=== PATIENT | female | born 1940 | race Caucasian/White ===

== ENCOUNTER 2020-09-05 06:26 | Outpatient (REF) | payer MEDICARE, SELFPAY | END 2020-09-05 06:27 | disposition home or self-care (01) | LOC: HO.LAB 06:26 | PROVIDERS: Visit Provider Internal Medicine | DX: Z20.828 Contact with and (suspected) exposure to other viral communicable diseases (principal) | CPT/HCPCS: 87635 ==

== ENCOUNTER 2021-01-23 08:40 | Outpatient (REF) | payer MEDICARE, SELFPAY ==
--- NOTE | ~2021-01-23 | MM_ITS ---
EXAMINATION: MM SCREENING DIGITAL BREAST TOMOSYNTHESIS, BILATERAL CLINICAL INFORMATION: Screening. Asymptomatic. The lifetime risk of breast cancer based on the Tyrer-Cuzick Model is 2%. COMPARISON: Mammography: 08/15/2019, 07/25/2018, 07/19/2017 TECHNIQUE: Digital breast tomosynthesis is performed in both the craniocaudal and mediolateral oblique views along with computer-aided detection (CAD). Synthesized 2D images are generated from the tomosynthesis. Additional exaggerated right CC view is provided. FINDINGS: There are scattered areas of fibroglandular density (ACR BI-RADS breast composition Category b). Breast tissue composition borders on predominantly fatty. There are no significant masses, abnormal calcifications, or other abnormalities. Background stromal markings are stable. The axilla and skin contours are unremarkable. MM/MM tomosynthesis screening BI IMPRESSION: No mammographic evidence of malignancy. ASSESSMENT: BI-RADS 1: Negative RECOMMENDATION: Routine annual mammography screening. This patient's information was entered into a reminder system with a target due date for their next mammogram.
== END 2021-01-23 08:41 | disposition home or self-care (01) ==
LOC: HO.MAMMO 08:40
PROVIDERS: PCP Internal Medicine; Visit Provider Internal Medicine
DX: Z12.31 Encounter for screening mammogram for malignant neoplasm of breast (principal)
CPT/HCPCS: 77063; 77067

== ENCOUNTER 2021-07-25 07:54 | Outpatient (REF) | payer MEDICARE, SELFPAY ==
[2021-07-25 08:59] LABS: MANUAL DIFF FLAG NO
[2021-07-25 09:17] LABS: Basophils Absolute Auto 0.1 X10*3/uL (0.0-0.2); Basophils Percent Auto 1.1 % (0-2); Eosinophils Absolute Auto 0.3 X10*3/uL (0.0-0.4); Eosinophils Percent Auto 4.9 % (0-4); Hematocrit 41.6 % (37-47); Hemoglobin 14.3 g/dl (12.0-16.0); Imm Gran Abs Auto 0.03 X10*3/uL (0.00-0.03); Imm Gran Pct Auto 0.4 % (0.0-0.4); Lymphocytes Absolute Auto 1.6 X10*3/uL (1.2-4.9); Lymphocytes Percent Auto 22.2 % (20-40); Mean Corpuscular HGB Conc 34.4 g/dl (31.0-35.0); Mean Corpuscular Hemoglobin 30.5 pg (27.0-33.0); Mean Corpuscular Volume 88.7 fL (80-98); Mean Platelet Volume 8.9 fL (9.4-12.3); Monocytes Absolute Auto 0.6 X10*3/uL (0.1-1.2); Monocytes Percent Auto 8.9 % (2-11); Neutrophils Absolute Auto 4.4 X10*3/uL (2.0-8.3); Neutrophils Percent Auto 62.5 % (45-73); Platelet Count 298 X10*3/uL (160-400); Red Blood Count 4.69 X10*6/uL (4.20-5.50); Red Cell Distribution Width 12.8 % (11.0-16.0)
[2021-07-25 09:36] LABS: Alanine Aminotransferase 20 U/L (0-31); Albumin Level 4.2 g/dL (3.5-5.0); Alkaline Phosphatase 90 U/L (39-117); Anion Gap 12 (12-20); Aspartate Amino Transferase 19 U/L (5-31); Blood Urea Nitrogen 9 mg/dL (9-16); Calcium 9.4 mg/dL (8.4-10.2); Carbon Dioxide 27 mmol/L (22-29); Chloride 101 mmol/L (96-108); Cholesterol 201 mg/dL; Estimated Glomerular Filt Rate > 60; Glucose Random 92 mg/dL (60-115); HDL Cholesterol 47 mg/dL; LDL Cholesterol Calculated 113 mg/dl; Potassium 5.2 mmol/L (3.3-5.1); Sodium 135 mmol/L (135-145); Total Protein 7.2 g/dL (6.5-8.0); Triglycerides 208 mg/dL
[2021-07-25 10:02] LABS: Free T4 (Free Thyroxine) 0.95 ng/dL (0.71-1.85); Thyroid Stimulating Hormone 3.16 uIU/mL (0.32-4.0); Vitamin D 25-OH Total 41.9 ng/mL (>30)
[2021-07-27 08:23] LABS: Folate > 20.0 ng/mL (> or = 4.0); Vitamin B12 445 pg/mL (200-900)
== END 2021-07-25 07:55 | disposition home or self-care (01) ==
LOC: HO.LAB 07:54
PROVIDERS: PCP Internal Medicine; Visit Provider Internal Medicine
DX: E78.00 Pure hypercholesterolemia, unspecified (principal); I10 Essential (primary) hypertension
CPT/HCPCS: 36415; 80053; 80061; 82306; 82607; 82746; 84439; 84443; 85025

== ENCOUNTER 2021-09-02 08:17 | Outpatient (REF) | payer MEDICARE, SELFPAY ==
--- NOTE | ~2021-09-02 | MM_ITS ---
EXAMINATION: BONE DENSITOMETRY CLINICAL INDICATION: Age-related osteoporosis without current pathological fracture. COMPARISON: Previous BD dated 12/15/2017 and baseline BD dated 03/15/2008. TECHNIQUE: Using a [employer] DXA System (software version: 13.1) manufactured by [employer], dual-energy x-ray absorptiometry was performed of the lumbar spine and left hip. The images are of good technical quality. Summary results are attached. FINDINGS: AP SPINE L1-L4: Current: BMD 0.950 g/cm2, Z-score -0.2, T-score -1.9, osteopenia, 5.0% increase from previous, 10.5% increase from baseline (<5% change is not significant). Prior: BMD 0.905 g/cm2. Baseline: BMD 0.860 g/cm2. LEFT FEMUR, NECK: Current: BMD 0.819 g/cm2, Z-score 0.5, T-score -1.6, osteopenia. Prior: BMD 0.824 g/cm2. Baseline: BMD 0.862 g/cm2. LEFT FEMUR, TOTAL: Current: BMD 0.972 g/cm2, Z-score 1.7, T-score -0.3, normal, 1.0% decrease from previous, 3.2% decrease from baseline (<5% change is not significant). Prior: BMD 0.982 g/cm2. Baseline: BMD 1.004 g/cm2. IDENTIFIED RISK FACTORS: Osteoporosis, history of fracture (adult), menopause. HISTORY OF FRACTURE: Pelvis. MEDICATIONS: Calcium supplements or multivitamin, vitamin D. MM/XR DEXA axial skeleton IMPRESSION: 1. DIAGNOSIS: Osteopenia based on the lowest T-score value of -1.9 in the lumbar spine applying World Health Organization criteria. 2. 10-YEAR FRACTURE RISK PREDICTION, FRAX: Major osteoporotic fracture (clinical spine, forearm, hip or shoulder) 19.8%. Hip fracture 4.6%. 3. Treatment Recommendations: NOF guidelines recommend consideration for treatment in postmenopausal women and men age 50 and older presenting with the following: -A hip or vertebral (clinical or morphometric) fracture. -T-score less than or equal to -2.5 at the femoral neck or spine after appropriate evaluation to exclude secondary causes. -Low bone mass at the hip or spine and a 10-year fracture probability by FRAX of greater than or equal to 3% for hip fracture or greater than or equal to 20% for major osteoporotic fracture based on the [place] adapted WHO algorithm. 4. Other Recommendations: All treatment decisions require clinical judgment and consideration of individual patient factors, including patient preferences, comorbidities, previous drug use, risk factors not captured in the FRAX model (e.g. frailty, falls, vitamin D deficiency, increased bone turnover, interval significant decline in bone density) and possible under or overestimation of fracture risk by FRAX. Additional medical evaluation for secondary cause of low bone mineral density may be appropriate. FUTURE SCAN RECOMMENDATION: People with diagnosed cases of osteoporosis or at high risk for fracture should have regular bone mineral density tests. For patients eligible for Medicare, routine testing is allowed once every 2 years. The testing frequency can be increased to one year for patients who have rapidly progressing disease, those who are receiving or discontinuing medical therapy to restore bone mass, or have additional risk factors.
== END 2021-09-02 08:18 | disposition home or self-care (01) ==
LOC: HO.MAMMO 08:17
PROVIDERS: PCP Internal Medicine; Visit Provider Internal Medicine
DX: Z13.820 Encounter for screening for osteoporosis (principal); M81.0 Age-related osteoporosis without current pathological fracture; M85.80 Other specified disorders of bone density and structure, unspecified site; Z78.0 Asymptomatic menopausal state; Z87.81 Personal history of (healed) traumatic fracture; Z79.899 Other long term (current) drug therapy
CPT/HCPCS: 77080

== ENCOUNTER 2022-02-05 08:28 | Outpatient (REF) | payer MEDICARE, SELFPAY ==
--- NOTE | ~2022-02-05 | MM_ITS ---
EXAMINATION: MM SCREENING DIGITAL BREAST TOMOSYNTHESIS, BILATERAL CLINICAL INFORMATION: Screening. Asymptomatic. The lifetime risk of breast cancer based on the Tyrer-Cuzick Model is 1%. COMPARISON: Mammography: January 23, 2021 and studies dating back to June 10, 2014 TECHNIQUE: Digital breast tomosynthesis is performed in both the craniocaudal and mediolateral oblique views along with computer-aided detection (CAD). Synthesized 2D images are generated from the tomosynthesis. FINDINGS: There are scattered areas of fibroglandular density (ACR BI-RADS breast composition Category b). There are no significant masses, abnormal calcifications, or other abnormalities. MM/MM tomosynthesis screening BI IMPRESSION: There are no significant changes from prior study. ASSESSMENT: BI-RADS 1: Negative RECOMMENDATION: Routine annual mammography screening. This patient's information was entered into a reminder system with a target due date for their next mammogram.
== END 2022-02-05 08:29 | disposition home or self-care (01) ==
LOC: HO.MAMMO 08:28
PROVIDERS: Visit Provider Internal Medicine
DX: Z12.31 Encounter for screening mammogram for malignant neoplasm of breast (principal)
CPT/HCPCS: 77063; 77067

== ENCOUNTER 2022-06-03 11:42 | Outpatient (REF) | payer MEDICARE, SELFPAY ==
[2022-06-03 12:21] LABS: Hematocrit 39.8 % (37.0-47.0); Hemoglobin 13.8 g/dl (12.0-16.0); Mean Corpuscular HGB Conc 34.7 g/dl (31.0-35.0); Mean Corpuscular Hemoglobin 30.6 pg (27.0-33.0); Mean Corpuscular Volume 88.2 fL (80.0-98.0); Mean Platelet Volume 8.6 fL (9.4-12.3); Platelet Count 258 X10*3/uL (160-400); Red Blood Count 4.51 X10*6/uL (4.20-5.50); Red Cell Distribution Width 12.6 % (11.0-16.0); White Blood Count 7.7 X10*3/uL (4.8-10.8)
[2022-06-03 13:16] LABS: Alanine Aminotransferase 18 U/L (0-31); Albumin Level 4.2 g/dL (3.5-5.0); Alkaline Phosphatase 89 U/L (39-117); Anion Gap 11 (12-20); Aspartate Amino Transferase 20 U/L (5-31); Bilirubin Direct 0.3 mg/dL (0.0-0.5); Bilirubin Total 0.8 mg/dL (0.0-1.0); Blood Urea Nitrogen 14 mg/dL (9-16); Calcium 9.5 mg/dL (8.4-10.2); Carbon Dioxide 26 mmol/L (22-29); Chloride 100 mmol/L (96-108); Cholesterol 209 mg/dL; Estimated Glomerular Filt Rate > 60; Glucose Random 92 mg/dL (60-115); HDL Cholesterol 49 mg/dL; LDL Cholesterol Calculated 122 mg/dl; Potassium 4.9 mmol/L (3.3-5.1); Sodium 132 mmol/L (135-145); Triglycerides 193 mg/dL
[2022-06-03 13:35] LABS: Thyroid Stimulating Hormone 1.96 uIU/mL (0.32-4.0)
== END 2022-06-03 11:43 | disposition home or self-care (01) ==
LOC: HO.LAB 11:42
PROVIDERS: PCP Internal Medicine; Visit Provider Internal Medicine
DX: I10 Essential (primary) hypertension (principal); E78.00 Pure hypercholesterolemia, unspecified
CPT/HCPCS: 36415; 80048; 80061; 80076; 84443; 85027

== ENCOUNTER 2022-06-14 09:33 | Day surgery (SDC) | payer MEDICARE, SELFPAY ==
[2022-06-07 14:38] VITALS: BMI 27.5
--- NOTE | 2022-06-10 10:47 | MHC.SHP ---
Pre-Procedural Eval Section A Date of Service: 06/10/22 The patient is an INPATIENT: No Changes since office visit: No Cold of Flu in the past 2 weeks, No New Medical Problems, No Changes in Medication and No Patient answered all questions The History & Physical has been completed within 30 days and I have reviewed it.: Yes Section B Chief Complaint: Age-related nuclear cataract, left eye Allergies: Allergies Allergy/AdvReac Type Severity Reaction Status Date / Time Sulfa (Sulfonamide Allergy Intermediate RASH Verified 06/03/22 10:22 Antibiotics) [SULFA (SULFONAMIDE ANTIBIOTICS)] Plan Diagnosis/Plan: Unchanged I have reviewed the history and physical and performed a pertinent physical examination on my patient. No changes have occurred unless specified.
--- NOTE | 2022-06-11 09:52 | P.CONAN_ITS ---
Documented by User: Georgie Arora NP 06/11/22 09:53 HPI - Anesthesia Eval Consult details Narrative: 81yo F for Left Cataract Extraction IOL Insertion PCP cleared No prev cataract on record [facility] Active Problems Active Problems: All Active Problems (Updated 06/04/22 @ 13:41 by Osmani Pace MD) Osteopenia (Acute) Preoperative clearance (Acute) Bilateral cataracts (Acute) GERD (gastroesophageal reflux disease) (Acute) Hypertension (Acute) Hypercholesterolemia (Acute) Past Medical History Medical History Diverticulosis GERD (gastroesophageal reflux disease) Heart murmur Hypercholesterolemia Hypertension Retinal detachment Surgical History Surgical History H/O colonoscopy H/O eye surgery History of bilateral knee replacement History of dilatation and curettage History of surgery Hx of appendectomy Hx of cholecystectomy Social History Social History Housing: House Alcohol intake: current Alcohol intake frequency: a few times a week Alcohol type: wine Patient Tobacco Use Status: Never used Tobacco e-Cigarette/Vaping Use: Never Used Second Hand Smoke Exposure: No Use of substances other than those prescribed or required for medical reasons: No Advance Directives: No (unknown-VM message left) Advance Directives Information Provided: Yes (brochure mailed) Advance Directives on File: No service: No Current occupational status: retired Cognitive needs: No Hearing needs: No Vision needs: No Meds Allergies Allergy/AdvReac Type Severity Reaction Status Date / Time Sulfa (Sulfonamide Allergy Intermediate RASH Verified 06/03/22 10:22 Antibiotics) [SULFA (SULFONAMIDE ANTIBIOTICS)] Home Medications Medication Instructions Recorded Confirmed Last Taken Type calcium carbonate 600 mg-vitamin 1 cap PO DAILY 01/28/21 06/07/22 Unknown History D3 12.5 mcg (500 unit) capsule (Calcium 600 with Vitamin D3) htvgtpdnspiq-osdmhgjd-tzemijp-folic 1 tab PO DAILY 01/28/21 06/07/22 Unknown History acid 400 mcg-vit K1 20 mcg tablet (One-A-Day Women's 50 Plus) Exam Exam Date and Time: June 11, 2022 0952 Height,Weight and Vital Signs: Height 5 ft 3 in Weight 70.477 kg Assessment and Plan Assessment Anesthesia Assessment: Chart Reviewed Documented by User: Marily Massey MD 06/14/22 11:24 [facility] Active Problems Active Problems: All Active Problems (Updated 06/04/22 @ 13:41 by Osmani Pace MD) Osteopenia (Acute) Preoperative clearance (Acute) Bilateral cataracts (Acute) GERD (gastroesophageal reflux disease) (Acute) Hypertension (Acute) Hypercholesterolemia (Acute) Advanced age Past Medical History Medical History Diverticulosis GERD (gastroesophageal reflux disease) Heart murmur Hypercholesterolemia Hypertension Retinal detachment Family History Family history of problems with anesthesia: No Surgical History Surgical History H/O colonoscopy H/O eye surgery History of bilateral knee replacement History of dilatation and curettage History of surgery Hx of appendectomy Hx of cholecystectomy History of Problems with Anesthesia: No Social History Social History Housing: House Alcohol intake: current Alcohol intake frequency: a few times a week Alcohol type: wine Patient Tobacco Use Status: Never used Tobacco e-Cigarette/Vaping Use: Never Used Second Hand Smoke Exposure: No Use of substances other than those prescribed or required for medical reasons: No Advance Directives: No (unknown-VM message left) Advance Directives Information Provided: Yes (brochure mailed) Advance Directives on File: No service: No Current occupational status: retired Cognitive needs: No Hearing needs: No Vision needs: No Meds Allergies Allergy/AdvReac Type Severity Reaction Status Date / Time Sulfa (Sulfonamide Allergy Intermediate RASH Verified 06/03/22 10:22 Antibiotics) [SULFA (SULFONAMIDE ANTIBIOTICS)] Home Medications Medication Instructions Recorded Confirmed Last Taken Type calcium carbonate 600 mg-vitamin 1 cap PO DAILY 01/28/21 06/07/22 Unknown History D3 12.5 mcg (500 unit) capsule (Calcium 600 with Vitamin D3) vqollzchwsqa-ovndcglm-ryiajhk-folic 1 tab PO DAILY 01/28/21 06/07/22 Unknown History acid 400 mcg-vit K1 20 mcg tablet (One-A-Day Women's 50 Plus) Exam Height,Weight and Vital Signs: Height 5 ft 3 in Weight 70.477 kg Vital Signs Temp Pulse Resp BP Pulse Ox O2 Del Method 06/14/22 11:03 61 183/85 H 06/14/22 10:59 65 208/98 H 06/14/22 10:54 96.7 F L 68 16 200/98 H 96 Room Air Airway Mallampati Class: II TM Dist: >3cm Neck ROM: Full Loose/Missing/Broken Teeth: No (All teeth intact per patient) Heart: RRR + murmur Lungs: CTAB Assessment and Plan Assessment Anesthesia Assessment: Anesthesia Plan Discussed Final Anesthetic Review Family History of Problems with Anesthesia: No History of Problems with Anesthesia: No NPO: Yes ASA Class: III Final Preanesthetic Review: No Changes in Pt Med Stat, Meds/Allgs Chart Reviewed, Consent Obtained/Reviewed and Anes Risks/Benef Reviewed Patient Risk: Intermediate Procedure Risk: Low Assessment/Block/Sedation in SS: Assess/Block/Sedation-SS Anesthetic Plan Anesthetic Plan: MAC: Disposition: Standard PACU
[2022-06-14 10:54] VITALS: BP 200/98; PULSE 68; RESP 16; TEMP 35.9; O2SAT 96
[2022-06-14 10:59] VITALS: BP 208/98; PULSE 65
[2022-06-14 11:03] VITALS: BP 183/85; PULSE 61
[2022-06-14] MEDS: Tetracaine HCl/PF 0.5% Oph Sol 4 ML DROPS 1 DROP EYE-LEFT (11:04)
[2022-06-14] MEDS: Tropicamide 1 % Ophth Sol 3 ML BTL 1 DROP EYE-LEFT ×3 (11:05→11:16)
[2022-06-14] MEDS: Cyclopentolate 1 % Ophth Sol 2 ML DRPBTL 1 DROP EYE-LEFT ×3 (11:06→11:17)
[2022-06-14] MEDS: Lactated Ringers 500 ML 50 ML IV (11:10)
[2022-06-14] MEDS: Phenylephrine HCL 2.5% Oph SoL 2 ML BOTTLE 1 DROP EYE-LEFT ×3 (11:10→11:19)
--- NOTE | 2022-06-14 12:15 | HO.PNOPHT ---
Ophthalmology Procedure Procedure Date of Service: 06/14/22 Ophthalmology Viscoelastic: Healjose Duet Dual Pack Pro Ophthalmology Lenses: TECNIS [id number] (16.5) Procedure Notes: PREOPERATIVE DIAGNOSIS: Decreased visual acuity left eye secondary to cataract POSTOPERATIVE DIAGNOSIS: Same PROCEDURE: Left cataract extraction with intraocular lens insertion SURGEON: Kartik Amador M.D. ANESTHESIA: Topical/MAC ESTIMATED BLOOD LOSS: None COMPLICATIONS: None After obtaining informed consent, the patient was brought to the operation room suite and placed in the supine position. After adequate sedation per anesthesia, topical drops of Tetracaine were given to the left eye. The eye was then prepped and draped in the usual sterile fashion. The operating room microscope was then positioned over the operative eye and a lid speculum placed. A paracentesis was created. Viscoelastic was then instilled into the anterior chamber. A three plane incision was then created temporally, utilizing a 2.85 mm keratome. Capsulotomy forceps were then utilized to create a circular tear capsulotomy. Hydrodissection and hydrodelineation were carried out until adequate mobilization of the nucleus occurred. Phacoemulsification was then utilized to remove the dense central nucleus followed by removal of the cortical material utilizing the automated aspiration irrigation unit. Viscoat elastic was instilled into the posterior capsular bag followed by placement of a posterior chamber intraocular lens without difficulty. The residual Viscoat elastic was then removed utilizing the automated IA machine. The wound was check and found to be watertight. The patient tolerated the procedure well and the lid speculum was removed. Intracameral injection of Vigamox 0.1 mL followed by a subtenon injection of Kenalog-40 0.2 mL were administered. The patient will be seen in the a.m.
[2022-06-14 12:44] VITALS: BP 112/71; PULSE 64; RESP 16; TEMP 36.1; O2SAT 97
== END 2022-06-14 13:04 | disposition home or self-care (01) ==
PROVIDERS: PCP Internal Medicine; Visit Provider Ophthalmology
PROC: (CPT 66985; principal; 2022-06-14 12:10)
DX: H25.12 Age-related nuclear cataract, left eye (principal); H52.4 Presbyopia; H33.001 Unspecified retinal detachment with retinal break, right eye; I10 Essential (primary) hypertension; E78.00 Pure hypercholesterolemia, unspecified; M19.90 Unspecified osteoarthritis, unspecified site; Z79.899 Other long term (current) drug therapy; Z88.2 Allergy status to sulfonamides; Z96.653 Presence of artificial knee joint, bilateral
CPT/HCPCS: 66984; J2250; J3010; J3300; V2632

== ENCOUNTER 2022-06-21 09:46 | Day surgery (SDC) | payer MEDICARE, SELFPAY ==
[2022-06-07 14:41] VITALS: BMI 27.5
--- NOTE | 2022-06-17 09:56 | MHC.SHP ---
Pre-Procedural Eval Section A Date of Service: 06/17/22 The patient is an INPATIENT: No Changes since office visit: No Cold of Flu in the past 2 weeks, No New Medical Problems, No Changes in Medication and No Patient answered all questions The History & Physical has been completed within 30 days and I have reviewed it.: Yes Section B Chief Complaint: Age-related nuclear cataract, right eye Allergies: Allergies Allergy/AdvReac Type Severity Reaction Status Date / Time Sulfa (Sulfonamide Allergy Intermediate RASH Verified 06/03/22 10:22 Antibiotics) [SULFA (SULFONAMIDE ANTIBIOTICS)] Plan Diagnosis/Plan: Unchanged I have reviewed the history and physical and performed a pertinent physical examination on my patient. No changes have occurred unless specified.
--- NOTE | 2022-06-18 10:26 | HO.ANESPROP2 ---
Documented by User: Georgie Arora NP 06/18/22 10:26 HPI - Anesthesia Eval Consult details Narrative: 81yo F for Right Cataract Extraction IOL Insertion PCP cleared Left eye 06/14/22 with MAC: Fent 50, Midaz 1 PMFSH Active Problems Active Problems: All Active Problems (Updated 06/14/22 @ 10:45 by Demetra Willson RN) Osteopenia (Acute) Preoperative clearance (Acute) Bilateral cataracts (Acute) GERD (gastroesophageal reflux disease) (Acute) Hypertension (Acute) Hypercholesterolemia (Acute) Past Medical History Medical History Diverticulosis GERD (gastroesophageal reflux disease) Heart murmur Hypercholesterolemia Hypertension Retinal detachment Family History Family history of problems with anesthesia: No Surgical History Surgical History H/O colonoscopy H/O eye surgery History of bilateral knee replacement History of dilatation and curettage History of surgery Hx of appendectomy Hx of cholecystectomy History of Problems with Anesthesia: No Social History Social History Housing: House Alcohol intake: current Alcohol intake frequency: a few times a week Alcohol type: wine Patient Tobacco Use Status: Never used Tobacco e-Cigarette/Vaping Use: Never Used Second Hand Smoke Exposure: No Use of substances other than those prescribed or required for medical reasons: No Advance Directives: No (unknown-VM message left) Advance Directives Information Provided: Yes (brochure mailed) Advance Directives on File: No Nutrition Risks: Surgical patient >75years service: No Current occupational status: retired Cognitive needs: No Hearing needs: No Vision needs: No Meds Allergies Allergy/AdvReac Type Severity Reaction Status Date / Time Sulfa (Sulfonamide Allergy Intermediate RASH Verified 06/03/22 10:22 Antibiotics) [SULFA (SULFONAMIDE ANTIBIOTICS)] Home Medications Medication Instructions Recorded Confirmed Last Taken Type calcium carbonate 600 mg-vitamin 1 cap PO DAILY 01/28/21 06/07/22 Unknown History D3 12.5 mcg (500 unit) capsule (Calcium 600 with Vitamin D3) gtveywhekwzm-pojqtfdw-ksbzuft-folic 1 tab PO DAILY 01/28/21 06/07/22 Unknown History acid 400 mcg-vit K1 20 mcg tablet (One-A-Day Women's 50 Plus) Exam Exam Date and Time: June 18, 2022 1026 Height,Weight and Vital Signs: Height 5 ft 3 in Weight 70.477 kg Assessment and Plan Assessment Anesthesia Assessment: Chart Reviewed Final Anesthetic Review Family History of Problems with Anesthesia: No History of Problems with Anesthesia: No Documented by User: Marily Massey MD 06/21/22 12:18 [facility] Past Medical History Medical History Diverticulosis GERD (gastroesophageal reflux disease) Heart murmur Hypercholesterolemia Hypertension Retinal detachment Surgical History Surgical History H/O colonoscopy H/O eye surgery History of bilateral knee replacement History of dilatation and curettage History of surgery Hx of appendectomy Hx of cholecystectomy Social History Social History Housing: House Alcohol intake: current Alcohol intake frequency: a few times a week Alcohol type: wine Patient Tobacco Use Status: Never used Tobacco e-Cigarette/Vaping Use: Never Used Second Hand Smoke Exposure: No Use of substances other than those prescribed or required for medical reasons: No Advance Directives: No (unknown-VM message left) Advance Directives Information Provided: Yes (brochure mailed) Advance Directives on File: No Nutrition Risks: Surgical patient >75years service: No Current occupational status: retired Cognitive needs: No Hearing needs: No Vision needs: No Meds Allergies Allergy/AdvReac Type Severity Reaction Status Date / Time Sulfa (Sulfonamide Allergy Intermediate RASH Verified 06/03/22 10:22 Antibiotics) [SULFA (SULFONAMIDE ANTIBIOTICS)] Home Medications Medication Instructions Recorded Confirmed Last Taken Type calcium carbonate 600 mg-vitamin 1 cap PO DAILY 01/28/21 06/07/22 Unknown History D3 12.5 mcg (500 unit) capsule (Calcium 600 with Vitamin D3) tewsgyntihtb-zzsqkojy-swbowfo-folic 1 tab PO DAILY 01/28/21 06/07/22 Unknown History acid 400 mcg-vit K1 20 mcg tablet (One-A-Day Women's 50 Plus) Exam Height,Weight and Vital Signs: Height 5 ft 3 in Weight 70.477 kg Vital Signs Temp Pulse Resp BP Pulse Ox O2 Del Method 06/21/22 11:42 97.3 F 58 16 166/89 H 99 Room Air Airway Mallampati Class: II TM Dist: >3cm Neck ROM: Full Loose/Missing/Broken Teeth: No Heart: RRR+murmur Lungs: CTAB Assessment and Plan Assessment Anesthesia Assessment: Anesthesia Plan Discussed Final Anesthetic Review NPO: Yes ASA Class: III Final Preanesthetic Review: No Changes in Pt Med Stat, Meds/Allgs Chart Reviewed, Consent Obtained/Reviewed and Anes Risks/Benef Reviewed Patient Risk: Intermediate Procedure Risk: Low Assessment/Block/Sedation in SS: Assess/Block/Sedation-SS Anesthetic Plan Anesthetic Plan: MAC: Disposition: Standard PACU
[2022-06-21 11:42] VITALS: BP 166/89; PULSE 58; RESP 16; TEMP 36.3; O2SAT 99
[2022-06-21] MEDS: Cyclopentolate 1 % Ophth Sol 2 ML DRPBTL 1 DROP EYE-RIGHT ×3 (11:48→11:55)
[2022-06-21] MEDS: Tropicamide 1 % Ophth Sol 3 ML BTL 1 DROP EYE-RIGHT ×3 (11:49→11:56)
[2022-06-21] MEDS: Phenylephrine HCL 2.5% Oph SoL 2 ML BOTTLE 1 DROP EYE-RIGHT ×3 (11:51→11:58)
[2022-06-21] MEDS: Lactated Ringers 500 ML 50 ML IV (12:18)
--- NOTE | 2022-06-21 12:33 | HO.PNOPHT ---
Ophthalmology Procedure Procedure Date of Service: 06/21/22 Ophthalmology Viscoelastic: Neha Kaurt Dual Pack Pro Ophthalmology Lenses: TECSARITHA [id number] (16) Procedure Notes: PREOPERATIVE DIAGNOSIS: Decreased visual acuity right eye secondary to cataract POSTOPERATIVE DIAGNOSIS: Same PROCEDURE: Right cataract extraction with intraocular lens insertion SURGEON: Kartik Amador M.D. ANESTHESIA: Topical/MAC ESTIMATED BLOOD LOSS: None COMPLICATIONS: None After obtaining informed consent, the patient was brought to the operating room suite and placed in the supine position. After adequate sedation per anesthesia, topical drops of Tetracaine were given to the right eye. The eye was then prepped and draped in the usual sterile fashion. The operating room microscope was then positioned over the operative eye and a lid speculum placed. A paracentesis was created. Viscoelastic was then instilled into the anterior chamber. A three plane incision was then created temporally, utilizing a 2.85 mm keratome. Capsulotomy forceps were then utilized to create a circular tear capsulotomy. Hydrodissection and hydrodelineation were carried out until adequate mobilization of the nucleus occurred. Phacoemulsification was then utilized to remove the dense central nucleus followed by removal of the cortical material utilizing the automated aspiration irrigation unit. Viscoelastic was instilled into the posterior capsular bag followed by placement of a posterior chamber intraocular lens without difficulty. The residual Viscoelastic was then removed utilizing the automated IA machine. The wound was checked and found to be watertight. The patient tolerated the procedure well and the lid speculum was removed. Intracameral injection of Vigamox 0.1 mL followed by a subtenon injection of Kenalog-40 0.2 mL were administered. The patient will be seen in the a.m.
[2022-06-21 13:04] VITALS: BP 115/61; PULSE 64; RESP 16; TEMP 36.3; O2SAT 98
== END 2022-06-21 13:12 | disposition home or self-care (01) ==
PROVIDERS: PCP Internal Medicine; Visit Provider Ophthalmology
PROC: (CPT 66985; principal; 2022-06-21 12:40)
DX: H25.11 Age-related nuclear cataract, right eye (principal); H52.4 Presbyopia; H33.001 Unspecified retinal detachment with retinal break, right eye; H35.361 Drusen (degenerative) of macula, right eye; I10 Essential (primary) hypertension; E78.00 Pure hypercholesterolemia, unspecified; Z79.899 Other long term (current) drug therapy; Z88.2 Allergy status to sulfonamides; Z96.653 Presence of artificial knee joint, bilateral
CPT/HCPCS: 66984; J2250; J3010; J3300; V2632

== ENCOUNTER 2022-08-10 07:22 | Outpatient (REF) | payer MEDICARE, SELFPAY ==
[2022-08-10 07:38] LABS: MANUAL DIFF FLAG NO
[2022-08-10 08:03] LABS: Basophils Absolute Auto 0.1 X10*3/uL (0.0-0.2); Basophils Percent Auto 0.9 % (0-2); Eosinophils Absolute Auto 0.3 X10*3/uL (0.0-0.4); Hematocrit 40.3 % (37.0-47.0); Imm Gran Abs Auto 0.04 X10*3/uL (0.00-0.03); Imm Gran Pct Auto 0.5 % (0.0-0.4); Lymphocytes Absolute Auto 1.8 X10*3/uL (1.2-4.9); Lymphocytes Percent Auto 23.7 % (20-40); Mean Corpuscular HGB Conc 34.7 g/dl (31.0-35.0); Mean Corpuscular Hemoglobin 30.8 pg (27.0-33.0); Mean Corpuscular Volume 88.8 fL (80.0-98.0); Mean Platelet Volume 8.6 fL (9.4-12.3); Monocytes Absolute Auto 0.7 X10*3/uL (0.1-1.2); Monocytes Percent Auto 8.7 % (2-11); Neutrophils Absolute Auto 4.7 x10*3/uL (2.0-8.3); Neutrophils Percent Auto 62.2 % (45-73); Platelet Count 271 X10*3/uL (160-400); Red Blood Count 4.54 X10*6/uL (4.20-5.50); Red Cell Distribution Width 12.8 % (11.0-16.0); White Blood Count 7.6 X10*3/uL (4.8-10.8)
[2022-08-10 08:20] LABS: Alanine Aminotransferase 23 U/L (0-31); Albumin Level 4.2 g/dL (3.5-5.0); Alkaline Phosphatase 95 U/L (39-117); Anion Gap 14 (12-20); Aspartate Amino Transferase 21 U/L (5-31); Bilirubin Total 0.9 mg/dL (0.0-1.0); Blood Urea Nitrogen 12 mg/dL (9-16); Carbon Dioxide 27 mmol/L (22-29); Chloride 95 mmol/L (96-108); Cholesterol 211 mg/dL; Estimated Glomerular Filt Rate > 60; Glucose Random 99 mg/dL (60-115); HDL Cholesterol 54 mg/dL; LDL Cholesterol Calculated 130 mg/dl; Sodium 131 mmol/L (135-145); Triglycerides 135 mg/dL
[2022-08-10 08:41] LABS: Free T4 (Free Thyroxine) 0.98 ng/dL (0.71-1.85); Thyroid Stimulating Hormone 3.58 uIU/mL (0.32-4.0); Vitamin D 25-OH Total 43.2 ng/mL (>30)
[2022-08-10 09:44] LABS: Folate > 20.0 ng/mL (> or = 4.0); Vitamin B12 343 pg/mL (200-900)
== END 2022-08-10 07:23 | disposition home or self-care (01) ==
LOC: HO.LAB 07:22
PROVIDERS: PCP Internal Medicine; Visit Provider Internal Medicine
DX: E78.00 Pure hypercholesterolemia, unspecified (principal)
CPT/HCPCS: 36415; 80053; 80061; 82306; 82607; 82746; 84439; 84443; 85025

== ENCOUNTER 2023-03-14 08:31 | Outpatient (REF) | payer MEDICARE, SELFPAY ==
--- NOTE | ~2023-03-14 | MM_ITS ---
EXAMINATION: MM SCREENING DIGITAL BREAST TOMOSYNTHESIS, BILATERAL CLINICAL INFORMATION: Screening. Asymptomatic. COMPARISON: Prior mammography exams, most recent 02/05/2022. TECHNIQUE: Digital breast tomosynthesis is performed in both the craniocaudal and mediolateral oblique views along with computer-aided detection (CAD). Synthesized 2D images are generated from the tomosynthesis. Additional bilateral exaggerated CC views are provided. FINDINGS: There are scattered areas of fibroglandular density (ACR BI-RADS breast composition Category b). There is a small oval nodule around 5 mm mid 9:00 right breast, more conspicuous on current exam, possibly a cyst. Margins are incompletely visualized. Patient will be recalled for additional imaging. The remainder of the bilateral breasts show no significant changes from prior studies. No developing density or architectural abnormality or abnormal calcifications. The axilla and skin contours are unremarkable. MM/MM tomosynthesis screening BI IMPRESSION: Right: -Small oval nodule mid 9:00, more conspicuous on current exam, possibly a cyst. Left: -No mammographic evidence of malignancy. ASSESSMENT: BI-RADS 0: Incomplete - Need Additional Imaging Evaluation RECOMMENDATION: 1. Additional views right breast for margins (spot CC, spot ML). 2. Targeted ultrasound right breast. 3. Radiology department staff will contact the patient for additional imaging. This patient's information was entered into a reminder system with a target due date for their next mammogram.
== END 2023-03-14 08:32 | disposition home or self-care (01) ==
LOC: HO.MAMMO 08:31
PROVIDERS: PCP Internal Medicine; Visit Provider Internal Medicine
DX: Z12.31 Encounter for screening mammogram for malignant neoplasm of breast (principal)
CPT/HCPCS: 77063; 77067

== ENCOUNTER 2023-04-04 13:40 | Outpatient (REF) | payer MEDICARE, SELFPAY ==
--- NOTE | ~2023-04-04 | MM_ITS ---
EXAMINATION: MM DIAGNOSTIC DIGITAL BREAST TOMOSYNTHESIS, RIGHT US DIAGNOSTIC ULTRASOUND BREAST, RIGHT CLINICAL INFORMATION: Recall from screening for smooth oval nodular asymmetry mid 9:00 right breast, better appreciated on recent imaging, possibly a cyst. COMPARISON: Prior mammography exams, including most recent 03/14/2023. TECHNIQUE: Digital breast tomosynthesis is performed. 2D images are generated from the tomosynthesis. The following views are obtained: Spot CC, spot ML. Ultrasound right breast is performed using grayscale imaging and color Doppler without and with harmonics. FINDINGS: There are scattered areas of fibroglandular density (ACR BI-RADS breast composition Category b). The additional views show small smooth nodularity anterior 8:00 position similar to prior exam. No spiculation or associated calcification. Ultrasound demonstrates benign grouped microcysts 8:00 position 3 cm from nipple under 1 cm in overall size. There is increased through-transmission of sound. No solid mass or architectural abnormality. Results are discussed with the patient at time of visit. MM/MM tomosynthesis added views R IMPRESSION: -Benign smooth nodularity anterior to 8:00 similar to prior exam. -Benign-appearing grouped microcysts anterior 8:00 right breast. ASSESSMENT: BI-RADS 2: Benign RECOMMENDATION: Routine annual mammography screening. This patient's information was entered into a reminder system with a target due date for their next mammogram.
== END 2023-04-04 13:41 | disposition home or self-care (01) ==
LOC: HO.MAMMO 13:40
PROVIDERS: PCP Internal Medicine; Visit Provider Internal Medicine
DX: N63.15 Unspecified lump in the right breast, overlapping quadrants (principal)
CPT/HCPCS: 76642; 77061; 77065

== ENCOUNTER 2023-05-31 14:10 | Outpatient (REF) | payer MEDICARE, SELFPAY | END 2023-05-31 14:11 | disposition home or self-care (01) | LOC: HO.SH 14:10 | PROVIDERS: Visit Provider Internal Medicine | DX: Z01.118 Encounter for examination of ears and hearing with other abnormal findings (principal); H90.3 Sensorineural hearing loss, bilateral | CPT/HCPCS: 92557 ==

== ENCOUNTER 2023-07-05 13:17 | Outpatient (REF) | payer SELFPAY ==
--- NOTE | 2023-07-05 14:25 | MHC.AU.MED ---
Medical Clearance for Hearing Instrumentation Date: 07/05/23 Patient Name: Marily Llanos Date of : 1940 Primary Care Provider: Jessica Martinez MD We have seen your patient on 07/05/23 and have determined that they are a candidate for amplification (See accompanying report). Specifically, they would benefit from: Hearing aid use in both ears There is a statute that addresses Medical Evaluation Requirements prior to fitting a patient with a hearing aid. According to [place] statute 265 CMR:6.03(1), (a) General. Except as provided in 265 CMR 6.03(1)(b), a networks software consultant shall not sell a hearing aid unless the prospective user has presented to the networks software consultant a written statement signed by a licensed physician that states that the patient's hearing loss has been medically evaluated and the patient may be considered a candidate for a hearing aid. The medical evaluation must have taken place within the preceding six months. Please note: Due to the [place] Statute referenced above, we cannot accept a signature other than that of a licensed physician. ARBORIST REPRESENTATIVE and PA signatures cannot be accepted. I am in agreement with the above recommendation. There is no medical contraindication for hearing instrumentation. Physician Signature Date Physician Name (Printed)
--- NOTE | 2023-07-06 11:48 | MHC.AU.HA1 ---
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 She is noticing that she often asks for frequent repetition and has trouble hearing the television unless at an elevated volume level. Marily has an active lifestyle, often going to family gatherings, restaurants, etc. She is interested in a [id number]-ear hearing aid with rechargeability. Marily is not particularly interested in bluetooth capabilities but she has an iPhone for compatibility with Oticon hearing aids if she decides to try the bluetooth in the future. Hearing Aid Prescription: Based on the individual?s shared listening needs, communication environments, dexterity, desire for connectivity, and personal preferences, the following prescription for amplification has been made: Right ear: Make, Model, Color: Oticon Real 2 miniRITE-R Color: Chroma Beige Battery Size: Rechargeable Antique Refinisher/Slim Tube: 2/85 Type of Earmold/Dome/CShell/SlimTip: 6mm double white Left ear: Left ear prescription to be same as Right Hearing Aid above: Make, Model, Color: Oticon Real 2 miniRITE-R Color: Chroma Beige Battery Size: Rechargeable Antique Refinisher/Slim Tube: 2/85 Type of Earmold/Dome/CShell/SlimTip: 6mm double white Plan of Care: Patient wishes to purchase hearing aids as prescribed Action Taken/Action Needed: Medical Clearance to be requested from PCP/ENT. Hearing Instrument Fitting to be scheduled when materials arrive Primary Diagnosis: H90.3 Bilateral Sensorineural Hearing Loss Signature: Provider: Paco Tavera, [facility]
== END 2023-07-05 13:18 | disposition home or self-care (01) ==
LOC: HO.HAP 13:17
PROVIDERS: Visit Provider Internal Medicine
DX: Z46.1 Encounter for fitting and adjustment of hearing aid (principal); H90.3 Sensorineural hearing loss, bilateral
CPT/HCPCS: 92590

== ENCOUNTER 2023-08-16 07:23 | Outpatient (REF) | payer MEDICARE, SELFPAY ==
[2023-08-16 07:34] LABS: MANUAL DIFF FLAG NO
[2023-08-16 08:11] LABS: Basophils Absolute Auto 0.1 X10*3/uL (0.0-0.2); Basophils Percent Auto 1.2 % (0-2); Eosinophils Absolute Auto 0.3 X10*3/uL (0.0-0.4); Eosinophils Percent Auto 5.1 % (0-4); Hematocrit 41.2 % (37.0-47.0); Hemoglobin 13.9 g/dl (12.0-16.0); Imm Gran Abs Auto 0.03 X10*3/uL (0.00-0.03); Imm Gran Pct Auto 0.5 % (0.0-0.4); Lymphocytes Absolute Auto 1.7 X10*3/uL (1.2-4.9); Lymphocytes Percent Auto 25.1 % (20-40); Mean Corpuscular HGB Conc 33.7 g/dl (31.0-35.0); Mean Corpuscular Hemoglobin 30.4 pg (27.0-33.0); Mean Corpuscular Volume 90.2 fL (80.0-98.0); Monocytes Absolute Auto 0.6 X10*3/uL (0.1-1.2); Monocytes Percent Auto 9.2 % (2-11); Neutrophils Absolute Auto 3.9 x10*3/uL (2.0-8.3); Neutrophils Percent Auto 58.9 % (45-73); Platelet Count 288 X10*3/uL (160-400); Red Blood Count 4.57 X10*6/uL (4.20-5.50); Red Cell Distribution Width 12.8 % (11.0-16.0); White Blood Count 6.7 X10*3/uL (4.8-10.8)
[2023-08-16 08:29] LABS: Alanine Aminotransferase 18 U/L (0-31); Alkaline Phosphatase 87 U/L (39-117); Anion Gap 14 (12-20); Aspartate Amino Transferase 16 U/L (5-31); Bilirubin Total 0.6 mg/dL (0.0-1.0); Blood Urea Nitrogen 12 mg/dL (9-16); Calcium 9.3 mg/dL (8.4-10.2); Carbon Dioxide 24 mmol/L (22-29); Chloride 102 mmol/L (96-108); Cholesterol 196 mg/dL (<200); Estimated Glomerular Filt Rate > 60; Glucose Random 95 mg/dL (60-115); HDL Cholesterol 52 mg/dL (>40); LDL Cholesterol Calculated 114 mg/dL (<100); Potassium 4.4 mmol/L (3.3-5.1); Sodium 136 mmol/L (135-145); Triglycerides 150 mg/dL (<150)
[2023-08-16 08:45] LABS: Free T4 (Free Thyroxine) 0.91 ng/dL (0.71-1.85); Thyroid Stimulating Hormone 2.83 uIU/mL (0.32-4.0); Vitamin D 25-OH Total 45.7 ng/mL (>30)
[2023-08-16 09:00] LABS: Folate 14.8 ng/mL (> or = 4.0); Vitamin B12 592 pg/mL (200-900)
== END 2023-08-16 07:24 | disposition home or self-care (01) ==
LOC: HO.LAB 07:23
PROVIDERS: PCP Internal Medicine; Visit Provider Internal Medicine
DX: E78.00 Pure hypercholesterolemia, unspecified (principal); E55.9 Vitamin D deficiency, unspecified; M85.80 Other specified disorders of bone density and structure, unspecified site
CPT/HCPCS: 36415; 80053; 80061; 82306; 82607; 82746; 84439; 84443; 85025

== ENCOUNTER 2023-08-17 10:25 | Outpatient (AMB) | payer MEDICARE, SELFPAY ==
[2023-08-17 10:32] VITALS: BP 122/68; PULSE 70; O2SAT 98; BMI 27.3
--- NOTE | 2023-08-17 10:32 | A.OFFVIS_ITS ---
Intake Vital Signs 08/17/23 10:32 Height 5 ft 3 in Weight 154 lb BMI 27.3 BP 122/68 Blood Pressure Location Lt brachial Position Sitting Pulse 70 Pulse Source Pulse Oximeter Pulse Oximetry (%) 98 Oxygen Delivery Method Room Air Intake Visit Reasons: OLEKSANDR G0439 Accompanied by: Self / Same As Patient Allergies Sulfa (Sulfonamide Antibiotics) [SULFA (SULFONAMIDE ANTIBIOTICS)] Allergy (Intermediate, Verified 08/17/23 10:38) RASH Medication List - Last Reconciled 08/17/23 by Jessica Martinez MD atenolol 50 mg PO DAILY atorvastatin 10 mg PO DAILY calcium carbonate-vitamin D3 600 mg-12.5 mcg (500 unit) (Calcium 600 with V itamin D3) 1 cap PO DAILY mv,Ca,min-folic acid-vit K1 400-20 mcg (One-A-Day Women's 50 Plus) 1 tab PO DAILY HPI SWV G0439 HPI Details 83-year-old overweight female with hyper cholesterolemia hypertension GERD osteopenia coming in for annual well visit. Patient was last seen in January 2023. Patient's mammogram is up-to-date bone density was last done in August 2021 showing osteopenia. [facility] Medical History Heart murmur Retinal detachment GERD (gastroesophageal reflux disease) Hypertension Diverticulosis Hypercholesterolemia Surgical History H/O colonoscopy History of surgery H/O eye surgery History of dilatation and curettage Hx of appendectomy Hx of cholecystectomy History of bilateral knee replacement Social History (Updated 08/17/23 @ 11:20 by Jessica Martinez MD) Housing: House Alcohol intake: current Alcohol intake frequency: a few times a week Alcohol type: wine Patient Tobacco Use Status: Never used Tobacco e-Cigarette/Vaping Use: Never Used Second Hand Smoke Exposure: No service: No Current occupational status: retired Cognitive needs: No Hearing needs: No Vision needs: No Questionnaire PHQ-9 Over the last 2 weeks, how often have you been bothered by any of the following problems? 1. Little interest or pleasure in doing things: not at all 2. Feeling down, depressed, or hopeless: not at all 3. Trouble falling or staying asleep, or sleeping too much: not at all 4. Feeling tired or having little energy: not at all 5. Poor appetite or overeating: not at all 6. Feeling bad about yourself - or that you are a failure or have let yourself or your family down: not at all 7. Trouble concentrating on things, such as reading the newspaper or watching television: not at all 8. Moving or speaking so slowly that other people could have noticed. Or the opposite - being so fidgety or restless that you have been moving around a lot more than usual: not at all 9. Thoughts that you would be better off or of hurting yourself in some way: not at all Total score: 0 Depression Screening Interpretation: Negative Source: Developed by Drs. Marques Lenz, Stephanie Lynch, Horace Elliott and colleagues, with an educational kiley from [employer]. Review of Systems Const Denies poor appetite and Denies weakness Eyes Denies no additional complaints ENT Reports Normal hearing present, Denies dizziness, Denies nasal congestion, Denies tinnitus and Denies sore throat Card Denies chest pain, Denies syncope, Denies rapid heart rate and Denies dyspnea Resp Denies cough and Denies dyspnea GI Denies change in stool character, Reports constipation, Denies diarrhea, Denies nausea and Denies vomiting Denies urinary frequency, Denies difficulty voiding and Denies dysuria Neuro Reports Normal hearing present, Denies confusion, Denies dizziness, Denies syncope and Denies weakness Psych Denies confusion Physical Exam Vital Signs: Last Vital Signs Pulse 70 08/17/23 10:32 BP 122/68 08/17/23 10:32 Pulse Ox 98 08/17/23 10:32 Oxygen Delivery Method Room Air 08/17/23 10:32 BMI result Body Mass Index 27.3 Const General: alert and awake; No confusion Orientation/consciousness: No confusion HEENT Head: Yes normocephalic Ears: external ears normal and TM's normal bilaterally Face and sinus: Yes normal facial exam Mouth: moist mucous membranes Throat: Yes tonsils normal Eyes Conjunctivae: conjunctivae normal Pupils: Equal, round and reactive pupils present and Pupil accommodation reflex normal Direct Ophthalmoscopy: normal light reflex Neck Neck: No lymphadenopathy Thyroid: Thyroid normal Chest Chest palpation & inspection: normal inspection of the chest Resp Effort & Inspection: normal respiratory effort and no audible wheezes Auscultation: clear to auscultation bilaterally, no crackles, no wheezes and lung sounds not diminished Cardio Rate: regular rate Rhythm: regular rhythm Peripheral pulses: radial pulses present and dorsalis pedis present GI Other: guaiac neg Palpation (GI): no masses Auscultation: normal bowel sounds and normoactive bowel sounds Skin General skin exam: no rashes or lesions noted Rashes: no rashes Neuro General: deep tendon reflexes 2+ bilaterally and No confusion Cranial nerves: Yes Equal, round and reactive pupils present, Yes Midline tongue present, Yes Normal hearing present and Yes Ability to bilaterally elevate s houlders present Cognition (Neuro): normal cognition Gait exam (Neuro): Normal gait present Motor exam (neuro): 5/5 motor strength present throughout Deep tendon reflexes (DTR's): Right brachioradialis reflex intensity grade: 2+, Left brachioradialis reflex intensity grade: 2+, Right patellar reflex intensity grade: 2+ and Left patellar reflex intensity grade: 2+ Extrem General: No edema Assessment & Plan Assessment & Plan (1) Medicare annual wellness visit, subsequent: Code(s): Z00.00 - Encounter for general adult medical examination without abnormal fin dings (2) Hypercholesterolemia: Code(s): E78.00 - Pure hypercholesterolemia, unspecified Plan: Avoid fried foods, chicken skin, eggs, butter margarine, pastries and meat. Be it pork or beef they have a lot of cholesterol LDL goal of less than 130 and triglyceride of less than 150. Patient is on atorvastatin blood work just done July 2023 (3) Hypertension: Code(s): I10 - Essential (primary) hypertension Plan: Continue with blood pressure medication. Decrease salt intake and exercise patient on atenolol continue with it. (4) GERD (gastroesophageal reflux disease): Code(s): K21.9 - Gastro-esophageal reflux disease without esophagitis Plan: Avoid the foods that causes that usually spicy foods, tomato products, juices, coffee, soda and foods that your sensitive to. After eating do not lie down, allow 3-4 hours before in lie down. And keep the head of bed above 30 degrees to avoid the acid from going up. (5) Osteopenia: Comment: August 2021 Code(s): M85.80 - Other specified disorders of bone density and structure, unspecified site Plan: Reminded about bone density Quality Reporting (2020) Depression/Bipolar (159/160/161/177) PHQ-9: Total score: 0 Coding Level of Care Code Medicare Subsequent (G0439) Diagnoses Medicare annual wellness visit, subsequent Z00.00 Hypercholesterolemia E78.00 Hypertension I10 GERD (gastroesophageal reflux disease) K21.9 Osteopenia M85.80
== END 2023-08-17 11:37 | disposition home or self-care (01) ==
PROVIDERS: Visit Provider Internal Medicine
DX: Z00.00 Encounter for general adult medical examination without abnormal findings (principal); E78.00 Pure hypercholesterolemia, unspecified; I10 Essential (primary) hypertension; K21.9 Gastro-esophageal reflux disease without esophagitis; M85.80 Other specified disorders of bone density and structure, unspecified site
CPT/HCPCS: G0439

== ENCOUNTER 2023-08-31 09:50 | Outpatient (REF) | payer SELFPAY ==
--- NOTE | 2023-08-31 15:35 | MHC.AU.HFA ---
Hearing Instrument Fitting- Adult- Binaural Date of Visit: 08/31/23 Clay Processing Labourer Used: Hearing Instruments Dispensed: Right Ear: Fuse Cutter: Model: Serial Number: Oticon Real 2 miniRITE-R Color: Chroma Beige SN [id number] Repair Warranty: 08/05/2026 Loss and Damage Warranty: 08/05/2026 Service Plan: 08/31/2026 Battery Size: Rechargeable Color: Can Filler: 285 Tubing: Type of Dome: Type of Mold: 6mm double white Type of Wax Guard: ProWax MiniFit Left Ear: Fuse Cutter: Model: Serial Number: Oticon Real 2 miniRITE-R Color: Chroma Beige SN [id number] Repair Warranty: 08/05/2026 Loss and Damage Warranty: 08/05/2026 Service Plan: 08/31/2026 Battery Size: Rechargeable Color: Can Filler: 285 Tubing: Type of Dome: Type of Mold: 6mm double white Type of Wax Guard: ProWax MiniFit Accessories/Assistive Technology: Summary of Fitting: Marily came in today, accompanied by her daughter, to be fit with her new Oticon Real 2 miniRITE-R hearing aids. The aids were fit to NAL-NL2 targets on the Aurical at soft/average/loud speech and MPO. Feedback wind project manager was run and sound/button indicators were reviewed. Adaptation level was set to 2 as Marily felt that the aids were loud but more comfortable at that level than 3. We discussed the goal of ultimately raising the aids to level 3 once she adapts to them. Charging/water resistance were reviewed and Marily practiced insertion and removal with the aids. After several rounds of practice she was fairly comfortable with this. We also discussed the importance of regular wear to get the most out of the hearing aids and some communication/environmental strategies in noisy situations even when wearing the aids. We will go over in-depth cleaning of the aids at her follow-up appointment in 2-3 weeks. Recommendations: Recommendations: A hearing instrument follow-up is recommended in 2-3 weeks. Recommendations (Other): Diagnosis Code(s): Primary Diagnosis: H90.3 Bilateral Sensorineural Hearing Loss Secondary Diagnosis: Services Performed: Hearing Aid Evaluation Type: Ear Impression (Quantity): Earmold (Quantity): Swim Mold (Quantity): Musician's Plug (Quantity): GEE Dispensing Fees: GEE Product Codes: BTE-Binaural- Level 3 Fitting Accessories: GEE Accessories (Quantity): Accessory Description: Hearing Aid Fitting Services: Number of Individual Battery Cells: Package of Wax Guards: GEE Purchased through [facility] or Outside Vendor: GEE Maintenance, Minor Repair (Quantity): Can Filler Replaced, Out of Warranty: Domes/Tubes: Out of Warranty Repair by Fuse Cutter: Extended Warranty (1 or 2 Instruments): Cerumen Removal: Loss and Damage Replacement Fee: GEE Non-Quantity Charges: Signature: Student/Clinical Fellow: Yes: Jada Anthony, HIS Nutrition Services Associate I have reviewed/agreed with student/fellow documentation: Provider: Paco Tavera, [facility]
--- NOTE | 2023-08-31 15:35 | MHC.AU.HFA ---
Hearing Instrument Fitting- Adult- Binaural Date of Visit: 08/31/23 Hearing Instruments Dispensed: Right Ear: Brick Maker: Oticon Model: Real 2 miniRITE-R Serial Number: [id number] Repair Warranty: 08/05/2026 Loss and Damage Warranty: 08/05/2026 Service Plan: 08/31/2026 Battery Size: Rechargeable Color: Chroma Beige Waistline Joiner: 2/85 Type of Dome: 6mm double white Type of Wax Guard: ProWax MiniFit Left Ear: Brick Maker: Oticon Model: Real 2 miniRITE-R Serial Number: [id number] Repair Warranty: 08/05/2026 Loss and Damage Warranty: 08/05/2026 Service Plan: 08/31/2026 Battery Size: Rechargeable Color: Chroma Beige Waistline Joiner: 285 Type of Dome: 6mm double white Type of Wax Guard: ProWax MiniFit Summary of Fitting: Marily came in today, accompanied by her daughter, to be fit with her new Oticon Real 2 miniRITE-R hearing aids. The aids were fit to NAL-NL2 targets on the Aurical at soft/average/loud speech and MPO. Feedback e business manager was run and sound/button indicators were reviewed. Adaptation level was set to 2 as Marily felt that the aids were loud but more comfortable at that level than 3. We discussed the goal of ultimately raising the aids to level 3 once she adapts to them. Charging/water resistance were reviewed and Marily practiced insertion and removal with the aids. After several rounds of practice she was fairly comfortable with this. We also discussed the importance of regular wear to get the most out of the hearing aids and some communication/environmental strategies in noisy situations even when wearing the aids. We will go over in-depth cleaning of the aids at her follow-up appointment in 2-3 weeks. Recommendations: Recommendations: A hearing instrument follow-up is recommended in 2-3 weeks. Recommendations (Other): Diagnosis Code(s): Primary Diagnosis: H90.3 Bilateral Sensorineural Hearing Loss Secondary Diagnosis: Services Performed: GEE Product Codes: BTE-Binaural- Level 3 Signature: Student/Clinical Fellow: Yes: Jada Anthony, HIS Manager Urgent Care I have reviewed/agreed with student/fellow documentation: Provider: Paco Tavera, [facility]
== END 2023-08-31 09:51 | disposition home or self-care (01) ==
LOC: HO.HAP 09:50
PROVIDERS: Visit Provider Internal Medicine
DX: Z46.1 Encounter for fitting and adjustment of hearing aid (principal); H90.3 Sensorineural hearing loss, bilateral
CPT/HCPCS: 92700; V5261; V5299

== ENCOUNTER 2023-09-27 12:57 | Outpatient (REF) | payer SELFPAY | END 2023-09-27 12:58 | disposition home or self-care (01) | LOC: HO.HAP 12:57 | PROVIDERS: Visit Provider Internal Medicine | DX: Z13.89 Encounter for screening for other disorder (principal) ==

== ENCOUNTER 2023-10-21 13:14 | Outpatient (REF) | payer SELFPAY | END 2023-10-21 13:15 | disposition home or self-care (01) | LOC: HO.HAP 13:14 | PROVIDERS: Visit Provider Internal Medicine | DX: Z13.89 Encounter for screening for other disorder (principal) ==

== ENCOUNTER 2023-12-31 12:52 | Emergency (ER) | payer MEDICARE, SELFPAY ==
--- NOTE | ~2023-12-31 | XR_ITS ---
EXAMINATION: XR KNEE, LEFT CLINICAL INFORMATION: Fall, history of replacement. Left anterior knee pain after fall COMPARISON: None available. TECHNIQUE: Four views of the left knee. FINDINGS: There is a total left knee arthroplasty with prosthetic components in satisfactory alignment. No visible fracture, dislocation or subluxation seen. No joint effusion. No prosthetic loosening cyst seen. XR/XR knee LT 4V IMPRESSION: Total left knee arthroplasty with prosthetic components in satisfactory alignment. No visible acute fracture or dislocation seen.
--- NOTE | ~2023-12-31 | CT_ITS ---
EXAMINATION: CT HEAD WITHOUT CONTRAST CT FACE WITHOUT CONTRAST CT AND CERVICAL SPINE WITHOUT CONTRAST CLINICAL INFORMATION: Fall. Head injury. Swollen left orbit. COMPARISON: No relevant prior imaging. TECHNIQUE: Obstetrical Anesthesiologist images were obtained. CT imaging of the head, face, and cervical spine was performed without contrast. Data was reformatted into multiplanar images at the acquisition workstation. This CT examination was performed using dose optimization techniques as appropriate, including one or more of the following: Automated exposure control, iterative reconstruction, and adjustment of technique factors (mA and/or kVp) according to patient size (this includes techniques or standardized protocols for targeted exams where dose is matched to indication/reason for exam). Fleischner Society criteria for the followup of incidental pulmonary nodules was implemented if appropriate. DLP: 1221 mGy-cm. FINDINGS: Head: There is no acute intracranial hemorrhage or abnormal extra-axial collection. No intracranial mass effect or midline shift. Lateral and third ventricles are normal. No hydrocephalus. Scattered nonspecific foci of hypoattenuation are visualized within the periventricular white matter. Kirby-white matter differentiation is otherwise preserved and there is no evidence of acute territorial infarct. The calvarium and skull base are intact. Mastoid air cells and middle ear cavities are well aerated. Face: Nasal bones, zygomatic arches, and pterygoid processes are intact. There is no acute mandibular fracture. There is degenerative arthrosis of the temporomandibular joints, greater on the left. Globes and extraocular muscles are symmetric. No abnormal retrobulbar inflammation or hematoma. Lamina papyracea and orbital floors are intact and there is no evidence of acute orbital blowout fracture. Orbital apices are unremarkable. There is mild mucosal thickening within the alveolar recesses of the maxillary sinuses. Otherwise no active paranasal sinus disease. All of the major paranasal sinus drainage pathways are patent. The nasal septum deviates to the right. Cervical spine: There is slight anterolisthesis of C4 on C5. Alignment is otherwise normal in the sagittal dimension. Vertebral body heights are preserved. No acute cervical spine fracture. No abnormal prevertebral soft tissue swelling. There is severe degenerative spondylosis at C5-C6. Severe degenerative arthrosis of the atlantodental joint is also noted. Canal patency is not well assessed on this examination due to inherent limitations of CT without intrathecal contrast. There is heavily calcified atheromatous plaque involving both carotid bifurcations. Soft tissues of the neck are otherwise unremarkable. Lung apices are clear. CT/CT cervical spine wo IV con IMPRESSION: Head: No acute intracranial hemorrhage. There are scattered chronic small vessel ischemic changes within the periventricular white matter. No evidence of acute territorial infarct. Face: No acute facial fracture. Cervical Spine: No acute fracture and no posttraumatic spinal subluxation. There is multilevel degenerative spondylosis of the cervical spine as described above. Canal patency is not well assessed on this examination due to inherent limitations of CT without intrathecal contrast.
[2023-12-31 12:55] VITALS: BP 203/96; PULSE 69; RESP 20; TEMP 36; O2SAT 98; BMI 27.3
--- NOTE | 2023-12-31 12:55 | ED.FALL ---
HPI - Fall General Chief Complaint: Fall Stated Complaint: Fall/head inj no thinners Time Seen by Provider: 12/31/23 13:34 Source: patient Mode of arrival: ambulatory Limitations: no limitations History of Present Illness HPI Narrative: Patient is an 83 year old assigned female at with a history of HTN presenting to the emergency department today with left sided facial pain after a fall. Patient states that yesterday, she tripped and fell in her cellar, hitting her face. Patient denies any loss of consciousness. Patient denies any anti-coagulation use. Patient denies any dizziness, lightheadedness, abdominal pain, nausea, vomiting, fever, chills, blurry vision, double vision, loss of vision, chest pain, difficulty breathing, shortness of breath, back pain, night sweats, pain with urination, increased urinary frequency, increased urinary urgency, blood in her urine or stool, syncope or a near syncopal episode, bowel incontinence, bladder incontinence, bowel retention, bladder retention, or any other complaints at this time. MD complaint: fall Onset (ago): day(s) (1) Fall from: standing Fall witnessed: no Place fall occurred: home Loss of consciousness: none Prolonged down time: no Symptoms prior to fall: none Context: tripped/slipped Location of injury: head and face Related Data Home Medications Medication Instructions Recorded Confirmed calcium carbonate 600 mg-vitamin 1 cap PO DAILY 01/28/21 08/17/23 D3 12.5 mcg (500 unit) capsule (Calcium 600 with Vitamin D3) ccvocbpzhahp-ghwvjftp-thlkzze-folic 1 tab PO DAILY 01/28/21 08/17/23 acid 400 mcg-vit K1 20 mcg tablet (One-A-Day Women's 50 Plus) Previous Rx's Medication Instructions Recorded atenolol 50 mg tablet 50 mg PO DAILY #90 tabs 01/21/23 atorvastatin 10 mg tablet 10 mg PO DAILY #90 tabs 01/21/23 Allergies Allergy/AdvReac Type Severity Reaction Status Date / Time Sulfa (Sulfonamide Allergy Intermediate RASH Verified 12/31/23 12:59 Antibiotics) [SULFA (SULFONAMIDE ANTIBIOTICS)] Review of Systems Constitutional: Constitutional: Reports no additional constitutional complaints, Denies chills, Denies fever(s), Reports headache(s) and Denies night sweats Eyes: Eyes: Reports no additional eye complaints, Denies blurry vision, Denies change in vision, Denies diplopia, Denies eye discharge, Denies loss of vision and Denies eye pain ENT: Denies dizziness and Reports headache(s) Comments: right sided facial pain Cardiovascular: Cardiovascular: Reports no additional cardiovascular complaints, Denies chest pain, Denies lightheadedness, Denies Loss of Consciousness and Denies dyspnea Respiratory: Respiratory: Reports no additional respiratory complaints and Denies dyspnea Gastrointestinal: Gastrointestinal: Reports no additional gastrointestinal complaints, Denies abdominal pain, Denies melena, Denies hematochezia, Denies change in bowel habits and Denies change in stool character Genitourinary: Genitourinary: Denies hematuria, Denies urinary frequency, Denies dysuria, Denies urinary incontinence, Denies urinary hesitancy and Denies urinary urgency Musculoskeletal: Musculoskeletal: Reports no additional musculoskeletal complaints, Denies numbness and Denies tingling Comments: left knee pain Neurologic: Denies dizziness, Reports headache(s), Denies loss of vision, Denies numbness and Denies tingling Psychiatric: Psychiatric: Reports no additional psychiatric complaints Endocrine: Endocrine: Reports no additional endocrine complaints Hematologic/Lymphatic: Hematologic/Lymphatic: Reports no additional hematologic/lymphatic complaints Allergic/Immunologic: Allergic/Immunologic: Reports no additional allergic/immunologic complaints [facility] Past Medical History Attestation statement: The following information was validated with the patient. Source: old records reviewed and nursing notes reviewed Medical History Heart murmur Retinal detachment GERD (gastroesophageal reflux disease) Hypertension Diverticulosis Hypercholesterolemia Surgical History H/O colonoscopy History of surgery H/O eye surgery History of dilatation and curettage Hx of appendectomy Hx of cholecystectomy History of bilateral knee replacement Social History Social History Housing: House Alcohol intake: current Alcohol intake frequency: a few times a week Alcohol type: wine Patient Tobacco Use Status: Never used Tobacco e-Cigarette/Vaping Use: Never Used Second Hand Smoke Exposure: No Advance Directives: No Advance Directives Information Provided: No service: No Current occupational status: retired Cognitive needs: No Hearing needs: No Vision needs: No Physical Exam Vital Signs: Vital Signs: Last Vital Signs Temp 96.8 F 12/31/23 12:55 Pulse 72 12/31/23 14:57 Resp 18 12/31/23 14:57 BP 172/78 H 12/31/23 14:57 Pulse Ox 98 12/31/23 12:55 O2 Del Method Room Air 12/31/23 12:55 BMI result Body Mass Index 27.3 Const: General: cooperative, no acute distress, alert and awake Nutritional Appearance: well nourished Orientation/consciousness: patient oriented x3 Limitations: no limitations HEENT: Ears: hearing grossly normal bilaterally and external ears normal General nose exam: no nasal discharge noted and no epistaxis Face and sinus: No abrasion and No laceration Mouth: Normal oral and palatal mucosa present, no drooling and no muffled voice Eyes: Other: minimal bruising present to the area surrounding the right eye Eyelids: Yes eyelids normal Conjunctivae: conjunctivae normal Pupils: Equal, round and reactive pupils present EOM: EOMs intact bilaterally Neck: Neck: Yes normal visual inspection, Yes full ROM and Yes no lymphadenopathy Chest: Chest palpation & inspection: normal inspection of the chest Resp: Effort & Inspection: normal respiratory effort and able to speak in complete sentences GI: Inspection: Yes normal to inspection Neuro: General: patient oriented x3 and moves all extremities Cranial nerves: Yes Equal, round and reactive pupils present Cognition (Neuro): normal cognition Motor exam (neuro): 5/5 motor strength present throughout Sensory Exam: Normal double simultaneous stimulation for sensation Coordination: [id number] test normal Extrem: General: Yes normal to inspection, Yes full ROM and Yes capillary refill normal Psych: Appearance: grossly normal Mental Status: mental status grossly normal Affect: normal affect Attitude: cooperative Thought process: Normal thought process present Thought content: Normal thought content present Insight: Good insight present (Psych) Course Course Course Narrative: Patient is an 83-year-old female who presents emergency department for evaluation after mechanical fall yesterday. She reports that she was attempting to kick a cardboard box out of the way when she lost her balance and subsequently fell to the ground landing on her left side with head strike. Denies any loss of consciousness. She has ecchymosis and swelling to the left orbit and cheek, which is painful. No anticoagulants. Also reporting left knee pain with history of replacement. Medical Decision Making Medical Decision Making MDM Narrative: Patient is an 83 year old assigned female at with a history of HTN presenting to the emergency department today with right face pain, a headache, and left knee pain. Patient's physical exam was as noted in the physical exam portion of this note. Patient's left knee x-ray showed no acute process. Patient's head and c-spine CTs showed no acute process. I explained my physical exam findings as well as all test results to the patient. I answered all questions asked by the patient. I stressed the importance of the patient taking her medication as prescribed. I stressed the importance of the patient following up with her primary care provider. I stressed the importance of the patient returning to the emergency department immediately if her symptoms were to worsen or if she were to develop any dizziness, shortness of breath, difficulty breathing, chest pain, blurry vision, loss of vision, nausea, vomiting, abdominal pain, fever, chills, back pain, or any other complaints. Patient verbalized agreement and understanding with this treatment plan and discharge. Differential Diagnosis Differential Diagnoses: The differential diagnosis associated with the presentation includes Fall Facial fracture Head injury Headache Skull fracture Admission/Observation Consideration of admission/observation: Escalation of care including admission/observation considered Patient would have been admitted to the hospital had her work up had any findings where hospital admission was appropriate and her clinical presentation warranted hospital admission. Independent Interpretation I performed an independent interpretation of an: Plain X-Ray and CT Scan Interpretation: My interpretation is in agreement with the radiologist's impression of these imaging studies. EXAMINATION: CT HEAD WITHOUT CONTRAST CT FACE WITHOUT CONTRAST CT AND CERVICAL SPINE WITHOUT CONTRAST CLINICAL INFORMATION: Fall. Head injury. Swollen left orbit. COMPARISON: No relevant prior imaging. TECHNIQUE: Senior Windows Systems Administrator images were obtained. CT imaging of the head, face, and cervical spine was performed without contrast. Data was reformatted into multiplanar images at the acquisition workstation. This CT examination was performed using dose optimization techniques as appropriate, including one or more of the following: Automated exposure control, iterative reconstruction, and adjustment of technique factors (mA and/or kVp) according to patient size (this includes techniques or standardized protocols for targeted exams where dose is matched to indication/reason for exam). Fleischner Society criteria for the followup of incidental pulmonary nodules was implemented if appropriate. DLP: 1221 mGy-cm. FINDINGS: Head: There is no acute intracranial hemorrhage or abnormal extra-axial collection. No intracranial mass effect or midline shift. Lateral and third ventricles are normal. No hydrocephalus. Scattered nonspecific foci of hypoattenuation are visualized within the periventricular white matter. Kirby-white matter differentiation is otherwise preserved and there is no evidence of acute territorial infarct. The calvarium and skull base are intact. Mastoid air cells and middle ear cavities are well aerated. Face: Nasal bones, zygomatic arches, and pterygoid processes are intact. There is no acute mandibular fracture. There is degenerative arthrosis of the temporomandibular joints, greater on the left. Globes and extraocular muscles are symmetric. No abnormal retrobulbar inflammation or hematoma. Lamina papyracea and orbital floors are intact and there is no evidence of acute orbital blowout fracture. Orbital apices are unremarkable. There is mild mucosal thickening within the alveolar recesses of the maxillary sinuses. Otherwise no active paranasal sinus disease. All of the major paranasal sinus drainage pathways are patent. The nasal septum deviates to the right. Cervical spine: There is slight anterolisthesis of C4 on C5. Alignment is otherwise normal in the sagittal dimension. Vertebral body heights are preserved. No acute cervical spine fracture. No abnormal prevertebral soft tissue swelling. There is severe degenerative spondylosis at C5-C6. Severe degenerative arthrosis of the atlantodental joint is also noted. Canal patency is not well assessed on this examination due to inherent limitations of CT without intrathecal contrast. There is heavily calcified atheromatous plaque involving both carotid bifurcations. Soft tissues of the neck are otherwise unremarkable. Lung apices are clear. CT/CT head/brain wo IV con IMPRESSION: Head: No acute intracranial hemorrhage. There are scattered chronic small vessel ischemic changes within the periventricular white matter. No evidence of acute territorial infarct. Face: No acute facial fracture. Cervical Spine: No acute fracture and no posttraumatic spinal subluxation. There is multilevel degenerative spondylosis of the cervical spine as described above. Canal patency is not well assessed on this examination due to inherent limitations of CT without intrathecal contrast. Dictated By: Marques Ramsay MD Signed By: Electronically signed by Marques Ramsay MD 12/31/23 1423 EXAMINATION: XR KNEE, LEFT CLINICAL INFORMATION: Fall, history of replacement. Left anterior knee pain after fall COMPARISON: None available. TECHNIQUE: Four views of the left knee. FINDINGS: There is a total left knee arthroplasty with prosthetic components in satisfactory alignment. No visible fracture, dislocation or subluxation seen. No joint effusion. No prosthetic loosening cyst seen. XR/XR knee LT 4V IMPRESSION: Total left knee arthroplasty with prosthetic components in satisfactory alignment. No visible acute fracture or dislocation seen. Dictated By: Fredis Martinez MD Signed By: Electronically signed by Fredis Martinez MD 12/31/23 1412 Radiology Impression Discussion of test interpretation with radiology: I have reviewed the radiologist's reading. Discharge Plan Discharge Clinical Impression: Fall Patient Disposition: Home, Self-Care Instructions: Fall Prevention for Older Adults (ED) Additional Instructions: Follow up with your primary care provider. Return to the emergency department immediately if your symptoms worsen or if you develop any dizziness, shortness of breath, difficulty breathing, chest pain, blurry vision, loss of vision, nausea, vomiting, abdominal pain, fever, chills, back pain, or any other complaints. Prescriptions: No Action atenolol 50 mg tablet 50 mg PO DAILY Qty: 90 3RF atorvastatin 10 mg tablet 10 mg PO DAILY Qty: 90 3RF calcium carbonate-vitamin D3 [Calcium 600 with Vitamin D3] 600 mg(1,500mg) -500 unit capsule 1 cap PO DAILY One-A-Day Women's 50 Plus 400-20 mcg tablet 1 tab PO DAILY Referrals: Po,Jessica Disla MD [Primary Care Provider] - Interventions: ED Discharge Assessment Last Done: 12/31/23 15:01 Discharge Date/Time: 12/31/23 15:02 Print Language: Sami
[2023-12-31 14:57] VITALS: BP 172/78; PULSE 72; RESP 18
== END 2023-12-31 15:02 | disposition home or self-care (01) ==
PROVIDERS: Emergency Provider Emergency Medicine; PCP Internal Medicine
DX: Z04.3 Encounter for examination and observation following other accident (principal); R51.9 Headache, unspecified; Z91.81 History of falling
CPT/HCPCS: 70450; 70486; 72125; 73564; 99282; 99284

== ENCOUNTER 2024-02-15 08:39 | Outpatient (AMB) | payer MEDICARE, SELFPAY ==
[2024-02-15 08:41] VITALS: BP 168/80; PULSE 79; O2SAT 97; BMI 27.5
--- NOTE | 2024-02-15 08:41 | A.OFFPC_ITS ---
Vital Signs 02/15/24 08:41 Height 5 ft 3 in Weight 155 lb 0.2 oz BMI 27.5 BP 168/80 H Blood Pressure Location Lt brachial Position Sitting Pulse 79 Pulse Source Pulse Oximeter Pulse Oximetry (%) 97 Oxygen Delivery Method Room Air Intake Visit Reasons: Hypertension Tetryl Nitrator Operator Required: No Allergies Sulfa (Sulfonamide Antibiotics) [SULFA (SULFONAMIDE ANTIBIOTICS)] Allergy (Intermediate, Verified 02/15/24 08:41) RASH Tobacco use date assessed: 02/15/24 Fall risk assessment: No Falls in past year Last assessed Fall Risk: 02/15/24 HPI Hypertension HPI Details 83-year-old overweight female with histo ry of hypertension hypercholesterolemia GERD and osteopenia last seen in July 2023. Patient is here for follow-up review of the notes in December 2023 patient was in the emergency room for fall complaining of left-sided facial pain patient tripped denies any loss of consciousness x-ray and CT scan were negative. discused about falls and has [facility] for [facility]. [facility] Medical History Heart murmur Retinal detachment GERD (gastroesophageal reflux disease) Hypertension Diverticulosis Hypercholesterolemia Surgical History H/O colonoscopy History of surgery H/O eye surgery History of dilatation and curettage Hx of appendectomy Hx of cholecystectomy History of bilateral knee replacement Social History Housing: House Alcohol intake: current Alcohol intake frequency: a few times a week Alcohol type: wine Patient Tobacco Use Status: Never used Tobacco e-Cigarette/Vaping Use: Never Used Second Hand Smoke Exposure: No service: No Current occupational status: retired Cognitive needs: No Hearing needs: No Vision needs: No Questionnaire Thrive Questionnaire Date Thrive assessed: 02/09/23 AUDIT C Alcohol Use Questionnaire (AUDIT-C) 1. How often do you have a drink containing alcohol?: 2-3 times a week 2. How many drinks containing alcohol do you have on a typical day when you are drinking?: 1 or 2 3. How often do you have six or more drinks on one occasion?: Never Total Score: 3 SHELBY-7 AMB Questionnaire SHELBY-7 Date SHELBY - 7 assessed: 02/09/23 Source: Developed by Drs. Marques Lenz, Stephanie Lynch, Horace Elliott and colleagues, with an educational kiley from [employer]. Physical exam (Primary Care) Vital Signs: Last Vital Signs Pulse 79 02/15/24 08:41 BP 168/80 H 02/15/24 08:41 Pulse Ox 97 02/15/24 08:41 Oxygen Delivery Method Room Air 02/15/24 08:41 BMI result Body Mass Index 27.5 Tobacco/Smoking Status: Tobacco use Status Tobacco use date assessed 02/15/24 02/15/24 08:44 Patient Tobacco Use Status Never used Tobacco 02/15/24 08:44 e-Cigarette/Vaping Use Never Used 02/15/24 08:44 Thrive Assessment: Date of Thrive Assessment Date Thrive assessed 02/09/23 02/15/24 08:44 Const General: alert; No acute distress Eyes Conjunctivae: conjunctivae normal Resp Auscultation: clear to auscultation bilaterally Cardio Rate: regular rate Rhythm: regular rhythm GI Inspection: Yes normal to inspection Extrem General: Yes normal to inspection and No edema Immunizations tetanus-diphtheria toxoids-Td 2 Lf unit-2 Lf unit/0.5 mL IM suspension Performing Provider: Jessica Martinez MD [facility] Administered by: TERRELL Fuchs on 02/15/24 09:17 Dose Route Admin Location Dispensed Lot Number Expiration Date NDC Customer Relations Coordinator 0.5 mL IM Left Deltoid 0.5 mL [id number] 12/31/24 [address]-4 [employer] VIS Given Date VIS Provided VIS Publication Date 02/15/24 Single Vaccine 21 Eligibility Eligibility Date Funding Source Not [facility] Eligible 02/15/24 State funds Assessment and Plan Assessment & Plan (1) Hypertension: Code(s): I10 - Essential (primary) hypertension Plan: Continue with blood pressure medication. Decrease salt intake and exercise patient takes atenolol 50 mg once a day. BP high here and advised to check the BP and record and bring in the office (2) Hypercholesterolemia: Code(s): E78.00 - Pure hypercholesterolemia, unspecified Plan: Avoid fried foods, chicken skin, eggs, butter margarine, pastries and meat. Be it pork or beef they have a lot of cholesterol LDL goal of less than 130 and triglyceride of less than 150. July 2023 last blood work patient is on atorvastatin 10 mg once a day (3) GERD (gastroesophageal reflux disease): Code(s): K21.9 - Gastro-esophageal reflux disease without esophagitis Plan: Avoid the foods that causes that usually spicy foods, tomato products, juices, coffee, soda and foods that your sensitive to. After eating do not lie down, allow 3-4 hours before in lie down. And keep the head of bed above 30 degrees to avoid the acid from going up. (4) Osteopenia: Comment: August 2021 Code(s): M85.80 - Other specified disorders of bone density and structure, unspecified site Plan: Patient is reminded about the bone density (5) Fall: Comment: December 2023 Code(s): W19.XXXA - Unspecified fall, initial encounter Plan: CT scan cervical spine CT and negative Orders: Orders Td State Immunization Today Z23 - Encounter for immunization Coding Level of Care Code Est Pt Level 4 (18812) Diagnoses Hypertension I10 Hypercholesterolemia E78.00 GERD (gastroesophageal reflux disease) K21.9 Osteopenia M85.80 Fall W19.XXXA
== END 2024-02-15 09:31 | disposition home or self-care (01) ==
PROVIDERS: PCP Internal Medicine; Visit Provider Internal Medicine
DX: I10 Essential (primary) hypertension (principal); E78.00 Pure hypercholesterolemia, unspecified; K21.9 Gastro-esophageal reflux disease without esophagitis; M85.80 Other specified disorders of bone density and structure, unspecified site; W19.XXXA Unspecified fall, initial encounter; Z23 Encounter for immunization
CPT/HCPCS: 90471; 90714; 99214

== ENCOUNTER 2024-02-21 12:57 | Outpatient (REF) | payer SELFPAY | END 2024-02-21 12:58 | disposition home or self-care (01) | LOC: HO.HAP 12:57 | PROVIDERS: PCP Internal Medicine; Visit Provider Internal Medicine | DX: Z46.1 Encounter for fitting and adjustment of hearing aid (principal); H90.3 Sensorineural hearing loss, bilateral | CPT/HCPCS: V5267 ==

== ENCOUNTER 2024-04-06 13:18 | Outpatient (REF) | payer MEDICARE, SELFPAY | END 2024-04-06 13:19 | disposition home or self-care (01) | LOC: HO.MAMMO 13:18 | PROVIDERS: PCP Internal Medicine; Visit Provider Internal Medicine | DX: Z12.31 Encounter for screening mammogram for malignant neoplasm of breast (principal) | CPT/HCPCS: 77063; 77067 ==

== ENCOUNTER → 2024-04-06 13:30 | Outpatient (BNV) | payer MEDICARE, SELFPAY | PROVIDERS: PCP Internal Medicine; Visit Provider Radiology Diagnostic Radiology | DX: Z12.31 Encounter for screening mammogram for malignant neoplasm of breast (principal) | CPT/HCPCS: 77063; 77067 ==

== ENCOUNTER 2024-05-15 11:39 | Outpatient (REF) | payer SELFPAY | END 2024-05-15 11:40 | disposition home or self-care (01) | LOC: HO.HAP 11:39 | PROVIDERS: Visit Provider Internal Medicine | DX: Z46.1 Encounter for fitting and adjustment of hearing aid (principal); H90.3 Sensorineural hearing loss, bilateral | CPT/HCPCS: V5267 ==

== ENCOUNTER 2024-06-06 09:55 | Outpatient (AMB) | payer MEDICARE, SELFPAY ==
[2024-06-06 10:03] VITALS: BP 138/80; PULSE 61; O2SAT 96; BMI 27.6
--- NOTE | 2024-06-06 10:03 | A.OFFPC_ITS ---
Vital Signs 06/06/24 10:03 06/06/24 10:19 Height 5 ft 3 in Weight 156 lb BMI 27.6 BP 138/80 134/70 Blood Pressure Location Lt brachial Lt brachial Position Sitting Pulse 61 Pulse Source Pulse Oximeter Pulse Oximetry (%) 96 Oxygen Delivery Method Room Air Intake Visit Reasons: Hypertension Allergies Sulfa (Sulfonamide Antibiotics) [SULFA (SULFONAMIDE ANTIBIOTICS)] Allergy (Intermediate, Verified 06/06/24 10:03) RASH Tobacco use date assessed: 02/15/24 Fall risk assessment: 1 Fall in past year Last assessed Fall Risk: 06/06/24 Dental Screening Dental Screen Date: 06/06/24 Did you have a dental visit in the last 12 months?: Yes Did you have a dental problem in the last 6 months where you did not have access to dental care?: No Was dental information given to patient?: Patient has dentist HPI Hypertension HPI Details 83-year-old overweight female with hyper tension hypercholesterolemia GERD osteopenia last seen in 02/08/2024. Patient is up-to-date with mammogram reminded about bone density.retired from Job, had a lot of stress. BP list noted to have come down 115-149 SBP but mostly good PFSH Medical History Heart murmur Retinal detachment GERD (gastroesophageal reflux disease) Hypertension Diverticulosis Hypercholesterolemia Surgical History H/O colonoscopy History of surgery H/O eye surgery History of dilatation and curettage Hx of appendectomy Hx of cholecystectomy History of bilateral knee replacement Social History Housing: House Alcohol intake: current Alcohol intake frequency: a few times a week Alcohol type: wine Patient Tobacco Use Status: Never used Tobacco Tobacco use type: Cigarette e-Cigarette/Vaping Use: Never Used Second Hand Smoke Exposure: No service: No Current occupational status: retired Cognitive needs: No Hearing needs: No Vision needs: Yes Questionnaire PHQ-9 Over the last 2 weeks, how often have you been bothered by any of the following problems? 1. Little interest or pleasure in doing things: not at all 2. Feeling down, depressed, or hopeless: not at all 3. Trouble falling or staying asleep, or sleeping too much: not at all 4. Feeling tired or having little energy: not at all 5. Poor appetite or overeating: not at all 6. Feeling bad about yourself - or that you are a failure or have let yourself or your family down: not at all 7. Trouble concentrating on things, such as reading the newspaper or watching television: not at all 8. Moving or speaking so slowly that other people could have noticed. Or the opposite - being so fidgety or restless that you have been moving around a lot more than usual: not at all 9. Thoughts that you would be better off or of hurting yourself in some way: not at all Total score: 0 Depression Screening Interpretation: Negative Depression Screening Done: Yes Source: Developed by Drs. Marques Lenz, Stephanie Lynch, Horace Elliott and colleagues, with an educational kiley from [employer]. Thrive Questionnaire Date Thrive assessed: 06/06/24 I am a: Patient What is your living situation today?: I have a steady place to live Within the past 12 months, did the food you bought not last and you didn't have the money to get more?: Never true Within the past 12 months, did you worry whether your food would run out before you got money to buy more?: Never true Do you have trouble paying for medicines?: No Do you have trouble getting transportation to medical appointments?: No Do you have trouble paying your heating and electricity bill?: No Do you have trouble taking care of your child, family member or friend?: No Do you have trouble with day-to-day activities such as bathing, preparing meals, shopping, managing finances, etc.?: No Are you currently unemployed and looking for a job?: No Are you interested in more education?: No Currently or been in a relationship where the following occur: No concerns reported THRIVE Score: 0 AUDIT C Alcohol Use Questionnaire (AUDIT-C) 1. How often do you have a drink containing alcohol?: 2-3 times a week 2. How many drinks containing alcohol do you have on a typical day when you are drinking?: 1 or 2 3. How often do you have six or more drinks on one occasion?: Never Total Score: 3 SHELBY-7 AMB Questionnaire SHELBY-7 Date SHELBY - 7 assessed: 06/06/24 Feeling nervous, anxious, or on edge: 1 = Several days Not being able to stop or control worryin = Not at all Worrying too much about different things: 0 = Not at all Trouble relaxin = Not at all Being so restless that it is hard to sit still: 0 = Not at all Becoming easily annoyed or irritable: 0 = Not at all Feeling afraid as if something awful might happen: 0 = Not at all Total SHELBY-7 score (0-4 normal; 5-9 mild; 10-14 moderate; 15-21 severe): 1 Source: Developed by Drs. Marques Lenz, Stephanie Lynch, Horace Elliott and colleagues, with an educational kiley from [employer]. Physical exam (Primary Care) Vital Signs: Oxygen Delivery Method Room Air 06/06/24 10:03 Tobacco/Smoking Status: Tobacco use Status Tobacco use date assessed 02/15/24 02/15/24 08:44 Patient Tobacco Use Status Never used Tobacco 02/15/24 08:44 e-Cigarette/Vaping Use Never Used 02/15/24 08:44 Depression Screening Interpretation: Negative Thrive Assessment: Date of Thrive Assessment Date Thrive assessed 02/09/23 02/15/24 08:44 Currently or been in a relationship where the following occur: No concerns reported Const General: alert; No acute distress Eyes Conjunctivae: conjunctivae normal Resp Auscultation: clear to auscultation bilaterally Cardio Rate: regular rate Rhythm: regular rhythm GI Inspection: Yes normal to inspection Extrem General: Yes normal to inspection and No edema Assessment and Plan Assessment & Plan (1) Hypertension: Code(s): I10 - Essential (primary) hypertension Plan: Continue with blood pressure medication. Decrease salt intake and exercise patient on atenolol 50 mg once a day has been advised to monitor blood pressure at home (2) Osteopenia: Comment: August 2021 Code(s): M85.80 - Other specified disorders of bone density and structure, unspecified site Plan: Patient is again reminded about bone density has had a mammogram in March but did not see the bone density (3) Hypercholesterolemia: Code(s): E78.00 - Pure hypercholesterolemia, unspecified Plan: Avoid fried foods, chicken skin, eggs, butter margarine, pastries and meat. Be it pork or beef they have a lot of cholesterol LDL goal of less than 130 and triglyceride of less than 150 on atorvastatin 10 mg once a day and last blood work was in 08/10/2023. Orders: Orders Comprehensive Met. Panel Today E78.00 - Pure hypercholesterolemia, unspecified Lipid Panel Today E78.00 - Pure hypercholesterolemia, unspecified Thyroid Stimulating Hormone Today E78.00 - Pure hypercholesterolemia, unspecified Vitamin D 25-OH Total Today E78.00 - Pure hypercholesterolemia, unspecified XR DEXA axial skeleton Today M81.0 - Age-related osteoporosis without current p athological fracture, M85.80 - Other specified disorders of bone density and structure, unspecified site Complete Blood Count Auto Diff Today E78.00 - Pure hypercholesterolemia, unspecified Free T4 (Free Thyroxine) Today E78.00 - Pure hypercholesterolemia, unspecified Vitamin B12 and Folate Today E78.00 - Pure hypercholesterolemia, unspecified Coding Level of Care Code Est Pt Level 4 (24435) Diagnoses Hypertension I10 Osteopenia M85.80 Hypercholesterolemia E78.00
[2024-06-06 10:19] VITALS: BP 134/70
== END 2024-06-06 10:33 | disposition home or self-care (01) ==
PROVIDERS: PCP Internal Medicine; Visit Provider Internal Medicine
DX: I10 Essential (primary) hypertension (principal); M85.80 Other specified disorders of bone density and structure, unspecified site; E78.00 Pure hypercholesterolemia, unspecified
CPT/HCPCS: 99214

== ENCOUNTER 2024-06-26 10:39 | Outpatient (REF) | payer SELFPAY | END 2024-06-26 10:40 | disposition home or self-care (01) | LOC: HO.HAP 10:39 | PROVIDERS: Visit Provider Internal Medicine | DX: Z46.1 Encounter for fitting and adjustment of hearing aid (principal) | CPT/HCPCS: V5267 ==

== ENCOUNTER 2024-07-25 08:03 | Outpatient (REF) | payer MEDICARE, SELFPAY ==
--- NOTE | ~2024-07-25 | MM_ITS ---
EXAMINATION: BONE DENSITOMETRY CLINICAL INDICATION: Age-related osteoporosis without current pathological fracture. COMPARISON: Previous BD dated 09/02/2021 and baseline BD dated 03/15/2008. TECHNIQUE: Using a Doppelganger DXA System (software version: 13.1) manufactured by [employer], dual-energy x-ray absorptiometry was performed of the lumbar spine and left hip. The images are of good technical quality. Summary results are attached. FINDINGS: LEFT FEMUR, NECK: Current: BMD 0.826 g/cm2, Z-score 0.7, T-score -1.5, osteopenia. Prior: BMD 0.819 g/cm2. Baseline: BMD 0.862 g/cm2. LEFT FEMUR, TOTAL: Current: BMD 0.951 g/cm2, Z-score 1.6, T-score -0.4, normal, 2.2% decrease from previous, 5.3% decrease from baseline (<5% change is not significant). Prior: BMD 0.972 g/cm2. Baseline: BMD 1.004 g/cm2. AP SPINE L1-L4: Current: BMD 0.959 g/cm2, Z-score -0.1, T-score -1.8, osteopenia, 0.9% increase from previous, 11.5% increase from baseline (<5% change is not significant). Prior: BMD 0.950 g/cm2. Baseline: BMD 0.860 g/cm2. IDENTIFIED RISK FACTORS: Menopause, osteoporosis, history of fracture (adult). HISTORY OF FRACTURE: Pelvis. MEDICATIONS: Calcium supplements or multivitamin, vitamin D. MM/XR DEXA axial skeleton IMPRESSION: 1. DIAGNOSIS: Osteopenia based on the lowest T-score value of -1.8 in the lumbar spine applying World Health Organization criteria. 2. 10-YEAR FRACTURE RISK PREDICTION, FRAX: Major osteoporotic fracture (clinical spine, forearm, hip or shoulder) 13.7%. Hip fracture 3.7%. 3. Treatment Recommendations: NOF guidelines recommend consideration for treatment in postmenopausal women and men age 50 and older presenting with the following: -A hip or vertebral (clinical or morphometric) fracture. -T-score less than or equal to -2.5 at the femoral neck or spine after appropriate evaluation to exclude secondary causes. -Low bone mass at the hip or spine and a 10-year fracture probability by FRAX of greater than or equal to 3% for hip fracture or greater than or equal to 20% for major osteoporotic fracture based on the [place] adapted WHO algorithm. 4. Other Recommendations: All treatment decisions require clinical judgment and consideration of individual patient factors, including patient preferences, comorbidities, previous drug use, risk factors not captured in the FRAX model (e.g. frailty, falls, vitamin D deficiency, increased bone turnover, interval significant decline in bone density) and possible under or overestimation of fracture risk by FRAX. Additional medical evaluation for secondary cause of low bone mineral density may be appropriate. FUTURE SCAN RECOMMENDATION: People with diagnosed cases of osteoporosis or at high risk for fracture should have regular bone mineral density tests. For patients eligible for Medicare, routine testing is allowed once every 2 years. The testing frequency can be increased to one year for patients who have rapidly progressing disease, those who are receiving or discontinuing medical therapy to restore bone mass, or have additional risk factors. Electronically signed by: Tyrone Al MD 08/01/2024 09:05 AM RUSTY HANNON
== END 2024-07-25 08:04 | disposition home or self-care (01) ==
LOC: HO.MAMMO 08:03
PROVIDERS: PCP Internal Medicine; Visit Provider Internal Medicine
DX: M81.0 Age-related osteoporosis without current pathological fracture (principal); M85.80 Other specified disorders of bone density and structure, unspecified site
CPT/HCPCS: 77080

== ENCOUNTER 2024-08-16 08:17 | Outpatient (REF) | payer MEDICARE, SELFPAY ==
[2024-08-16 08:31] LABS: MANUAL DIFF FLAG NO
[2024-08-16 08:42] LABS: Basophils Absolute Auto 0.1 X10*3/uL (0.0-0.2); Basophils Percent Auto 1.1 % (0-2); Eosinophils Absolute Auto 0.3 X10*3/uL (0.0-0.4); Eosinophils Percent Auto 4.1 % (0-4); Hematocrit 40.8 % (37.0-47.0); Hemoglobin 14.1 g/dl (12.0-16.0); Imm Gran Abs Auto 0.02 X10*3/uL (0.00-0.03); Imm Gran Pct Auto 0.3 % (0.0-0.4); Lymphocytes Absolute Auto 1.4 X10*3/uL (1.2-4.9); Lymphocytes Percent Auto 22.3 % (20-40); Mean Corpuscular HGB Conc 34.6 g/dl (31.0-35.0); Mean Corpuscular Hemoglobin 30.6 pg (27.0-33.0); Mean Corpuscular Volume 88.5 fL (80.0-98.0); Mean Platelet Volume 8.5 fL (9.4-12.3); Monocytes Absolute Auto 0.7 X10*3/uL (0.1-1.2); Monocytes Percent Auto 10.4 % (2-11); Neutrophils Absolute Auto 3.9 x10*3/uL (2.0-8.3); Neutrophils Percent Auto 61.8 % (45-73); Platelet Count 269 X10*3/uL (160-400); Red Blood Count 4.61 X10*6/uL (4.20-5.50); White Blood Count 6.4 X10*3/uL (4.8-10.8)
[2024-08-16 09:25] LABS: Alanine Aminotransferase 24 U/L (0-31); Alkaline Phosphatase 90 U/L (39-117); Anion Gap 10 (12-20); Aspartate Amino Transferase 21 U/L (5-31); Bilirubin Total 0.9 mg/dL (0.0-1.0); Blood Urea Nitrogen 13 mg/dL (9-16); Calcium 9.2 mg/dL (8.4-10.2); Carbon Dioxide 27 mmol/L (22-29); Chloride 103 mmol/L (96-108); Cholesterol 197 mg/dL (<200); Estimated Glomerular Filt Rate > 60; Glucose Random 92 mg/dL (60-115); HDL Cholesterol 51 mg/dL (>40); LDL Cholesterol Calculated 116 mg/dL (<100); Potassium 4.3 mmol/L (3.3-5.1); Sodium 136 mmol/L (135-145); Triglycerides 152 mg/dL (<150)
[2024-08-16 09:40] LABS: Free T4 (Free Thyroxine) 0.94 ng/dL (0.71-1.85); Thyroid Stimulating Hormone 2.74 uIU/mL (0.32-4.0); Vitamin D 25-OH Total 43.6 ng/mL (>30)
[2024-08-16 09:48] LABS: Folate 14.2 ng/mL (> or = 4.0); Vitamin B12 550 pg/mL (200-900)
== END 2024-08-16 08:18 | disposition home or self-care (01) ==
LOC: HO.LAB 08:17
PROVIDERS: PCP Internal Medicine; Visit Provider Internal Medicine
DX: E78.00 Pure hypercholesterolemia, unspecified (principal)
CPT/HCPCS: 36415; 80053; 80061; 82306; 82607; 82746; 84439; 84443; 85025

== ENCOUNTER 2024-08-20 10:07 | Outpatient (AMB) | payer MEDICARE, SELFPAY ==
[2024-08-20 10:08] VITALS: BP 136/70; PULSE 66; O2SAT 98; BMI 27.6
--- NOTE | 2024-08-20 10:08 | A.OFFVIS_ITS ---
Intake Vital Signs 08/20/24 10:08 Height 5 ft 3 in Weight 156 lb BMI 27.6 BP 136/70 Blood Pressure Location Lt brachial Position Sitting Pulse 66 Pulse Source Pulse Oximeter Pulse Oximetry (%) 98 Oxygen Delivery Method Room Air Intake Visit Reasons: [facility] G0439 Research Study Assistant Required: No Accompanied by: Self / Same As Patient Allergies Sulfa (Sulfonamide Antibiotics) [SULFA (SULFONAMIDE ANTIBIOTICS)] Allergy (Intermediate, Verified 08/20/24 10:09) RASH Medication List - Last Reconciled 08/20/24 by Jessica Martinez MD atenolol 50 mg PO DAILY atorvastatin 10 mg PO DAILY calcium carbonate-vitamin D3 600 mg-12.5 mcg (500 unit) (Calcium 600 with Vitamin D3) 1 cap PO DAILY mv,Ca,min-folic acid-vit K1 400-20 mcg (One-A-Day Women's 50 Plus) 1 tab PO DAILY HPI [facility] G0439 HPI Details 84-year-old overweight female with a his tory of hypertension hypercholesterolemia osteopenia coming in for an annual well visit. Patient's mammogram is up-to-date bone density is up-to-date. Ophthalmology [facility] [place] [facility] Mammogram July Bone density November 2017 osteopenia August 202107/2024 Colonoscopy March 2018 no more PFT normal November 2019 this month 1 day, got out of bed, drinks juice, became sweaty, -, did walk and was sweaty but was able to still continue on walking. This was 1 day only and has been continuing to be active with no problems. Deny any chest pains or heaviness. [facility] Medical History Heart murmur Retinal detachment GERD (gastroesophageal reflux disease) Hypertension Diverticulosis Hypercholesterolemia Surgical History H/O colonoscopy History of surgery H/O eye surgery History of dilatation and curettage Hx of appendectomy Hx of cholecystectomy History of bilateral knee replacement Social History (Updated 08/20/24 @ 10:25 by Jessica Martinez MD) Housing: House Alcohol intake: current Alcohol intake frequency: a few times a week Alcohol type: wine Comment: 3x a weeka glass Patient Tobacco Use Status: Never used Tobacco Tobacco use type: Cigarette e-Cigarette/Vaping Use: Never Used Second Hand Smoke Exposure: No service: No Current occupational status: retired Cognitive needs: No Hearing needs: No Vision needs: Yes Questionnaire Medicare Wellness Checkup What is your age?: 80 or older During the past 4 weeks, how much have you been bothered by emotional problems such as feeling anxious, depressed, irritable, sad or downhearted, and blue?: slightly During the past 4 weeks, has your physical & emotional health limited your social activities with family, friends, neighbors, or groups?: not at all During the past 4 weeks, how much bodily pain have you generally had?: no pain During the past 4 weeks, was someone available to help you if you needed & wanted help?: yes, quite a bit During the past 4 weeks, what was the hardest physical activity you could do for at least 2 minutes?: moderate Can you get to places out of walking distance without help? (For eg., can you travel alone on buses, taxis or drive your car?): Yes Can you go shopping for groceries or clothes without someone's help?: Yes Can you prepare your own meals?: Yes Can you do your housework without help?: Yes Because of any health problems, do you need the help of another person with your personal care needs such as eating, bathing, dressing or getting around the house?: No Can you handle your own money without help?: Yes During the past 4 weeks, how would you rate your health in general?: good During the past 4 weeks how have things been going for you?: good & bad parts about equal Are you having difficulties driving your car?: no Do you always fasten your seat belt when you are in a car?: yes, usually Have you fallen 2 or more times in the past year?: No Are you afraid of falling?: No Are you a smoker?: no During the past 4 weeks, how many drinks of wine, beer, or other alcoholic beverages did you have?: 2-5 drinks per week Do you exercise for about 20 minutes 3 or more times a week?: yes, most of the time Have you been given information to help with the following?: yes: Hazards in your house that might hurt you? and yes: Keeping track of your medications? How often do you have trouble taking medicines the way you have been told to take them?: I always take medicine as prescribed How confident are you that you can control & manage most of your health problems?: somewhat confident What is your race?: White PHQ-9 Over the last 2 weeks, how often have you been bothered by any of the following problems? 1. Little interest or pleasure in doing things: not at all 2. Feeling down, depressed, or hopeless: not at all 3. Trouble falling or staying asleep, or sleeping too much: not at all 4. Feeling tired or having little energy: not at all 5. Poor appetite or overeating: not at all 6. Feeling bad about yourself - or that you are a failure or have let yourself or your family down: not at all 7. Trouble concentrating on things, such as reading the newspaper or watching television: not at all 8. Moving or speaking so slowly that other people could have noticed. Or the opposite - being so fidgety or restless that you have been moving around a lot more than usual: not at all 9. Thoughts that you would be better off or of hurting yourself in some way: not at all Total score: 0 Depression Screening Interpretation: Negative Depression Screening Done: Yes Source: Developed by Drs. Marques Lenz, Stephanie Lynch, Horace Elliott and colleagues, with an educational kiley from [employer]. Review of Systems Const Denies poor appetite and Denies weakness Eyes Denies no additional complaints ENT Reports Normal hearing present, Denies dizziness, Denies nasal congestion, Denies tinnitus and Denies sore throat Card Denies chest pain, Denies syncope, Denies rapid heart rate and Denies dyspnea Resp Denies cough and Denies dyspnea GI Denies change in stool character, Reports constipation, Denies diarrhea, Denies nausea and Denies vomiting Denies urinary frequency, Denies difficulty voiding and Denies dysuria Neuro Reports Normal hearing present, Denies confusion, Denies dizziness, Denies syncope and Denies weakness Psych Denies confusion Physical Exam Vital Signs: Last Vital Signs Pulse 66 08/20/24 10:08 BP 136/70 08/20/24 10:08 Pulse Ox 98 08/20/24 10:08 Oxygen Delivery Method Room Air 08/20/24 10:08 BMI result Body Mass Index 27.6 Const General: No confusion Orientation/consciousness: No confusion HEENT Head: Yes normocephalic Ears: external ears normal and TM's normal bilaterally Face and sinus: Yes normal facial exam Mouth: moist mucous membranes Throat: Yes tonsils normal Eyes Conjunctivae: conjunctivae normal Pupils: Equal, round and reactive pupils present and Pupil accommodation reflex normal Direct Ophthalmoscopy: normal light reflex Neck Neck: No lymphadenopathy Thyroid: Thyroid normal Chest Chest palpation & inspection: normal inspection of the chest Resp Effort & Inspection: normal respiratory effort and no audible wheezes Auscultation: clear to auscultation bilaterally, no crackles, no wheezes and lung sounds not diminished Cardio Rate: regular rate Rhythm: regular rhythm Peripheral pulses: radial pulses present and dorsalis pedis present GI Other: Guaiac negative stools Palpation (GI): no masses Auscultation: normal bowel sounds and normoactive bowel sounds Rectal Exam - Female: deferred Skin General skin exam: no rashes or lesions noted Rashes: no rashes Neuro General: No confusion Cranial nerves: Yes Equal, round and reactive pupils present and Yes Normal hearing present Cognition (Neuro): normal cognition Gait exam (Neuro): Normal gait present Motor exam (neuro): 5/5 motor strength present throughout Deep tendon reflexes (DTR's): Right brachioradialis reflex intensity grade: 2+, Left brachioradialis reflex intensity grade: 2+, Right patellar reflex intensity grade: 2+ and Left patellar reflex intensity grade: 2+ Extrem General: No edema Assessment & Plan Assessment & Plan (1) Medicare annual wellness visit, subsequent: Code(s): Z00.00 - Encounter for general adult medical examination without abnormal findings Plan: Patient is advised to eat healthy, keep well hydrated, keep active and have adequate sleep. (2) Hypertension: Code(s): I10 - Essential (primary) hypertension Qualifiers: Hypertension type: primary hypertension Qualified Code(s): I10 - Essential (primary) hypertension Plan: Continue with blood pressure medication. Decrease salt intake and exercise on atenolol 50 mg once a day (3) Hypercholesterolemia: Code(s): E78.00 - Pure hypercholesterolemia, unspecified Plan: Avoid fried foods, chicken skin, eggs, butter margarine, pastries and meat. Be it pork or beef they have a lot of cholesterol LDL goal of less than 130 and triglyceride of less than 150. July 2024 last blood work and on atorvastatin 10 mg once a day (4) GERD (gastroesophageal reflux disease): Code(s): K21.9 - Gastro-esophageal reflux disease without esophagitis Qualifiers: Esophagitis presence: without esophagitis Qualified Code(s): K21.9 - Gastro-esophageal reflux disease without esophagitis Plan: Avoid the foods that causes that usually spicy foods, tomato products, juices, coffee, soda and foods that your sensitive to. After eating do not lie down, allow 3-4 hours before in lie down. And keep the head of bed above 30 degrees to avoid the acid from going up. (5) Osteopenia: Comment: August Code(s): M85.80 - Other specified disorders of bone density and structure, unspecified site Qualifiers: Osteopenia location: unspecified Qualified Code(s): M85.80 - Other specified disorders of bone density and structure, unspecified site Plan: Bone density stable (6) Diaphoresis: Code(s): R61 - Generalized hyperhidrosis Plan: Discussed with the patient that we will work this up Orders: Orders CA stress test Today R61 - Generalized hyperhidrosis XR chest 2V Today R61 - Generalized hyperhidrosis ECG 12 lead EKG Today R61 - Generalized hyperhidrosis Quality Reporting (2019) Depression/Bipolar (159/160/161/177) PHQ-9: Total score: 0 Coding Level of Care Code Medicare Subsequent (G0439) Diagnoses Medicare annual wellness visit, subsequent Z00.00 Primary hypertension I10 Hypertension type: primary hypertension Hypercholesterolemia E78.00 Gastroesophageal reflux disease without esophagitis K21.9 Esophagitis presence: without esophagitis Osteopenia, unspecified location M85.80 Osteopenia location: unspecified Diaphoresis R61
--- NOTE | 2024-08-20 10:08 | A.OFFPC_ITS ---
Intake Visit Reasons: [facility] G0439 Allergies Sulfa (Sulfonamide Antibiotics) [SULFA (SULFONAMIDE ANTIBIOTICS)] Allergy (Intermediate, Verified 06/06/24 10:03) RASH Tobacco use date assessed: 02/15/24 Dental Screening Dental Screen Date: 06/06/24 [facility] Medical History Heart murmur Retinal detachment GERD (gastroesophageal reflux disease) Hypertension Diverticulosis Hypercholesterolemia Surgical History H/O colonoscopy History of surgery H/O eye surgery History of dilatation and curettage Hx of appendectomy Hx of cholecystectomy History of bilateral knee replacement Social History Housing: House Alcohol intake: current Alcohol intake frequency: a few times a week Alcohol type: wine Patient Tobacco Use Status: Never used Tobacco Tobacco use type: Cigarette e-Cigarette/Vaping Use: Never Used Second Hand Smoke Exposure: No service: No Current occupational status: retired Cognitive needs: No Hearing needs: No Vision needs: Yes Questionnaire Thrive Questionnaire Date Thrive assessed: 06/06/24 Are you currently unemployed and looking for a job?: I choose not to answer this question SHELBY-7 AMB Questionnaire SHELBY-7 Date SHELBY - 7 assessed: 06/06/24 Source: Developed by Drs. Marques Lenz, Stephanie Lynch, Horace Elliott and colleagues, with an educational kiley from [employer]. Physical exam (Primary Care) Tobacco/Smoking Status: Tobacco use Status Tobacco use date assessed 02/15/24 06/06/24 10:07 Patient Tobacco Use Status Never used Tobacco 06/06/24 10:07 Tobacco use type Cigarette 06/06/24 10:07 e-Cigarette/Vaping Use Never Used 06/06/24 10:07 Thrive Assessment: Date of Thrive Assessment Date Thrive assessed 06/06/24 06/06/24 10:07 Coding
== END 2024-08-20 10:49 | disposition home or self-care (01) ==
PROVIDERS: PCP Internal Medicine; Visit Provider Internal Medicine
DX: Z00.00 Encounter for general adult medical examination without abnormal findings (principal); I10 Essential (primary) hypertension; E78.00 Pure hypercholesterolemia, unspecified; K21.9 Gastro-esophageal reflux disease without esophagitis; M85.80 Other specified disorders of bone density and structure, unspecified site; R61 Generalized hyperhidrosis

== ENCOUNTER → 2024-08-20 10:07 | Outpatient (BNVA) | payer MEDICARE, SELFPAY | PROVIDERS: PCP Internal Medicine; Visit Provider Internal Medicine ==

== ENCOUNTER 2024-08-22 11:22 | Outpatient (REF) | payer SELFPAY | END 2024-08-22 11:23 | disposition home or self-care (01) | LOC: HO.HAP 11:22 | PROVIDERS: Visit Provider Internal Medicine | DX: Z13.89 Encounter for screening for other disorder (principal) ==

== ENCOUNTER → 2024-08-27 10:18 | Outpatient (REF) | payer MEDICARE, SELFPAY ==
--- NOTE | ~2024-08-27 | XR_ITS ---
EXAMINATION: XR CHEST 2 VIEWS CLINICAL INFORMATION: Generalized hyperhidrosis R61. Patient states episode on jul 2 of excessive sweating and low blood pressure. COMPARISON: XR Chest 10/30/2019 TECHNIQUE: 2 views of the chest were obtained. FINDINGS: Heart is top normal in size. No acute vascular congestion. Chronic interstitial and fibrotic changes seen in the lung parenchyma. No focal infiltrates or pleural effusions. Chronic compression fracture of T6 vertebral body is stable XR/XR chest 2V IMPRESSION: Chronic interstitial and fibrotic changes. No acute process. Electronically signed by: Elier Mohan MD 11/05/2024 07:19 PM EST
--- NOTE | 2024-08-27 10:23 | ECG_ITS ---
Test Reason : hyperhydrosis Blood Pressure : / mmHG Vent. Rate : 062 BPM Atrial Rate : 062 BPM P-R Int : 274 ms QRS Dur : 094 ms QT Int : 438 ms P-R-T Axes : 052 019 099 degrees QTc Int : 444 ms Sinus rhythm with 1st degree A-V block Left ventricular hypertrophy with repolarization abnormality ( Sokolow-Eric ) Abnormal ECG When compared with ECG of 18-JUN-2015 15:25, T wave inversion now evident in Lateral leads Referred By: Jessica Martinez Electronically Signed By:JONATHAN BACON
== END ==
LOC: HO.CARD 10:18
PROVIDERS: PCP Internal Medicine; Visit Provider Internal Medicine
DX: R61 Generalized hyperhidrosis (principal)
CPT/HCPCS: 71046; 93005

== ENCOUNTER → 2024-09-10 10:17 | Outpatient (REF) | payer MEDICARE, SELFPAY ==
--- NOTE | 2024-09-10 10:20 | CA_ITS ---
Acquisition Time: 2024-09-10 10:42:35 Total Exercise Time: 00:01:23 Test Indications: HTN Medications: SEE H Protocol: ETELVINA Max HR: 097 BPM 71% of Pred: 136 BPM Max BP: 184/094 mmHG Max Work Load: 3.4 METS Exercise stress test with exercise 1 min 23 sec of Etelvina protocol, achieving 71% MPHR, with moderate shortness of breath, no chest discomfort, without arrythmia, with normotensive response to exercise, with nondiagnostic EKG for ischemia - submaximal test. Test reviewed with Dr Bhatt Message sent to Dr Martinez with recommendation for a pharmacological nuclear stess test if further evaluation for ischemia is needed. Referred By: Jessica Martinez Overread By: GERTRUDE ALICIA
== END ==
LOC: HO.CARD 10:17
PROVIDERS: PCP Internal Medicine; Visit Provider Internal Medicine
DX: R61 Generalized hyperhidrosis (principal)
CPT/HCPCS: 93017

== ENCOUNTER → 2024-09-10 10:20 | Outpatient (BNV) | payer MEDICARE, SELFPAY | PROVIDERS: PCP Internal Medicine; Visit Provider Nurse Practitioner Family | DX: I10 Essential (primary) hypertension (principal) | CPT/HCPCS: 93016; 93018 ==

== ENCOUNTER 2024-12-05 08:39 | Outpatient (AMB) | payer MEDICARE, SELFPAY ==
--- NOTE | 2024-12-05 08:47 | A.OFFPC_ITS ---
Vital Signs 12/05/24 08:49 Height 5 ft 3 in Weight 155 lb BMI 27.5 BP 144/68 H Blood Pressure Location Lt brachial Position Sitting Pulse 69 Pulse Source Pulse Oximeter Pulse Oximetry (%) 96 Oxygen Delivery Method Room Air Intake Visit Reasons: diaphoresis Allergies Sulfa (Sulfonamide Antibiotics) [SULFA (SULFONAMIDE ANTIBIOTICS)] Allergy (Intermediate, Verified 12/05/24 08:51) RASH Tobacco use date assessed: 12/05/24 Fall risk assessment: No Falls in past year Last assessed Fall Risk: 12/05/24 Dental Screening Dental Screen Date: 12/05/24 Did you have a dental visit in the last 12 months?: Yes Did you have a dental problem in the last 6 months where you did not have access to dental care?: No Was dental information given to patient?: Patient has dentist HPI diaphoresis HPI Details The patient is an 84-year-old female presenting with chronic conditions including hypertension and hypercholesterolemia. She reports a history of gastroesophageal reflux disease and is under medication management. The patient is currently taking atenolol 50 mg daily for hypertension and atorvastatin 10 mg daily for hypercholesterolemia. She indicated that she experienced stress and anxiety recently, which she attributes to her focus on family health issues, p otentially affecting her blood pressure. The patient discussed difficulties with a previous planned stress test due to being unable to complete it on a treadmill because of physical limitations and reported chest heaviness but no new pain episodes. She mentioned having been compliant with medication prior to documented discontinuation of routine blood pressure monitoring in August due to wearing long-sleeved clothing. Lifestyle practices include engagement with chair yoga and light weight exercises to maintain her health and mobility despite her age. [facility] Medical History Heart murmur Retinal detachment GERD (gastroesophageal reflux disease) Hypertension Diverticulosis Hypercholesterolemia Surgical History H/O colonoscopy History of surgery H/O eye surgery History of dilatation and curettage Hx of appendectomy Hx of cholecystectomy History of bilateral knee replacement Social History (Updated 08/20/24 @ 10:25 by Jessica Martinez MD) Housing: House Alcohol intake: current Alcohol intake frequency: a few times a week Alcohol type: wine Comment: 3x a weeka glass Patient Tobacco Use Status: Never used Tobacco Tobacco use type: Cigarette e-Cigarette/Vaping Use: Never Used Second Hand Smoke Exposure: No service: No Current occupational status: retired Cognitive needs: No Hearing needs: No Vision needs: Yes Questionnaire PHQ-9 Over the last 2 weeks, how often have you been bothered by any of the following problems? 1. Little interest or pleasure in doing things: not at all 2. Feeling down, depressed, or hopeless: not at all 3. Trouble falling or staying asleep, or sleeping too much: not at all 4. Feeling tired or having little energy: not at all 5. Poor appetite or overeating: not at all 6. Feeling bad about yourself - or that you are a failure or have let yourself or your family down: not at all 7. Trouble concentrating on things, such as reading the newspaper or watching television: not at all 8. Moving or speaking so slowly that other people could have noticed. Or the opposite - being so fidgety or restless that you have been moving around a lot more than usual: not at all 9. Thoughts that you would be better off or of hurting yourself in some way: not at all Total score: 0 Depression Screening Interpretation: Negative Depression Screening Done: Yes Source: Developed by Drs. Marques Lenz, Stephanie Lynch, Horace Elliott and colleagues, with an educational kiley from [employer]. Thrive Questionnaire Date Thrive assessed: 12/05/24 I am a: Patient What is your living situation today?: I have a steady place to live Within the past 12 months, did the food you bought not last and you didn't have the money to get more?: Never true Within the past 12 months, did you worry whether your food would run out before you got money to buy more?: Never true Do you have trouble paying for medicines?: No Do you have trouble getting transportation to medical appointments?: No Do you have trouble paying your heating and electricity bill?: No Do you have trouble taking care of your child, family member or friend?: No Do you have trouble with day-to-day activities such as bathing, preparing meals, shopping, managing finances, etc.?: No Are you currently unemployed and looking for a job?: No Are you interested in more education?: No Currently or been in a relationship where the following occur: No concerns reported THRIVE Score: 0 AUDIT C Alcohol Use Questionnaire (AUDIT-C) 1. How often do you have a drink containing alcohol?: 2-3 times a week 2. How many drinks containing alcohol do you have on a typical day when you are drinking?: 1 or 2 3. How often do you have six or more drinks on one occasion?: Never Total Score: 3 SHELBY-7 AMB Questionnaire SHELBY-7 Date SHELBY - 7 assessed: 12/05/24 Feeling nervous, anxious, or on edge: 1 = Several days Not being able to stop or control worryin = Not at all Worrying too much about different things: 0 = Not at all Trouble relaxin = Not at all Being so restless that it is hard to sit still: 0 = Not at all Becoming easily annoyed or irritable: 0 = Not at all Feeling afraid as if something awful might happen: 0 = Not at all Total SHELBY-7 score (0-4 normal; 5-9 mild; 10-14 moderate; 15-21 severe): 1 Source: Developed by Drs. Marques Lenz, Stephanie Lynch, Horace Elliott and colleagues, with an educational kiley from [employer]. SHELBY-7 Assessment Billing SHELBY-7 Assessment Tool: SHELBY-7 Assessment 21304 Physical exam (Primary Care) Vital Signs: Last Vital Signs Pulse 69 12/05/24 08:49 BP 144/68 H 12/05/24 08:49 Pulse Ox 96 12/05/24 08:49 Oxygen Delivery Method Room Air 12/05/24 08:49 BMI result Body Mass Index 27.5 Tobacco/Smoking Status: Tobacco use Status Tobacco use date assessed 12/05/24 12/05/24 09:00 Patient Tobacco Use Status Never used Tobacco 12/05/24 09:00 Tobacco use type Cigarette 12/05/24 09:00 e-Cigarette/Vaping Use Never Used 12/05/24 09:00 PHQ-9: PHQ-9 Score PHQ-9: Total score 0 12/05/24 09:20 Depression Screening Interpretation: Negative Thrive Assessment: Date of Thrive Assessment Date Thrive assessed 12/05/24 12/05/24 09:00 Currently or been in a relationship where the following occur: No concerns reported Const General: alert; No acute distress Eyes Conjunctivae: conjunctivae normal Resp Auscultation: clear to auscultation bilaterally Cardio Rate: regular rate Rhythm: regular rhythm GI Inspection: Yes normal to inspection Extrem General: Yes normal to inspection and No edema Coding Level of Care Code Est Pt Level 4 (87760) Complex EM visit Add On G2211 Diagnoses Chest pain R07.9 Gastroesophageal reflux disease without esophagitis K21.9 Esophagitis presence: without esophagitis Primary hypertension I10 Hypertension type: primary hypertension Hypercholesterolemia E78.00 Additional Codes SHELBY-7 Assessment Billing - SHELBY-7 Assessment Tool: SHELBY-7 Assessment 76145 ([id number]) Assessment & Plan Assessment & Plan (1) Chest pain: Code(s): R07.9 - Chest pain, unspecified Category: Medical Plan: awaiting nuclear stress to be done (2) GERD (gastroesophageal reflux disease): Code(s): K21.9 - Gastro-esophageal reflux disease without esophagitis Category: Medical Qualifiers: Esophagitis presence: without esophagitis Qualified Code(s): K21.9 - Gastro-esophageal reflux disease without esophagitis (3) Hypertension: Code(s): I10 - Essential (primary) hypertension Category: Medical Qualifiers: Hypertension type: primary hypertension Qualified Code(s): I10 - Essential (primary) hypertension Plan: advised to monitor the BP at home, in light of present problem will monitor (4) Hypercholesterolemia: Code(s): E78.00 - Pure hypercholesterolemia, unspecified Category: Medical Plan - Continue current medication regimen with atenolol for hypertension and atorvastatin for hypercholesterolemia. - Encourage the patient to resume regular blood pressure monitoring at home and report any significant changes. - Discuss the benefits of lifestyle adjustments, including continued engagement in chair yoga and light strength exercises, to support overall cardiovascular health. - Emphasize the importance of adhering to diet modifications to manage gastroesophageal reflux disease symptoms. - Provide information on the benefits of using the patient portal for accessing health records and communication. - Consider scheduling further evaluations as needed, including reevaluation for completed stress testing, pending symptom changes or exacerbations. - Reinforce the need for annual influenza vaccination and review the pneumococcal vaccination status for preventative health maintenance.
[2024-12-05 08:49] VITALS: BP 144/68; PULSE 69; O2SAT 96; BMI 27.5
== END 2024-12-05 09:33 | disposition home or self-care (01) ==
PROVIDERS: PCP Internal Medicine; Visit Provider Internal Medicine
DX: R07.9 Chest pain, unspecified (principal); K21.9 Gastro-esophageal reflux disease without esophagitis; I10 Essential (primary) hypertension; E78.00 Pure hypercholesterolemia, unspecified

== ENCOUNTER → 2024-12-05 08:39 | Outpatient (BNVA) | payer MEDICARE, SELFPAY | PROVIDERS: PCP Internal Medicine; Visit Provider Internal Medicine | DX: R07.9 Chest pain, unspecified (principal); K21.9 Gastro-esophageal reflux disease without esophagitis; I10 Essential (primary) hypertension; E78.00 Pure hypercholesterolemia, unspecified | CPT/HCPCS: 96127; 99212 ==

== ENCOUNTER 2025-02-21 08:24 | Outpatient (REF) | payer SELFPAY ==
--- OUTSIDE RECORDS SUMMARY | 2025-02-21 08:32 | XMS_ITS ---
Author Organization [facility] Address [address] [place] [address] Care Team Providers Care Home Inspector Name Role Phone Jessica Martinez Primary Care Provider Tiffanie Castro [phone] Encounters Encounter Location Date Provider Diagnosis [address] [address] 07/17/2024 Tiffanie Hicks Plan Of Treatment Next Appt Details Provider Name:Tiffanie alejandre, 03/26/2025 09:30:00 AM, [address] [place], [address], Progress Notes * HEIDISy BiOB:[birth year] (84 yo F)Acc No.[id number]:07/17/2024 Progress Note Patient:?ASAELKITASy Marily Provider:?Tiffanie Hicks DPM :1940???Age:84 Y???Sex:Female D ate:07/17/2024 Address:[address] [id number] Pcp:Jessica Martinez Subjective: * Chief Complaints: * ??? * Medical History:? Objective: * Vitals:? Assessment: Plan: * Treatment: * Images: * The named appointment provid er may or may not be the originator of this progress note, and it is not deemed complete until electronically signed by the appointment provider. Sign off status: Pending * Provider:?Tiffanie Hicks DPM Date:? Generated for Liban brock/Juanpablo/Faustoitting on:?02/21/2025 08:32 AM EDT
--- OUTSIDE RECORDS SUMMARY | 2025-02-21 08:32 | XMS_ITS | Patient Health Record ---
Author Organization [facility] [place] Address [address] [facility] [place] [address] Care Team Providers Care Therapeutic Recreation Assistant Name Role Phone Jessica Martinez Primary Care Provider Tiffanie Castro Unavailable [phone] Allergies Allergen (clinical drug ingredient) Drug/Non Drug Allergy documented on EMR Reaction Allergy Type Onset Date Status Substance with sulfonamide structure and antibacterial mechanism of action (substance) Sulfa Antibiotics Unknown Drug Allergy Active Reason For Referral No Information Medications Medication SIG (Take, Route, Frequency, Duration) Notes Start Date End Date Status Calcium + D Active Multivitamin Active Ciclopirox Olamine 0.77 % 1 application Externally Twice a day for 30 days Active Atenolol 50 MG 1 tablet Orally Once a day for 30 day(s) Active Atorvastatin Calcium 10 MG 1 tablet Oral ly Once a day for 30 day(s) Active Immunizations Vaccine Route Administration Date Status Comme nts COVID-19 Moderna Vaccine Unknown 02/07/2021 Administered Second Dose: 02/28/2021 Social History Tobacco Use: Social History Observation Description Date Details (start date - stop date) Never Smoker NA - NA Tobacco Use/Smoking Question Answer Notes Are you a: nonsmoker Additional Findings: Tobacco Non-User Current no n-smoker Alcohol Screen Question Answer Notes Did you have a drink contain ing alcohol in the past year? Yes How often did you have a dri nk containing alcohol in the past year? 2 to 3 times a week (3 points) How often did you have 6 or more drinks on one occasion in the past year? Weekly (3 points) Points 6 Interpretation Positive Tobacco use other than smoking: Question Answer Notes Are you an other tobacco user? No Problems Problem Type SNOMED Code ICD Code Onset Dates Problem Status W/U Status Risk Notes Problem 40233775 Plantar wart (B07.0) Active confirmed Problem 014666413199036 Osteoarthritis o f right ankle and foot (M19.071) Active confirmed Problem 14638702 Osteoarthritis o f left ankle and foot (M19.072) Active confirmed Vital Signs Heart Rate 63 /min 02/22/2024 Blood pressure diastolic 68 mm Hg 12/25/2024 Height 5 ft 3 in in 12/25/2024 Blood pressure systolic 130 mm Hg 12/25/2024 Weight 155 lbs 12/25/2024 BMI 27.45 kg/m2 12/25/2024 Encounters Encounter Location Date Provider Diagnosis [address] [address] 02/22/2024 Tiffanie Perica Tinea pedis of both feet B35.3 ; Plantar wart B07.0 ; Tinea unguium B35.1 ; Pain in right toe(s) M79.674 ; Pain in left toe(s) M79.675 and Left foot pain M79.[address] [address] 05/04/2024 Tiffanie Perica Tinea pedis of both feet B35.3 ; Plantar wart B07.0 ; Tinea unguium B35.1 ; Pain in right toe(s) M79.674 ; Pain in left toe(s) M79.675 and Left foot pain M79.[address] [address] 09/21/2024 Tiffanie Perica Tinea pedis of both feet B35.3 ; Plantar wart B07.0 ; Tinea unguium B35.1 ; Pain in right toe(s) M79.674 ; Pain in left toe(s) M79.675 and Left foot pain M79.[address] [address] 12/25/2024 Tiffanie Perica Tinea pedis of both feet B35.3 ; Plantar wart B07.0 ; Tinea unguium B35.1 ; Pain in right toe(s) M79.674 ; Pain in left toe(s) M79.675 and Left foot pain M79.672 [facility] [address] [address] 07/16/2024 Tiffanie Hicks Assessments Encounter Date Diagnosis (ICD Code) Assessment Notes Treatment Notes Treatment Clinical Notes Section Notes 02/22/2024 Tinea pedis of both feet (ICD-10 - B35.3) 05/04/2024 Tinea pedis of both feet (ICD-10 - B35.3) 09/21/2024 Tinea pedis of both feet (ICD-10 - B35.3) 12/25/2024 Plantar wart (ICD-10 - B07.0) 12/25/2024 Tinea pedis of both feet (ICD-10 - B35.3) 12/25/2024 Tinea unguium (ICD-10 - B35.1) 09/21/2024 Plantar wart (ICD-10 - B07.0) 05/04/2024 Plantar wart (ICD-10 - B07.0) 02/22/2024 Plantar wart (ICD-10 - B07.0) 02/22/2024 Tinea unguium (ICD-10 - B35.1) 05/04/2024 Tinea unguium (ICD-10 - B35.1) 09/21/2024 Tinea unguium (ICD-10 - B35.1) 12/25/2024 Pain in right toe(s) (ICD-10 - M79.674) 12/25/2024 Pain in left toe(s) (ICD-10 - M79.675) 05/04/2024 Pain in right toe(s) (ICD-10 - M79.674) 09/21/2024 Pain in right toe(s) (ICD-10 - M79.674) 02/22/2024 Pain in right toe(s) (ICD-10 - M79.674) 02/22/2024 Pain in left toe(s) (ICD-10 - M79.675) 09/21/2024 Pain in left toe(s) (ICD-10 - M79.675) 05/04/2024 Pain in left toe(s) (ICD-10 - M79.675) 12/25/2024 Left foot pain (ICD-10 - M79.672) 09/21/2024 Left foot pain (ICD-10 - M79.672) 05/04/2024 Left foot pain (ICD-10 - M79.672) 02/22/2024 Left foot pain (ICD-10 - M79.672) Plan Of Treatment Pending Test Test Name Order Date X ray : Foot, left 3V 09/29/2023 Next Appt Details Provider Name:Tiffanie alejandre, 03/26/2025 09:30:00 AM, [address] [facility], [place], [address], Insurance Providers Payer Name Payer Address Payer Phone Subscriber Number Group Number Insured Name Patient Relationship to Insured Coverage Start Date Coverage End Date Medicare National [employer] [address] [place] [address] [id number] Marily Llanos Self - patient is the insured [employer] [address] [place] [address] [id number] Marily Llanos Self - patient is the insured Medical (General) History Medical History History ICD Code Arthritis CAD (Cholesterol) Measles Mumps Chicken pox Gall bladder problems High blood pressure Osteoporosis Joint implants/screws Surgical History Surgery Date(Month/Year) gall bladder 1970 right knee replacement 12/2014 left knee replacement 02/2016 cataract surgery 2021 Hospitalization History Reason Date(Month/Year) [facility] [place]- Fall - cat scan and x-ray left knee 01/14
--- OUTSIDE RECORDS SUMMARY | 2025-02-21 08:32 | XMS_ITS ---
Author Organization [facility] Address [address] [facility] [place] [address] Care Team Providers Care Instrumental Musician Name Role Phone Jessica Martinez Primary Care Provider Tiffanie Castro Unavailable [phone] Allergies Allergen (clinical drug ingredient) Drug/Non Drug Allergy documented on EMR Reaction Allergy Type Onset Date Status Substance with sulfonamide structure and antibacterial mechanism of action (substance) Sulfa Antibiotics Unknown Drug Allergy Active REASON FOR VISIT Painful nail(s) aggrevated by shoes causing difficulty standing/walking, Skin Problem, Wart(s) Medications Medication SIG (Take, Route, Frequency, Duration) Notes Start Date End Date Status Ciclopirox Olamine 0.77 % 1 application Externally Twice a day for 30 days Active Atenolol 50 MG 1 tablet Orally Once a day for 30 day(s) Active Atorvastatin Calcium 10 MG 1 tablet Oral ly Once a day for 30 day(s) Active Calcium + D Active Multivitamin Active Social History Tobacco Use: Social History Observation [...] Are you an other tobacco user? No Vital Signs Height 5 ft 3 in in 09/21/2024 Weight 157 lbs 09/21/2024 BMI 27.81 kg/m2 09/21/2024 Encounters Encounter Location Date Provider Diagnosis [facility] [place] [address] [place] [address] 09/21/2024 Tiffanie Fabiola Tinea pedis of both feet B35.3 ; Plantar wart B07.0 ; Tinea unguium B35.1 ; Pain in right toe(s) M79.674 ; Pain in left toe(s) M79.675 and Left foot pain M79.672 Assessments Encounter Date Diagnosis (ICD Code) Assessment Notes Treatment Notes Treatment Clinical Notes Section Notes 09/21/2024 Tinea pedis of both feet (ICD-10 - B35.3) 09/21/2024 Plantar wart (ICD-10 - B07.0) 09/21/2024 Tinea unguium (ICD-10 - B35.1) 09/21/2024 Pain in right toe(s) (ICD-10 - M79.674) 09/21/2024 Pain in left toe(s) (ICD-10 - M79.675) 09/21/2024 Left foot pain (ICD-10 - M79.672) Plan Of Treatment Medication Medication Name Sig Start Date Stop Date Notes Ciclopirox Olamine 0.77 % 1 application Externally Twice a day for 30 days Next Appt Details Follow Up: 2 Months, Reason: Provider Name:Tiffanie alejandre, 03/26/2025 09:30:00 AM, [address] [place] [address], [address], Procedure Notes * Category Sub-Category Detail Notes Wart Treatment Procedure Verrucae were de brided to pin-point bleeding margins with sterile 15 surgical blade, silver nitrate chemocautery applied, recomm. immune-boosting meds such as zinc, recomm. follow up with topical chemosurgical agents, Pt defers any other forms of tx (75576) Debride Nail 6-10 Nail debridement Nail debridem ent performed extensively to reduce/remove overall nail length, girth, thickness, subungual debris, and necrotic tissue, by manual and electrical means through the use of a nail nipper and/or dremel, to more viable healthy nail plate or bed tissue 1-5. Silver nitrate used for any petechial bleeding as necessary. Patient chooses, no pharmaceutical tx (31898) Progress Notes * Bi STACKOB:[birth year] (84 yo F)Acc No.[id number]:09/21/2024 Progress Note Patient:?Marily Stack Provider:?Tiffanie Hicks DPM :1940???Age:84 Y???Sex:Female D ate:09/21/2024 Address:[address] [place], [place] [address] Pcp:Jessica Martinez Subjective: * Chief Complaints: * ???Painful nail(s) aggrevate d by shoes causing difficulty standing/walkingSkin ProblemWart(s) * HPI: ???Painful Nails:?Pt States Last PCP Visit:?Date:?08/10/2024 ???Skin problems:?Pt States PCP Visit: ?DATE?08/10/2024 ?Nature:?scaling , redness.?Location:?B/L .?Course:?improved.?Treatments:?Medication (Ciclopirox Olamine 0.77 Cream).? * ROS:?General/Constitutional:?Nausea?denies.?Vomiting?denies.?Hunger Thirst?denies.?Loss appetite?denies.?Chills?denies.?Fatigue?denies.?Fever?denies.?Night Sweats?denies.?Unexplained weight loss?denies.?Unexplained weight gain?denies.?HEENTM:?Dentures?denies.?Dizziness?denies.?Glasses/contacts?admits.?Retinopathy?de nies.?Blurred/double vision?denies.?TMJ?denies.?Discharge/drainage?denies.?Implants?denies.?Sore throat?denies.?Dental implants?denies.?Hard of hearing ?denies.?Difficulty chewing/swallowing/speaking?denies.?Nose bleeds?denies.?Sore mouth?denies.?Respiratory:?On Oxygen?denies.?Pneumonia/pleurisy?denies.?Bronchitis?denies.?Emphysema?denies.?C oughing?denies.?Cough blood?denies.?Shortness of breath?denies.?Wheezing?denies.?Cardiovascular:?Pacemaker?denies.?MVP?denies.?WPW?denies.?CHF?denies.?Heart attack?denies.?Septal defect?denies.?Rapid beat?denies.?Chest pain ?denies.?Atrial Fib.?denies.?Murmur/Palpitations?denies.?Gastrointestinal:?Hemorrhoids?denies.?Stomach/Abdominal pain?denies.?Dark blood stool?denies.?Irritable bowel ?denies.?Constipation?denies.?Diarrhea?denies.?Hematology:?Swelling?denies.?Clots?denies.?Varicose Veins?denies.?Bruising?denies.?Bleeding problem?denies.?Genitourinary:?Blood urine?denies.?Frequent/Painfu/urination/bladder control?denies.?Kidney stones?denies.?Infection (UTI)?denies.?Nephropathy?denies.?sex trans dis (STD)?denies.?Prostate?denies.?Musculoskeletal:?Hammertoes?denies.?Bunions?denies.?Back Pain?denies.?Muscle Cramps/ Resting?denies.?Muscle cramps / walking?denies.?Generalized aches and pains?admits.?Weakness?denies.?Integ.:?Resendiz?denies.?Scars?denies.?Corns/calluses?admits.?Ingrown nails?denies.?Painful nails?denies.?Open Sores?denies.?Rashes?denies.?Neurologic:?Difficulty sleeping?denies.?Brain disorder?denies.?Numbness?denies.?Balance trouble?denies.?Confusion?denies.?Fainting/blackouts?denies.?Tingling?denies.?Tr emors?denies.? * Medical History:? * Surgical History:?gall bladd er 1970right knee replacement 12/2014left knee replacement 02/2016cataract surgery 2021 * Hospitalization/Major Diagno stic Procedure:?[facility] [place]- Fall - cat scan and x-ray left knee 01/14 * Family History:?Mother: dece ased, diagnosed with Unspecified essential hypertension, Unspecified heart disease.?Father: , kidney/liver disease.? * Social History:?Tobacco Use:?Tobacco Use/Smoking?Are you a:?nonsmoker ?Additional Findings: Tobacco Non-User?Current non-smoker ?Tobacco use other than smoking?Are you an other tobacco user??No ???Drugs/Alcohol:?Drugs?Have you used drugs other than those for medical reasons in the past 12 months??No ?Alcohol Screen?Did you have a drink containing alcohol in the past year??Yes ?How often did you have a drink containing alcohol in the past year??2 to 3 times a week (3 points) ?How often did you have 6 or more drinks on one occasion in the past year??Weekly (3 points) ?Points?6 ?Interpretation?Positive ???Miscellaneous:?Caffeine: yes, frequency:, 1-2 cups per day. ?Children: yes, 4. ?Exercise: yes, walking, chair yoga. ?Marital status: . ?Occupation: Retired. * Medications:?TakingMultivita min Calcium + D Atorvastatin Calcium 10 MG Tablet 1 tablet Orally Once a dayAtenolol 50 MG Tablet 1 tablet Orally Once a dayCiclopirox Olamine 0.77 % Cream 1 application Externally Twice a dayMedication List reviewed and reconciled with the patientTaking Multivitamin Taking Calcium + D Taking Atorvastatin Calcium 10 MG Tablet 1 tablet Orally Once a dayTaking Atenolol 50 MG Tablet 1 tablet Orally Once a dayTaking Ciclopirox Olamine 0.77 % Cream 1 application Externally Twice a dayMedication List reviewed and reconciled with the patient * Allergies:?Sulfa Antibiotics yes[Allergies Verified] Objective: * Vitals:?Ht: 5 ft 3 in, Wt: 1 57, BMI: 27.81, Shoe size: 9-9.5, Wt-k.21 kg. * Examination: ???Nails: ?NAILS are:?Elongated, overgrown, dystrophic, lytic, greater than 3mm thick, discolored and friable with crumbly malodorous subungual debris, with pain on palpation , 1-5 B/L.?Dermatologic: ?SKIN FINDINGS:? Skin shows approximately _75__% LESS, sign(s) of, erythema, scaling, in a moccasin fashion, no fissure(s) present, B/L.?VERRUCA:?Reveals a Single , multi-loculated , mosaic-patterned, round, raised, flat-topped, petechial bleeding papule(s), with cauliflower appearance and interruption of skin lines, pain to lateral compression, and size estimated at 5 mm diameter , plantar Forefoot , LEFT.? Assessment: * Assessment: 1.?Tinea pedis of both feet - B35.3 (Primary), Acute problem, Uncomplicated (3),Rx drug management (4)?2.?Plantar wart - B07.0?3.?Tinea unguium - B35.1?4.?Pain in right toe(s) - M79.674?5.?Pain in left toe(s) - M79.675?6.?Left foot pain - M79.672? Plan: * Treatment: * Procedures:?Debride Nail 6-10:?Nail debridement?Nail debridement performed extensively to reduce/remove overall nail length, girth, thickness, subungual debris, and necrotic tissue, by manual and electrical means through the use of a nail nipper and/or dremel, to more viable healthy nail plate or bed tissue 1-5. Silver nitrate used for any petechial bleeding as necessary. Patient chooses, no pharmaceutical tx (72291).?Wart Treatment:?Procedure?Verrucae were debrided to pin-point bleeding margins with sterile 15 surgical blade, silver nitrate chemocautery applied, recomm. immune-boosting meds such as zinc, recomm. follow up with topical chemosurgical agents, Pt defers any other forms of tx (91966).? * Procedure Codes:?76725 DEBRI DE NAIL, 6 OR MORE, Modifiers: XS 73055 Wart Destruction, 1-14, Modifiers: XS * Preventive Medicine:? ??Counseling:?Discussion:?-13: Office or other outpatient visit for the evaluation and management of an established patient, which required a medically appropriate history and/or examination and LOW level of DECISION MAKING for: 1 STABLE ACUTE UNCOMPLICATED PROBLEM, 2 OR MORE MINOR PROBLEMS, OR 1 STABLE CHRONIC PROBLEM, THAT POSE(S) A LOW RISK FOR MORBIDITY/MORTALITY. The visit on the day of the encounter encompassed interpreting the data and educating the patient as to the nature of their condition, treatment options available according to their individual PMH, meds, allergies, and overall health/living conditions, as well as any potential risks or complications that may occur from a failure to adhere to, and participate in, the recommended course of therapy. The discussion included a complete verbal, and/or written explanation of the examination results, any x-rays taken, the proposed diagnosis, and outline of the treatment plan. A schedule for future care needs was also explained. The patient verbalized an understanding of the instructions at this time and agreed to be an active participant in their treatment. If the patient should think of any questions or concerns after the visit, I have encouraged the patient to call the office.?Tinea Pedis:?Given recent successful results to treatment, The patient is to cont the rx cream as directed.? * Follow Up:?2 Months * Images: * Sign off status: Completed true * Provider:?Tiffanie Hicks DPM Date:?11/2023 Generated for Liban brock/Juanpablo/Kishore on:?02/21/2025 08:31 AM EDT History and Physical Notes * HPI (History of Present Illness) Category Sub-Category Detail Notes Category Not es Painful Nails Pt States Last PCP Visit: Date:: 08/10/2024 Skin problems Nature: scaling , redness Location: B/L Course: improved Treatments: Medication (Ciclopir ox Olamine 0.77 Cream) Pt States PCP Visit: DATE: 08/10/2024 Examination Category Sub-Category Detail Notes Category Not es Dermatologic SKIN FINDINGS: Skin shows appro ximately _75__% LESS, sign(s) of, erythema, scaling, in a moccasin fashion, no fissure(s) present, B/L VERRUCA: Reveals a Single , m ulti-loculated , mosaic-patterned, round, raised, flat-topped, petechial bleeding papule(s), with cauliflower appearance and interruption of skin lines, pain to lateral compression, and size estimated at 5 mm diameter , plantar Forefoot , LEFT Nails NAILS are: Elongated, overg rown, dystrophic, lytic, greater than 3mm thick, discolored and friable with crumbly malodorous subungual debris, with pain on palpation , 1-5 B/L
--- OUTSIDE RECORDS SUMMARY | 2025-02-21 08:32 | XMS_ITS ---
Author Organization [facility] Address [address] [place] [address] Care Team Providers Care Die Maker Electronic Name Role Phone JuanKarladerek Primary Care Provider Tiffanie Castro Unavailable [phone] Allergies Allergen (clinical drug ingredient) Drug/Non Drug [...] Once a day for 30 day(s) Active Social History Tobacco Use: Social History Observation Description Date Details (start date - stop date) Never Smoker NA - NA Tobacco Use/Smoking Question Answer Notes Are you a: nonsmoker Additional Findings: Tobacco Non-User Current no n-smoker Tobacco use other than smoking: Question Answer Notes Are you an other tobacco user? No Vital Signs Height 5 ft 3 in in 12/25/2024 Weight 155 lbs 12/25/2024 BMI 27.45 kg/m2 12/25/2024 Blood pressure systolic 130 mm Hg 12/25/19 25 Blood pressure diastolic 68 mm Hg 025 Encounters Encounter Location Date Provider Diagnosis [facility] [address] [place] [address] 12/25/2024 Tiffanie Hicks Tinea pedis of both feet B35.3 ; Plantar wart B07.0 ; Tinea unguium B35.1 ; Pain in right toe(s) M79.674 ; Pain in left toe(s) M79.675 and Left foot pain M79.672 Assessments Encounter Date Diagnosis (ICD Code) Assessment Notes Treatment Notes Treatment Clinical Notes Section Notes 12/25/2024 Tinea pedis of both feet (ICD-10 - B35.3) 12/25/2024 Plantar wart (ICD-10 - B07.0) 12/25/2024 Tinea unguium (ICD-10 - B35.1) 12/25/2024 Pain in right toe(s) (ICD-10 - M79.674) 12/25/2024 Pain in left toe(s) (ICD-10 - M79.675) 12/25/2024 Left foot pain (ICD-10 - M79.672) Plan Of Treatment Next Appt Details Follow Up: 2 Months, Reason: Provider Name:Tiffanie alejandre, 03/26/2025 09:30:00 AM, [address] [place], [address], Procedure Notes * Category Sub-Category Detail Notes Wart Treatment Procedure Verrucae were de brided to pin-point bleeding margins with sterile 15 surgical blade, silver nitrate chemocautery applied, recomm. immune-boosting meds such as zinc, recomm. follow up with topical chemosurgical agents, Pt defers any other forms of tx (67970) Debride Nail 6-10 Nail debridement Due to the cl inical pathology outlined in the exam findings, performance of this nail treatment is medically necessary as its management by an unskilled/untrained nonprofessional would put this patients foot and overall health at risk. Therefore, debridement to affected nail(s), as described in exam (TA, T1, T2, T3, T4, T5, T6, T7, T8, T9, ), was performed exclusively by the physician of record to reduce/remove overall nail length, girth, thickness, subungual debris, and necrotic tissue, by manual and/or electrical means through the use of a nail nipper and/or dremel-type flute grinder, to a more viable healthy nail plate or bed tissue 6-10 nails in total. Silver nitrate was used for any petechial bleeding as necessary. Definitive antifungal treatment options, both pharmaceutical and surgical, have been reviewed and discussed with the patient. The patient solely prefers the use of intermittent/as needed professional debridement services for their nail condition and understands the need for additional periodic treatments to maintain effectiveness in symptomatic relief - 95570 Progress Notes * Bi STACKOB:[birth year]14 (84 yo F)Acc No.[id number]:12/25/2024 Progress Note Patient:?Marily STACK Provider:?Tiffanie Hicks DPM :1940???Age:84 Y???Sex:Female D ate:12/25/2024 Address:[address] [place] [address] [facility] Pcp:Jessica Martinez Subjective: * Chief Complaints: * ???Painful nail(s) aggrevate d by shoes causing difficulty standing/walkingSkin ProblemWart(s) * HPI: ???Painful Nails:?Pt States Last PCP Visit:?Date:?11/21/2024 ???Skin problems:?Pt States PCP Visit: ?DATE?11/21/2024 ?Nature:?scaling , redness.?Location:?B/L .?Course:?improved.?Treatments:?Medication (Ciclopirox Olamine 0.77 [...] 02/2016cataract surgery 2021 * Hospitalization/Major Diagno stic Procedure:?[facility] [place]- Fall - cat scan and x-ray left knee 01/14 * Family History:?Mother: dece ased, diagnosed with Unspecified essential hypertension, Unspecified heart disease.?Father: , kidney/liver disease.? * Social History:?Tobacco Use:?Tobacco Use/Smoking?Are you a:?nonsmoker ?Additional Findings: Tobacco Non-User?Current non-smoker ?Tobacco use other than smoking?Are you an other tobacco user??No ???Miscellaneous:?Caffeine: yes, frequency:, 1-2 cups per day. ?Children: yes, 4. ?Exercise: yes, walking, chair yoga. ?Marital status: . 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 * Medications:?TakingCiclopiro x Olamine 0.77 % Cream 1 application Externally Twice a day Multivitamin Calcium + D Atorvastatin Calcium 10 MG Tablet 1 tablet Orally Once a day Atenolol 50 MG Tablet 1 tablet Orally Once a day Medication List reviewed and reconciled with the patientTaking Ciclopirox Olamine 0.77 % Cream 1 application Externally Twice a day Taking Multivitamin Taking Calcium + D Taking Atorvastatin Calcium 10 MG Tablet 1 tablet Orally Once a day Taking Atenolol 50 MG Tablet 1 tablet Orally Once a day Medication List reviewed and reconciled with the patient * Allergies:?Sulfa Antibiotics yes[Allergies Verified] Objective: * Vitals:?Ht: 5 ft 3 in, Wt: 1 55, BMI: 27.45, Shoe size: 9-9.5, BP: 130/68 mm Hg, Wt-k.31 kg. * Examination: ???Nails: ?NAILS are:?Elongated, overgrown, dystrophic, lytic, greater than 3mm thick, discolored and friable with crumbly malodorous subungual debris, with pain on palpation , TA, T1, T2, T3, T4, T5, T6, T7, T8, T9.?Dermatologic: ?SKIN FINDINGS:? Skin shows approximately _75__% LESS, sign(s) of, erythema, scaling, in a moccasin fashion, no fissure(s) present, B/L.?VERRUCA:?Reveals a Single , multi-loculated , mosaic-patterned, round, raised, flat-topped, petechial bleeding papule(s), with cauliflower appearance and interruption of skin lines, pain to lateral compression, and size estimated at 5 mm diameter , plantar Forefoot , LEFT.?General Examination: ?GENERAL APPEARANCE:?Reveals a pleasant, alert, well nourished, well- developed, well hydrated individual, who demonstrates proper attention to hygiene/body habitus, and is in no acute distress, Pt serves as own historian for office visit today.?ORIENTED:?person, place, and time.?Vascular: ?DP PULSES (B):?3/4, B/L.?PT PULSES (B):?3/4, B/L.?CAPILLARY FILL TIME:?immediate, all digits, B/L.?TROPHIC CONDITION-TEXTURE/ELASTICITY/TURGOR/HAIR GROWTH (B):?normal, B/L.? Assessment: * Assessment: 1.?Plantar wart - B07.0???2. ?Tinea pedis of both feet - B35.3 (Primary)???3.?Tinea unguium - B35.1???4.?Pain in right toe(s) - M79.674???5.?Pain in left toe(s) - M79.675???6.?Left foot pain - M79.672??? Plan: * Treatment: * Procedures:?Debride Nail 6-10:?Nail debridement?Due to the clinical pathology outlined in the exam findings, performance of this nail treatment is medically necessary as its management by an unskilled/untrained nonprofessional would put this patients foot and overall health at risk. Therefore, debridement to affected nail(s), as described in exam (TA, T1, T2, T3, T4, T5, T6, T7, T8, T9, ), was performed exclusively by the physician of record to reduce/remove overall nail length, girth, thickness, subungual debris, and necrotic tissue, by manual and/or electrical means through the use of a nail nipper and/or dremel-type flute grinder, to a more viable healthy nail plate or bed tissue 6- 10 nails in total. Silver nitrate was used for any petechial bleeding as necessary. Definitive antifungal treatment options, both pharmaceutical and surgical, have been reviewed and discussed with the patient. The patient solely prefers the use of intermittent/as needed professional debridement services for their nail condition and understands the need for additional periodic treatments to maintain effectiveness in symptomatic relief - 75639.?Wart Treatment:?Procedure?Verrucae were debrided to pin-point bleeding margins with sterile 15 surgical blade, silver nitrate chemocautery applied, recomm. immune-boosting meds such as zinc, recomm. follow up with topical chemosurgical agents, Pt defers any other forms of tx (41640).? * Procedure Codes:?45364 DEBRI DE NAIL, 6 OR MORE, Modifiers: XS 09312 Wart Destruction, 1-14, Modifiers: XS * Preventive [...] status: Completed true * Provider:?Tiffanie Hicks DPM Date:?02/2025 Generated for Liban brock/Juanpablo/Kishore on:?02/21/2025 08:32 AM EDT History and Physical Notes * HPI (History of Present Illness) Category Sub-Category Detail Notes Category Not es Painful Nails Pt States Last PCP Visit: Date:: 11/21/2024 Skin problems Nature: scaling , redness Location: B/L Course: improved Treatments: Medication (Ciclopir ox Olamine 0.77 Cream) Pt States PCP Visit: DATE: 11/21/2024 Examination Category Sub-Category Detail Notes Category Not [...] mm diameter , plantar Forefoot , LEFT General Examination GENERAL APPEARANCE: Reveals a pleasant, alert, well nourished, well-developed, well hydrated individual, who demonstrates proper attention to hygiene/body habitus, and is in no acute distress, Pt serves as own historian for office visit today ORIENTED: person, place, and t priya Vascular DP PULSES (B): 3/4, B/L PT PULSES (B): 3/4, B/L CAPILLARY FILL TIME: immediate, all digi ts, B/L TROPHIC CONDITION-TEXTURE/EL ASTICITY/TURGOR/HAIR GROWTH (B): normal, B/L Nails NAILS are: Elongated, overg rown, dystrophic, lytic, greater than 3mm thick, discolored and friable with crumbly malodorous subungual debris, with pain on palpation , TA, T1, T2, T3, T4, T5, T6, T7, T8, T9
== END 2025-02-21 08:25 | disposition home or self-care (01) ==
LOC: HO.HAP 08:24
PROVIDERS: Visit Provider Internal Medicine
DX: Z13.89 Encounter for screening for other disorder (principal)

== ENCOUNTER 2025-03-08 09:38 | Outpatient (AMB) | payer MEDICARE, SELFPAY ==
[2025-03-08 09:40] VITALS: BP 140/80; PULSE 64; TEMP 36.1; O2SAT 95; BMI 26.7
--- NOTE | 2025-03-08 09:40 | A.OFFPC_ITS ---
Vital Signs 03/08/25 09:40 Height 5 ft 3 in Weight 150 lb 8 oz BMI 26.7 BP 140/80 H Blood Pressure Location Lt brachial Position Sitting Pulse 64 Pulse Source Pulse Oximeter Temp 96.9 F Temp Source Temporal Artery Scan Pulse Oximetry (%) 95 Oxygen Delivery Method Room Air Intake Visit Reasons: cholesterol Intake Note: Patient is here to follow up on Cholesterol. Medical Authorization Specialist Required: No Payroll And Benefits Specialist: Not Required per policy Accompanied by: Self / Same As Patient Allergies Sulfa (Sulfonamide Antibiotics) [SULFA (SULFONAMIDE ANTIBIOTICS)] Allergy (Intermediate, Verified 03/08/25 09:40) RASH Tobacco use date assessed: 03/08/25 Fall risk assessment: No Falls in past year Last assessed Fall Risk: 03/08/25 Dental Screening Dental Screen Date: 12/05/24 HPI cholesterol HPI Details nuclear stress test cancelled by the patient [facility] Medical History Heart murmur Retinal detachment GERD (gastroesophageal reflux disease) Hypertension Diverticulosis Hypercholesterolemia Surgical History H/O colonoscopy History of surgery H/O eye surgery History of dilatation and curettage Hx of appendectomy Hx of cholecystectomy History of bilateral knee replacement Social History Housing: House Alcohol intake: current Alcohol intake frequency: a few times a week Alcohol type: wine Comment: 3x a weeka glass Patient Tobacco Use Status: Never used Tobacco Tobacco use type: Cigarette e-Cigarette/Vaping Use: Never Used Second Hand Smoke Exposure: No service: No Current occupational status: retired Cognitive needs: No Hearing needs: No Vision needs: Yes Questionnaire Thrive Questionnaire Date Thrive assessed: 12/05/24 SHELBY-7 AMB Questionnaire SHELBY-7 Date SHELBY - 7 assessed: 12/05/24 Source: Developed by Drs. Marques Lenz, Stephanie Lynch, Horace Elliott and colleagues, with an educational kiley from [employer]. Physical exam (Primary Care) Vital Signs: Last Vital Signs Temp 96.9 F 03/08/25 09:40 Pulse 64 03/08/25 09:40 BP 140/80 H 03/08/25 09:40 Pulse Ox 95 03/08/25 09:40 Oxygen Delivery Method Room Air 03/08/25 09:40 BMI result Body Mass Index 26.7 Tobacco/Smoking Status: Tobacco use Status Tobacco use date assessed 03/08/25 03/08/25 09:45 Patient Tobacco Use Status Never used Tobacco 03/08/25 09:45 Tobacco use type Cigarette 03/08/25 09:45 e-Cigarette/Vaping Use Never Used 03/08/25 09:45 Thrive Assessment: Date of Thrive Assessment Date Thrive assessed 12/05/24 03/08/25 09:45 Const General: alert; No acute distress HENMT Other: impacted cerumen R ear Eyes Conjunctivae: conjunctivae normal Resp Auscultation: clear to auscultation bilaterally Cardio Rate: regular rate Rhythm: regular rhythm GI Inspection: Yes normal to inspection Extrem General: Yes normal to inspection and No edema Office Procedures Cerumen Removal From which ear canal was the cerumen removed: right Removal: irrigation, otoscope w/curette, cerumen loop/spoon and other Notes: patient tolerated procedure well, no complications and ear canal clear 13937-Pme Irrigation/Lavage Coding Level of Care Code Est Pt Level 4 (02077) Diagnoses Primary hypertension I10 Hypertension type: primary hypertension Hypercholesterolemia E78.00 Gastroesophageal reflux disease without esophagitis K21.9 Esophagitis presence: without esophagitis Chest pain R07.9 Impacted cerumen of right ear H61.21 Situational depression F43.21 Hearing difficulty of both ears H91.93 CPT Codes Office Procedure - CPT: 19274-Mmd Irrigation/Lavage ([id number]) Assessment & Plan Assessment & Plan (1) Hypertension: Code(s): I10 - Essential (primary) hypertension Category: Medical Qualifiers: Hypertension type: primary hypertension Qualified Code(s): I10 - Essential (primary) hypertension Plan: Continue with blood pressure medication. Decrease salt intake and exercise patient is on atenolol 50 mg once a day. advised to monitor the BP and record (2) Hypercholesterolemia: Code(s): E78.00 - Pure hypercholesterolemia, unspecified Category: Medical Plan: Avoid fried foods, chicken skin, eggs, butter margarine, pastries and meat. Be it pork or beef they have a lot of cholesterol LDL goal of less than 130 and triglyceride of less than 150 on atorvastatin 10 mg once a day July was last blood work (3) GERD (gastroesophageal reflux disease): Code(s): K21.9 - Gastro-esophageal reflux disease without esophagitis Category: Medical Qualifiers: Esophagitis presence: without esophagitis Qualified Code(s): K21.9 - Gastro-esophageal reflux disease without esophagitis Plan: Avoid the foods that causes that usually spicy foods, tomato products, juices, coffee, soda and foods that your sensitive to. After eating do not lie down, allow 3-4 hours before in lie down. And keep the head of bed above 30 degrees to avoid the acid from going up. (4) Chest pain: Code(s): R07.9 - Chest pain, unspecified Category: Medical Plan: Patient was supposed to have nuclear stress test but I do not see the results. (5) Impacted cerumen of right ear: Code(s): H61.21 - Impacted cerumen, right ear Category: Medical Plan: TM intact, irrigation done scoop used (6) Situational depression: Code(s): F43.21 - Adjustment disorder with depressed mood Category: Medical Plan: decline referral to [facility]. (7) Hearing difficulty of both ears: Code(s): H91.93 - Unspecified hearing loss, bilateral Category: Medical Plan History of Present Illness The patient is an 84-year-old female presenting with weight changes and management of pre-existing conditions including essential hypertension, hypercholesterolemia, and GERD. Recently, she has experienced a 5-pound weight reduction and last had her hypertension medication adjusted to Otello 50 mg daily. For hypercholesterolemia, she continues on atorvastatin 10 mg, targeting LDL levels under 130 mg/dL. The patient reports emotional difficulties following her son's from gallbladder cancer, which may influence her current health dynamics. An unresolved nuclear stress test from November was mentioned. She also described issues with impacted cerumen in the right ear impeding her auditory function. Health Maintenance - Last blood work conducted in July 2024 showed normal blood count, electrolytes, renal function, and blood sugar; LDL was at 116 mg/dL. - Mammogram scheduled for March 2024. - Bone density test scheduled for July 2024. - Screening for colon cancer no longer required. - Recommendation to monitor blood pressure weekly and document readings to assess stability across various settings. Social History - Recently bereaved of son who passed from gallbladder cancer. - Lives with another son who provides support; the patient remains socially engaged. - Exercises regularly with activities such as walking for managing stress and maintaining health. - Consumes a diet including healthy choices like avocado toast. - Remains active with mentally stimulating activities including reading and puzz les. Review of Systems - Cardiovascular: Reports past chest pains for which a stress test was requested. - Ears: Reports hearing impediments due to earwax blockage in the right ear. - Psychological: Reports significant emotional distress following her son's . - Others: Denies any other new symptoms or changes. Physical Exam - Ears- Impacted cerumen noted in right ear. Results - Labs: Last blood work in July 2024 indicated normal results except for LDL at 116 mg/dL. - Tests: Awaiting results of nuclear stress test requested in November. Plan In today's visit, I have reinforced the treatment regimen for the patient's essential hypertension with Otello 50 mg daily, ensuring her blood pressure remains well-controlled. Hypercholesterolemia management continues optimally with atorvastatin 10 mg daily, aiming for adequate LDL and triglyceride levels. I will evaluate blood pressure readings collected multiple times weekly to ensure stability and address any heightened readings. Cerumen obstruction was addressed to significantly improve her hearing capabilities. Given her acute bereavement, supportive measures include encouraging regular exercise and maintaining socio-emotional support. Importantly, I emphasized steady oversight over her cardiovascular and emotional health given recent stressors. Patient was informed and verbally consented to the use of an ambient scribe for clinic note documentation during this visit. Discussion Notes During this visit, we thoroughly discussed the continuation of current therapies for hypertension and hypercholesterolemia with Otello and atorvastatin, respectively. Benefits and possible effects of the medications were reviewed, and the patient voiced understanding and agreement with her current management. I expressed the importance of monitoring her blood pressure systematically. Our conversation included managing emotional health through increased social and physical activity, especially due to her bereavement. I addressed potential concerns related to her hypertension likely exacerbated by recent stress. She demonstrated awareness of health maintenance needs including upcoming mammogram and bone density screenings. Patient Instructions - Take atenolol 50 mg once a day. - Take atorvastatin 10 mg once a day. - Check blood pressure twice a week and write it down. - Stay active with regular walks to help manage stress and health. - Return for hearing issues if needed; keep ears cleared of excess wax. - Remember to attend scheduled mammograms and bone density tests. - Maintain a healthy diet and discuss any new symptoms on next visit. - Reach out if any urgent issues or changes arise in health. Orders: Orders Complete Blood Count Auto Diff 5 Months K21.9 - Gastro-esophageal reflux disease without esophagitis Comprehensive Met. Panel 5 Months K21.9 - Gastro-esophageal reflux disease without esophagitis Thyroid Stimulating Hormone 5 Months K21.9 - Gastro-esophageal reflux disease without esophagitis Free T4 (Free Thyroxine) 5 Months K21.9 - Gastro-esophageal reflux disease without esophagitis UA CC w/rflx Micro + Cult 5 Months K21.9 - Gastro-esophageal reflux disease without esophagitis, R30.0 - Dysuria Lipid Panel 5 Months E78.00 - Pure hypercholesterolemia, unspecified, K21.9 - Gastro-esophageal reflux disease without esophagitis Vitamin B12 and Folate 5 Months K21.9 - Gastro-esophageal reflux disease without esophagitis Vitamin D 25-OH Total 5 Months K21.9 - Gastro-esophageal reflux disease without esophagitis Referrals Speech and Hearing Referral H91.93 - Unspecified hearing loss, bilateral
--- OUTSIDE RECORDS SUMMARY | 2025-03-08 10:14 | XMS_ITS ---
Author [facility] Address [address] [facility] [place] [address] Care Team Providers Care Subcontract Administrator Name Role Phone Jessica Martinez Primary Care Provider Tiffanie Castro Unavailable [phone] Allergies Allergen (clinical drug ingredient) Drug/Non Drug [...] 09/21/2024 Encounters Encounter Location Date Provider Diagnosis [facility] [address] [place] [address] 09/21/2024 Tiffanie Fabiola Tinea pedis of both [...] Reason: Provider Name:Tiffanie alejandre, 03/26/2025 09:30:00 AM, [address] [place] [address], [id number], Procedure Notes * Category Sub-Category Detail Notes Wart Treatment Procedure Verrucae were de brided to pin-point bleeding margins with sterile 15 surgical blade, silver nitrate chemocautery applied, recomm. immune-boosting meds such as zinc, recomm. follow up with topical chemosurgical agents, Pt defers any other forms of tx (18835) Debride Nail 6-10 Nail debridement Nail debridem ent performed extensively to reduce/remove overall nail length, girth, thickness, subungual debris, and necrotic tissue, by manual and electrical means through the use of a nail nipper and/or dremel, to more viable healthy nail plate or bed tissue 1-5. Silver nitrate used for any petechial bleeding as necessary. Patient chooses, no pharmaceutical tx (98098) Progress Notes * Bi STACKOB:07/14 (84 yo F)Acc No.[id number]:09/21/2024 Progress Note Patient:?Marily Stack Provider:?Tiffanie Hicks DPM :1940???Age:84 Y???Sex:Female D ate:09/21/2024 Address:[address] [place], [place] [address] Pcp:Jessica Martinez Subjective: * Chief Complaints: * [...] 02/2016cataract surgery 2021 * Hospitalization/Major Diagno stic Procedure:?[facility] [place]- Fall - cat scan and x-ray left [...] as necessary. Patient chooses, no pharmaceutical tx (38424).?Wart Treatment:?Procedure?Verrucae were debrided to pin-point bleeding margins with sterile 15 surgical blade, silver nitrate chemocautery applied, recomm. immune-boosting meds such as zinc, recomm. follow up with topical chemosurgical agents, Pt defers any other forms of tx (38683).? * Procedure Codes:?98003 DEBRI DE NAIL, 6 OR MORE, Modifiers: XS 30651 Wart Destruction, 1-14, Modifiers: XS * Preventive [...] Hicks DPM Date:?11/2023 Generated for Liban brock/Juanpablo/Kishore on:?03/08/2025 10:14 AM EDT History and Physical Notes * [...]
--- OUTSIDE RECORDS SUMMARY | 2025-03-08 10:14 | XMS_ITS ---
Author Organization [facility] Address [address] [place] [address] Care Team Providers Care Yarn Spinner Name Role Phone Jessica Martinez Primary Care Provider Tiffanie Castro [phone] Encounters Encounter Location Date Provider Diagnosis [address] [address] 07/17/2024 Tiffanie Hicks Plan Of Treatment Next Appt Details Provider Name:Tiffanie alejandre, 03/26/2025 09:30:00 AM, [address] [place], [address], Progress Notes * SEDA BiOB:07/14 (84 yo F)Acc No.[id number]:07/17/2024 Progress Note Patient:?ASAELZARA Marily Provider:?Tiffanie Hicks DPM :1940???Age:84 Y???Sex:Female D ate:07/17/2024 Address:[address] [place] Pcp:Jessica Martinez Subjective: * Chief Complaints: * ??? * Medical History:? Objective: * Vitals:? Assessment: Plan: * Treatment: * Images: * The named appointment provid er may or may not be the originator of this progress note, and it is not deemed complete until electronically signed by the appointment provider. Sign off status: Pending * Provider:?Tiffanie Hicks DPM Date:? Generated for Liban brock/Juanpablo/Faustoitting on:?03/08/2025 10:14 AM EDT
--- OUTSIDE RECORDS SUMMARY | 2025-03-08 10:15 | XMS_ITS | Patient Health Record ---
Author Organization [facility] shahid MontesConstantin Address [address] [facility] [place] [address] Care Team Providers Care Head Of Conservation Name Role Phone Jessica Martinez Primary Care Provider Tiffanie Castro Unavailable [phone] Allergies Allergen (clinical drug ingredient) Drug/Non Drug [...] Problem Status W/U Status Risk Notes Problem 82696150 Plantar wart (B07.0) Active confirmed Problem 142493118251573 Osteoarthritis o f right ankle and foot (M19.071) Active confirmed Problem 90184600 Osteoarthritis o f left ankle and foot (M19.072) Active confirmed Vital Signs Blood pressure diastolic 68 mm Hg 12/25/2024 Height 5 ft 3 in in 12/25/2024 Blood pressure systolic 130 mm Hg 12/25/2024 Weight 155 lbs 12/25/2024 BMI 27.45 kg/m2 12/25/2024 Encounters Encounter Location Date Provider Diagnosis [address] [address] 05/04/2024 Tiffanie Perica Tinea pedis of both feet B35.3 ; Plantar wart B07.0 ; Tinea unguium B35.1 ; Pain in right toe(s) M79.674 ; Pain in left toe(s) M79.675 and Left foot pain M79.[address] [address] 09/21/2024 Tiffanie Perica Tinea pedis of both feet B35.3 ; Plantar wart B07.0 ; Tinea unguium B35.1 ; Pain in right toe(s) M79.674 ; Pain in left toe(s) M79.675 and Left foot pain M79.[address] [address] 12/25/2024 Tiffanie Perica Tinea pedis of both feet B35.3 ; Plantar wart B07.0 ; Tinea unguium B35.1 ; Pain in right toe(s) M79.674 ; Pain in left toe(s) M79.675 and Left foot pain M79.[address] [address] 07/16/2024 Tiffanie Perichill Assessments Encounter Date Diagnosis (ICD Code) Assessment Notes Treatment Notes Treatment Clinical Notes Section Notes 05/04/2024 Tinea pedis of both feet (ICD-10 - B35.3) 09/21/2024 Tinea pedis of both feet (ICD-10 - B35.3) 12/25/2024 Plantar wart (ICD-10 - B07.0) 12/25/2024 Tinea pedis of both feet (ICD-10 - B35.3) 12/25/2024 Tinea unguium (ICD-10 - B35.1) 09/21/2024 Plantar wart (ICD-10 - B07.0) 05/04/2024 Plantar wart (ICD-10 - B07.0) 05/04/2024 Tinea unguium (ICD-10 - B35.1) 09/21/2024 [...] 05/04/2024 Left foot pain (ICD-10 - M79.672) Plan Of Treatment Pending Test Test Name Order Date X ray : Foot, left 3V 09/29/2023 Next Appt Details Provider Name:Tiffanie alejandre, 03/26/2025 09:30:00 AM, [address] [facility], [place], [address], Insurance Providers Payer Name Payer Address Payer Phone Subscriber Number Group Number Insured Name Patient Relationship to Insured Coverage Start Date Coverage End Date Medicare National Govt Svcs Inc [address] [place] [address] [id number] BrockreemayumikoMarily egan Self - patient is the insured [facility] [address] [place] [address] [id number] Marily Llanos Self - patient is the insured Medical (General) History Medical History History ICD Code Arthritis CAD (Cholesterol) Measles Mumps Chicken pox Gall bladder problems High blood pressure Osteoporosis Joint implants/screws Surgical History Surgery Date(Month/Year) gall bladder 1970 right knee replacement 12/2014 left knee replacement 02/2016 cataract surgery 2021 Hospitalization History Reason Date(Month/Year) [facility] [place]- Fall - cat scan and x-ray left knee 01/14
--- OUTSIDE RECORDS SUMMARY | 2025-03-08 10:15 | XMS_ITS ---
Author Organization [facility] Address [address] [place] [address] Care Team Providers Care Supply Chain Tech Name Role Phone JuanKarladerek Primary Care Provider Tiffanie Castro Unavailable [phone] Allergies Allergen (clinical drug ingredient) Drug/Non Drug [...] an other tobacco user? No Vital Signs Blood pressure systolic 130 mm Hg 12/25/19 25 Blood pressure diastolic 68 mm Hg 025 Height 5 ft 3 in in 12/25/2024 Weight 155 lbs 12/25/2024 BMI 27.45 kg/m2 12/25/2024 Encounters Encounter Location Date Provider Diagnosis [facility] [address] [place] [address] 12/25/2024 Tiffanie Hicks Tinea pedis of both [...] Provider Name:Tiffanie alejandre, 03/26/2025 09:30:00 AM, [address] [place], [address], Procedure Notes * Category Sub-Category Detail Notes Wart Treatment Procedure Verrucae were de brided to pin-point bleeding margins with sterile 15 surgical blade, silver nitrate chemocautery applied, recomm. immune-boosting meds such as zinc, recomm. follow up with topical chemosurgical agents, Pt defers any other forms of tx (57884) Debride Nail 6-10 Nail debridement Due to [...] use of a nail nipper and/or dremel-type organ grinder, to a more viable healthy nail [...] to maintain effectiveness in symptomatic relief - 60180 Progress Notes * Bi STACKOB:07/14 (84 yo F)Acc No.[id number]:12/25/2024 Progress Note Patient:?Marily STACK Provider:?Tiffanie Hicks DPM :1940???Age:84 Y???Sex:Female D ate:12/25/2024 Address:[address] [place] [address] [facility] [place] Pcp:Jessica Martinez Subjective: * Chief Complaints: * [...] 02/2016cataract surgery 2021 * Hospitalization/Major Diagno stic Procedure[place] [place] cat scan and x-ray left [...] chair yoga. ?Marital status: . 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 * Medications:?TakingCiclopiro x Olamine 0.77 % Cream [...] use of a nail nipper and/or dremel-type organ grinder, to a more viable healthy nail [...] to maintain effectiveness in symptomatic relief - 30703.?Wart Treatment:?Procedure?Verrucae were debrided to pin-point bleeding margins with sterile 15 surgical blade, silver nitrate chemocautery applied, recomm. immune-boosting meds such as zinc, recomm. follow up with topical chemosurgical agents, Pt defers any other forms of tx (13296).? * Procedure Codes:?28623 DEBRI DE NAIL, 6 OR MORE, Modifiers: XS 23868 Wart Destruction, 1-14, Modifiers: XS * Preventive [...] Hicks DPM Date:?02/2025 Generated for Liban brock/Juanpablo/Kishore on:?03/08/2025 10:14 AM [...]
== END 2025-03-08 10:34 | disposition home or self-care (01) ==
LOC: HO.HMCH 09:39
PROVIDERS: PCP Internal Medicine; Visit Provider Internal Medicine
DX: I10 Essential (primary) hypertension (principal); E78.00 Pure hypercholesterolemia, unspecified; K21.9 Gastro-esophageal reflux disease without esophagitis; R07.9 Chest pain, unspecified; H61.21 Impacted cerumen, right ear; F43.21 Adjustment disorder with depressed mood; H91.93 Unspecified hearing loss, bilateral

== ENCOUNTER → 2025-03-08 09:38 | Outpatient (BNVA) | payer MEDICARE, SELFPAY | PROVIDERS: PCP Internal Medicine; Visit Provider Internal Medicine | DX: I10 Essential (primary) hypertension (principal); E78.00 Pure hypercholesterolemia, unspecified; K21.9 Gastro-esophageal reflux disease without esophagitis; R07.9 Chest pain, unspecified; H61.21 Impacted cerumen, right ear; F43.21 Adjustment disorder with depressed mood | CPT/HCPCS: 69210; 99212 ==

== ENCOUNTER 2025-03-28 15:15 | Outpatient (AMB) | payer MEDICARE, SELFPAY ==
--- NOTE | 2025-03-28 15:34 | MHC.PC.OV ---
Vital Signs 03/28/25 15:35 Height 5 ft 3 in Weight 151 lb 6 oz BMI 26.8 BP 136/70 Blood Pressure Location Lt brachial Position Sitting Pulse 100 Pulse Source Pulse Oximeter Temp 96.4 F L Temp Source Temporal Artery Scan Pulse Oximetry (%) 99 Oxygen Delivery Method Room Air Intake Visit Reasons: follow up Intake Note: Patient is here to follow up on GERD, HTN. Search Developer Required: No Aviation Support Equipment Repairer: Not Required per policy Accompanied by: Self / Same As Patient Allergies Sulfa (Sulfonamide Antibiotics) [SULFA (SULFONAMIDE ANTIBIOTICS)] Allergy (Intermediate, Verified 03/28/25 22:54) RASH Medication List - Last Reconciled 03/28/25 by Osmani Pace MD albuterol sulfate 90 mcg/actuation 2 inhalations inhalation Q6H PRN atenolol 50 mg PO DAILY atorvastatin 10 mg PO DAILY calcium carbonate-vitamin D3 600 mg-12.5 mcg (500 unit) (Calcium with Vit D3) 1 cap PO DAILY mv,Ca,min-folic acid-vit K1 400-20 mcg (One-A-Day Women's 50 Plus) 1 tab PO DAILY Tobacco use date assessed: 03/28/25 Fall risk assessment: No Falls in past year Last assessed Fall Risk: 03/28/25 Dental Screening Dental Screen Date: 12/05/24 [facility] Medical History Heart murmur Retinal detachment GERD (gastroesophageal reflux disease) Hypertension Diverticulosis Hypercholesterolemia Surgical History H/O colonoscopy History of surgery H/O eye surgery History of dilatation and curettage Hx of appendectomy Hx of cholecystectomy History of bilateral knee replacement Social History Housing: House Alcohol intake: current Alcohol intake frequency: a few times a week Alcohol type: wine Comment: 3x a weeka glass Patient Tobacco Use Status: Never used Tobacco Tobacco use type: Cigarette e-Cigarette/Vaping Use: Never Used Second Hand Smoke Exposure: No service: No Current occupational status: retired Cognitive needs: No Hearing needs: No Vision needs: Yes Questionnaire Thrive Questionnaire Date Thrive assessed: 12/05/24 SHELBY-7 AMB Questionnaire SHELBY-7 Date SHELBY - 7 assessed: 12/05/24 Source: Developed by Drs. Marques Lenz, Stephanie Lynch, Horace Elliott and colleagues, with an educational kiley from [employer]. Physical exam (Primary Care) Vital Signs: Last Vital Signs Temp 96.4 F L 03/28/25 15:35 Pulse 100 03/28/25 15:35 BP 136/70 03/28/25 15:35 Pulse Ox 99 03/28/25 15:35 Oxygen Delivery Method Room Air 03/28/25 15:35 BMI result Body Mass Index 26.8 Tobacco/Smoking Status: Tobacco use Status Tobacco use date assessed 03/28/25 03/28/25 15:40 Patient Tobacco Use Status Never used Tobacco 03/28/25 15:35 Tobacco use type Cigarette 03/28/25 15:35 e-Cigarette/Vaping Use Never Used 03/28/25 15:35 Thrive Assessment: Date of Thrive Assessment Date Thrive assessed 12/05/24 03/28/25 15:35 Coding Level of Care Code Est Pt Level 4 (88613) Complex EM visit Add On G2211 Diagnoses Cough R05.9 Assessment & Plan Assessment & Plan (1) Cough: Code(s): R05.9 - Cough, unspecified Plan: History of Present Illness The patient is an 84-year-old female presenting with a cough secondary to a recent COVID-19 infection. She reports that approximately three weeks ago, she began experiencing symptoms after visiting [facility]. Upon testing at home, she was confirmed to be COVID-19 positive, marking her first positive result despite previous negative tests during the height of the pandemic. Her symptoms started with a persistent cough that has resulted in soreness in her chest and back. The patient describes a concurrent runny nose and reduced energy levels, which she attributes to COVID-19 and allergic rhinitis. She has been taking bedq-kwf-jcnvyhf medications, including Tylenol, NyQuil, DayQuil, and Mucinex, to manage her symptoms. Although the cough continues, it is notably worse in the morning, and she reports good sleep quality overall, disturbed only once nightly. Social History - Family: The patient mentioned the recent loss of her son to gallbladder cancer, which has affected her overall health. - Travel: Recent trip to [facility] where COVID symptoms began. - Exposure: Reports COVID-19 spreading through the family during this time. Review of Systems - Respiratory: Reports persistent cough and runny nose. - General: Reports fatigue and decreased energy levels. - Allergy/Immunology: Reports known allergies. Physical Exam General: Cooperative and healthy appearing Nutritional Appearance: Well nourished Orientation/consciousness: Patient oriented x3 Limitations: No limitations Head: Normal to inspection General: Appearance normal, both eyes and all related structures Neck: Normal visual inspection Chest: Normal palpation of entire chest wall Respiratory: Coughing, chest and back soreness from coughing ormal respiratory effort Neurology: Patient oriented x3 Results - No diagnostic results were explicitly discussed during the conversation. Plan 1. Covid-19 - Manage symptoms with an inhaler and continue current OTC medications. - Obtain a chest X-ray to rule out pneumonia. 2. Cough Secondary To Covid-19 - Prescribe Mucinex and consider inhaler use if symptoms persist. 3. Allergic Rhinitis - Continue current allergy management as it indirectly affects cough and energy level concerns. Discussion Notes During the visit, we discussed the persistence of the cough as a post-COVID symptom, noting its typical duration of up to a month or more. I explained the rationale behind ordering a chest X-ray to ensure no underlying pneumonia is present. The decision to prescribe an inhaler was made to help alleviate the cough in combination with the current regimen of Mucinex. The patient inquired about the RSV vaccine, and I advised that it could be obtained from a pharmacy at this time. We also discussed the ongoing impact of the recent loss of her son on her overall well-being. I emphasized the importance of monitoring symptoms and returning for a follow-up as needed, as well as maintaining adherence to medication and lifestyle recommendations. Patient Instructions - Use the inhaler as prescribed to help control the cough. - Continue taking Mucinex as needed for cough management. - Complete the chest X-ray as ordered to rule out any additional complications. - Consider obtaining an RSV vaccine at your local pharmacy. - Maintain adequate rest and hydration to support recovery. - Monitor symptoms and return for a follow-up if the cough persists or worsens. Orders: Orders XR chest 2V Today R05.9 - Cough, unspecified Medications: New albuterol sulfate 90 mcg/actuation 2 inhalations inhalation Q6H PRN 1 ea 1RF shortness of breath or wheezing
[2025-03-28 15:35] VITALS: BP 136/70; PULSE 100; TEMP 35.8; O2SAT 99; BMI 26.8
--- OUTSIDE RECORDS SUMMARY | 2025-03-28 15:51 | XMS_ITS | Patient Health Record ---
Author Organization [facility] shahid MontesBeechmont Address [address] [facility] [place] [address] Care Team Providers Care Fire Sprinkler Service Technician Name Role Phone Jessica Martinez Primary Care Provider Tiffanie Castro Unavailable [phone] Allergies Allergen (clinical drug ingredient) Drug/Non Drug Allergy documented on EMR Reaction Allergy Type Onset Date Status Substance with sulfonamide structure and antibacterial mechanism of action (substance) Sulfa Antibiotics Unknown Drug Allergy Active Reason For Referral No Information Medications Medication SIG (Take, Route, Frequency, Duration) Notes Start Date End Date Status Calcium + D Active Atenolol 50 MG 1 tablet Orally Once a day for 30 day(s) Active Atorvastatin Calcium 10 MG 1 tablet Oral ly Once a day for 30 day(s) Active Multivitamin Active Ciclopirox Olamine 0.77 % 1 application Externally Twice a day for 30 days Active Immunizations Vaccine Route Administration Date Status [...] Problem Status W/U Status Risk Notes Problem 23851862 Plantar wart (B07.0) Active confirmed Problem 193849678949224 Osteoarthritis o f right ankle and foot (M19.071) Active confirmed Problem 05728799 Osteoarthritis o f left ankle and foot (M19.072) Active confirmed Vital Signs Blood pressure diastolic 68 mm Hg 03/26/2025 Height 5 ft 3 in in 03/26/2025 Blood pressure systolic 130 mm Hg 03/26/2025 Weight 148 lbs 03/26/2025 BMI 26.21 kg/m2 03/26/2025 Encounters Encounter Location Date Provider Diagnosis [address] [address] 05/04/2024 Tiffanie Perica Tinea pedis of both feet B35.3 ; Plantar wart B07.0 ; Tinea unguium B35.1 ; Pain in right toe(s) M79.674 ; Pain in left toe(s) M79.675 and Left foot pain M79.[address] [address] 09/21/2024 Tiffanie Perica Tinea pedis of both feet B35.3 ; Plantar wart B07.0 ; Tinea unguium B35.1 ; Pain in right toe(s) M79.674 ; Pain in left toe(s) M79.675 and Left foot pain M79.[address] [address] 12/25/2024 Tiffanie Perica Tinea pedis of both feet B35.3 ; Plantar wart B07.0 ; Tinea unguium B35.1 ; Pain in right toe(s) M79.674 ; Pain in left toe(s) M79.675 and Left foot pain M79.[address] [address] 03/26/2025 Tiffanie Perica Plantar wart B07.0 ; Tinea unguium B35.1 ; Pain in right toe(s) M79.674 ; Pain in left toe(s) M79.675 and Left foot pain M79.672 [facility] [address] [address] 07/16/2024 Tiffanie Hicks [facility] [address] [address] 03/26/2025 Tiffanie Hicks Assessments Encounter Date Diagnosis (ICD Code) Assessment Notes Treatment Notes Treatment Clinical Notes Section Notes 05/04/2024 Tinea pedis of both feet (ICD-10 - B35.3) 09/21/2024 Tinea pedis of both feet (ICD-10 - B35.3) 12/25/2024 Plantar wart (ICD-10 - B07.0) 12/25/2024 Tinea pedis of both feet (ICD-10 - B35.3) 03/26/2025 Plantar wart (ICD-10 - B07.0) 03/26/2025 Tinea unguium (ICD-10 - B35.1) 03/26/2025 Pain in right toe(s) (ICD-10 - M79.674) 12/25/2024 Tinea unguium (ICD-10 - B35.1) 09/21/2024 Plantar wart (ICD-10 - B07.0) 05/04/2024 Plantar wart (ICD-10 - B07.0) 05/04/2024 Tinea unguium (ICD-10 - B35.1) 09/21/2024 Tinea unguium (ICD-10 - B35.1) 12/25/2024 Pain in right toe(s) (ICD-10 - M79.674) 03/26/2025 Pain in left toe(s) (ICD-10 - M79.675) 03/26/2025 Left foot pain (ICD-10 - M79.672) 12/25/2024 Pain in left toe(s) (ICD-10 - [...] 09/29/2023 Next Appt Details Provider Name:Tiffanie alejandre, 07/02/2025 11:00:00 AM, [address] [place] [address], [address], Insurance Providers Payer Name Payer Address Payer Phone Subscriber Number Group Number Insured Name Patient Relationship to Insured Coverage Start Date Coverage End Date Medicare National Govt Svcs Inc [address] [facility] [place] [address] [id number] Marily Llanos Self - patient is the insured [employer] [address] [place] [address] [phone] [id number] Marily Llanos Self - patient is the insured Medical (General) History Medical History History ICD Code Arthritis CAD (Cholesterol) Measles Mumps Chicken pox Gall bladder problems High blood pressure Osteoporosis Joint implants/screws Surgical History Surgery Date(Month/Year) gall bladder 1970 right knee replacement 12/2014 left knee replacement 02/2016 cataract surgery 2021 Hospitalization History Reason Date(Month/Year) [facility] [place]- Fall - cat scan and x-ray left knee 01/14
--- OUTSIDE RECORDS SUMMARY | 2025-03-28 15:51 | XMS_ITS ---
Author Organization [facility] Address [address] [place] [address] Care Team Providers Care Stonehand Name Role Phone JuanKarladerek Primary Care Provider Tiffanie Castro Unavailable [phone] Allergies Allergen (clinical drug ingredient) Drug/Non Drug [...] 025 Encounters Encounter Location Date Provider Diagnosis [facility] [address] [place] [address] 12/25/2024 Tiffanie Hicks Tinea pedis of both [...] Up: 2 Months, Reason: Provider Name:Tiffanie alejandre, 07/02/2025 11:00:00 AM, [address] [place], [address], Procedure Notes * Category Sub-Category Detail Notes Wart Treatment Procedure Verrucae were de brided to pin-point bleeding margins with sterile 15 surgical blade, silver nitrate chemocautery applied, recomm. immune-boosting meds such as zinc, recomm. follow up with topical chemosurgical agents, Pt defers any other forms of tx (19789) Debride Nail 6-10 Nail debridement Due to [...] use of a nail nipper and/or dremel-type abrasive grinder, to a more viable healthy nail [...] to maintain effectiveness in symptomatic relief - 28743 Progress Notes * Bi STACKOB:07/14 (84 yo F)Acc No.[id number]:12/25/2024 Progress Note Patient:?Marily STACK Provider:?Tiffanie Hicks DPM :1940???Age:84 Y???Sex:Female D ate:12/25/2024 Address:[address] [place] [address] [facility] Pcp:Jessica Martinez Subjective: * Chief Complaints: * [...] 02/2016cataract surgery 2021 * Hospitalization/Major Diagno stic Procedure:?[facility] [place]- [place] - cat scan and x-ray left [...] chair yoga. ?Marital status: . 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 * Medications:?TakingCiclopiro x Olamine 0.77 % [...] use of a nail nipper and/or dremel-type abrasive grinder, to a more viable healthy nail [...] to maintain effectiveness in symptomatic relief - 61972.?Wart Treatment:?Procedure?Verrucae were debrided to pin-point bleeding margins with sterile 15 surgical blade, silver nitrate chemocautery applied, recomm. immune-boosting meds such as zinc, recomm. follow up with topical chemosurgical agents, Pt defers any other forms of tx (77608).? * Procedure Codes:?41133 DEBRI DE NAIL, 6 OR MORE, Modifiers: XS 65901 Wart Destruction, 1-14, Modifiers: XS * Preventive [...] Provider:?Tiffanie Hicks DPM Date:?02/2025 Generated for Liban brock/Juanpalbo/Kishore on:?03/28/2025 03:51 PM EDT History and Physical Notes * HPI [...]
--- OUTSIDE RECORDS SUMMARY | 2025-03-28 15:52 | XMS_ITS ---
Author Organization [facility] Address [address] [place] [address] Care Team Providers Care Finish Patcher Name Role Phone Jessica Martinez Primary Care Provider Tiffanie Castro [phone] REASON FOR VISIT Purchased Formula 7 Encounters Encounter Location Date Provider Diagnosis [facility] [address] [place] [address] 03/26/2025 Tiffanie Hicks Plan Of Treatment Next Appt Details Provider Name:Tiffanie alejandre, 07/02/2025 11:00:00 AM, [address] [place], [address], Progress Notes * Bi STACKOB:07/14 (84 yo F)Acc No.[id number]:03/26/2025 Patient:?Marily STACK :1940???Age:84 Y???Sex:Female Address:[address] [place], [address] * true * Date:? Generated for Printi vinod/Juanpablo/eTransmitting on:?03/28/2025 03:51 PM EDT
--- OUTSIDE RECORDS SUMMARY | 2025-03-28 15:52 | XMS_ITS ---
Author Organization [facility] Address [address] [place] [address] Care Team Providers Care Director Of Operations Support Name Role Phone JuanKarladerek Primary Care Provider Tiffanie Castro Unavailable [phone] Allergies Allergen (clinical drug ingredient) Drug/Non Drug Allergy documented on EMR Reaction Allergy Type Onset Date Status Substance with sulfonamide structure and antibacterial mechanism of action (substance) Sulfa Antibiotics Unknown Drug Allergy Active REASON FOR VISIT Painful nail(s) aggrevated by shoes causing difficulty standing/walking, Wart(s) Medications Medication SIG (Take, Route, Frequency, Duration) Notes Start Date End Date Status Calcium + D Active Atenolol 50 MG 1 tablet Orally Once a day for 30 day(s) Active Atorvastatin Calcium 10 MG 1 tablet Oral ly Once a day for 30 day(s) Active Multivitamin Active Ciclopirox Olamine 0.77 % 1 application Externally Twice a day for 30 days Active Social History Tobacco Use: Social History Observation Description Date Details (start date - stop date) Never Smoker NA - NA Tobacco Use/Smoking Question Answer Notes Are you a: nonsmoker Additional Findings: Tobacco Non-User Current no n-smoker Tobacco use other than smoking: Question Answer Notes Are you an other tobacco user? No Vital Signs Height 5 ft 3 in in 03/26/2025 Weight 148 lbs 03/26/2025 BMI 26.21 kg/m2 03/26/2025 Blood pressure systolic 130 mm Hg 03/26/20 25 Blood pressure diastolic 68 mm Hg 025 Encounters Encounter Location Date Provider Diagnosis [facility] [address] [place] [address] 03/26/2025 Tiffanie Hicks Plantar wart B07.0 ; Tinea unguium B35.1 ; Pain in right toe(s) M79.674 ; Pain in left toe(s) M79.675 and Left foot pain M79.672 Assessments Encounter Date Diagnosis (ICD Code) Assessment Notes Treatment Notes Treatment Clinical Notes Section Notes 03/26/2025 Plantar wart (ICD-10 - B07.0) 03/26/2025 Tinea unguium (ICD-10 - B35.1) 03/26/2025 Pain in right toe(s) (ICD-10 - M79.674) 03/26/2025 Pain in left toe(s) (ICD-10 - M79.675) 03/26/2025 Left foot pain (ICD-10 - M79.672) Plan Of Treatment Next Appt Details Follow Up: 2 Months, Reason: Provider Name:Tiffanie alejandre, 07/02/2025 11:00:00 AM, [address] [place] [address], [phone], Procedure Notes * Category Sub-Category Detail Notes Wart Treatment Procedure Verrucae were de brided to pin-point bleeding margins with sterile 15 surgical blade, silver nitrate chemocautery applied, recomm. immune-boosting meds such as zinc, recomm. follow up with topical chemosurgical agents, Pt defers any other forms of tx (94951) Debride Nail 6-10 Nail debridement Due to [...] use of a nail nipper and/or dremel-type grinder set up operator internal, to a more viable healthy nail plate [...] to maintain effectiveness in symptomatic relief - 29449 Progress Notes * Kenyatta STACKenceDOB:[birth year] (84 yo F)Acc No.[id number]:03/26/2025 Progress Note Patient:?Marily STACK Provider:?Tiffanie Hicks DPM :1940???Age:84 Y???Sex:Female D ate:03/26/2025 Address: [address] [place], [facility] Pcp:Jessica Martinez Subjective: * Chief Complaints: * ???Painful nail(s) aggrevate d by shoes causing difficulty standing/walkingWart(s) * HPI: ???Painful Nails:?Pt States Last PCP Visit:?Date:?02/19/2025 ???Skin problems:?Pt States PCP Visit: ?DATE?02/19/2025 * ROS:?General/Constitutional:?Nausea?denies.?Vomiting?denies.?Hunger Thirst?denies.?Loss appetite?denies.?Chills?denies.?Fatigue?denies.?Fever?denies.?Night Sweats?denies.?Unexplained weight loss?denies.?Unexplained [...] 02/2016cataract surgery 2021 * Hospitalization/Major Diagno stic Procedure:?[facility] [place]- Fall - cat scan and x-ray left [...] chair yoga. ?Marital status: . 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 * Medications:?TakingCiclopiro x Olamine 0.77 % Cream [...] Vitals:?Ht: 5 ft 3 in, Wt: 1 48, BMI: 26.21, Shoe size: 9-9.5, BP: 130/68 mm Hg, Wt-k.13 kg. * Examination: ???Nails: ?NAILS are:?Elongated, overgrown, dystrophic, lytic, greater than 3mm thick, discolored and friable with crumbly malodorous subungual debris, with pain on palpation , TA, T1, T2, T3, T4, T5, T6, T7, T8, T9.?Dermatologic: ?VERRUCA:?Reveals a Single , multi-loculated , mosaic-patterned, round, raised, flat-topped, petechial bleeding papule(s), with cauliflower appearance and interruption of skin lines, pain to lateral compression, and size estimated at 5 mm diameter , plantar Forefoot , LEFT.? Assessment: * Assessment: 1.?Plantar wart - B07.0???2. ?Tinea unguium - B35.1 (Primary)???3.?Pain in right toe(s) - M79.674???4.?Pain in left toe(s) - M79.675???5.?Left foot pain - M79.672??? Plan: * Treatment: [...] use of a nail nipper and/or dremel-type grinder set up operator internal, to a more viable healthy nail plate [...] to maintain effectiveness in symptomatic relief - 32083.?Wart Treatment:?Procedure?Verrucae were debrided to pin-point bleeding margins with sterile 15 surgical blade, silver nitrate chemocautery applied, recomm. immune-boosting meds such as zinc, recomm. follow up with topical chemosurgical agents, Pt defers any other forms of tx (32688).? * Procedure Codes:?99424 DEBRI DE NAIL, 6 OR MORE, Modifiers: XS 05096 Wart Destruction, 1-14, Modifiers: XS * Preventive Medicine:? ??Screening/Special Tests:?Fall Risk?Screening:?No falls in the past year ?FALLS: Screening for Future Fall Risk?Have you had two or more falls in the past year??No ?Have you had any falls with injury in the past year??No * Follow Up:?2 Months * Images: * Sign off status: Completed true * Provider:?Tiffanie Hicks, MIGUEL ANGEL Date:?04/2025 Generated for Liban brock/Juanpablo/Kishore on:?03/28/2025 03:51 PM EDT History and Physical Notes * HPI (History of Present Illness) Category Sub-Category Detail Notes Category Not es Painful Nails Pt States Last PCP Visit: Date:: 02/19/2025 Skin problems Pt States PCP Visit: DATE: 02/19/2025 Examination Category Sub-Category Detail Notes Category Not es Dermatologic VERRUCA: Reveals a Single , multi-loculated , mosaic-patterned, round, [...]
== END 2025-03-28 16:00 | disposition home or self-care (01) ==
LOC: HO.HMCH 15:18
PROVIDERS: PCP Internal Medicine; Visit Provider Internal Medicine
DX: R05.9 Cough, unspecified (principal)

== ENCOUNTER 2025-03-28 15:15 | Outpatient (REF) | payer MEDICARE, SELFPAY ==
--- NOTE | ~2025-03-28 | XR_ITS ---
EXAMINATION: XR CHEST CLINICAL INFORMATION: R05.9 - Cough, unspecified COMPARISON: None available. TECHNIQUE: 2 views of the chest were obtained. FINDINGS: No significant abnormality is noted involving the heart, lungs, mediastinum, bony thorax or soft tissues. XR/XR chest 2V IMPRESSION: Unremarkable chest examination. Electronically signed by: Fredis Martinez MD 03/29/2025 07:21 AM EDT RP
== END 2025-03-28 15:16 | disposition home or self-care (01) ==
LOC: HO.XRAY 15:15
PROVIDERS: PCP Internal Medicine; Visit Provider Internal Medicine
DX: R05.9 Cough, unspecified (principal); U09.9 Post COVID-19 condition, unspecified; J30.9 Allergic rhinitis, unspecified; I10 Essential (primary) hypertension; K21.9 Gastro-esophageal reflux disease without esophagitis; Z63.4 Disappearance and death of family member
CPT/HCPCS: 71046; 99212

== ENCOUNTER → 2025-03-28 16:18 | Outpatient (BNV) | payer MEDICARE, SELFPAY | PROVIDERS: PCP Internal Medicine; Visit Provider Radiology Diagnostic Radiology | DX: R05.9 Cough, unspecified (principal) | CPT/HCPCS: 71046 ==

== ENCOUNTER 2025-04-09 08:47 | Outpatient (REF) | payer MEDICARE, SELFPAY ==
--- OUTSIDE RECORDS SUMMARY | 2025-04-09 09:02 | XMS_ITS | Patient Health Record ---
Author Organization [facility] shahid MontesConstantin Address [address] [facility] [place] [address] Care Team Providers Care Experimental Rocket Sled Mechanic Name Role Phone Jessica Martinez Primary Care Provider Tiffanie Castro Unavailable [phone] Allergies Allergen (clinical drug ingredient) Drug/Non Drug [...] Problem Status W/U Status Risk Notes Problem 96435365 Plantar wart (B07.0) Active confirmed Problem 918078840457252 Osteoarthritis o f right ankle and foot (M19.071) Active confirmed Problem 29722074 Osteoarthritis o f left ankle and foot (M19.072) Active confirmed Vital Signs Blood pressure diastolic 68 mm Hg 03/26/2025 Height 5 ft 3 in in 03/26/2025 Blood pressure systolic 130 mm Hg 03/26/2025 Weight 148 lbs 03/26/2025 BMI 26.21 kg/m2 03/26/2025 Encounters Encounter Location Date Provider Diagnosis [address] [address] 05/04/2024 Tiffanie Perica Tinea pedis of both feet B35.3 ; Plantar wart B07.0 ; Tinea unguium B35.1 ; Pain in right toe(s) M79.674 ; Pain in left toe(s) M79.675 and Left foot pain M79.[address] [address] 09/21/2024 Tiffanie Perica Tinea pedis of both feet B35.3 ; Plantar wart B07.0 ; Tinea unguium B35.1 ; Pain in right toe(s) M79.674 ; Pain in left toe(s) M79.675 and Left foot pain M79.[address] [address] 12/25/2024 Tiffanie Perica Tinea pedis of both feet B35.3 ; Plantar wart B07.0 ; Tinea unguium B35.1 ; Pain in right toe(s) M79.674 ; Pain in left toe(s) M79.675 and Left foot pain M79.[address] [address] 03/26/2025 Tiffanie Perica Plantar wart B07.0 ; Tinea unguium B35.1 ; Pain in right toe(s) M79.674 ; Pain in left toe(s) M79.675 and Left foot pain M79.672 [facility] [address] [address] 07/16/2024 Tiffanie Hicks [facility] [address] [address] 03/26/2025 Tiffanie Hicks Assessments Encounter Date Diagnosis [...] Details Provider Name:Tiffanie alejandre, 07/02/2025 11:00:00 AM, [address] [place] [address], [phone], Insurance Providers Payer Name Payer Address Payer Phone Subscriber Number Group Number Insured Name Patient Relationship to Insured Coverage Start Date Coverage End Date Medicare National Govt Svcs Inc [address] [place] [address] [id number] Marily Llanos Self - patient is the insured [employer] Blue Shield [address] [place] [address] [id number] Marily Llanos Self - patient is the insured Medical (General) History Medical History History ICD Code Arthritis CAD (Cholesterol) Measles Mumps Chicken pox Gall bladder problems High blood pressure Osteoporosis Joint implants/screws Surgical History Surgery Date(Month/Year) gall bladder 1970 right knee replacement 12/2014 left knee replacement 02/2016 cataract surgery 2021 Hospitalization History Reason Date(Month/Year) [facility] [place]- Fall - cat scan and x-ray left knee 01/14
--- OUTSIDE RECORDS SUMMARY | 2025-04-09 09:02 | XMS_ITS ---
Author Organization [facility] Address [address] [place] [address] Care Team Providers Care Wood Coater Name Role Phone JuanAnithavladimir Primary Care Provider Tiffanie Castro Unavailable [phone] Allergies Allergen (clinical drug ingredient) Drug/Non Drug [...] Signs Blood pressure systolic 130 mm Hg 03/26/20 25 Blood pressure diastolic 68 mm Hg 025 Height 5 ft 3 in in 03/26/2025 Weight 148 lbs 03/26/2025 BMI 26.21 kg/m2 03/26/2025 Encounters Encounter Location Date Provider Diagnosis [facility] [address] [place] [address] 03/26/2025 Tiffanie Hicks Plantar wart B07.0 ; [...] Reason: Provider Name:Tiffanie alejandre, 07/02/2025 11:00:00 AM, [address] [place] [address], [phone], Procedure Notes * Category Sub-Category Detail Notes Wart Treatment Procedure Verrucae were de brided to pin-point bleeding margins with sterile 15 surgical blade, silver nitrate chemocautery applied, recomm. immune-boosting meds such as zinc, recomm. follow up with topical chemosurgical agents, Pt defers any other forms of tx (68527) Debride Nail 6-10 Nail debridement Due to [...] use of a nail nipper and/or dremel-type crystal grinder, to a more viable healthy nail [...] to maintain effectiveness in symptomatic relief - 21402 Progress Notes * Kenyatta STACKenceDOB:[birth year] (84 yo F)Acc No.[id number]:03/26/2025 Progress Note Patient:?Marily STACK Provider:?Tiffanie Hicks DPM :1940???Age:84 Y???Sex:Female D ate:03/26/2025 Address: [address] [place], [facility] Pcp:Jessica Martinez Subjective: * Chief Complaints: * [...] 02/2016cataract surgery 2021 * Hospitalization/Major Diagno stic Procedure:?[facility] [place]- Fall - cat scan and x-ray left [...] chair yoga. ?Marital status: . 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 * Medications:?TakingCiclopiro x Olamine 0.77 % [...] use of a nail nipper and/or dremel-type crystal grinder, to a more viable healthy nail [...] to maintain effectiveness in symptomatic relief - 01738.?Wart Treatment:?Procedure?Verrucae were debrided to pin-point bleeding margins with sterile 15 surgical blade, silver nitrate chemocautery applied, recomm. immune-boosting meds such as zinc, recomm. follow up with topical chemosurgical agents, Pt defers any other forms of tx (71656).? * Procedure Codes:?32767 DEBRI DE NAIL, 6 OR MORE, Modifiers: XS 70026 Wart Destruction, 1-14, Modifiers: XS * Preventive [...] Hicks, MIGUEL ANGEL Date:?04/2025 Generated for Liban brock/Juanpablo/eTday on:?04/09/2025 09:02 AM EDT History and Physical Notes * [...]
--- OUTSIDE RECORDS SUMMARY | 2025-04-09 09:02 | XMS_ITS ---
Author Organization [facility] Address [address] [place] [address] Care Team Providers Care Swimming Pool Maintenance Name Role Phone Jessica Martinez Primary Care Provider Tiffanie Castro [phone] REASON FOR VISIT Purchased Formula 7 Encounters Encounter Location Date Provider Diagnosis [address] [address] 03/26/2025 Tiffanie Hicks Plan Of Treatment Next Appt Details Provider Name:Tiffanie alejandre, 07/02/2025 11:00:00 AM, [address] [place], [address], Progress Notes * Bi STACKOB:[birth year] (84 yo F)Acc No.[id number]:03/26/2025 Patient:?Marily STACK :1940???Age:84 Y???Sex:Female Address:[address] [place], [address] * true * Date:? Generated for Printi vinod/Juanpablo/eTransmitting on:?04/09/2025 09:02 AM EDT
--- OUTSIDE RECORDS SUMMARY | 2025-04-09 09:02 | XMS_ITS ---
Author Organization [facility] Address [address] [place] [address] Care Team Providers Care Ventilating Engineer Name Role Phone JuanAnithavladimir Primary Care Provider Tiffanie Castro Unavailable [phone] Allergies Allergen (clinical drug ingredient) Drug/Non Drug [...] 12/25/2024 Encounters Encounter Location Date Provider Diagnosis [facility] [address] [place] [address] 12/25/2024 Tiffanie Hicks Tinea pedis of both [...] Provider Name:Tiffanie alejandre, 07/02/2025 11:00:00 AM, [address] [place], [address], Procedure Notes * Category Sub-Category Detail Notes Wart Treatment Procedure Verrucae were de brided to pin-point bleeding margins with sterile 15 surgical blade, silver nitrate chemocautery applied, recomm. immune-boosting meds such as zinc, recomm. follow up with topical chemosurgical agents, Pt defers any other forms of tx (75125) Debride Nail 6-10 Nail debridement Due to [...] use of a nail nipper and/or dremel-type external grinder tender, to a more viable healthy nail plate [...] to maintain effectiveness in symptomatic relief - 30106 Progress Notes * Bi STACKOB:[birth year] (84 yo F)Acc No.[id number]:12/25/2024 Progress Note Patient:?Marily STACK Provider:?Tiffanie Hicks DPM :1940???Age:84 Y???Sex:Female D ate:12/25/2024 Address:[address] [place] [address] [facility] [employer] [facility] Pcp:Jessica Martinez Subjective: * Chief Complaints: * [...] 02/2016cataract surgery 2021 * Hospitalization/Major Diagno stic Procedure:?[facility] [place] - cat scan and x-ray left [...] use of a nail nipper and/or dremel-type external grinder tender, to a more viable healthy nail plate [...] to maintain effectiveness in symptomatic relief - 42213.?Wart Treatment:?Procedure?Verrucae were debrided to pin-point bleeding margins with sterile 15 surgical blade, silver nitrate chemocautery applied, recomm. immune-boosting meds such as zinc, recomm. follow up with topical chemosurgical agents, Pt defers any other forms of tx (33129).? * Procedure Codes:?08574 DEBRI DE NAIL, 6 OR MORE, Modifiers: XS 95342 Wart Destruction, 1-14, Modifiers: XS * Preventive [...] Hicks DPM Date:?02/2025 Generated for Liban brock/Juanpablo/Kishore on:?04/09/2025 09:01 AM EDT History and Physical Notes * [...]
--- NOTE | 2025-04-09 10:50 | MHC.AU.HA3 ---
Hearing Instrument Follow-Up- Binaural Date of Visit: 04/09/25 Right Ear: Make, Model, Color, Serial Number: Oticon Real 2 miniRITE-R SN: [id number] Color: Chroma Beige Education Technician Repair Warranty: 08/05/2026 Education Technician Loss and Damage Warranty: 08/05/2026 [facility] Service Plan: 08/31/2026 Battery Size: Rechargeable Wire Spinner/Slim Tube: 2/85 Earmold/Dome/CShell/SlimTip:6mm double white dome (no retention tail) Type of Wax Guard: miniFit Dispensed By: [facility] Date of Fittin08/31/2023 Left Ear: Make, Model, Color, Serial Number: Oticon Real 2 miniRITE-R SN: [id number] Color: Chroma Beige Education Technician Repair Warranty: 08/05/2026 Education Technician Loss and Damage Warranty: 08/05/2026 [facility] Service Plan: 08/31/2026 Battery Size: Rechargeable Wire Spinner/Slim Tube: 2/85 Earmold/Dome/CShell/SlimTip: 6mm double white dome (no retention tail) Type of Wax Guard: miniFit Dispensed By: [facility] Date of Fittin08/31/2023 Follow-Up Summary: Updated hearing test (see audio). Accompanied by daughter, Iwona. Slight decrease noted 1-8 kHz. For past few months, Iwona and Marily noticed increasing communication difficulties, especially in more adverse listening environments. Upon arrival, right GEE not working - wax guard occluded. Knows how to change, just did not have time this morning. Cleaned both HAs. Replaced wax guards. Vacuumed microphones. Ran through dehumidifier. Listening check good. HAs previously underfit. Reprogrammed to updated audio, initial fit settings. Increased noise management settings. Significantly louder, per Marily, but willing to try to acclimate. However, own voice too loud. Decreased low frequencies slightly. Otherwise, encouraged acclimatization. Recommendations: Hearing instrument follow-up or maintenance as needed. Please contact our clinic with any questions or concerns. Patient will call if problems persist. Diagnosis Code(s): Primary Diagnosis: H90.3 Bilateral Sensorineural Hearing Loss Signature: Provider: Paco Tavera, [facility]
== END 2025-04-09 08:48 | disposition home or self-care (01) ==
LOC: HO.SH 08:47
PROVIDERS: Visit Provider Internal Medicine
DX: Z01.118 Encounter for examination of ears and hearing with other abnormal findings (principal); H90.3 Sensorineural hearing loss, bilateral
CPT/HCPCS: 92557

== ENCOUNTER 2025-05-03 08:04 | Outpatient (REF) | payer MEDICARE, SELFPAY ==
--- OUTSIDE RECORDS SUMMARY | 2025-05-03 08:07 | XMS_ITS | Patient Health Record ---
Author Organization [facility]id [facility] [place] Address [address] [facility] [place] [address] Care Team Providers Care State Attorney Name Role Phone Jessica Martinez Primary Care Provider Tiffanie Castro Unavailable [phone] Allergies Allergen (clinical drug ingredient) Drug/Non Drug [...] Problem Status W/U Status Risk Notes Problem 39863935 Plantar wart (B07.0) Active confirmed Problem 772138838012785 Osteoarthritis o f right ankle and foot (M19.071) Active confirmed Problem 97684292 Osteoarthritis o f left ankle and foot (M19.072) Active confirmed Vital Signs Blood pressure diastolic 68 mm Hg 03/26/2025 Height 5 ft 3 in in 03/26/2025 Blood pressure systolic 130 mm Hg 03/26/2025 Weight 148 lbs 03/26/2025 BMI 26.21 kg/m2 03/26/2025 Encounters Encounter Location Date Provider Diagnosis [address] [address] 05/04/2024 Tiffanie Perica Tinea pedis of both feet B35.3 ; Plantar wart B07.0 ; Tinea unguium B35.1 ; Pain in right toe(s) M79.674 ; Pain in left toe(s) M79.675 and Left foot pain M79.[address] [address] 09/21/2024 Tiffanie Perica Tinea pedis of both feet B35.3 ; Plantar wart B07.0 ; Tinea unguium B35.1 ; Pain in right toe(s) M79.674 ; Pain in left toe(s) M79.675 and Left foot pain M79.[address] [address] 12/25/2024 Tiffanie Perica Tinea pedis of both feet B35.3 ; Plantar wart B07.0 ; Tinea unguium B35.1 ; Pain in right toe(s) M79.674 ; Pain in left toe(s) M79.675 and Left foot pain M79.[address] [address] 03/26/2025 Tiffanei Perica Plantar wart B07.0 ; Tinea unguium B35.1 ; Pain in right toe(s) M79.674 ; Pain in left toe(s) M79.675 and Left foot pain M79.672 [facility] [address] [address] 07/16/2024 Tiffanie Hicks [facility] [address] [address] 03/26/2025 Tiffanie Hicks Assessments Encounter Date Diagnosis [...] 09/29/2023 Next Appt Details Provider Name:Tiffanie alejandre, 07/17/2025 11:00:00 AM, [address] [place] [address], [phone], Insurance Providers Payer Name Payer Address Payer Phone Subscriber Number Group Number Insured Name Patient Relationship to Insured Coverage Start Date Coverage End Date Medicare National Govt Svcs Inc [address] [facility] [place] [address] [id number] Marily Llanos Self - patient is the insured [employer] Blue Shield [address] [place] [address] [id number] Marily Llanos Self - patient is the insured Medical (General) History Medical History History ICD Code Arthritis CAD (Cholesterol) Measles Mumps Chicken pox Gall bladder problems High blood pressure Osteoporosis Joint implants/screws Surgical History Surgery Date(Month/Year) gall bladder 1970 right knee replacement 12/2014 left knee replacement 02/2016 cataract surgery 2021 Hospitalization History Reason Date(Month/Year) [facility] [place] - cat scan and x-ray left knee 01/14
== END 2025-05-03 08:05 | disposition home or self-care (01) ==
LOC: HO.MAMMO 08:04
PROVIDERS: PCP Internal Medicine; Visit Provider Internal Medicine
DX: Z12.31 Encounter for screening mammogram for malignant neoplasm of breast (principal)
CPT/HCPCS: 77063; 77067

== ENCOUNTER → 2025-05-03 08:15 | Outpatient (BNV) | payer MEDICARE, SELFPAY | PROVIDERS: PCP Internal Medicine; Visit Provider Internal Medicine | DX: Z12.31 Encounter for screening mammogram for malignant neoplasm of breast (principal) | CPT/HCPCS: 77063; 77067 ==

== ENCOUNTER 2025-05-07 14:44 | Outpatient (AMB) | payer MEDICARE, SELFPAY ==
--- NOTE | 2025-05-07 14:50 | MHC.PC.OV ---
Vital Signs 05/07/25 14:51 05/07/25 15:40 Height 5 ft 3 in Weight 151 lb 6 oz BMI 26.8 BP 126/66 Blood Pressure Location Lt brachial Position Sitting Pulse 110 H 98 Pulse Source Pulse Oximeter Auscultation Temp 96.4 F L Temp Source Temporal Artery Scan Pulse Oximetry (%) 95 Oxygen Delivery Method Room Air Intake Visit Reasons: migraines x 2 weeks Intake Note: Patient is here to follow up on Migraines. Food Porter Required: No Associate Software Development Engineer: Not Required per policy Accompanied by: Self / Same As Patient Allergies Sulfa (Sulfonamide Antibiotics) [SULFA (SULFONAMIDE ANTIBIOTICS)] Allergy (Intermediate, Verified 05/07/25 15:19) RASH Medication List - Last Reconciled 05/07/25 by Deann Centeno PA-C atenolol 50 mg PO DAILY atorvastatin 10 mg PO DAILY calcium carbonate-vitamin D3 600 mg-12.5 mcg (500 unit) (Calcium with Vit D3) 1 cap PO DAILY mv,Ca,min-folic acid-vit K1 400-20 mcg (One-A-Day Women's 50 Plus) 1 tab PO DAILY Tobacco use date assessed: 05/07/25 Fall risk assessment: No Falls in past year Last assessed Fall Risk: 05/07/25 Dental Screening Dental Screen Date: 12/05/24 HPI migraines x 2 weeks HPI Details 84-year-old female with past medical history of hypercholesterolemia, hypertension, GERD, osteopenia last seen by Dr. Pace 03/2025 coming in for acute problem. The patient has a history of migraines, which have recurred following the recent loss of her son. Migraines are associated with visual auras described as wavy lines and are triggered by stress and certain foods like chocolate and have increased in frequency since the patient's son was hospitalized and subsequently . The patient takes Tylenol at the onset of an aura, which helps alleviate the headache. The patient engages in yoga and chair exercises but has recently missed sessions due to her instructor's absence. The patient has had three migraines in the past few weeks. [facility] Medical History Heart murmur Retinal detachment GERD (gastroesophageal reflux disease) Hypertension Diverticulosis Hypercholesterolemia Surgical History H/O colonoscopy History of surgery H/O eye surgery History of dilatation and curettage Hx of appendectomy Hx of cholecystectomy History of bilateral knee replacement Social History Housing: House Alcohol intake: current Alcohol intake frequency: a few times a week Alcohol type: wine Comment: 3x a weeka glass Patient Tobacco Use Status: Never used Tobacco Tobacco use type: Cigarette e-Cigarette/Vaping Use: Never Used Second Hand Smoke Exposure: No service: No Current occupational status: retired Cognitive needs: No Hearing needs: No Vision needs: Yes Questionnaire Thrive Questionnaire Date Thrive assessed: 12/05/24 SHELBY-7 AMB Questionnaire SHELBY-7 Date SHELBY - 7 assessed: 12/05/24 Source: Developed by Drs. Marques Lenz, Stephanie Lynch, Horace Elliott and colleagues, with an educational kiley from [employer]. Review of Systems Const Denies body aches, Denies chills, Denies fever(s), Reports headache(s) and Denies poor appetite Eyes Reports no additional complaints ENT Denies dysphagia, Denies dizziness, Reports headache(s) and Denies odynophagia Card Denies chest pain, Denies syncope, Denies edema, Denies irregular heart rhythm, Denies lightheadedness and Denies dyspnea Resp Denies cough and Denies dyspnea GI Denies abdominal pain, Denies constipation, Denies dysphagia, Denies diarrhea, Denies nausea, Denies odynophagia and Denies vomiting Reports no additional complaints Musc Reports no additional complaints and Denies abnormal gait Skin/Breast Reports system reviewed and no additional complaints, except as documented Neuro Denies abnormal gait, Denies dizziness, Denies syncope and Reports headache(s) Psych Reports no additional complaints Physical exam (Primary Care) Vital Signs: Last Vital Signs Temp 96.4 F L 05/07/25 14:51 Pulse 98 05/07/25 15:40 BP 126/66 05/07/25 14:51 Pulse Ox 95 05/07/25 14:51 Oxygen Delivery Method Room Air 05/07/25 14:51 BMI result Body Mass Index 26.8 Tobacco/Smoking Status: Tobacco use Status Tobacco use date assessed 05/07/25 05/07/25 14:56 Patient Tobacco Use Status Never used Tobacco 05/07/25 14:56 Tobacco use type Cigarette 05/07/25 14:56 e-Cigarette/Vaping Use Never Used 05/07/25 14:56 Thrive Assessment: Date of Thrive Assessment Date Thrive assessed 12/05/24 05/07/25 14:56 Const General: cooperative, healthy appearing, comfortable and no acute distress Orientation/consciousness: patient oriented x3 HENMT Head: Yes normocephalic Ears: hearing grossly normal bilaterally General nose exam: Normal external nose present Eyes General: appearance normal, both eyes and all related structures Conjunctivae: conjunctivae normal Neck Neck: Yes full ROM and Yes no lymphadenopathy Resp Effort & Inspection: normal respiratory effort Auscultation: clear to auscultation bilaterally, no crackles, no rales, no rhonchi and no wheezes Cardio Rate: regular rate Rhythm: regular rhythm Skin General skin exam: no rashes or lesions noted Neuro General: patient oriented x3 Cranial nerves: Yes CN's II-XII intact bilaterally, Yes Facial sensation intact/muscles of mastication intact, Yes Bilaterally intact EOM present, Yes Nystagmus not present, Yes Normal facial strength present, Yes Midline tongue present, Yes Symmetric palate elevation present, Yes Ability to bilaterally rotate head present and Yes Ability to bilaterally elevate shoulders present Gait exam (Neuro): Normal gait present Motor exam (neuro): Pronator motor function not present Extrem General: Yes normal to inspection, Yes full ROM and No edema Psych Affect: normal affect Attitude: cooperative Insight: Good insight present (Psych) Judgement: Good judgement present (Psych) Coding Level of Care Code Est Pt Level 3 (58249) Diagnoses Grief reaction F43.20 Migraine G43.909 Assessment & Plan Assessment & Plan (1) Grief reaction: Code(s): F43.20 - Adjustment disorder, unspecified Category: Medical Plan: A referral to a therapist is suggested to help manage stress and grief following the recent loss of her son (2) Migraine: Code(s): G43.909 - Migraine, unspecified, not intractable, without status migrainosus Category: Medical Plan: The patient is advised to continue using Tylenol for migraine relief as it has been effective in alleviating symptoms. It is recommended to maintain a headache diary to identify potential triggers and patterns, including dietary intake, stress levels, and sleep patterns. Increasing water intake is emphasized to prevent dehydration, which may contribute to migraine episodes. The patient is encouraged to avoid known triggers such as caffeine and chocolate. Reviewed red flag symptoms and when to present for re-evaluation. Plan This note was constructed using voice recognition software. While every effort has been made to ensure accuracy and research management associate, still areas may have been included sometimes these areas may affect the content or meeting of the given symptoms. Total time spent caring for the patient today was 20 minutes. This includes time spent before the visit reviewing the chart, time spent during the visit, and time spent after the visit and documentation. Patient was informed and verbally consented to the use of an ambient scribe for clinic note documentation during this visit. Orders: Referrals Counseling Referral F43.20 - Adjustment disorder, unspecified
[2025-05-07 14:51] VITALS: BP 126/66; PULSE 110; TEMP 35.8; O2SAT 95; BMI 26.8
[2025-05-07 15:40] VITALS: PULSE 98
--- OUTSIDE RECORDS SUMMARY | 2025-05-07 17:03 | XMS_ITS | Patient Health Record ---
Author Organization [facility] shahid MontesSlater Address [address] [place] [address] Care Team Providers Care Railway Patrol Officer Name Role Phone Jessica Martinez Primary Care Provider Tiffanie Castro Unavailable [phone] Allergies Allergen (clinical drug ingredient) Drug/Non Drug [...] Problem Status W/U Status Risk Notes Problem 08162281 Plantar wart (B07.0) Active confirmed Problem 602478366543494 Osteoarthritis o f right ankle and foot (M19.071) Active confirmed Problem 83924840 Osteoarthritis o f left ankle and foot (M19.072) Active confirmed Vital Signs Blood pressure diastolic 68 mm Hg 03/26/2025 Height 5 ft 3 in in 03/26/2025 Blood pressure systolic 130 mm Hg 03/26/2025 Weight 148 lbs 03/26/2025 BMI 26.21 kg/m2 03/26/2025 Encounters Encounter Location Date Provider Diagnosis [address] [address] 09/21/2024 Tiffanie Perica Tinea pedis of both feet B35.3 ; Plantar wart B07.0 ; Tinea unguium B35.1 ; Pain in right toe(s) M79.674 ; Pain in left toe(s) M79.675 and Left foot pain M79.[address] [address] 12/25/2024 Tiffanie Perica Tinea pedis of both feet B35.3 ; Plantar wart B07.0 ; Tinea unguium B35.1 ; Pain in right toe(s) M79.674 ; Pain in left toe(s) M79.675 and Left foot pain M79.[address] [address] 03/26/2025 Tiffanie Perica Plantar wart B07.0 ; Tinea unguium B35.1 ; Pain in right toe(s) M79.674 ; Pain in left toe(s) M79.675 and Left foot pain M79.[address] [address] 07/16/2024 Tiffanie Perica [address] [address] 03/26/2025 Tiffanie Hicks Assessments Encounter Date Diagnosis [...] B35.1) 09/21/2024 Plantar wart (ICD-10 - B07.0) 09/21/2024 Tinea unguium (ICD-10 - B35.1) 12/25/2024 Pain in right toe(s) (ICD-10 - M79.674) 03/26/2025 Pain in left toe(s) (ICD-10 - M79.675) 03/26/2025 Left foot pain (ICD-10 - M79.672) 12/25/2024 Pain in left toe(s) (ICD-10 - M79.675) 09/21/2024 Pain in right toe(s) (ICD-10 - M79.674) 09/21/2024 Pain in left toe(s) (ICD-10 - M79.675) 12/25/2024 Left foot pain (ICD-10 - M79.672) 09/21/2024 Left foot pain (ICD-10 - M79.672) Plan Of Treatment Pending Test Test Name Order Date X ray : Foot, left 3V 09/29/2023 Next Appt Details Provider Name:Tiffanie alejandre, 07/17/2025 11:00:00 AM, [address] [facility] [facility], [place], [address], Insurance Providers Payer Name Payer Address Payer Phone Subscriber Number Group Number Insured Name Patient Relationship to Insured Coverage Start Date Coverage End Date Medicare National Govt Svcs Inc [address] [place] [address] [id number] [facility] Self - patient is the insured [employer] [facility] [address] [place] [address] [id number] Marily Llanos Self - patient is the insured Medical (General) History Medical History History ICD Code Arthritis CAD (Cholesterol) Measles Mumps Chicken pox Gall bladder problems High blood pressure Osteoporosis Joint implants/screws Surgical History Surgery Date(Month/Year) gall bladder 1970 right knee replacement 12/2014 left knee replacement 02/2016 cataract surgery 2021 Hospitalization History Reason Date(Month/Year) [facility] [place] Fall - cat scan and x-ray left knee 01/14
== END 2025-05-07 15:51 | disposition home or self-care (01) ==
LOC: HO.HMCH 14:44
PROVIDERS: PCP Internal Medicine
DX: F43.20 Adjustment disorder, unspecified (principal); G43.909 Migraine, unspecified, not intractable, without status migrainosus

== ENCOUNTER → 2025-05-07 14:44 | Outpatient (BNVA) | payer MEDICARE, SELFPAY | PROVIDERS: PCP Internal Medicine | DX: F43.20 Adjustment disorder, unspecified (principal); G43.909 Migraine, unspecified, not intractable, without status migrainosus | CPT/HCPCS: 99212 ==

== ENCOUNTER → 2025-05-22 07:42 | Outpatient (REF) | payer MEDICARE, SELFPAY ==
--- NOTE | ~2025-05-22 | NM_ITS ---
Lexiscan Myocardial perfusion study Indication: Chest pain to evaluate for myocardial ischemia Technique: The patient was brought in for a Lexiscan perfusion study on May 22, 2025 and was injected 0.4 mg of Lexiscan intravenously. Within a minute of this injection 25 mCi of sestamibi was given intravenously. Images were obtained using the SPECT gamma camera interlaced with the gating device. Images were obtained in supine position. Resting perfusion study was performed on May 23, 2025. Patient was administered 25 mCi of sestamibi intravenously at rest. Images were then obtained in supine position. Images obtained without without CT attenuation. Total DLP 123 mGy-cm. Images were processed with the software and compared side to side in short axis, horizontal long axis and vertical long axis views. Findings: The stress perfusion study showed nonattenuated images show mildly reduced uptake in the basal and mid lateral wall of the LV myocardium. Remainder of the LV myocardium is normally perfused. Attenuated corrected images show overall some thinning of the lateral wall otherwise normal uptake in all segments of the LV myocardium. The gated study shows normal LV systolic function with calculated LVEF of 57%. LV cavity is normal in size. The gated study shows normal systolic wall thickening and contraction of segments. Resting study shows no change in perfusion pattern compared to stress perfusion study. Gating at rest was not performed due to cardiac arrhythmia. The findings are consistent with normal myocardial perfusion. NM/NM cardiolite stress test Impression: 1. Myocardial perfusion imaging study shows normal myocardial perfusion 2. Gated LVEF is 57% 3. Transient ischemic dilatation not present Nondiagnostic changes on EKG. Electronically signed by: Nam Pennington MD 05/23/2025 04:53 PM EDT
--- OUTSIDE RECORDS SUMMARY | 2025-05-22 07:45 | XMS_ITS | Patient Health Record ---
Author Organization [facility] Address [address] [place] [address] Care Team Providers Care Salmon Gillnet Vessel Operator Name Role Phone Jessica Martinez MD Primary Care Provider Marques Marie Unavailable [phone] Allergies Allergen (clinical drug ingredient) Drug/Non Drug Allergy documented on EMR Reaction Allergy Type Onset Date Status Sulfa Unknown Drug Allergy Active Reason For Referral No Information Medications Medication SIG (Take, Route, Frequency, Duration) Notes Start Date End Date Status Womens One Daily - Orally A ctive Atorvastatin Calcium 10 MG 1 tablet Oral ly Once a day Active Atenolol 50 MG 1 tablet Orally Once a day Active Calcium 600 + D 600-200 MG-UNIT 1 tablet with a meal Orally Once a day Active Aspir-81 81 MG 1 tablet Orally Once a day Active Social History Tobacco Use: Social History Observation Description Date Details (start date - stop date) Never Smoker NA - NA Tobacco Use/Smoking Question Answer Notes Patient is a nonsmoker Alcohol Screen Question Answer Notes Did you have a drink contain ing alcohol in the past year? Yes How often did you have a dri nk containing alcohol in the past year? 2 to 3 times a week (3 points) How many drinks did you have on a typical day when you were drinking in the past year? 1 or 2 drinks (0 point) Points 3 Interpretation Positive Section Notes: Nonsmoker; 1 glass of wine o r mixed drink several tines a week Problems Problem Type SNOMED Code ICD Code Onset Dates Problem Status W/U Status Risk Notes Problem 812477925 Encounter for screening for malignant neoplasm of colon (Z12.11) Active confirmed Problem 932436417547254 Preprocedural examination (Z01.818) Active confirmed Problem 431760058 Aspirin long-ter m use (Z79.82) Active confirmed Plan Of Treatment Future Test Test Name Order Date COLONOSCOPY 03/30/2018 Insurance Providers Payer Name Payer Address Payer Phone Subscriber Number Group Number Insured Name Patient Relationship to Insured Coverage Start Date Coverage End Date MEDICARE OF [place] [address] [place] [address] [phone] [id number] INEZ STACK Self - patient is the insured [employer] CLAIMS [address] [place] [address] [id number] INEZ STACK Self - patient is the insured Medical (General) History Medical History History ICD Code Hypertension Hypercholesterolemia Osteoporosis Seasonal allergies Fracture pelvis 2014 Negative colonoscopy in 11/2004--divertic ulosis Denies [place],DM,CVA,Lung disease,renal dise ase Surgical History Surgery Date(Month/Year) Cholecystectomy Appendectomy Laser therapy for a detached retina in t he right eye D&C Right knee replacement 12/31/2014 Left knee replacement 02/2015
--- OUTSIDE RECORDS SUMMARY | 2025-05-22 07:45 | XMS_ITS | Patient Health Record ---
Author Organization [facility] [place] Address [address] [facility] [address] [place] [address] Care Team Providers Care Director Of Patient Care Name Role Phone Jessica Martinez Primary Care Provider Tiffanie Castro Unavailable [phone] Allergies Allergen (clinical drug ingredient) Drug/Non Drug Allergy documented on EMR Reaction Allergy Type Onset Date Status Substance with sulfonamide structure and antibacterial mechanism of action (substance) Sulfa Antibiotics Unknown Drug Allergy Active Reason For Referral No Information Medications Medication SIG (Take, Route, Frequency, Duration) Notes Start Date End Date Status Calcium + D Active Atenolol 50 MG 1 tablet Orally Once a day; Duration: 30 day(s) Active Atorvastatin Calcium 10 MG 1 tablet Oral ly Once a day; Duration: 30 day(s) Active Multivitamin Active Ciclopirox Olamine 0.77 % 1 application Externally Twice a day; Duration: 30 days Active Immunizations Vaccine Route Administration [...] Problem Status W/U Status Risk Notes Problem Plantar wart (85726154) Plantar wart (B07.0) Active confirmed Problem Localized, primary osteoarthritis of the ankle and/or foot (508058582) Osteoarthritis of right ankle and foot (M19.071) Active confirmed Problem Localized, primary osteoarthritis of the ankle and/or foot (946178574) Osteoarthritis of left ankle and foot (M19.072) Active confirmed Vital Signs Blood pressure diastolic 68 mm Hg 03/26/2025 Height 5 ft 3 in in 03/26/2025 Blood pressure systolic 130 mm Hg 03/26/2025 Weight 148 lbs 03/26/2025 BMI 26.21 kg/m2 03/26/2025 Encounters Encounter Location Date Provider Diagnosis [address] [address] 09/21/2024 Tiffanie Perica Tinea pedis of both feet B35.3 ; Plantar wart B07.0 ; Tinea unguium B35.1 ; Pain in right toe(s) M79.674 ; Pain in left toe(s) M79.675 and Left foot pain M79.[address] [address] 12/25/2024 Tiffanie Perica Tinea pedis of both feet B35.3 ; Plantar wart B07.0 ; Tinea unguium B35.1 ; Pain in right toe(s) M79.674 ; Pain in left toe(s) M79.675 and Left foot pain M79.[address] [address] 03/26/2025 Tiffanie Perica Plantar wart B07.0 ; Tinea unguium B35.1 ; Pain in right toe(s) M79.674 ; Pain in left toe(s) M79.675 and Left foot pain M79.[address] [address] 07/16/2024 Tiffanie Perica [address] [address] 03/26/2025 Tiffanie Hicks Assessments Encounter Date Diagnosis [...] Provider Name:Tiffanie alejandre, 07/17/2025 11:00:00 AM, [address] [facility], [place], [address], Insurance Providers Payer Name Payer Address Payer Phone Subscriber Number Group Number Insured Name Patient Relationship to Insured Coverage Start Date Coverage End Date Medicare National Govt Svcs Inc [address] [place] [address] [id number] ChrisyumikoMarily egan Self - patient is the insured [employer] [address] [place] [address] [id number] Marily Llanos Self - patient is the insured Medical (General) History Medical History History ICD Code Arthritis CAD (Cholesterol) Measles Mumps Chicken pox Gall bladder problems High blood pressure Osteoporosis Joint implants/screws Surgical History Surgery Date(Month/Year) gall bladder 1970 right knee replacement 12/2014 left knee replacement 02/2016 cataract surgery 2021 [place] Reason Date([place] [facility] [place] and x-ray left knee 01/14
--- NOTE | 2025-05-22 07:48 | CA_ITS ---
Acquisition Time: 2025-05-22 08:06:17 Total Exercise Time: 00:02:00 Test Indications: CP Medications: SEE H&P Protocol: LEXISCAN Max HR: 113 BPM 83% of Pred: 136 BPM Max BP: 148/82 mmHG Max Work Load: 1.0 METS Pharmacological stress test with Lexiscan while pt marches slow in her chair, with reports of SOB, no chest pain, without any arrythmias, with normotensive response to injection. Nondiagnostic EKG for ischemia. In recovery, pt treated with IVP Aminophylline 75 mg to reverse Lexiscan after which pt feeling back to baseline. Nuclear images pending. Test reviewed with Dr. Pennington. PS- pt in Afib (new onset). Will request PCP to start on Eliquis and increase Atenolol to BID. Recommend an echo. Referred By: Jessica Martinez Electronically Signed By: Asael Lozada
== END ==
LOC: HO.CARD 07:42
PROVIDERS: PCP Internal Medicine; Visit Provider Internal Medicine
DX: R07.9 Chest pain, unspecified (principal)
CPT/HCPCS: 78452; 93017; A9500; J0280; J2785

== ENCOUNTER → 2025-05-22 07:48 | Outpatient (BNV) | payer MEDICARE, SELFPAY | PROVIDERS: PCP Internal Medicine | DX: R07.9 Chest pain, unspecified (principal) | CPT/HCPCS: 78452; 93016; 93018 ==

== ENCOUNTER 2025-05-26 09:49 | Inpatient (IN) | payer MEDICARE, SELFPAY ==
[2025-05-26] VITALS (10 sets, daily range): BP systolic 131–169; BP diastolic 71–100; PULSE 69–100; RESP 15–23; TEMP 36.1–36.9; O2SAT 93–98; BMI 26.6; BMI 26.7
--- NOTE | ~2025-05-26 | CT_ITS ---
CLINICAL HISTORY: head strike, fall, pain CT head without contrast Comparison: CT/MS/SR - CT HEAD/BRAIN WO IV CON - 12/31/23 13:08 EST Findings: Motion artifact limits interpretation. There is nava-white differentiation loss involving the right MCA distribution. Possible hyperdense right M2. There is patchy low density in the periventricular and subcortical white matter. Diffuse volume loss is noted. No hydrocephalus. No hemorrhage, mass effect, mass lesion or midline shift. No abnormal extra-axial fluid. No calvarial fracture. Paranasal sinuses and mastoid air cells are clear. Impression: There is loss of nava-white differentiation involving the right MCA distribution and possible hyperdense right M2. Suspect acute right MCA distribution infarct. This document has been electronically signed by: José Miguel Roman MD on 05/26/2025 12:58:44
--- NOTE | ~2025-05-26 | XR_ITS ---
CLINICAL HISTORY: pain, injury 3 view, pelvis and left hip Comparison: None provided Findings: Osteopenia with no definite acute fracture. No dislocation. Old fracture deformities in the left pubic rami. Moderate narrowing of the bilateral acetabulofemoral joints. Prominent arterial calcifications. Urinary bladder contrast most likely from earlier CTA. IMPRESSION: 1. Osteopenia with no definite acute fracture. 2. No dislocation. This document has been electronically signed by: Hansa Katz DO on 05/26/2025 14:42:02
--- NOTE | ~2025-05-26 | CT_ITS ---
CLINICAL HISTORY: head strike, fall, pain CT cervical spine without contrast Comparison: None Findings: There is straightening of the normal cervical lordosis. No fracture or acute malalignment. Multilevel degenerative changes with disc space narrowing throughout the cervical spine. The facet joints are normally imbricated. No prevertebral soft tissue edema. Lung apicies demonstrate no acute process. Impression: Multilevel degenerative changes without evidence of acute fracture or acute malalignment. This document has been electronically signed by: José Miguel Roman MD on 05/26/2025 12:19:06
--- NOTE | ~2025-05-26 | XR_ITS ---
CLINICAL HISTORY: pain, injury 3 view left shoulder Comparison: None provided Findings: Bones intact. No dislocations. Moderate narrowing and degenerative spurring in the acromioclavicular joint. Mild narrowing and degenerative spurring in the glenohumeral joint. No erosions. No radiopaque foreign body. IMPRESSION: 1. No acute fracture or dislocation. 2. Osteopenia and degenerative changes. This document has been electronically signed by: Hansa Katz DO on 05/26/2025 14:40:51
--- NOTE | ~2025-05-26 | CT_ITS ---
CLINICAL HISTORY: left sided deficit, atrial fib not on anti-coags CTA HEAD WITH CONTRAST, 3D POSTPROCESSING CTA NECK WITH CONTRAST, WITH 3D POSTPROCESSING Comparison: CT/SR - CT HEAD/BRAIN WO IV CON - 05/26/25 10:39 EDT Findings: Aortic arch: Atherosclerotic changes in the three-vessel arch with patent branch origins. Vertebral arteries: Dominant left vertebral artery with no occlusion or dissection. Diffusely diminutive right vertebral artery with no occlusion. Extracranial carotid arteries: No occlusion, flow limiting stenosis, aneurysm or dissection. Dense calcific plaque in the right carotid bifurcation and proximal ICA with less than 50 percent stenosis per NASCET criteria. Extensive mixed soft and calcific plaque in the left carotid bifurcation and proximal ICA with less than 50 percent stenosis. Intracranial carotid arteries: Mild bilateral calcific plaque. No occlusion or flow limiting stenosis. Vertebrobasilar system: Patent. Cerebellar arteries: Patent. Posterior cerebral arteries: Patent. No occlusion or aneurysm. Persistent origins bilaterally, a normal variant. Anterior cerebral arteries: Patent. No occlusion or aneurysm. Middle cerebral arteries: There is abrupt cutoff in the M2 segment of the right MCA with immediate reconstitution via collaterals. Patent left MCA with no occlusion or aneurysm. No enhancing intracranial mass lesion. Dural venous sinuses are patent. No enhancing cervical mass or fluid collection. Thyroid gland appears unremarkable. There are bilateral pleural effusions. Advanced degenerative changes in the cervical spine. Impression: 1. Occlusion in the M2 segment of the right MCA. 2. Prominent arteriosclerosis in the bilateral carotid bifurcations and proximal ICAs with no flow-limiting stenosis. This document has been electronically signed by: Hansa Katz DO on 05/26/2025 14:32:12
--- NOTE | ~2025-05-26 | XR_ITS ---
CLINICAL HISTORY: fall, confusion --- 1 view chest x-ray Comparison: CR/SR - XR CHEST 2V - 03/28/25 16:40 EDT Findings: 2 films were obtained. No acute airspace opacity. No pleural effusion or pneumothorax. The cardiac silhouette is enlarged. There is vascular redistribution. No acute fracture. IMPRESSION: 1. Cardiomegaly with mild CHF. 2. No pneumothorax or visible rib fracture. This document has been electronically signed by: Hansa Katz DO on 05/26/2025 14:37:02
--- NOTE | 2025-05-26 09:58 | ED_ITS ---
HPI - General Adult General Chief complaint: Fall Stated complaint: MECHANICAL FALL Time Seen by Provider: 05/26/25 09:58 Source: patient, family (patient's daughter and son) and EMS Mode of arrival: EMS Limitations: no limitations History of Present Illness ED Provider: Laura Bernal PA-C HPI narrative: Patient is a 84 year old female with past medical history of osteopenia, HTN, HLD, hearing deficit, situational depression, and new diagnosis of atrial fibrillation not yet on anticoagulants presenting to ER on 05/26 with chief complaint of mechanical fall. Patient was getting out of bed to use the bathroom today and fell to the floor, her son Mando helped her to bathroom, upon getting up from toilet she felt off-balance and fell again. She states she hit the right side of her head during the fall in the bathroom. She cannot recall if she hit or injured any other part of her body. She denies loss of consciousness, dizziness, nausea, vomiting, confusion, pain, or palpitations since her falls this morning. She states she is not currently in any pain. She ambulates independently without assistive devices at baseline. Her daughter is here to help provide history, states patient was recently diagnosed with atrial fibrillation and is currently working with cardiology/PCP to evaluate whether she would benefit from anticoagulation therapy. Onset (ago): hour(s) Location: head Relieving factors: none Exacerbating factors: none Associated symptoms: denies other symptoms Related Data Home Medications ?Medication ?Instructions ?Recorded ?Confirmed calcium 600 mg (as 1 cap PO DAILY 01/28/2104/21 carbonate)-vitamin D3 12.5 mcg (500 unit) capsule (Calcium with Vit D3) lwlnlmsrpmio-eiosrlyd-dfxjhse-folic 1 tab PO DAILY 09/1005/07/25 acid 400 mcg-vit K1 20 mcg tablet (One-A-Day Women's 50 Plus) albuterol sulfate 90 mcg/actuation 2 puff inhalation Q 6H PRN wheezing 05/26/25 aerosol inhaler Previous Rx's ?Medication ?Instructions ?Recorded atenolol 50 mg tablet 50 mg PO DAILY #90 tabs 04/14 atorvastatin 10 mg tablet 10 mg PO DAILY #90 tabs 0 04/14 Allergies Allergy/AdvReac Type Severity Reaction Status Date / Time Sulfa (Sulfonamide Allergy Intermediate RASH Verified 05/26/25 10:03 Antibiotics) (SULFA (SULFONAMIDE ANTIBIOTICS)) Review of Systems 2 Constitutional: Constitutional: Reports no additional constitutional complaints, Denies chills, Denies fever(s) and Denies night sweats Eyes: Eyes: Reports no additional eye complaints, Denies blurry vision, Denies change in vision, Denies diplopia, Denies eye discharge, Denies loss of vision and Denies eye pain ENT: Denies dizziness Cardiovascular: Cardiovascular: Reports no additional cardiovascular complaints, Denies chest pain, Denies lightheadedness, Denies Loss of Consciousness and Denies dyspnea Respiratory: Respiratory: Reports no additional respiratory complaints and Denies dyspnea Gastrointestinal: Gastrointestinal: Reports no additional gastrointestinal complaints, Denies abdominal pain, Denies melena, Denies hematochezia, Denies change in bowel habits and Denies change in stool character Genitourinary: Genitourinary: Denies hematuria, Denies urinary frequency, Denies dysuria, Denies urinary incontinence, Denies urinary hesitancy and Denies urinary urgency Musculoskeletal: Musculoskeletal: Reports no additional musculoskeletal complaints, Denies numbness and Denies tingling Neurologic: Denies dizziness, Denies loss of vision, Denies numbness and Denies tingling Psychiatric: Psychiatric: Reports no additional psychiatric complaints Endocrine: Endocrine: Reports no additional endocrine complaints Hematologic/Lymphatic: Hematologic/Lymphatic: Reports no additional hematologic/lymphatic complaints Allergic/Immunologic: Allergic/Immunologic: Reports no additional allergic/immunologic complaints [facility] Past Medical History Attestation statement: The following information was validated with the patient. (all information validated with the patient's son and daughter) Source: old records reviewed, obtained from family (patient's son and daughter provided additional history and confirmed the history provided by the patient.) and nursing notes reviewed Medical History Heart murmur Retinal detachment GERD (gastroesophageal reflux disease) Hypertension Diverticulosis Hypercholesterolemia Surgical History H/O colonoscopy History of surgery H/O eye surgery History of dilatation and curettage Hx of appendectomy Hx of cholecystectomy History of bilateral knee replacement Social History Social History Housing: House Alcohol intake: current Alcohol intake frequency: a few times a week Alcohol type: wine Comment: 3x a weeka glass Patient Tobacco Use Status: Never used Tobacco Tobacco use type: Cigarette e-Cigarette/Vaping Use: Never Used Second Hand Smoke Exposure: No Advance Directives: Yes Advance Directives Information Provided: No Advance Directives on File: No service: No Current occupational status: retired Cognitive needs: No Hearing needs: No Vision needs: Yes Physical Exam ED Vital Signs: Vital Signs - 24 hr 05/26/25 09:58 05/26/25 11:52 05/26/25 12:11 Temperature 98.4 F 97.2 F 98.2 F Pulse Rate 69 100 79 Respiratory Rate 16 16 16 Blood Pressure 169/71 H 131/100 H 148/73 H Pulse Oximetry 97 93 96 Oxygen Delivery Method Room Air Room Air Room Air 05/26/25 13:46 Temperature Pulse Rate 81 Respiratory Rate 17 Blood Pressure 156/91 H Pulse Oximetry 97 Oxygen Delivery Method Room Air BMI result Body Mass Index 26.6 Const General: cooperative, no acute distress, alert and awake Nutritional Appearance: well nourished Orientation/consciousness: patient oriented x3 HENMT Head: Yes normal to inspection and Yes atraumatic Ears: hearing grossly normal bilaterally and external ears normal General nose exam: Normal external nose present, no nasal discharge noted and no epistaxis Face and sinus: Yes normal facial exam, No abrasion and No laceration Mouth: Normal oral and palatal mucosa present, no drooling and no muffled voice Eyes General: appearance normal, both eyes and all related structures Periorbital: periorbital findings normal Eyelids: Yes eyelids normal Conjunctivae: conjunctivae normal Pupils: Equal, round and reactive pupils present EOM: EOMs intact bilaterally Neck Neck: Yes normal visual inspection, Yes full ROM and Yes no lymphadenopathy Resp Effort & Inspection: normal respiratory effort and able to speak in complete sentences Cardio Rate: regular rate Rhythm: abnormal rhythm irregularly irregular Neuro Other: left sided motor deficit noted slight left sided facial droop General: patient oriented x3, moves all extremities and CN's II-XI intact bilaterally Cranial nerves: Yes Equal, round and reactive pupils present Cognition (Neuro): normal cognition Extrem General: Yes normal to inspection, Yes full ROM and Yes capillary refill normal Psych Appearance: grossly normal Mental Status: mental status grossly normal Affect: normal affect Attitude: cooperative Thought process: Normal thought process present Thought content: Normal thought content present Insight: Good insight present (Psych) NIH Stroke Scale Time: 12:34 Level of Consciousness: Alert Level of Consciousness Questions: Answers both questions correctly Level of Consciousness Commands: Performs both tasks correctly Best Gaze: Normal Visual: No visual loss Facial Palsy: Minor paralyis Motor Arm (Right): No drift Motor Arm (Left): Some effort against gravity Motor Leg (Right): No drift Motor Leg (Left): Some effort against gravity Limb Ataxia: Absent Sensory: Normal Best Language: Mild to moderate aphasia Dysarthia: Normal Extinction and Inattention: No abnormality Score: 6 Medications Administered Discontinued Medications Generic Name Dose Route Start Last Admin Trade Name Duyq PRN Reason Stop Dose Admin Aspirin 324 mg 05/26/25 14:16 05/26/25 14:51 Aspirin 81 Mg Tab.Chew PO 05/26/25 14:17 324 mg ONCE ONE Administration Ceftriaxone Sodium 1 gm 05/26/25 13:25 05/26/25 13:44 Ceftriaxone Sodium 1 Gm Vial IVPUSH 05/26/25 13:26 1 gm ONCE ONE Administration Iohexol 70 ml 05/26/25 13:14 05/26/25 13:14 Iohexol 350 Mg/Ml 100 Ml Infus..Btl IV 05/26/25 13:15 70 ml ONCE ONE Administration Medical Decision Making Medical Decision Making MDM Narrative: osteopenia, HTN, HLD, hearing deficit, situational depression, and new diagnosis of atrial fibrillation not yet on anticoagulants. Patient's physical exam was as noted in the physical exam portion of this note. Patient's blood work was largely unremarkable but did show a sodium of 133. Patient's urine showed a possible UTI. Patient's EKG showed atrial fibrillation. Patient's chest x-ray showed cardiomegaly with mild CHF (patient has no shortness of breath / dyspnea). Patient's head CT showed a loss of nava-white differentiation involving the right MCA distribution and possible hyperdense right M2 - suspect right MCA distribution infarct. I consulted with my attending physician, Dr. Garcia, who recommended obtaining a CTA of the head/neck and speaking with Dr. Orozco, the neurologist home restoration service supervisor. I spoke to Dr. Orozco who recommended PO ASA and blood pressure management stating she is not a TNK candidate and given how long ago the event was + CT findings, she is not a thrombectomy candidate. Patient's CTA of the head/neck confirmed an M2 occlusions. I spoke with the hospitalist team who agreed to admission. Patient was given IV Ceftriaxone and PO ASA. I explained my physical exam findings as well as all test results to the patient and the patient's children at the bedside. I answered all questions asked by the patient and the patient's children at the bedside. Patient and the patient's children verbalized agreement and understanding with this treatment plan and admission. Differential Diagnosis Differential Diagnoses: The differential diagnosis associated with the presentation includes Fall CVA Stroke UTI Admission/Observation Consideration of admission/observation: Escalation of care including admission/observation considered Patient admitted as noted in the MDM Rationale portion of this note. Consult Healthcare Provider Management of the patient was discussed with: Hospitalist (agreed to admission as noted in the MDM Rationale portion of this note. ) and Cte Teacher (spoke with the neurologist, Dr. Orozco, as noted in the MDM Rationale portion of this note. ) Lab Data [facility] Lab Attestation statement: I reviewed the patient's lab results. My interpretation of these results are in the MDM Rationale portion of this note. 05/26/25 10:35 05/26/25 10:35 Labs: Lab Results 05/26/25 05/26/25 05/26/25 Range/Units 10:35 12:45 12:57 WBC 8.7 (4.8-10.8) X10*3/uL RBC 4.44 (4.20-5.50) X10*6/uL Hgb 13.8 (12.0-16.0) g/dl Hct 38.1 (37.0-47.0) % MCV 85.8 (80.0-98.0) fL MCH 31.1 (27.0-33.0) pg MCHC 36.2 H (31.0-35.0) g/dl RDW 12.6 (11.0-16.0) % Plt Count 233 (160-400) X10*3/uL MPV 8.6 L (9.4-12.3) fL Immature Gran % (Auto) 0.3 (0.0-0.4) % Neut % (Auto) 78.5 H (45-73) % Lymph % (Auto) 11.5 L (20-40) % [place] % (Auto) 8.2 (2-11) % Eos % (Auto) 0.9 (0-4) % Baso % (Auto) 0.6 (0-2) % Lymph # (Auto) 1.0 L (1.2-4.9) X10*3/uL [place] # (Auto) 0.7 (0.1-1.2) X10*3/uL Eos # (Auto) 0.1 (0.0-0.4) X10*3/uL Baso # (Auto) 0.1 (0.0-0.2) X10*3/uL Abs Immat Gran (auto) 0.03 (0.00-0.03) X10*3/uL Absolute Neuts (auto) 6.8 (2.0-8.3) x10*3/uL Absolute Nucleated RBC 0.000 (0.0-0.012) X10*3/uL Nucleated RBC % (auto) 0.0 (0.0-0.2) /100WBC PT 12.0 (10.9-12.4) SEC INR 1.0 (0.9-1.1) Sodium 133 L (135-145) mmol/L Potassium 4.4 (3.3-5.1) mmol/L Chloride 102 (96-108) mmol/L Carbon Dioxide 25 (22-29) mmol/L Anion Gap 10 L (12-20) BUN 14 (9-16) mg/dL Creatinine 0.59 (0.5-1.4) mg/dL Estim Creat Clear Calc 65.8 Estimated GFR > 60 Random Glucose 124 H (60-115) mg/dL Calcium 8.7 (8.4-10.2) mg/dL Magnesium 2.0 (1.6-2.6) mg/dL Total Bilirubin 0.9 (0.0-1.0) mg/dL AST 20 (5-31) U/L ALT 28 (0-31) U/L Alkaline Phosphatase 88 (39-117) U/L Total Protein 6.6 (6.5-8.0) g/dL Albumin 4.0 (3.5-5.0) g/dL Triglycerides 88 (<150) mg/dL Cholesterol 167 (<200) mg/dL LDL Cholesterol, Calc 95 (<100) mg/dL HDL Cholesterol 55 (>40) mg/dL Urine Color Yellow Urine Appearance Clear Urine pH 6.5 (5.0-9.0) Ur Specific [place] 1.020 (1.005-1.025) Urine Protein 100 (2+) H (Neg-Trace) mg/dL Urine Glucose (UA) Negative (Negative) mg/dL Urine Ketones Negative (Negative) mg/dL Urine Blood Trace H (Negative) Urine Nitrite Positive H (Negative) Ur Leukocyte Esterase Small (1+) H (Negative) Urine RBC 3-5 H (0-2) /HPF Urine WBC 11-20 H (0-5) /HPF Ur Squamous Epith Cells 0-2 (0-2) /HPF Urine Bacteria 4+ (None Seen) Hyaline Casts 0-2 (0-2) /LPF Influenza Type A (PCR) NEGATIVE (Negative) Influenza Type B (PCR) NEGATIVE (Negative) RSV RNA Qual (PCR) NEGATIVE (Negative) SARS-CoV-2 RNA (RT-PCR) NEGATIVE (Negative) Independent Interpretation I performed an independent interpretation of an: EKG, Plain X-Ray and CT Scan Interpretation: My interpretation is in agreement with the radiologist's impression of these imaging studies. L Report Number: [id number]: Total DLP = 294.36 mGy-cm CLINICAL HISTORY: head strike, fall, pain CT cervical spine without contrast Comparison: None Findings: There is straightening of the normal cervical lordosis. No fracture or acute malalignment. Multilevel degenerative changes with disc space narrowing throughout the cervical spine. The facet joints are normally imbricated. No prevertebral soft tissue edema. Lung apicies demonstrate no acute process. Impression: Multilevel degenerative changes without evidence of acute fracture or acute malalignment. This document has been electronically signed by: José Miguel Roman MD on 05/26/2025 12:19:06 Dictated By: José Miguel Roman MD Signed By: Electronically signed by José Miguel Roman MD 05/26/25 1220 Report Number: [id number]: Total DLP = 1300.64 mGy-cm ADDENDUM This document has been electronically signed by: José Miguel Roman MD on 05/26/2025 12:58:44 ADDENDUM: This report was discussed with EZEKIEL Rodriguez on May 26, 2025 13:03:00 EDT. This document has been electronically signed by: Lidia Ayala on 05/26/2025 13:04:00 Addendum Dictated By: José Miguel Roman MD Addendum Signed By: Electronically signed by José Miguel Roman MD 05/26/251304 Addendum Cosigned By: DD/ /15/1258 TD/TT: 05/26/2505/15/1304 CLINICAL HISTORY: head strike, fall, pain CT head without contrast Comparison: CT/UT/SR - CT HEAD/BRAIN WO IV CON - 12/31/23 13:08 EST Findings: Motion artifact limits interpretation. There is nava-white differentiation loss involving the right MCA distribution. Possible hyperdense right M2. There is patchy low density in the periventricular and subcortical white matter. Diffuse volume loss is noted. No hydrocephalus. No hemorrhage, mass effect, mass lesion or midline shift. No abnormal extra-axial fluid. No calvarial fracture. Paranasal sinuses and mastoid air cells are clear. Impression: There is loss of nava-white differentiation involving the right MCA distribution and possible hyperdense right M2. Suspect acute right MCA distribution infarct. This document has been electronically signed by: José Miguel Roman MD on 05/26/2025 12:58:44 Dictated By: José Miguel Roman MD Signed By: Electronically signed by José Miguel Roman MD 05/26/25 1259 Report Number: [id number]: Total DLP = 688.00 mGy-cm ADDENDUM This document has been electronically signed by: Hansa Katz DO on 05/26/2025 14:32:12 ADDENDUM: This report was discussed with Lyubov Elias RN on May 26, 2025 14:38:00 EDT. This document has been electronically signed by: Janice Soni on 05/26/2025 14:38:48 Addendum Dictated By: Hansa Katz MD Addendum Signed By: Electronically signed by Hansa Katz MD 05/26/251438 Addendum Cosigned By: DD/ /15/1432 TD/TT: 05/26/2505/15/1438 CLINICAL HISTORY: left sided deficit, atrial fib not on anti-coags CTA HEAD WITH CONTRAST, 3D POSTPROCESSING CTA NECK WITH CONTRAST, WITH 3D POSTPROCESSING Comparison: CT/SR - CT HEAD/BRAIN WO IV CON - 05/26/25 10:39 EDT Findings: Aortic arch: Atherosclerotic changes in the three-vessel arch with patent branch origins. Vertebral arteries: Dominant left vertebral artery with no occlusion or dissection. Diffusely diminutive right vertebral artery with no occlusion. Extracranial carotid arteries: No occlusion, flow limiting stenosis, aneurysm or dissection. Dense calcific plaque in the right carotid bifurcation and proximal ICA with less than 50 percent stenosis per NASCET criteria. Extensive mixed soft and calcific plaque in the left carotid bifurcation and proximal ICA with less than 50 percent stenosis. Intracranial carotid arteries: Mild bilateral calcific plaque. No occlusion or flow limiting stenosis. Vertebrobasilar system: Patent. Cerebellar arteries: Patent. Posterior cerebral arteries: Patent. No occlusion or aneurysm. Persistent origins bilaterally, a normal variant. Anterior cerebral arteries: Patent. No occlusion or aneurysm. Middle cerebral arteries: There is abrupt cutoff in the M2 segment of the right MCA with immediate reconstitution via collaterals. Patent left MCA with no occlusion or aneurysm. No enhancing intracranial mass lesion. Dural venous sinuses are patent. No enhancing cervical mass or fluid collection. Thyroid gland appears unremarkable. There are bilateral pleural effusions. Advanced degenerative changes in the cervical spine. Impression: 1. Occlusion in the M2 segment of the right MCA. 2. Prominent arteriosclerosis in the bilateral carotid bifurcations and proximal ICAs with no flow-limiting stenosis. This document has been electronically signed by: Hansa Katz DO on 05/26/2025 14:32:12 Dictated By: Hansa Katz MD Signed By: Electronically signed by Hansa Katz MD 05/26/25 1433 CLINICAL HISTORY: pain, injury 3 view, pelvis and left hip Comparison: None provided Findings: Osteopenia with no definite acute fracture. No dislocation. Old fracture deformities in the left pubic rami. Moderate narrowing of the bilateral acetabulofemoral joints. Prominent arterial calcifications. Urinary bladder contrast most likely from earlier CTA. IMPRESSION: 1. Osteopenia with no definite acute fracture. 2. No dislocation. This document has been electronically signed by: Hansa Katz DO on 05/26/2025 14:42:02 Dictated By: Hansa Katz MD Signed By: Electronically signed by Hansa Katz MD 05/26/25 1440 CLINICAL HISTORY: pain, injury 3 view left shoulder Comparison: None provided Findings: Bones intact. No dislocations. Moderate narrowing and degenerative spurring in the acromioclavicular joint. Mild narrowing and degenerative spurring in the glenohumeral joint. No erosions. No radiopaque foreign body. IMPRESSION: 1. No acute fracture or dislocation. 2. Osteopenia and degenerative changes. This document has been electronically signed by: Hansa Katz DO on 05/26/2025 14:40:51 Dictated By: Hansa Katz MD Signed By: Electronically signed by Hansa Katz MD 05/26/25 1441 Radiology Impression Discussion of test interpretation with radiology: I have reviewed the radiologist's reading. Independent Historian Clinical information obtained from an independent historian. History obtained from or confirmed by: EMS (EMS provided additional history and confirmed the history provided by the patient. ) and Other (Patient's children provided additional history and confirmed the history provided by the patient.) Critical Care Time Critical Care Time Critical Care Time: Yes Total Critical Care Time: 48 Attestation: I spent 48 minutes of Critical Care Time with this patient. This does not include time spent on separately reported billable procedures. Discharge Plan Discharge Clinical Impression: Stroke, Acute UTI, Fall Patient Disposition: Admitted As Inpatient
--- NOTE | 2025-05-26 10:24 | ECG_ITS ---
Test Reason : FALL Blood Pressure : */* mmHG Vent. Rate : 70 BPM Atrial Rate : * BPM P-R Int : * ms QRS Dur : 94 ms QT Int : 424 ms P-R-T Axes : * 7 92 degrees QTcB Int : 457 ms Atrial fibrillation Minimal voltage criteria for LVH, may be normal variant ( Ronen product ) Anterior infarct , age undetermined Abnormal ECG When compared with ECG of 27-Aug-2024 10:27, Atrial fibrillation has replaced Sinus rhythm T wave inversion less evident in Lateral leads Referred By: Laura Bernal Electronically Signed By: Jacob Erwin
[2025-05-26 10:42] LABS: MANUAL DIFF FLAG NO
[2025-05-26 10:43] LABS: Hematocrit 38.1 % (37.0-47.0); Hemoglobin 13.8 g/dl (12.0-16.0); Imm Gran Abs Auto 0.03 X10*3/uL (0.00-0.03); Imm Gran Pct Auto 0.3 % (0.0-0.4); Lymphocytes Absolute Auto 1.0 X10*3/uL (1.2-4.9); Mean Corpuscular HGB Conc 36.2 g/dl (31.0-35.0); Mean Corpuscular Hemoglobin 31.1 pg (27.0-33.0); Mean Corpuscular Volume 85.8 fL (80.0-98.0); NRBC Abs Auto 0.000 X10*3/uL (0.0-0.012); NRBC Pct Auto 0.0 /100WBC (0.0-0.2); Platelet Count 233 X10*3/uL (160-400); Red Blood Count 4.44 X10*6/uL (4.20-5.50); White Blood Count 8.7 X10*3/uL (4.8-10.8)
[2025-05-26 10:49] LABS: INTERNATIONAL NORM RATIO 1.0 (0.9-1.1); Prothrombin Time 12.0 SEC (10.9-12.4)
--- OUTSIDE RECORDS SUMMARY | 2025-05-26 10:51 | XMS_ITS | Patient Health Record ---
Author Organization [facility] Address [address] [place] [address] Care Team Providers Care Preparation Room Worker Name Role Phone Jessica Martinez MD Primary Care Provider Marques Marie Unavailable [phone] Allergies Allergen (clinical drug ingredient) Drug/Non Drug [...] Problem Status W/U Status Risk Notes Problem [id number] Encounter for screening for malignant neoplasm of colon (Z12.11) Active confirmed Problem [id number] Preprocedural examination (Z01.818) Active confirmed Problem [id number] Aspirin long-ter m use (Z79.82) Active confirmed Plan Of Treatment Future Test Test Name Order Date COLONOSCOPY 03/30/2018 Insurance Providers Payer Name Payer Address Payer Phone Subscriber Number Group Number Insured Name Patient Relationship to Insured Coverage Start Date Coverage End Date MEDICARE OF [place] [address] [place] [id number] [phone] [id number] [id number] STACK Self - patient is the insured [employer] ATT[employer] CLAIMS [address] [place] [address] [id number] [id number] Self - patient is the insured Medical (General) History Medical History History ICD Code Hypertension Hypercholesterolemia Osteoporosis Seasonal allergies Fracture pelvis 2014 Negative colonoscopy in 11/2004--divertic ulosis Denies [place],DM,CVA,Lung disease,renal dise ase Surgical History Surgery Date(Month/Year) Cholecystectomy Appendectomy Laser therapy for a detached retina in t he right eye D&C Right knee replacement 12/31/2014 Left knee replacement 02/2015
--- OUTSIDE RECORDS SUMMARY | 2025-05-26 10:52 | XMS_ITS | Patient Health Record ---
[facility] Organization [facility] [place] Address [address] [facility] [place] [address] Care Team Providers Care Plant Wire Chief Name Role Phone Jessica Martinez Primary Care Provider Tiffanie Castro Unavailable [phone] Allergies Allergen (clinical drug ingredient) Drug/Non Drug [...] W/U Status Risk Notes Problem Plantar wart (53695141) Plantar wart (B07.0) Active confirmed Problem Localized, primary osteoarthritis of the ankle and/or foot (392669485) Osteoarthritis of right ankle and foot (M19.071) Active confirmed Problem Localized, primary osteoarthritis of the ankle and/or foot (142921070) Osteoarthritis of left ankle and foot (M19.072) Active confirmed Vital Signs Blood pressure diastolic 68 mm Hg 03/26/2025 Height 5 ft 3 in in 03/26/2025 Blood pressure systolic 130 mm Hg 03/26/2025 Weight 148 lbs 03/26/2025 BMI 26.21 kg/m2 03/26/2025 Encounters Encounter Location Date Provider Diagnosis [address] [address] 09/21/2024 Tiffanie Perica Tinea pedis of both feet B35.3 ; Plantar wart B07.0 ; Tinea unguium B35.1 ; Pain in right toe(s) M79.674 ; Pain in left toe(s) M79.675 and Left foot pain M79.[address] [address] 12/25/2024 Tiffanie Perica Tinea pedis of both feet B35.3 ; Plantar wart B07.0 ; Tinea unguium B35.1 ; Pain in right toe(s) M79.674 ; Pain in left toe(s) M79.675 and Left foot pain M79.[address] [address] 03/26/2025 Tiffanie Perica Plantar wart B07.0 ; Tinea unguium B35.1 ; Pain in right toe(s) M79.674 ; Pain in left toe(s) M79.675 and Left foot pain M79.[address] [address] 07/16/2024 Tiffanie Perica [address] [address] 03/26/2025 Tiffanie Hicks Assessments Encounter Date Diagnosis [...] Provider Name:Tiffanie alejandre, 07/17/2025 11:00:00 AM, [address] [facility], [place], [address], Insurance Providers Payer Name Payer Address Payer Phone Subscriber Number Group Number Insured Name Patient Relationship to Insured Coverage Start Date Coverage End Date Medicare National [employer]t [employer] [address] [place] [address] [id number] ChrisyumikoMarily egan Self - patient is the insured [employer] [address] [place] [address] [phone] [id number] Marily Llanos Self - patient is the insured Medical (General) History Medical History History ICD Code Arthritis CAD (Cholesterol) Measles Mumps Chicken pox Gall bladder problems High blood pressure Osteoporosis Joint implants/screws Surgical History Surgery Date(Month/Year) gall bladder 1970 right knee replacement 12/2014 left knee replacement 02/2016 cataract surgery 2021 Hospitalization History Reason Date(Month/Year) [facility] [place] - cat scan and x-ray left knee 01/14
[2025-05-26 10:56] LABS: Alanine Aminotransferase 28 U/L (0-31); Albumin Level 4.0 g/dL (3.5-5.0); Alkaline Phosphatase 88 U/L (39-117); Anion Gap 10 (12-20); Aspartate Amino Transferase 20 U/L (5-31); Blood Urea Nitrogen 14 mg/dL (9-16); Calcium 8.7 mg/dL (8.4-10.2); Carbon Dioxide 25 mmol/L (22-29); Chloride 102 mmol/L (96-108); Creatinine Clr Calc Pharmacy 65.8; Estimated Glomerular Filt Rate > 60; Magnesium 2.0 mg/dL (1.6-2.6); Potassium 4.4 mmol/L (3.3-5.1); Sodium 133 mmol/L (135-145); Total Protein 6.6 g/dL (6.5-8.0)
[2025-05-26 11:22] LABS: Resp Syncy Virus RNA Qual PCR NEGATIVE (Negative); SARS COV2 PCR INHOUSE NEGATIVE (Negative)
--- NOTE | 2025-05-26 13:01 | PC.NURSE ---
Pt family notified tech and nurse that pt had increased weakness to left side and pt has not seemed herself since fall. Provider made aware. Provider came to bedside to assess pt. Noted weakness to left side. Ordered CTA.
[2025-05-26 13:04] LABS: Appearance Urine Clear; Glucose Urine UA Negative (Negative); PH 6.5 (5.0-9.0); Specific Gravity - Urine 1.020 (1.005-1.025); UMIC TRIGGER UACC YES
[2025-05-26] MEDS: iohexoL 350 MG/ML 100 ML INFUS..BTL 70 ML IV (13:14)
[2025-05-26 13:16] LABS: Cholesterol 167 mg/dL (<200); HDL Cholesterol 55 mg/dL (>40); Triglycerides 88 mg/dL (<150)
[2025-05-26 13:21] LABS: UACC Culture Trigger YES
--- NOTE | 2025-05-26 14:28 | PM.IMHP ---
History of Present Illness Date of Service: 05/26/25 Chief Complaint: weakness 84 year old women presented to ED after a fall at home with weakness. Patient lives in a 2 family home with son living upstairs and she lives downstairs. She continues to drive and remains very independent. Her son recently in November and he has been living with her and that has caused her some increase in stress. According to the son that lives upstairs he went down stairs about 830 this morning to check on her as he thought she was sleeping late and found her on the floor, patient denied any loss of consciousness but she did report hitting her head. It is unknown how long she has been on the floor but according to her kids it could have been few hours as she usually gets up about 05:00. Apparently she had a pillows so she may have been trying to get up. He was able to get her up and bring her to the bathroom. While he was on the phone with 911 it seems like she attempted to get up and fell off the toilet in the bathroom again. Upon arrival she was found to have left-sided facial droop and left-sided upper and lower extremity weakness. Last known well time was was before 21:00. According to the patient she had been in her usual state of health and denied any recent illness, sick contacts, recent travel, fever, chills, nausea, vomiting, diarrhea, chest pain, shortness breath, dizziness. In the ED, head CT showed acute right, head and neck CTA showed occlusion in the M2 segment of the right MCA with no flow-limiting stenosis, chest x-ray showing cardiomegaly with mild congestive heart failure, shoulder and hip x-ray negative for any acute fracture dislocation. UA grossly positive, mildly decreased sodium. Patient received a dose of full-dose aspirin, Rocephin in the ER. Plan will be to admit patient for acute stroke. Review of Systems Review of Systems: Denies any recent fever chills or decrease in appetite respiratory denies any shortness of breath or cough cardiovascular denied chest pain gastrointestinal denies any dysphagia abdominal pain nausea vomiting or diarrhea genitourinary denies any dysuria frequency or hematuria musculoskeletal denies any joint pain or swelling neuropsych left-sided weakness all other systems reviewed are negative ON LICENSE OF [facility] Medical History Heart murmur Retinal detachment GERD (gastroesophageal reflux disease) Hypertension Diverticulosis Hypercholesterolemia Surgical History H/O colonoscopy History of surgery H/O eye surgery History of dilatation and curettage Hx of appendectomy Hx of cholecystectomy History of bilateral knee replacement Social History Housing: House Alcohol intake: current Alcohol intake frequency: a few times a week Alcohol type: wine Comment: 3x a weeka glass Patient Tobacco Use Status: Never used Tobacco Tobacco use type: Cigarette e-Cigarette/Vaping Use: Never Used Second Hand Smoke Exposure: No Advance Directives: Yes Advance Directives Information Provided: No Advance Directives on File: No service: No Current occupational status: retired Cognitive needs: No Hearing needs: No Vision needs: Yes Meds Allergies Allergy/AdvReac Type Severity Reaction Status Date / Time Sulfa (Sulfonamide Allergy Intermediate RASH Verified 05/26/25 10:03 Antibiotics) (SULFA (SULFONAMIDE ANTIBIOTICS)) Home Medications ?Medication ?Instructions ?Recorded ?Confirmed ?Last Taken ?Type calcium 600 mg (as 1 cap PO DAILY 01/28/21 05/07/25 Unknown History carbonate)-vitamin D3 12.5 mcg (500 unit) capsule (Calcium with Vit D3) wcrzrddhwagd-ympkshof-zjefwhq-folic 1 tab PO DAILY 01/28/21 05/07/25 Unknown History acid 400 mcg-vit K1 20 mcg tablet (One-A-Day Women's 50 Plus) albuterol sulfate 90 mcg/actuation 2 puff inhalation Q6H PRN wheezing 05/26/25 Unknown History aerosol inhaler Physical Exam Vital Signs and Narrative: Vital Signs: Last Vital Signs Temp 98.2 F 05/26/25 12:11 Pulse 81 05/26/25 13:46 Resp 17 05/26/25 13:46 BP 156/91 H 05/26/25 13:46 Pulse Ox 97 05/26/25 13:46 O2 Del Method Room Air 05/26/25 13:46 BMI result Body Mass Index 26.6 Appearing in no acute distress head is normocephalic atraumatic eyes pupils are PERRLA sclera is anicteric mouth throat mucous membranes are intact and moist neck is supple no lymphadenopathy, no JVD noted lung sounds are clear to auscultation heart regular rate rhythm, clear S1, S2 positive bowel sounds, abdomen is soft, nontender neuro patient is alert x3, strength 2/5 to left upper and left lower extremity, noted left-sided facial droop with symptoms improving Results Labs 05/26/25 10:35 05/26/25 10:35 Labs: Laboratory Results - last 24 hr 05/26/25 05/26/25 05/26/25 10:35 12:45 12:57 MCV 85.8 MCH 31.1 MCHC 36.2 H RDW 12.6 Plt Count 233 MPV 8.6 L Immature Gran % (Auto) 0.3 Neut % (Auto) 78.5 H Lymph % (Auto) 11.5 L Baker % (Auto) 8.2 Eos % (Auto) 0.9 Baso % (Auto) 0.6 Lymph # (Auto) 1.0 L Baker # (Auto) 0.7 Eos # (Auto) 0.1 Baso # (Auto) 0.1 Abs Immat Gran (auto) 0.03 Absolute Neuts (auto) 6.8 Absolute Nucleated RBC 0.000 Nucleated RBC % (auto) 0.0 PT 12.0 INR 1.0 Anion Gap 10 L Estim Creat Clear Calc 65.8 Estimated GFR > 60 Random Glucose 124 H Calcium 8.7 Magnesium 2.0 Total Bilirubin 0.9 AST 20 ALT 28 Alkaline Phosphatase 88 Total Protein 6.6 Albumin 4.0 Triglycerides 88 Cholesterol 167 LDL Cholesterol, Calc 95 HDL Cholesterol 55 Urine Color Yellow Urine Appearance Clear Urine pH 6.5 Ur Specific [place] 1.020 Urine Protein 100 (2+) H Urine Glucose (UA) Negative Urine Ketones Negative Urine Blood Trace H Urine Nitrite Positive H Ur Leukocyte Esterase Small (1+) H Urine RBC 3-5 H Urine WBC 11-20 H Ur Squamous Epith Cells 0-2 Urine Bacteria 4+ Hyaline Casts 0-2 Influenza Type A (PCR) NEGATIVE Influenza Type B (PCR) NEGATIVE RSV RNA Qual (PCR) NEGATIVE SARS-CoV-2 RNA (RT-PCR) NEGATIVE Assessment and Plan (1) Stroke: Status: Acute Plan 84-year-old woman admitted after fall and found to have an acute stroke Acute stroke 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 Left-sided facial droop and left upper and lower extremity weakness Limited telemetry Neurology consultation PT/OT Aspirin, statin and good blood pressure control UTI Start Rocephin Follow up final cultures New recent diagnosis of atrial fibrillation Started on atenolol Was supposed to start on blood thinner but patient had not picked it up yet Fall PT/OT Hypertension Patient will need better blood pressure control in light of acute stroke DVT prophylaxis with pneumatic compression boots Full code Quality Stroke Does the patient have a stroke diagnosis?: Yes Reason for No Anti-thrombotic by Day Two: N/A - Med Ordered VTE Prior VTE?: No VTE Risk Level:: Medical - moderate - high VTE Device Contraindication: N/A - Device Ordered VTE Drug Contraindication: Treatment Not Indicated
--- NOTE | 2025-05-26 15:54 | PHA.MEDREC ---
Pharmacy Consult ? Medication Reconciliation Pharmacy has completed the medication reconciliation, spoke to patient and daughter at bedside who confirmed all medications.
--- NOTE | 2025-05-26 18:16 | PC.NURSE ---
Repositioned pt and applied purewick
--- NOTE | 2025-05-26 19:23 | PC.NURSE ---
assumed care of pt. admitting provider states pt can eat and drink, pt given sandwich, apple juice and kourtney augustin. pt daughter at bedside.
[2025-05-27 03:03] VITALS: BP 153/65; PULSE 62; RESP 18; TEMP 36.2; O2SAT 92
[2025-05-27 06:32] LABS: MANUAL DIFF FLAG NO
[2025-05-27 06:55] LABS: Anion Gap 13 (12-20); Blood Urea Nitrogen 11 mg/dL (9-16); Calcium 8.5 mg/dL (8.4-10.2); Carbon Dioxide 21 mmol/L (22-29); Chloride 100 mmol/L (96-108); Creatinine Clr Calc Pharmacy 68.2; Estimated Glomerular Filt Rate > 60; Potassium 4.1 mmol/L (3.3-5.1); Sodium 130 mmol/L (135-145)
[2025-05-27 06:57] LABS: Hematocrit 38.2 % (37.0-47.0); Hemoglobin 13.7 g/dl (12.0-16.0); Imm Gran Abs Auto 0.04 X10*3/uL (0.00-0.03); Imm Gran Pct Auto 0.4 % (0.0-0.4); Lymphocytes Absolute Auto 1.6 X10*3/uL (1.2-4.9); Mean Corpuscular HGB Conc 35.9 g/dl (31.0-35.0); Mean Corpuscular Hemoglobin 30.7 pg (27.0-33.0); Mean Corpuscular Volume 85.7 fL (80.0-98.0); NRBC Abs Auto 0.000 X10*3/uL (0.0-0.012); NRBC Pct Auto 0.0 /100WBC (0.0-0.2); Platelet Count 245 X10*3/uL (160-400); Red Blood Count 4.46 X10*6/uL (4.20-5.50); White Blood Count 9.3 X10*3/uL (4.8-10.8)
[2025-05-27 07:06] VITALS: BP 136/78; PULSE 78; RESP 18; TEMP 36.9; O2SAT 95
[2025-05-27 07:09] LABS: Cholesterol 141 mg/dL (<200); HDL Cholesterol 43 mg/dL (>40); Triglycerides 120 mg/dL (<150)
--- NOTE | 2025-05-27 08:42 | PM.NEUROCN ---
History of Present Illness Data of Consult Service Date: 05/27/25 Primary Care Provider: Jessica Martinez MD [facility] Reason for consult: Stroke 84 years old woman who was brought to hospital with new finding of left-sided weakness suspected of stroke. She lived with the family and apparently last time she was found without that problem was the night before. In emergency room she was noted to have left hemiparesis and initial imaging revealed right middle cerebral artery area hypodensity. Because of the timing issue and this finding she was not considered a candidate for TNK. A CTA of brain and neck was performed that revealed right M2 disease, which also did not qualify her for any intervention. She was admitted in hospital. Apparently she was in atrial fibrillation and that was a new finding. There was no complaint of any headache nausea or vomiting or seizure-like activity. Review of Systems Review of Systems: She has been under stress apparently related to her family. [facility] Past Medical History Medical History Heart murmur Retinal detachment GERD (gastroesophageal reflux disease) Hypertension Diverticulosis Hypercholesterolemia Surgical History Surgical History H/O colonoscopy History of surgery H/O eye surgery History of dilatation and curettage Hx of appendectomy Hx of cholecystectomy History of bilateral knee replacement Social History Social History Household Members: Children Housing: Apartment Do you presently have visiting nurse or other home services: No Alcohol intake: current Alcohol intake frequency: a few times a week Alcohol type: wine Comment: 3x a weeka glass Patient Tobacco Use Status: Never used Tobacco Tobacco use type: Cigarette e-Cigarette/Vaping Use: Never Used Second Hand Smoke Exposure: No Advance Directives Date on File: 05/25/25 service: No Current occupational status: retired Cognitive needs: No Hearing needs: No Vision needs: Yes Meds Allergies Allergy/AdvReac Type Severity Reaction Status Date / Time Sulfa (Sulfonamide Allergy Intermediate RASH Verified 05/26/25 10:03 Antibiotics) (SULFA (SULFONAMIDE ANTIBIOTICS)) Active Medications: Current Medications Acetaminophen (Acetaminophen 325 Mg Tablet) 650 mg PO Q6H PRN PRN Reason: Pain, Mild 1-3,fever,headache Albuterol Sulfate (Albuterol Sulfate (0.083%) 2.5 Mg/3 Ml Vial.Neb) 2.5 mg INHALE Q4H PRN PRN Reason: wheezing Aspirin (Aspirin 81 Mg Tab.Chew) 81 mg PO DAILY ELISE Last Admin: 05/27/25 07:18 Dose: 81 mg Atenolol (Atenolol 50 Mg Tablet) 50 mg PO BID ELISE; Protocol Last Admin: 05/27/25 07:17 Dose: 50 mg Atorvastatin Calcium (Atorvastatin Calcium 40 Mg Tablet) 40 mg PO BEDTIME ELISE Last Admin: 05/26/25 21:44 Dose: 40 mg Calcium Carbonate (Calcium Carbonate 750 Mg Tab.Chew) 750 mg PO Q4H PRN PRN Reason: Heartburn Ceftriaxone Sodium (Ceftriaxone Sodium 1 Gm Vial) 1 gm IVPUSH Q24H ELISE Magnesium Hydroxide (Milk Of Magnesia 30 Ml Oral.Susp) 30 ml PO DAILY PRN PRN Reason: Constipation Melatonin (Melatonin 3 Mg Tablet) 6 mg PO BEDTIME PRN PRN Reason: Insomnia Last Admin: 05/26/25 21:44 Dose: 6 mg Ondansetron HCl (Ondansetron Hcl 4 Mg/2 Ml Vial) 4 mg IVPUSH Q8H PRN PRN Reason: Nausea and Vomiting Home Medications ?Medication ?Instructions ?Recorded ?Confirmed ?Last Taken ?Type calcium 600 mg (as 1 cap PO DAILY 01/28/21 05/26/25 05/25/25 History carbonate)-vitamin D3 12.5 mcg (500 unit) capsule (Calcium with Vit D3) xfsdumdqdulb-eckncwhh-fdotwat-folic 1 tab PO DAILY 01/28/21 05/26/25 05/25/25 History acid 400 mcg-vit K1 20 mcg tablet (One-A-Day Women's 50 Plus) albuterol sulfate 90 mcg/actuation 2 puff inhalation Q6H PRN wheezing 05/26/25 05/26/25 Unknown History aerosol inhaler atenolol 50 mg tablet 50 mg PO BID 05/26/25 05/26/25 05/25/25 History atorvastatin 10 mg tablet 10 mg PO BEDTIME 05/26/25 05/26/25 05/25/25 History Physical Exam Vital Signs: Vital Signs: Last Vital Signs Temp 98.4 F 05/27/25 07:06 Pulse 78 05/27/25 07:06 Resp 18 05/27/25 07:06 BP 136/78 05/27/25 07:06 Pulse Ox 95 05/27/25 07:06 O2 Del Method Room Air 05/27/25 07:06 BMI result Body Mass Index 26.7 Neuro: Other: She is alert and awake with normal spontaneity of speech fluency comprehension and affect. There is mild central type left facial weakness and left hemianopsia. There was mild left pronator levetiracetam. With double simultaneous touch, she did not perceive on the left side. With double simultaneous visual stimuli, she did not perceive that on the left side either. Plantars were flexor. She was able to move her arm and raise her left leg against gravity. Speech was normal. Results Labs 05/27/25 06:00 05/27/25 06:00 Labs: Short CBC 05/26/25 05/27/25 Range/Units 10:35 06:00 WBC 8.7 9.3 (4.8-10.8) X10*3/uL Hgb 13.8 13.7 (12.0-16.0) g/dl Hct 38.1 38.2 (37.0-47.0) % Plt Count 233 245 (160-400) X10*3/uL BMP 05/26/25 05/27/25 10:35 06:00 Sodium 133 L 130 L Potassium 4.4 4.1 Chloride 102 100 Carbon Dioxide 25 21 L BUN 14 11 Creatinine 0.59 0.57 Calcium 8.7 8.5 Liver Function 05/26/25 Range/Units 10:35 Total Bilirubin 0.9 (0.0-1.0) mg/dL AST 20 (5-31) U/L ALT 28 (0-31) U/L Alkaline Phosphatase 88 (39-117) U/L Albumin 4.0 (3.5-5.0) g/dL Urine 05/26/25 Range/Units 12:57 Urine Color Yellow Urine Appearance Clear Urine pH 6.5 (5.0-9.0) Ur Specific [place] 1.020 (1.005-1.025) Urine Protein 100 (2+) H (Neg-Trace) mg/dL Urine Glucose (UA) Negative (Negative) mg/dL Her head CT revealed a large area of right mostly lower division of middle cerebral artery ischemic infarct. CTA has revealed right M2 occlusion Assessment and Plan (1) Embolic cerebral infarction: Qualifiers: Precerebral and cerebral artery: middle cerebral artery Laterality of affected vessel: right Qualified Code(s): I63.411 - Cerebral infarction due to embolism of right middle cerebral artery Status: Acute 84 years old woman with atrial fibrillation related cardioembolic right middle cerebral artery, M2, ischemic infarction of brain resulting in mild left hemiparesis and hemianopsia. Unfortunately, because of timing issues, she could not be treated with TNK or intra-arterial maneuvers. At this time, treatment is conservative and supportive but I would continue anticoagulation for further stroke prevention. Maybe family should consider moving her to an assisted living facility as she would have difficulty with multiple activities of daily living. I would not recommend her for driving anymore. This would also likely change her personality somewhat but that might manifest after sometime. PT OT consultation is recommended. Procedures Date of Service Date of Service: 05/27/25
[2025-05-27 11:29] VITALS: BP 154/72; PULSE 66; RESP 18; TEMP 36.5; O2SAT 95
--- NOTE | 2025-05-27 11:37 | HO.PM.IMPN ---
Subjective Subjective Date of Service: 05/27/25 Review of Systems Follow up stroke Doing better but still with facial droop Physical Exam Vital Signs: Vital Signs: Last Vital Signs Temp 97.7 F 05/27/25 11:29 Pulse 66 05/27/25 11:29 Resp 18 05/27/25 11:29 BP 154/72 H 05/27/25 11:29 Pulse Ox 95 05/27/25 11:29 O2 Del Method Room Air 05/27/25 11:29 BMI result Body Mass Index 26.7 Appearing in no acute distress lung sounds are clear to auscultation heart regular rate rhythm, clear S1, S2 positive bowel sounds, abdomen is soft, nontender neuro patient is alert x3, left sided facial droop, left sided weakness improved Objective Data Active Medications Acetaminophen (Acetaminophen 325 Mg Tablet) 650 mg PO Q6H PRN PRN Reason: Pain, Mild 1-3,fever,headache Albuterol Sulfate (Albuterol Sulfate (0.083%) 2.5 Mg/3 Ml Vial.Neb) 2.5 mg INHALE Q4H PRN PRN Reason: wheezing Aspirin (Aspirin 81 Mg Tab.Chew) 81 mg PO DAILY [facility] Last Admin: 05/27/25 07:18 Dose: 81 mg Documented By: RACHAEL Atenolol (Atenolol 50 Mg Tablet) 50 mg PO BID [facility]; Protocol Last Admin: 05/27/25 07:17 Dose: 50 mg Documented By: RACHAEL Atorvastatin Calcium (Atorvastatin Calcium 40 Mg Tablet) 40 mg PO BEDTIME [facility] Last Admin: 05/26/25 21:44 Dose: 40 mg Documented By: ANGEL Calcium Carbonate (Calcium Carbonate 750 Mg Tab.Chew) 750 mg PO Q4H PRN PRN Reason: Heartburn Ceftriaxone Sodium (Ceftriaxone Sodium 1 Gm Vial) 1 gm IVPUSH Q24H [facility] Magnesium Hydroxide (Milk Of Magnesia 30 Ml Oral.Susp) 30 ml PO DAILY PRN PRN Reason: Constipation Melatonin (Melatonin 3 Mg Tablet) 6 mg PO BEDTIME PRN PRN Reason: Insomnia Last Admin: 05/26/25 21:44 Dose: 6 mg Documented By: ANGEL Ondansetron HCl (Ondansetron Hcl 4 Mg/2 Ml Vial) 4 mg IVPUSH Q8H PRN PRN Reason: Nausea and Vomiting Labs 05/27/25 06:00 05/27/25 06:00 Labs: Laboratory Results - last 24 hr 05/26/25 05/26/25 05/27/25 12:45 12:57 06:00 MCV 85.7 MCH 30.7 MCHC 35.9 H RDW 12.6 Plt Count 245 MPV 9.1 L Immature Gran % (Auto) 0.4 Neut % (Auto) 71.2 Lymph % (Auto) 16.8 L Millard % (Auto) 9.3 Eos % (Auto) 1.8 Baso % (Auto) 0.5 Lymph # (Auto) 1.6 Millard # (Auto) 0.9 Eos # (Auto) 0.2 Baso # (Auto) 0.1 Abs Immat Gran (auto) 0.04 H Absolute Neuts (auto) 6.6 Absolute Nucleated RBC 0.000 Nucleated RBC % (auto) 0.0 Anion Gap 13 Estim Creat Clear Calc 68.2 Estimated GFR > 60 Random Glucose 101 Calcium 8.5 Triglycerides 88 120 Cholesterol 167 141 LDL Cholesterol, Calc 95 74 HDL Cholesterol 55 43 Urine Color Yellow Urine Appearance Clear Urine pH 6.5 Ur Specific York 1.020 Urine Protein 100 (2+) H Urine Glucose (UA) Negative Urine Ketones Negative Urine Blood Trace H Urine Nitrite Positive H Ur Leukocyte Esterase Small (1+) H Urine RBC 3-5 H Urine WBC 11-20 H Ur Squamous Epith Cells 0-2 Urine Bacteria 4+ Hyaline Casts 0-2 Microbiology Microbiology Results: Microbiology 05/26/25 Unknown Urine Culture - Preliminary Urine clean catch - Clean Catch Midstream Gram negative luis armando Assessment and Plan (1) Stroke: Status: Acute Plan 84-year-old woman admitted after fall and found to have an acute stroke Acute stroke 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 Left-sided facial droop and left upper and lower extremity weakness Limited telemetry Neurology consultation> treat atrial fibrillation, conservative treatment, continue anticoagulation for further stroke prevention, patient should not drive any longer PT/OT>rec acute rehab Aspirin, statin and good blood pressure control GNR UTI continue Rocephin Follow up final cultures New recent diagnosis of atrial fibrillation Started on atenolol Was supposed to start on blood thinner but patient had not picked it up yet Fall PT/OT>rec acute rehab Hypertension Patient will need better blood pressure control in light of acute stroke on atenolol DVT prophylaxis with Eliquis Full code Quality Stroke Does the patient have a stroke diagnosis?: Yes Reason for No Anti-thrombotic by Day Two: N/A - Med Ordered VTE Prior VTE?: No VTE Risk Level:: Medical - moderate - high VTE Device Contraindication: N/A - Device Ordered VTE Drug Contraindication: Treatment Not Indicated
--- NOTE | 2025-05-27 13:24 | MHC.CM.PN ---
IMM 05/27/25, EMR REVIEWED, PT W/STROKE AND LEFT SIDED WEAKNESS OT/PT RECOMMENDING ACUTE REHAB, CM MET W/PT WHO REPORTS HER SON LIVES W/HER, IS INDEP AT BASELINE, DENIES USE OF DME/SERVICES, PT WAS ASSISTED W/CALLING HER DTR SANDOVAL , SANDOVAL REPORTS SHE WOULD LIKE PT TO GO TO [facility] SHE HAS BEEN THERE TWICE BEFORE AND DID VERY WELL. CM DISCUSSED W/HOSPITALIST WHO DOES NOT FEEL PT NEEDS TO REMAIN IN PT FOR 2 MORE NIGHT THEREFORE SHE WILL NOT HAVE A MEDICARE REQUIRED 3 MIDNIGHT STAY AND WOULD NEED ACUTE REHAB. PT HAD MENTIONED [facility] WHICH WILL LIKELY BE PREFERRED. ALL 3 AR'S OFFERING. DTR SANDOVAL WILL BRING IN COPY OF NEW HCP THAT WAS REDONE AT [facility] OFF[facility] RECENTLY. PT VERIFIES PCP IS DR. LAMBERT
[2025-05-27 15:56] VITALS: BP 131/82; PULSE 78; RESP 18; TEMP 36.2; O2SAT 96
[2025-05-27 20:00] VITALS: BP 145/8; PULSE 86; RESP 17; TEMP 36.4; O2SAT 96
[2025-05-28] VITALS: BP 143/81; PULSE 100; RESP 16; TEMP 36.4; O2SAT 95
[2025-05-28 03:45] VITALS: BP 118/79; PULSE 76; RESP 16; TEMP 36.3; O2SAT 94
[2025-05-28 07:13] VITALS: BP 129/73; PULSE 93; RESP 16; TEMP 36.3; O2SAT 94
--- NOTE | 2025-05-28 07:19 | P.DS_ITS ---
DS: Providers Provider Date of Service: 05/28/25 Date of admission: 05/26/25 14:26 Date of discharge: 05/28/25 Primary care physician: Jessica Martinez MD Consults: 05/26/25 14:26 Consult to Neurology Routine Consulting Provider: Joana Orozco Reason for consultation: stroke DS: Diagnosis Discharge Diagnosis (1) Stroke: Status: Acute DS: Summary Hospital Course Hospital Course: 84 year old women presented to ED after a fall at home with weakness. Patient lives in a 2 family home with son living upstairs and she lives downstairs. She continues to drive and remains very independent. Her son recently in November and he has been living with her and that has caused her some increase in stress. According to the son that lives upstairs he went down stairs about 830 this morning to check on her as he thought she was sleeping late and found her on the floor, patient denied any loss of consciousness but she did report hitting her head. It is unknown how long she has been on the floor but according to her kids it could have been few hours as she usually gets up about 05:00. Apparently she had a pillows so she may have been trying to get up. He was able to get her up and bring her to the bathroom. While he was on the phone with 911 it seems like she attempted to get up and fell off the toilet in the bathroom again. Upon arrival she was found to have left-sided facial droop and left-sided upper and lower extremity weakness. Last known well time was was before 21:00. According to the patient she had been in her usual state of health and denied any recent illness, sick contacts, recent travel, fever, chills, nausea, vomiting, diarrhea, chest pain, shortness breath, dizziness. In the ED, head CT showed acute right, head and neck CTA showed occlusion in the M2 segment of the right MCA with no flow-limiting stenosis, chest x-ray showing cardiomegaly with mild congestive heart failure, shoulder and hip x-ray negative for any acute fracture dislocation. UA grossly positive, mildly decreased sodium. Patient received a dose of full-dose aspirin, Rocephin in the ER. Plan will be to admit patient for acute stroke. 84-year-old woman treated for acute stroke. 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. Patient presented with left-sided facial droop and left upper and lower extremity weakness. She was seen and evaluated by Neurology who recommended treating atrial fibrillation for which she was started on Eliquis and she is currently on atenolol. The recommendation from Neurology was for patient to not drive and that she would likely need someone taking care of her for the foreseeable future. Plan will be to transfer to acute rehab for physical therapy. Patient has not done well and has improved significantly since admission. Patient was also noted to have urinary tract infection for which she was started on Rocephin. She will complete her antibiotic course with Ceftin. New recent diagnosis of atrial fibrillation. On atenolol and started on Eliquis. Fall. Seen evaluated by Physical therapy who recommended acute rehab Hypertension. So far good blood pressure control with atenolol. Time Attestation Discharge Coordination Time (in mins): 45 Quality: Safe Use of Opioids Does Pt have an Active Cancer Diagnosis on the Problem List?: No Quality: Stroke Does the patient have a stroke diagnosis?: Yes Reason for No Anti-thrombotic at DC: N/A - Med Ordered Reason for No Anticoagulant at DC: N/A - Med Ordered Reason Not Initiating IV-Tpa: Not indicated Reason for No Anti-thrombotic by Day Two: N/A - Med Ordered Reason for No Statin at DC: N/A - Med Ordered Physical Exam Vital Signs: Vital Signs: Last Vital Signs Temp 97.3 F 05/28/25 07:13 Pulse 93 05/28/25 07:13 Resp 16 05/28/25 07:13 BP 129/73 05/28/25 07:13 Pulse Ox 94 05/28/25 07:13 O2 Del Method Room Air 05/28/25 07:13 BMI result Body Mass Index 26.7 Appearing in no acute distress head is normocephalic atraumatic eyes pupils are PERRLA sclera is anicteric mouth throat mucous membranes are intact and moist neck is supple no lymphadenopathy, no JVD noted lung sounds are clear to auscultation heart regular rate rhythm, clear S1, S2 positive bowel sounds, abdomen is soft, nontender neuro patient is alert x3, no focal deficits DS: Data Data Completed and Pending Labs on day of discharge: Preliminary micro results at discharge 05/26/25 Unknown Urine Culture - Preliminary Urine clean catch - Clean Catch Midstream Gram negative luis armando Discharge Plan Discharge Anticipated Discharge Date/Time: 05/28/25 07:15 Patient Disposition: Xfer Inpatient Rehab Fac Discharge Diagnosis: Stroke Referrals: [facility] [Outside] - 1 Day Referral Note: ACUTE REHAB Po,Jessica Disla MD [Primary Care Provider, Internal Medicine] - 1 Week Discharge Medications: New atorvastatin 40 mg Tablet 40 mg PO BEDTIME Qty: 30 0RF aspirin 81 mg Tablet,Chewable 81 mg PO DAILY Qty: 30 0RF Eliquis 5 mg Tablet 5 mg PO BID Qty: 60 0RF cefuroxime axetil 250 mg tablet 250 mg PO BID Qty: 6 0RF Continued Eliquis 5 mg tablet 5 mg PO BID 90 Days Qty: 180 0RF albuterol sulfate 90 mcg/actuation HFA aerosol inhaler 2 puff INHALATION Q6H PRN (Reason: wheezing) atenolol 50 mg tablet 50 mg PO BID calcium carbonate-vitamin D3 [Calcium 600 with Vitamin D3] 600 mg(1,500mg) - 500 unit capsule 1 cap PO DAILY One-A-Day Women's 50 Plus 400-20 mcg tablet 1 tab PO DAILY Discontinued atorvastatin 10 mg tablet 10 mg PO BEDTIME Discharge Orders: Discharge Order (Routine); Ordered 05/28/25 Ordered By: Myriam Tolentino Diet: Advance to usual diet Activity on Discharge: As tolerated Stand Alone Forms: Patient Portal Discharge page Print Language: Tongan Care Plan Goals: Plan is to transfer to acute rehab for physical therapy You have been started on new medications: Eliquis 5 mg twice daily, aspirin 81 mg daily, atorvastatin 40 mg daily Health Concerns: Stroke Plan of Treatment: Follow-up with primary care provider as needed Take all medications as prescribed Assessment: See discharge summary
--- NOTE | 2025-05-28 08:22 | MHC.CM.PN ---
PT MEDICALLY CLEARED FOR DC TO ACUTE REHAB, HCP/DTR NELA WILSON FOR BLS TRANSPORT AT 10:30AM.
== END 2025-05-28 10:41 | DRG 65 ==
LOC: HO.ED 14:25 → HO.EDOVER 14:36 → HO.IMC 19:28
PROVIDERS: Physician Assistant Medical; Admitting Provider Nurse Practitioner Acute Care; Emergency Provider Emergency Medicine; PCP Internal Medicine; Visit Provider Nurse Practitioner Acute Care
DX: I63.411 Cerebral infarction due to embolism of right middle cerebral artery (principal); G81.94 Hemiplegia, unspecified affecting left nondominant side; N39.0 Urinary tract infection, site not specified; I48.91 Unspecified atrial fibrillation; Z63.4 Disappearance and death of family member; R29.810 Facial weakness; W19.XXXA Unspecified fall, initial encounter; I10 Essential (primary) hypertension; R29.706 NIHSS score 6; Z79.899 Other long term (current) drug therapy
CPT/HCPCS: 36415; 70450; 70496; 70498; 71045; 72125; 73030; 73502; 80048; 80053; 80061; 81001; 83735; 85025; 85610; 87086; 87088; 87186; 87637; 93005; 97162; 97167; 99285; J0696; Q9967

== ENCOUNTER → 2025-05-26 10:23 | Outpatient (BNV) | payer MEDICARE, SELFPAY | PROVIDERS: PCP Internal Medicine; Visit Provider Radiology Vascular & Interventional Radiology | DX: I66.01 Occlusion and stenosis of right middle cerebral artery (principal); I65.23 Occlusion and stenosis of bilateral carotid arteries; M50.30 Other cervical disc degeneration, unspecified cervical region; R90.82 White matter disease, unspecified; M85.852 Other specified disorders of bone density and structure, left thigh; M19.012 Primary osteoarthritis, left shoulder; M85.812 Other specified disorders of bone density and structure, left shoulder; I51.7 Cardiomegaly | CPT/HCPCS: 70450; 72125 ==

== ENCOUNTER → 2025-05-26 10:24 | Outpatient (BNV) | payer MEDICARE, SELFPAY | PROVIDERS: Admitting Provider Nurse Practitioner Acute Care; Emergency Provider Emergency Medicine; PCP Internal Medicine; Visit Provider Internal Medicine Cardiovascular Disease | DX: I48.91 Unspecified atrial fibrillation (principal) | CPT/HCPCS: 93010 ==

== ENCOUNTER → 2025-05-26 14:26 | Outpatient (BNV) | payer MEDICARE, SELFPAY | PROVIDERS: Admitting Provider Nurse Practitioner Acute Care; Emergency Provider Emergency Medicine; PCP Internal Medicine; Visit Provider Psychiatry & Neurology Neurology | DX: I63.411 Cerebral infarction due to embolism of right middle cerebral artery (principal) | CPT/HCPCS: 99222 ==

== ENCOUNTER → 2025-05-26 14:26 | Outpatient (BNV) | payer MEDICARE, SELFPAY | PROVIDERS: Admitting Provider Nurse Practitioner Acute Care; Emergency Provider Emergency Medicine; PCP Internal Medicine; Visit Provider Nurse Practitioner Acute Care | DX: I63.9 Cerebral infarction, unspecified (principal) | CPT/HCPCS: 99223; 99232 ==

== ENCOUNTER 2025-07-05 14:26 | Outpatient (AMB) | payer MEDICARE, SELFPAY ==
[2025-07-05 14:28] VITALS: BP 138/82; PULSE 103; O2SAT 97; BMI 25.8
--- NOTE | 2025-07-05 14:28 | A.OFFPC_ITS ---
Vital Signs 07/05/25 14:28 Height 5 ft 3 in Weight 145 lb 8.081 oz BMI 25.8 BP 138/82 Blood Pressure Location Lt brachial Position Sitting Pulse 103 H Pulse Source Pulse Oximeter Pulse Oximetry (%) 97 Oxygen Delivery Method Room Air Intake Visit Reasons: [facility] 06/12 Sustainability Coordinator Required: No Power Operator: Not Required per policy Accompanied by: Self / Same As Patient Allergies Sulfa (Sulfonamide Antibiotics) (SULFA (SULFONAMIDE ANTIBIOTICS)) Allergy (Intermediate, Verified 07/05/25 14:28) RASH Medication List - Last Reconciled 07/05/25 by Pretty Landers NP acetaminophen 1,000 mg (2 x 500 mg) PO Q6H PRN albuterol sulfate 90 mcg/actuation 2 puffs inhalation Q6H PRN apixaban (Eliquis) 5 mg PO BID atorvastatin 40 mg PO BEDTIME calcium carbonate-vitamin D3 600 mg-12.5 mcg (500 unit) (Calcium with Vit D3) 1 cap PO DAILY losartan 25 mg PO DAILY metoprolol tartrate (Lopressor) 25 mg PO BID pantoprazole (Protonix) 40 mg PO DAILY PRN Tobacco use date assessed: 07/05/25 Fall risk assessment: 1 Fall in past year Last assessed Fall Risk: 07/05/25 Dental Screening Dental Screen Date: 07/05/25 Did you have a dental visit in the last 12 months?: No Did you have a dental problem in the last 6 months where you did not have access to dental care?: No Was dental information given to patient?: Patient has dentist HPI HPI Comments History of Present Illness Details 84 y/o Female patient who presents to [facility] clinic today for HDF. She was admitted at [facility] on 05/26 - 05/28 for an evaluation after a Fall. Upon arrival to the ED she was found to have left sided Facial Droop and Left sided upper/lower extremity weakness. Head CT scan showed acute Right MCA Stroke. Chest Xray showed Cardiomegaly with mild CHF. She was recently Diagnosed with Afib prior to stroke and was started on Atenolol and Eliquis. Atenolol was discontinued in the Rehab and switched to Metoprolol 25 mg BID. She was transfered to [facility] for Acute Rehab and PT. Today Pt c/o Migraine Like Headaches associated with Aura. She has always had Migraine headaches, but milder. After the passing of her Son, headaches have been more fruquent associated with Aura. Reports taking Acetaminophen 325 and sleeps in the Dark room, which helps. Denies nausea or vomiting. 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 Stroke Heart murmur Retinal detachment GERD (gastroesophageal reflux disease) Hypertension Diverticulosis Hypercholesterolemia Surgical History H/O colonoscopy History of surgery H/O eye surgery History of dilatation and curettage Hx of appendectomy Hx of cholecystectomy History of bilateral knee replacement Social History Household Members: Children Housing: Apartment Do you presently have visiting nurse or other home services: No Alcohol intake: current Alcohol intake frequency: a few times a week Alcohol type: wine Comment: 3x a weeka glass Patient Tobacco Use Status: Never used Tobacco Tobacco use type: Cigarette e-Cigarette/Vaping Use: Never Used Second Hand Smoke Exposure: No Advance Directives Date on File: 05/25/25 service: No Current occupational status: retired Cognitive needs: No Hearing needs: No Vision needs: Yes Questionnaire PHQ-9 Over the last 2 weeks, how often have you been bothered by any of the following problems? 1. Little interest or pleasure in doing things: not at all 2. Feeling down, depressed, or hopeless: not at all 3. Trouble falling or staying asleep, or sleeping too much: not at all 4. Feeling tired or having little energy: not at all 5. Poor appetite or overeating: not at all 6. Feeling bad about yourself - or that you are a failure or have let yourself or your family down: not at all 7. Trouble concentrating on things, such as reading the newspaper or watching television: not at all 8. Moving or speaking so slowly that other people could have noticed. Or the opposite - being so fidgety or restless that you have been moving around a lot more than usual: not at all 9. Thoughts that you would be better off or of hurting yourself in some way: not at all Total score: 0 Source: Developed by Drs. Marques Lenz, Horace Harris and colleagues, with an educational kiley from [employer]. Thrive Questionnaire Date Thrive assessed: 07/05/25 I am a: Patient What is your living situation today?: I have a steady place to live Within the past 12 months, did the food you bought not last and you didn't have the money to get more?: Never true Within the past 12 months, did you worry whether your food would run out before you got money to buy more?: Never true Do you have trouble paying for medicines?: No Do you have trouble getting transportation to medical appointments?: No Do you have trouble paying your heating and electricity bill?: No Do you have trouble taking care of your child, family member or friend?: No Do you have trouble with day-to-day activities such as bathing, preparing meals, shopping, managing finances, etc.?: Yes Are you currently unemployed and looking for a job?: No Are you interested in more education?: No Please select the resources that you would like help with: None Currently or been in a relationship where the following occur: No concerns reported THRIVE Score: 0 AUDIT C Alcohol Use Questionnaire (AUDIT-C) 1. How often do you have a drink containing alcohol?: Monthly or less 2. How many drinks containing alcohol do you have on a typical day when you are drinking?: 1 or 2 3. How often do you have six or more drinks on one occasion?: Never Total Score: 1 SHELBY-7 AMB Questionnaire SHELBY-7 Date SHELBY - 7 assessed: 07/05/25 Feeling nervous, anxious, or on edge: 1 = Several days Not being able to stop or control worryin = Several days Worrying too much about different things: 1 = Several days Trouble relaxin = Several days Being so restless that it is hard to sit still: 1 = Several days Becoming easily annoyed or irritable: 1 = Several days Feeling afraid as if something awful might happen: 1 = Several days Total SHELBY-7 score (0-4 normal; 5-9 mild; 10-14 moderate; 15-21 severe): 7 Source: Developed by Stephanie Mejias Kurt Kroenke and colleagues, with an educational kiley from [employer]. Review of Systems Const All systems reviewed & are unremarkable except as noted in HPI and below Physical exam (Primary Care) Vital Signs: Last Vital Signs Pulse 103 H 07/05/25 14:28 BP 138/82 07/05/25 14:28 Pulse Ox 97 07/05/25 14:28 Oxygen Delivery Method Room Air 07/05/25 14:28 BMI result Body Mass Index 25.8 Tobacco/Smoking Status: Tobacco use Status Tobacco use date assessed 07/05/25 07/05/25 14:37 Patient Tobacco Use Status Never used Tobacco 07/05/25 14:37 Tobacco use type Cigarette 07/05/25 14:37 e-Cigarette/Vaping Use Never Used 07/05/25 14:37 PHQ-9: PHQ-9 Score PHQ-9: Total score 0 07/05/25 14:37 Thrive Assessment: Date of Thrive Assessment Date Thrive assessed 07/05/25 07/05/25 14:37 Currently or been in a relationship where the following occur: No concerns reported Const General: no acute distress Nutritional Appearance: well nourished Orientation/consciousness: patient oriented x3 HENMT Head: Yes normocephalic Ears: hearing grossly normal bilaterally General nose exam: Normal external nose present Face and sinus: Yes normal facial exam and Yes face symmetric Mouth: moist mucous membranes Throat: Yes uvula midline Resp Effort & Inspection: normal respiratory effort Auscultation: clear to auscultation bilaterally Cardio Heart sounds: S1 normal heart sound present and S2 normal heart sound present Neuro General: patient oriented x3 and moves all extremities Gait exam (Neuro): Assisted gait required Gait assisted method: walker Motor exam (neuro): Abnormal motor strength present left lower extremity , left upper extremity Psych Speech and movement: Normal speech and movement present Coding Level of Care Code Est Pt Level 4 (86740) Diagnoses Acute right MCA stroke I63.511 Atrial fibrillation, unspecified type I48.91 Atrial fibrillation type: unspecified Migraine G43.909 Grief reaction F43.20 Time Spent (min) 20 Assessment & Plan Assessment & Plan (1) Acute right MCA stroke: Code(s): I63.511 - Cerebral infarction due to unspecified occlusion or stenosis of right middle cerebral artery Category: Medical Plan: Placed referral to Neurology. Continue with Therapy as scheduled. (2) Atrial fibrillation: Comment: May 2025 Code(s): I48.91 - Unspecified atrial fibrillation Category: Medical Qualifiers: Atrial fibrillation type: unspecified Qualified Code(s): I48.91 - Unspecified atrial fibrillation Plan: Newly diagnosed. Placed reerral to Cardiology Continue on Eliquis (3) Migraine: Code(s): G43.909 - Migraine, unspecified, not intractable, without status migrainosus Category: Medical Plan: Acetaminophen for pain relief Placed referral to Neuro (4) Grief reaction: Code(s): F43.20 - Adjustment disorder, unspecified Category: Medical Plan: Therapy Orders: Referrals Neurology Referral G43.909 - Migraine, unspecified, not intractable, without status migrainosus, I63.511 - Cerebral infarction due to unspecified occlusion or stenosis of right middle cerebral artery Cardiology Referral I48.91 - Unspecified atrial fibrillation Medications: New acetaminophen 1,000 mg (2 x 500 mg) PO Q6H PRN 30 caps 0RF pain G43.909 - Migraine, unspecified, not intractable, without status migrainosus
--- OUTSIDE RECORDS SUMMARY | 2025-07-05 14:29 | XMS_ITS | Patient Health Record ---
Author Organization [facility] Address [address] [facility] [place] [address] Care Team Providers Care Aircraft Structure Mechanic Name Role Phone Jessica Martinez Primary Care Provider Tiffanie Castro Unavailable [phone] Allergies Allergen (clinical drug ingredient) Drug/Non Drug [...] W/U Status Risk Notes Problem Plantar wart (49275475) Plantar wart (B07.0) Active confirmed Problem Localized, primary osteoarthritis of the ankle and/or foot (256612817) Osteoarthritis of right ankle and foot (M19.071) Active confirmed Problem Localized, primary osteoarthritis of the ankle and/or foot (761088244) Osteoarthritis of left ankle and foot (M19.072) Active confirmed Vital Signs Blood pressure diastolic 68 mm Hg 03/26/2025 Height 5 ft 3 in in 03/26/2025 Blood pressure systolic 130 mm Hg 03/26/2025 Weight 148 lbs 03/26/2025 BMI 26.21 kg/m2 03/26/2025 Encounters Encounter Location Date Provider Diagnosis [address] [address] 09/21/2024 Tiffanie Perica Tinea pedis of both feet B35.3 ; Plantar wart B07.0 ; Tinea unguium B35.1 ; Pain in right toe(s) M79.674 ; Pain in left toe(s) M79.675 and Left foot pain M79.[address] [address] 12/25/2024 Tiffanie Perica Tinea pedis of both feet B35.3 ; Plantar wart B07.0 ; Tinea unguium B35.1 ; Pain in right toe(s) M79.674 ; Pain in left toe(s) M79.675 and Left foot pain M79.[address] [address] 03/26/2025 Tiffanie Perica Plantar wart B07.0 ; Tinea unguium B35.1 ; Pain in right toe(s) M79.674 ; Pain in left toe(s) M79.675 and Left foot pain M79.[address] [address] 07/16/2024 Tiffanie Perica [address] [address] 03/26/2025 Tiffanie Hicks Assessments Encounter Date Diagnosis [...] Provider Name:Tiffanie alejandre, 07/17/2025 11:00:00 AM, [address] [facility], [place], [address], Insurance Providers Payer Name Payer Address Payer Phone Subscriber Number Group Number Insured Name Patient Relationship to Insured Coverage Start Date Coverage End Date Medicare National Govt Svcs Inc [address] [place] [address] [id number] ChrisyumikoMarily egan Self - patient is the insured [employer] [address] [place] [address] [id number] Marily Llanos Self - patient is [...]
--- OUTSIDE RECORDS SUMMARY | 2025-07-05 14:29 | XMS_ITS | Patient Health Record ---
Author Organization [facility] Address [address] [place] [address] Care Team Providers Care Portable Sawyer Name Role Phone Jessica Mratinez MD Primary Care Provider Marques Marie Unavailable [phone] Allergies Allergen (clinical drug ingredient) Drug/Non Drug [...] Problem Status W/U Status Risk Notes Problem [id number] Encounter for screening for malignant neoplasm of colon (Z12.11) Active confirmed Problem [id number] Preprocedural examination (Z01.818) Active confirmed Problem 445480965 Aspirin long-ter m use (Z79.82) Active confirmed Plan Of Treatment Future Test Test Name Order Date COLONOSCOPY 03/30/2018 Insurance Providers Payer Name Payer Address Payer Phone Subscriber Number Group Number Insured Name Patient Relationship to Insured Coverage Start Date Coverage End Date MEDICARE OF [place] [address] [place] [address] [phone] [id number] INEZ STACK Self - patient is the insured MED[employer] ATT[employer] CLAIMS [address] [place] [address] [id number] INEZ STACK Self - patient is the insured Medical (General) History Medical History History ICD Code Hypertension Hypercholesterolemia Osteoporosis Seasonal allergies Fracture pelvis 2014 Negative colonoscopy in 11/2004--divertic ulosis Denies FL,DM,CVA,Lung disease,renal dise ase Surgical History Surgery Date(Month/Year) Cholecystectomy Appendectomy Laser therapy for a detached retina in t he right eye D&C Right knee replacement 12/31/2014 Left knee replacement 02/2015
--- OUTSIDE RECORDS SUMMARY | 2025-07-05 14:29 | XMS_ITS | Clinical Summary ---
Author Organization [facility] Address [address] [place] [address] Phone Care Team Providers Care Consultant Luxury And Auto. Vice President [employer] (Ex ) Name Role Phone Jessica Martinez MD Primary Care Provider [phone] Encounters Date Type Department Care Team Description 05/31/2025 Documentation Only [facility], [address] [place] [address] Ok Lang [place] from Last 3 Months Social History Tobacco Use Types Packs/Day Years Used Date Smoking Tobacco: Never Assessed Comments Unknown Sex and Gender Information Value Date Recorded Sex Assigned at Not on file Legal Sex Female 8:33 AM EDT Gender Identity Not on file Sexual Orientation Not on file Plan of Treatment Health Maintenance Due Date Last Done Comments Pneumococcal Vaccine: 50+ Ye ars (1 of 1 - PCV) 1990 Influenza Vaccine (#1) 2025 09/09/2022 Hepatitis B Vaccine Aged Out No longe r eligible based on patient's age to complete this topic Insurance [facility] Medicare Care Teams Consultant [employer]ury And [employer]. Vice President [employer] (Ex ) Relationship Specialty Start Date End Date Jessica Martinez MD [facility] [address] [place], [place] PCP - General Internal Medicine 05/31/25
== END 2025-07-05 15:54 | disposition home or self-care (01) ==
LOC: HO.HMCH 14:27
PROVIDERS: PCP Internal Medicine; Visit Provider Nurse Practitioner Family
DX: I63.511 Cerebral infarction due to unspecified occlusion or stenosis of right middle cerebral artery (principal); I48.91 Unspecified atrial fibrillation; G43.909 Migraine, unspecified, not intractable, without status migrainosus; F43.20 Adjustment disorder, unspecified

== ENCOUNTER → 2025-07-05 14:26 | Outpatient (BNVA) | payer MEDICARE, SELFPAY | PROVIDERS: PCP Internal Medicine; Visit Provider Nurse Practitioner Family | DX: I63.511 Cerebral infarction due to unspecified occlusion or stenosis of right middle cerebral artery (principal); I48.91 Unspecified atrial fibrillation; G43.909 Migraine, unspecified, not intractable, without status migrainosus; F43.20 Adjustment disorder, unspecified | CPT/HCPCS: 99212 ==

== ENCOUNTER → 2025-07-05 14:26 | Outpatient (BNV) | payer MEDICARE, SELFPAY | PROVIDERS: PCP Internal Medicine; Visit Provider Nurse Practitioner Family | DX: I69.354 Hemiplegia and hemiparesis following cerebral infarction affecting left non-dominant side (principal); M85.80 Other specified disorders of bone density and structure, unspecified site; I11.0 Hypertensive heart disease with heart failure; N39.0 Urinary tract infection, site not specified | CPT/HCPCS: 99214; G0180 ==

== ENCOUNTER 2025-07-11 13:53 | Outpatient (REF) | payer SELFPAY ==
--- OUTSIDE RECORDS SUMMARY | 2025-07-11 14:01 | XMS_ITS | Clinical Summary ---
Author Organization [facility] Address [address] [place] [address] Phone Care Team Providers Care Intellectual Property Paralegal Name Role Phone Jessica Martinez MD Primary Care Provider [phone] Encounters Date Type Department Care Team Description 05/31/2025 Documentation Only [facility] [place], [address] [place] [address] Ok Lang [place] from Last 3 [...] patient's age to complete this topic Insurance [facility] Medicare Care Teams Intellectual Property Paralegal Relationship Specialty Start Date End Date Jessica Martinez MD [facility] [address] [place], [place] PCP - General Internal Medicine 05/31/25
--- OUTSIDE RECORDS SUMMARY | 2025-07-11 14:01 | XMS_ITS | Patient Health Record ---
Author Organization [facility] Address [address] [facility] [place] [address] Care Team Providers Care Animal Husbandman Name Role Phone Jessica Martinez Primary Care Provider Tiffanie Castro Unavailable [phone] Allergies Allergen (clinical drug ingredient) Drug/Non Drug [...] W/U Status Risk Notes Problem Plantar wart (36341223) Plantar wart (B07.0) Active confirmed Problem Localized, primary osteoarthritis of the ankle and/or foot (207278091) Osteoarthritis of right ankle and foot (M19.071) Active confirmed Problem Localized, primary osteoarthritis of the ankle and/or foot (504271651) Osteoarthritis of left ankle and foot (M19.072) Active confirmed Vital Signs Blood pressure diastolic 68 mm Hg 03/26/2025 Height 5 ft 3 in in 03/26/2025 Blood pressure systolic 130 mm Hg 03/26/2025 Weight 148 lbs 03/26/2025 BMI 26.21 kg/m2 03/26/2025 Encounters Encounter Location Date Provider Diagnosis [address] [address] 09/21/2024 Tiffanie Perica Tinea pedis of both feet B35.3 ; Plantar wart B07.0 ; Tinea unguium B35.1 ; Pain in right toe(s) M79.674 ; Pain in left toe(s) M79.675 and Left foot pain M79.[address] [address] 12/25/2024 Tiffanie Perica Tinea pedis of both feet B35.3 ; Plantar wart B07.0 ; Tinea unguium B35.1 ; Pain in right toe(s) M79.674 ; Pain in left toe(s) M79.675 and Left foot pain M79.[address] [address] 03/26/2025 Tiffanie Perica Plantar wart B07.0 ; Tinea unguium B35.1 ; Pain in right toe(s) M79.674 ; Pain in left toe(s) M79.675 and Left foot pain M79.[address] [address] 07/16/2024 Tiffanie Perica [address] [address] 03/26/2025 Tiffanie Hicks Assessments Encounter Date Diagnosis [...] Provider Name:Tiffanie alejandre, 07/17/2025 11:00:00 AM, [address] [facility], [place], [address], Insurance Providers Payer Name Payer Address Payer Phone Subscriber Number Group Number Insured Name Patient Relationship to Insured Coverage Start Date Coverage End Date Medicare National Govt Svcs Inc [address] [place] [address] [id number] ChrisyumikoMarily egan Self - patient is the insured [employer] [facility] [address] [place] [address] [phone] [id number] Marily Llanos Self - patient is the insured Medical (General) History Medical History History ICD Code Arthritis CAD (Cholesterol) Measles Mumps Chicken pox Gall bladder problems High blood pressure Osteoporosis Joint implants/screws Surgical History Surgery Date(Month/Year) gall bladder 1970 right knee replacement 12/2014 left knee replacement 02/2016 cataract surgery 2021 Hospitalization History Reason Date(Month/Year) [facility] [place] - cat scan and x-ray left knee 01/14
--- OUTSIDE RECORDS SUMMARY | 2025-07-11 14:01 | XMS_ITS | Encounter Summary ---
Author Organization [facility] Address [address] [place] [address] Phone Care Team Providers Care Dealer Support Technician Name Role Phone Kemi Knott MD Primary Care Provider + Reason for Referral * Consultation (Elective) - Pending Review Specialty Diagnoses / Procedures Referred By Annetta t Referred To Contact Cardiology Diagnoses Atrial fibrillation, unspecified type Pretty Landers NP [address] [place] [address] Phone: tel: fax: [address] [address] Phone: tel: Referral ID Status Reason Start Date Expiration Date V isits Requested Visits Authorized [id number] Pending Review 07/09/2025 07/09/2026 1 1 Encounter Details Date Type Department Care Team (Latest Contact Info) Description 07/09/2025 Transcribe [facility] [address], [address] [place] [address] Manolo Jordan [address] [place] [address] Atrial fibrillation, unspecified type (Primary Dx) Social History Tobacco Use Types Packs/Day Years Used Date Smoking Tobacco: Never Assessed Education Answer Date Recorded Are you interested in more education? Not on greg e 07/09/2025 Are you concerned about learning? Not on file 07/09/2025 No 07/09/2025 No 07/09/2025 Digital Access Answer Date Recorded No 07/09/2025 No 07/09/2025 Reliable internet access at home? Not on file 07/09/2025 Device with a working camera? Not on file Comments Unknown Sex and Gender Information Value Date Recorded Sex Assigned at Not on file Legal Sex Female 10:38 PM EDT Gender Identity Not on file Sexual Orientation Not on file documented as of this encounter Plan of Treatment Upcoming Encounters Date Type Department Care Team (Late st Contact Info) Description 12/18/2025 1:40 PM EST Office Visit [facility] [address] [place] [address] [address], [address] [place] [address] Yemi Beckford MD [address] [facility], [address] [place] [address] [email or web address] Scheduled Referrals Name Type Priority Associated Diagnoses Orde r Schedule Ambulatory referral to [facility] Cardiology Outpatient Referral Routine Atrial fibrillation, unspecified type Ordered: 07/09/2025 documented as of this encounter Visit Diagnoses Diagnosis Atrial fibrillation, unspecified type- Primary documented in this encounter Care Teams Dealer Support Technician Relationship Specialty Start Date End Date Kemi Knott MD [address] [place] [address] [email or web address] PCP - General Family Medicine 07/09/25 documented as of this encounter Additional Source Comments The information contained in this document represents components of the legal health record. It is not the complete legal health record.[facility]
--- OUTSIDE RECORDS SUMMARY | 2025-07-11 14:01 | XMS_ITS | Patient Health Record ---
Author Organization [facility] Address [address] [place] [address] Care Team Providers Care Magento Web Developer Name Role Phone Jessica Martinez MD Primary Care Provider Marques Marie Unavailable [phone] Allergies Allergen (clinical drug ingredient) Drug/Non Drug [...] Problem Status W/U Status Risk Notes Problem 758709032 Encounter for screening for malignant neoplasm of colon (Z12.11) Active confirmed Problem 543675887644857 Preprocedural examination (Z01.818) Active confirmed Problem 325828693 Aspirin long-ter m use (Z79.82) Active confirmed Plan Of Treatment Future Test Test Name Order Date COLONOSCOPY 03/30/2018 Insurance Providers Payer Name Payer Address Payer Phone Subscriber Number Group Number Insured Name Patient Relationship to Insured Coverage Start Date Coverage End Date MEDICARE OF [place] [address] [place] [id number] [phone] [id number] INEZ STACK Self - patient is the insured MEDEX ATTN CLAIMS [address] [place] [address] [phone] [id number] INEZ STACK Self - patient is the insured Medical (General) History Medical History History ICD Code Hypertension Hypercholesterolemia Osteoporosis Seasonal allergies Fracture pelvis 2014 Negative colonoscopy in 11/2004--divertic ulosis Denies ME,DM,CVA,Lung disease,renal dise ase Surgical History Surgery Date(Month/Year) Cholecystectomy Appendectomy Laser therapy for a detached retina in t he right eye D&C Right knee replacement 12/31/2014 Left knee replacement 02/2015
== END 2025-07-11 13:54 | disposition home or self-care (01) ==
LOC: HO.HAP 13:53
PROVIDERS: Visit Provider Internal Medicine
DX: Z13.89 Encounter for screening for other disorder (principal)

== ENCOUNTER 2025-07-12 08:47 | Outpatient (REF) | payer SELFPAY ==
--- OUTSIDE RECORDS SUMMARY | 2025-07-12 09:01 | XMS_ITS | Encounter Summary ---
Author Organization [facility] Address [address] [place] [address] Phone Care Team Providers Care Survey Research Center Director Name Role Phone Kemi Knott MD Primary Care Provider + Reason for Referral * Consultation (Elective) - Pending Review Specialty Diagnoses / Procedures Referred By Annetta t Referred To Contact Cardiology Diagnoses Atrial fibrillation, unspecified type Pretty Landers NP [address] [place] [address] Phone: tel: fax: [address] [address] Phone: tel: Referral ID Status Reason Start Date Expiration Date V isits Requested Visits Authorized [id number] Pending Review 07/09/2025 07/09/2026 1 1 Encounter Details Date Type Department Care Team (Latest Contact Info) Description 07/09/2025 Transcribe [facility] [address] Floor, [address] [place] [address] Manolo Jordan [address] [place] [address] Atrial fibrillation, unspecified type (Primary Dx) Social [...] Description 12/18/2025 1:40 PM EST Office Visit [facility] [address] [place] [address] [address]rd Floor, [address] [place] [address] Yemi Beckford MD [address] [facility], [address] [place] [address] [email or web address] Scheduled Referrals Name Type Priority Associated Diagnoses Orde r Schedule Ambulatory referral to [facility] Cardiology Outpatient Referral Routine Atrial fibrillation, unspecified type Ordered: 07/09/2025 documented as of this encounter Visit Diagnoses Diagnosis Atrial fibrillation, unspecified type- Primary documented in this encounter Care Teams Survey Research Center Director Relationship Specialty Start Date End Date Kemi Knott MD [address] [place] [id number] [email or web address] PCP - General Family Medicine 07/09/25 documented as of this encounter Additional Source Comments The information contained in this document represents components of the legal health record. It is not the complete legal health record.[facility]
--- OUTSIDE RECORDS SUMMARY | 2025-07-12 09:01 | XMS_ITS | Clinical Summary ---
Author Organization [facility] Address [address] [place] [address] Phone Care Team Providers Care Guide Changer Name Role Phone Jessica Martinez MD Primary Care Provider [phone] Encounters Date Type Department Care Team Description 05/31/2025 Documentation Only [facility], [address] [place] [address] [place] Lang [place] from Last 3 [...] patient's age to complete this topic Insurance [facility] Medicare Care Teams Guide Changer Relationship Specialty Start Date End Date Jessica Martinez MD [facility] [address] [place], [place] PCP - General Internal Medicine 05/31/25
--- OUTSIDE RECORDS SUMMARY | 2025-07-12 09:01 | XMS_ITS | Patient Health Record ---
Author Organization [facility] Address [address] [facility] [place] [address] Care Team Providers Care Electrical Cad Designer Name Role Phone Jessica Martinez Primary Care Provider Tiffanie Castro Unavailable [phone] Allergies Allergen (clinical drug ingredient) Drug/Non Drug [...] W/U Status Risk Notes Problem Plantar wart (90035388) Plantar wart (B07.0) Active confirmed Problem Localized, primary osteoarthritis of the ankle and/or foot (523986405) Osteoarthritis of right ankle and foot (M19.071) Active confirmed Problem Localized, primary osteoarthritis of the ankle and/or foot (688039271) Osteoarthritis of left ankle and foot (M19.072) Active confirmed Vital Signs Blood pressure diastolic 68 mm Hg 03/26/2025 Height 5 ft 3 in in 03/26/2025 Blood pressure systolic 130 mm Hg 03/26/2025 Weight 148 lbs 03/26/2025 BMI 26.21 kg/m2 03/26/2025 Encounters Encounter Location Date Provider Diagnosis [address] [address] 09/21/2024 Tiffanie Perica Tinea pedis of both feet B35.3 ; Plantar wart B07.0 ; Tinea unguium B35.1 ; Pain in right toe(s) M79.674 ; Pain in left toe(s) M79.675 and Left foot pain M79.[address] [address] 12/25/2024 Tiffanie Perica Tinea pedis of both feet B35.3 ; Plantar wart B07.0 ; Tinea unguium B35.1 ; Pain in right toe(s) M79.674 ; Pain in left toe(s) M79.675 and Left foot pain M79.[address] [address] 03/26/2025 Tiffanie Perica Plantar wart B07.0 ; Tinea unguium B35.1 ; Pain in right toe(s) M79.674 ; Pain in left toe(s) M79.675 and Left foot pain M79.[address] [address] 07/16/2024 Tiffanie Perica [address] [address] 03/26/2025 Tiffanie Hicks Assessments Encounter Date Diagnosis [...] Provider Name:Tiffanie alejandre, 07/17/2025 11:00:00 AM, [address] [facility], [place], [address], Insurance Providers Payer Name Payer Address Payer Phone Subscriber Number Group Number Insured Name Patient Relationship to Insured Coverage Start Date Coverage End Date Medicare National Govt Svcs Inc [address] [place] [address] [id number] ChrisyumikoMarily egan Self - patient is the insured [employer] [address] [place] [address] [id number] Marily Llanos Self - patient is the insured Medical (General) History Medical History History ICD Code Arthritis CAD (Cholesterol) Measles Mumps Chicken pox Gall bladder problems High blood pressure Osteoporosis Joint implants/screws Surgical History Surgery Date(Month/Year) gall bladder 1970 right knee replacement 12/2014 left knee replacement 02/2016 cataract surgery 2021 Hospitalization History Reason Date(Month/Year) [facility] [place] - cat scan and x-ray left knee 01/14
--- OUTSIDE RECORDS SUMMARY | 2025-07-12 09:01 | XMS_ITS | Patient Health Record ---
Author Organization [facility] Address [address] [place] [address] Care Team Providers Care Dye House Helper Name Role Phone Jessica Martinez MD Primary Care Provider Marques Marie Unavailable [phone] Allergies Allergen (clinical drug ingredient) Drug/Non Drug [...] Problem Status W/U Status Risk Notes Problem 106692409 Encounter for screening for malignant neoplasm of colon (Z12.11) Active confirmed Problem [id number] Preprocedural examination (Z01.818) Active confirmed Problem 299398313 Aspirin long-ter m use (Z79.82) Active confirmed Plan Of Treatment Future Test Test Name Order Date COLONOSCOPY 03/30/2018 Insurance Providers Payer Name Payer Address Payer Phone Subscriber Number Group Number Insured Name Patient Relationship to Insured Coverage Start Date Coverage End Date MED[place]ARE OF [place] [address] [place] [id number] INEZ STACK Self - patient is the insured MEDEX ATTN CLAIMS [address] [place] [phone] [id number] INEZ STACK Self - patient is the insured Medical (General) History Medical History History ICD Code Hypertension Hypercholesterolemia Osteoporosis Seasonal allergies Fracture pelvis 2014 Negative colonoscopy in 11/2004--divertic ulosis Denies PA,DM,CVA,Lung disease,renal dise ase Surgical History Surgery Date(Month/Year) Cholecystectomy Appendectomy Laser therapy for a detached retina in t he right eye D&C Right knee replacement 12/31/2014 Left knee replacement 02/2015
== END 2025-07-12 08:48 | disposition home or self-care (01) ==
LOC: HO.HAP 08:47
PROVIDERS: Visit Provider Internal Medicine
DX: Z13.89 Encounter for screening for other disorder (principal)

== ENCOUNTER 2025-08-06 15:48 | Outpatient (REF) | payer SELFPAY ==
--- OUTSIDE RECORDS SUMMARY | 2025-07-02 07:00 | XMS_ITS ---
Author Organization [facility] Address [address] [place] [address] Care Team Providers Care Granite Cutter Name Role Phone Jessica Martinez Primary Care Provider Tiffanie Castro [phone] Menon Encounters Encounter Location Date Provider Diagnosis [address] [address] 07/02/2025 Tiffanie Hicks Plan Of Treatment Next Appt Details Provider Name:Tiffanie alejandre, 09/24/2025 03:45:00 PM, [address] [place], [address], Progress Notes * Bi STACKOB:07/14 (85 yo F)Acc No.[id number]:07/02/2025 Progress Note Patient: Marily PRINCE Provider: Gordo Hicks DPM :1940 A ge:84 Y S ex:Female Date:07/02/2025 Address:[address] [place] [address] [facility] Pcp:Jessica Martinez Subjective: * Chief Complaints: * [...] 07/02/2025 Generated for Liban brock/Juanpablo/Kishore on: 0 08/06/2025 06:56 PM EDT
--- OUTSIDE RECORDS SUMMARY | 2025-07-17 07:00 | XMS_ITS ---
Author Organization [facility] Address [address] [place] [address] Care Team Providers Care Television Journalist Name Role Phone Jessica Martinez Primary Care Provider Tiffanie Castro Unavailable [phone] Allergies Allergen (clinical drug ingredient) Drug/Non Drug [...] Active Encounters Encounter Location Date Provider Diagnosis [facility] [address] [place] [address] 07/17/2025 Tiffanie Hicks Plan Of Treatment Next Appt Details Provider Name:Tiffanie alejandre, 09/24/2025 03:45:00 PM, [address] [place], [address], Progress Notes * Bi STACKOB:[birth year] (85 yo F)Acc No.[id number]:07/17/2025 Progress Note Patient: Hilario KERNMarily ZUÑIGA Provider: Gordo Hicks DPM :1940 A ge:85 Y S ex:Female Date:07/17/2025 Address:[address], [facility] Pcp:Jessica Martinez Subjective: * Chief Complaints: * [...] 07/17/2025 Generated for Liban brock/Juanpablo/Kishore on: 0 08/06/2025 06:56 PM EDT
--- OUTSIDE RECORDS SUMMARY | 2025-08-06 18:56 | XMS_ITS | Clinical Summary ---
Author Organization [facility] Address [address] [place] [address] Phone Care Team Providers Care Order Entry Specialist Name Role Phone Kemi Knott MD Primary Care Provider + Encounters Date Type Department Care Team Description 07/09/2025 Transcribe [facility] [address] 3rd Floor, [address] [place] [address] Manolo Jordan Atrial fibrillation, unspecified type (Primary Dx) from Last 3 Months Social History Tobacco [...] on file Sexual Orientation Not on file Last Filed Vital Signs Vital Sign Reading Time Taken Comments Blood Pressure 166/77 08/02/2014 9:45 AM EDT Pulse 72 08/02/2014 9:45 AM EDT Temperature - - Respiratory Rate - - Oxygen Saturation - - Inhaled Oxygen Concentration - - Weight 66.7 kg (147 lb) 08/02/2014 9:45 AM EDT Height 157.5 cm (5' 2 ) 08/02/2014 9:45 AM EDT Body Mass Index 26.89 08/02/2014 9:45 AM EDT Plan of Treatment Upcoming Encounters Date Type Department Care Team (Late st Contact Info) Description 12/18/2025 1:40 PM EST Office Visit [facility] [address] [place] [address] 3rd Floor, [address] [place], [place] [id number] Yemi Beckford MD [address] [facility], [address] [place] [address] [email or web address] Health Maintenance Due Date Last Done Comments Adult Td,Tdap Booster 1940 DEPRESSION SCREENING 1952 OSTEOPOROSIS SCREENING INITIAL (ONE-TIME) 2005 ZOSTER VACCINES (2 of 3) 12/17/2014 10/22/2014 RSV VACCINE (1 - 1-dose 75+ series) 2015 INFLUENZA VACCINE (#1) 2025 0, 09/20/2018, 08/24/2017, Additional history exists COVID-19 VACCINE ( season) 2025 PNEUMOCOCCAL VACCINES (50+ years) Completed 07/19/2019, 12/08/2015 HEPATITIS A VACCINES Aged Out No long er eligible based on patient's age to complete this topic HIB VACCINES Aged Out No longer eligi ble based on patient's age to complete this topic MENINGOCOCCAL VACCINES (ACWY) Aged Out No longer eligible based on patient's age to complete this topic MENINGOCOCCAL VACCINES (B) Aged Out N o longer eligible based on patient's age to complete this topic Medical Devices Not on file Insurance MEDICARE PART A & B [employer] MEDEX SUPPLEMENT MEDICARE PART A & B [employer] MEDEX SUPPLEMENT MEDICARE PART A & B [employer] MEDEX SUPPLEMENT MEDICARE PART A & B [employer] MEDEX SUPPLEMENT MEDICARE PART A & B [employer] SUPPLEMENT MEDICARE PART A & B [id number] SUPPLEMENT Care Teams Order Entry Specialist Relationship Specialty Start Date End Date Kemi Knott MD [address] [place] [id number] [email or web address] PCP - General Family Medicine 07/09/25 Additional Source Comments The information contained in this document represents components of the legal health record. It is not the complete legal health record.[facility]
--- OUTSIDE RECORDS SUMMARY | 2025-08-06 18:56 | XMS_ITS | Patient Health Record ---
Author Organization [facility] Address [address] [place] [address] Care Team Providers Care Greens Tier Name Role Phone Jessica Maritnez MD Primary Care Provider Marques Marie Unavailable [phone] Allergies Allergen (clinical drug ingredient) Drug/Non Drug [...] Problem Status W/U Status Risk Notes Problem [id number] Encounter for screening for malignant neoplasm of colon (Z12.11) Active confirmed Problem [id number] Preprocedural examination (Z01.818) Active confirmed Problem 088272253 Aspirin long-ter m use (Z79.82) Active confirmed Plan Of Treatment Future Test Test Name Order Date COLONOSCOPY 03/30/2018 Insurance Providers Payer Name Payer Address Payer Phone Subscriber Number Group Number Insured Name Patient Relationship to Insured Coverage Start Date Coverage End Date MEDICARE OF [place] [address] [place] [address] [id number] INEZ STACK Self - patient is the insured MEDEX ATTN CLAIMS [address] [place] [address] [phone] [id number] INEZ STACK Self - patient is the insured Medical (General) History Medical History History ICD Code Hypertension Hypercholesterolemia Osteoporosis Seasonal allergies Fracture pelvis 2014 Negative colonoscopy in 11/2004--divertic ulosis Denies CA,DM,CVA,Lung disease,renal dise ase Surgical History Surgery Date(Month/Year) Cholecystectomy Appendectomy Laser therapy for a detached retina in t he right eye D&C Right knee replacement 12/31/2014 Left knee replacement 02/2015
--- OUTSIDE RECORDS SUMMARY | 2025-08-06 18:56 | XMS_ITS | Clinical Summary ---
Author Organization [facility] Address [address] [place] [address] Phone Care Team Providers Care Hide Inspector And Sorter Name Role Phone Jessica Martinez MD Primary Care Provider [phone] Encounters Date Type Department Care Team Description 05/31/2025 Documentation Only [facility] [place], [address] [place] [address] Ok Lang [place] from Last 3 [...] patient's age to complete this topic Insurance [facility] Medicare Care Teams Hide Inspector And Sorter Relationship Specialty Start Date End Date Jessica Martinez MD [facility] [address] [place], [place] PCP - General Internal Medicine 05/31/25
--- OUTSIDE RECORDS SUMMARY | 2025-08-06 18:56 | XMS_ITS | Encounter Summary ---
Author Organization [facility] [place], Address [address] [place] [address] Phone Care Team Providers Care Computer Systems Integrator Name Role Phone Jessica Martinez MD Primary Care Provider [phone] Encounter Details Date Type Department Care Team (Late st Contact Info) Description 05/31/2025 Documentation Only [facility] [place], [address] [place] [address] [place] [address] [place] [address] Social History Tobacco Use Types Packs/Day Years Used Date Smoking Tobacco: Never Assessed Comments Unknown Sex and Gender Information Value Date Recorded Sex Assigned at Not on file Legal Sex Female 8:33 AM EDT Gender Identity Not on file Sexual Orientation Not on file documented as of this encounter Plan of Treatment Not on file documented as of this encounter Visit Diagnoses Not on filedocumented in this encounter Care Teams Computer Systems Integrator Relationship Specialty Start Date End Date Jessica Martinez MD [facility] [address] [place], [place] PCP - General Internal Medicine 05/31/25 documented as of this encounter
--- OUTSIDE RECORDS SUMMARY | 2025-08-06 18:57 | XMS_ITS | Patient Health Record ---
Author Organization [facility] Address [address] [facility] [place] [address] Care Team Providers Care Environmental Health Technician Name Role Phone Jessica Martinez Primary Care Provider Tiffanie Castro Unavailable [phone] Allergies Allergen (clinical drug ingredient) Drug/Non Drug [...] day; Duration: 30 days Active Multivitamin Active Immunizations Vaccine Route Administration Date Status [...] W/U Status Risk Notes Problem Plantar wart (67705029) Plantar wart (B07.0) Active confirmed Problem Localized, primary osteoarthritis of the ankle and/or foot (510477735) Osteoarthritis of right ankle and foot (M19.071) Active confirmed Problem Localized, primary osteoarthritis of the ankle and/or foot (214062126) Osteoarthritis of left ankle and foot (M19.072) Active confirmed Vital Signs Blood pressure diastolic 68 mm Hg 03/26/2025 Height 5 ft 3 in in 03/26/2025 Blood pressure systolic 130 mm Hg 03/26/2025 Weight 148 lbs 03/26/2025 BMI 26.21 kg/m2 03/26/2025 Encounters Encounter Location Date Provider Diagnosis [address] [address] 09/21/2024 Tiffanie Perica Tinea pedis of both feet B35.3 ; Plantar wart B07.0 ; Tinea unguium B35.1 ; Pain in right toe(s) M79.674 ; Pain in left toe(s) M79.675 and Left foot pain M79.[address] [address] 12/25/2024 Tiffanie Perica Tinea pedis of both feet B35.3 ; Plantar wart B07.0 ; Tinea unguium B35.1 ; Pain in right toe(s) M79.674 ; Pain in left toe(s) M79.675 and Left foot pain M79.[address] [address] 03/26/2025 Tiffanie Perica Plantar wart B07.0 ; Tinea unguium B35.1 ; Pain in right toe(s) M79.674 ; Pain in left toe(s) M79.675 and Left foot pain M79.[address] [address] 03/26/2025 Tiffanie Perica [address] [address] 07/15/2025 Tiffanie Hicks Assessments Encounter Date Diagnosis (ICD [...] B07.0) 09/21/2024 Tinea unguium (ICD-10 - B35.1) 03/26/2025 Pain in left toe(s) (ICD-10 - M79.675) 12/25/2024 Pain in right toe(s) (ICD-10 - M79.674) 03/26/2025 Left foot pain (ICD-10 - M79.672) [...] 09/29/2023 Next Appt Details Provider Name:Tiffanie alejandre, 09/24/2025 03:45:00 PM, [address] [facility], [place], [address], Insurance Providers Payer Name Payer Address Payer Phone Subscriber Number Group Number Insured Name Patient Relationship to Insured Coverage Start Date Coverage End Date Medicare National Govt Svcs Inc [address] [place] [address] [id number] ChrisyumikoMarily egan Self - patient is the insured [employer] [address] [place] [address] [phone] [id number] Marily Llanos Self - patient is the insured Medical (General) History Medical History History ICD Code Arthritis CAD (Cholesterol) Measles Mumps Chicken pox Gall bladder problems High blood pressure Osteoporosis Joint implants/screws Surgical History Surgery Date(Month/Year) gall bladder 1970 right knee replacement 12/2014 left knee replacement 02/2016 cataract surgery 2021 Hospitalization History Reason Date(Month/Year) [facility]- Fall - cat scan and x-ray left knee 01/14
== END 2025-08-06 15:49 | disposition home or self-care (01) ==
LOC: HO.HAP 15:48
PROVIDERS: PCP Internal Medicine; Visit Provider Internal Medicine
DX: Z46.1 Encounter for fitting and adjustment of hearing aid (principal); H90.3 Sensorineural hearing loss, bilateral
CPT/HCPCS: V5267

== ENCOUNTER 2025-08-07 15:53 | Outpatient (REF) | payer SELFPAY ==
--- OUTSIDE RECORDS SUMMARY | 2025-07-02 07:00 | XMS_ITS ---
Author Organization [facility] Address [address] [place] [address] Care Team Providers Care Automatic Embroidery Machine Tender Name Role Phone Jessica Martinez Primary Care Provider Tiffanie Castro [phone] Menon Encounters Encounter Location Date Provider Diagnosis [address] [address] 07/02/2025 Tiffanie Hicks Plan Of Treatment Next Appt Details Provider Name:Tiffanie alejandre, 09/24/2025 03:45:00 PM, [address] [place], [address], Progress Notes * Bi STACKOB:07/14 (85 yo F)Acc No.[id number]:07/02/2025 Progress Note Patient: Marily PRINCE Provider: Gordo Hicks DPM :1940 A ge:84 Y S ex:Female Date:07/02/2025 Address:[address] [place] [address] [address] [facility] Pcp:Jessica Martinez Subjective: * Chief Complaints: * [...] 0 07/02/2025 Generated for Liban brock/Juanpablo/Kishore on: 0 08/07/2025 07:09 PM EDT
--- OUTSIDE RECORDS SUMMARY | 2025-07-17 07:00 | XMS_ITS ---
Author Organization [facility] Address [address] [place] [address] Care Team Providers Care Special Education Resource Teacher Name Role Phone Jessica Martinez Primary Care Provider Tiffanie Castro Unavailable [phone] Allergies Allergen (clinical drug ingredient) Drug/Non Drug [...] Active Encounters Encounter Location Date Provider Diagnosis [facility] [address] [place] [address] 07/17/2025 Tiffanie Hicks Plan Of Treatment Next Appt Details Provider Name:Tiffanie alejandre, 09/24/2025 03:45:00 PM, [address] [place], [address], Progress Notes * Bi STACKOB:[birth year] (85 yo F)Acc No.[id number]:07/17/2025 Progress Note Patient: Hilario KERNMarily ZUÑIGA Provider: Gordo Hicks DPM :1940 A ge:85 Y S ex:Female Date:07/17/2025 Address:[address], [facility] Pcp:Jessica Martinez Subjective: * Chief Complaints: * [...] 07/17/2025 Generated for Liban brock/Juanpablo/Kishore on: 0 08/07/2025 07:09 PM EDT
--- OUTSIDE RECORDS SUMMARY | 2025-08-07 19:09 | XMS_ITS | Clinical Summary ---
Author Organization [facility] Address [address] [place] [address] Phone Care Team Providers Care Manufacturing Plant Controller Name Role Phone Kemi Knott MD Primary Care Provider + Encounters Date Type Department Care Team Description 07/09/2025 Transcribe [facility] [address] [place] [address] 3rd Floor, [address] [place] [address] Manolo Jordan Atrial fibrillation, unspecified type (Primary [...] Description 12/18/2025 1:40 PM EST Office Visit [facility] [address] [place] [address] [address]rd Floor, [address] [place], [place] [address] Yemi Beckford MD [address] [facility] [place] [address] [email or web address] Health Maintenance Due Date Last Done [...] file Insurance MEDICARE PART A & B [employer] MEDEX SUPPLEMENT MEDICARE PART A & B [employer] MEDEX SUPPLEMENT MEDICARE PART A & B [employer] MEDEX SUPPLEMENT MEDICARE PART A & B [employer] MEDEX SUPPLEMENT MEDICARE PART A & B [employer] SUPPLEMENT MEDICARE PART A & B [employer] SUPPLEMENT Care Teams Manufacturing Plant Controller Relationship Specialty Start Date End Date Kemi Knott MD [address] [place] [address] [email or web address] PCP - General Family Medicine 07/09/25 Additional Source Comments The information contained in this document represents components of the legal health record. It is not the complete legal health record.[facility]
--- OUTSIDE RECORDS SUMMARY | 2025-08-07 19:09 | XMS_ITS | Encounter Summary ---
Author Organization [facility], Address [address] [place] [address] Phone Care Team Providers Care Grocery Buyer Name Role Phone Jessica Martinez MD Primary Care Provider Encounter Details Date Type Department Care Team (Late st Contact Info) Description 05/31/2025 Documentation Only [facility], [address] [place] [address] [place] [address] [place] [address] Social History Tobacco Use Types [...] on filedocumented in this encounter Care Teams Grocery Buyer Relationship Specialty Start Date End Date Jessica Martinez MD [facility] [address] [place], [place] PCP - General Internal Medicine 05/31/25 documented as of this encounter
--- OUTSIDE RECORDS SUMMARY | 2025-08-07 19:09 | XMS_ITS | Patient Health Record ---
Author Organization [facility] Address [address] [place] [address] Care Team Providers Care Bat Person Name Role Phone Jessica Martinez MD Primary Care Provider Marques Marie Unavailable [phone] Allergies Allergen (clinical drug ingredient) Drug/Non Drug [...] Problem Status W/U Status Risk Notes Problem [id number] Encounter for screening for malignant neoplasm of colon (Z12.11) Active confirmed Problem 110478786664207 Preprocedural examination (Z01.818) Active confirmed Problem 935218937 Aspirin long-ter m use (Z79.82) Active confirmed Plan Of Treatment Future Test Test Name Order Date COLONOSCOPY 03/30/2018 Insurance Providers Payer Name Payer Address Payer Phone Subscriber Number Group Number Insured Name Patient Relationship to Insured Coverage Start Date Coverage End Date MEDICARE OF [place] [address] [place] [address] [phone] [id number] INEZ STACK Self - patient is the insured MEDEX ATTN CLAIMS [address] [place] [address] [id number] INEZ STACK Self - patient is the insured Medical (General) History Medical History History ICD Code Hypertension Hypercholesterolemia Osteoporosis Seasonal allergies Fracture pelvis 2014 Negative colonoscopy in 11/2004--divertic ulosis Denies HI,DM,CVA,Lung disease,renal dise ase Surgical History Surgery Date(Month/Year) Cholecystectomy Appendectomy Laser therapy for a detached retina in t he right eye D&C Right knee replacement 12/31/2014 Left knee replacement 02/2015
--- OUTSIDE RECORDS SUMMARY | 2025-08-07 19:09 | XMS_ITS | Clinical Summary ---
Author Organization [facility] Address [address] [place] [address] Phone Care Team Providers Care Commercial Loan Specialist Name Role Phone Jessica Martinez MD Primary Care Provider [phone] Encounters Date Type Department Care Team Description 05/31/2025 Documentation Only [facility] [place], [address] [place] [address] [place] from Last 3 [...] patient's age to complete this topic Insurance [facility] Medicare Care Teams Commercial Loan Specialist Relationship Specialty Start Date End Date Jessica Martinez MD [facility] [address] [place], [place] PCP - General Internal Medicine 05/31/25
--- OUTSIDE RECORDS SUMMARY | 2025-08-07 19:10 | XMS_ITS | Patient Health Record ---
Author Organization [facility] Address [address] [facility] [place] [address] Care Team Providers Care Cnc Operator Programmer Name Role Phone Jessica Martinez Primary Care Provider Tiffanie Castro Unavailable [phone] Allergies Allergen (clinical drug ingredient) Drug/Non Drug [...] W/U Status Risk Notes Problem Plantar wart (61901539) Plantar wart (B07.0) Active confirmed Problem Localized, primary osteoarthritis of the ankle and/or foot (057386530) Osteoarthritis of right ankle and foot (M19.071) Active confirmed Problem Localized, primary osteoarthritis of the ankle and/or foot (946396126) Osteoarthritis of left ankle and foot (M19.072) Active confirmed Vital Signs Blood pressure diastolic 68 mm Hg 03/26/2025 Height 5 ft 3 in in 03/26/2025 Blood pressure systolic 130 mm Hg 03/26/2025 Weight 148 lbs 03/26/2025 BMI 26.21 kg/m2 03/26/2025 Encounters Encounter Location Date Provider Diagnosis [address] [address] 09/21/2024 Tiffanie Perica Tinea pedis of both feet B35.3 ; Plantar wart B07.0 ; Tinea unguium B35.1 ; Pain in right toe(s) M79.674 ; Pain in left toe(s) M79.675 and Left foot pain M79.[address] [address] 12/25/2024 Tiffanie Perica Tinea pedis of both feet B35.3 ; Plantar wart B07.0 ; Tinea unguium B35.1 ; Pain in right toe(s) M79.674 ; Pain in left toe(s) M79.675 and Left foot pain M79.[address] [address] 03/26/2025 Tiffanie Perica Plantar wart B07.0 ; Tinea unguium B35.1 ; Pain in right toe(s) M79.674 ; Pain in left toe(s) M79.675 and Left foot pain M79.[address] [address] 03/26/2025 Tiffanie Perica [address] [address] 07/15/2025 Tiffanie Hicks Assessments Encounter Date Diagnosis [...] Provider Name:Tiffanie alejandre, 09/24/2025 03:45:00 PM, [address] [facility], [place], [address], Insurance Providers Payer Name Payer Address Payer Phone Subscriber Number Group Number Insured Name Patient Relationship to Insured Coverage Start Date Coverage End Date Medicare National Govt Svcs Inc [address] [place] [address] [id number] ChrisyumikoMarily egan Self - patient is the insured [employer] [address] [place] [address] [id number] Marily Llanos Self - patient is the insured Medical (General) History Medical History History ICD Code Arthritis CAD (Cholesterol) Measles Mumps Chicken pox Gall bladder problems High blood pressure Osteoporosis Joint implants/screws Surgical History Surgery Date(Month/Year) gall bladder 1970 right knee replacement 12/2014 left knee replacement 02/2016 cataract surgery 2021 Hospitalization History Reason Date(Month/Year[place] [facility] [place] cat scan and x-ray left knee 01/14
== END 2025-08-07 15:54 | disposition home or self-care (01) ==
LOC: HO.HAP 15:53
PROVIDERS: Visit Provider Internal Medicine
DX: Z46.1 Encounter for fitting and adjustment of hearing aid (principal); H90.3 Sensorineural hearing loss, bilateral
CPT/HCPCS: V5267

== ENCOUNTER 2025-08-14 12:31 | Outpatient (REF) | payer SELFPAY ==
--- OUTSIDE RECORDS SUMMARY | 2025-07-02 07:00 | XMS_ITS ---
Author Organization [facility] Address [address] [place] [address] Care Team Providers Care Frontend Engineer Name Role Phone Jessica Martinez Primary Care Provider Tiffanie Castro [phone] Menon Encounters Encounter Location Date Provider Diagnosis [address] [address] 07/02/2025 Tiffanie Hicks Plan Of Treatment Next Appt Details Provider Name:Tiffanie alejandre, 09/24/2025 03:45:00 PM, [address] [place], [address], Progress Notes * Bi STACKOB:07/14 (85 yo F)Acc No.[id number]:07/02/2025 Progress Note Patient: Marily PRINCE Provider: Gordo Hicks DPM :1940 A ge:84 Y S ex:Female Date:07/02/2025 Address:[address] [place] [address] [facility] [facility] Pcp:Jessica Martinez Subjective: * Chief Complaints: * [...] 07/02/2025 Generated for Liban brock/Juanpablo/Kishore on: 0 08/14/2025 03:02 PM EDT
--- OUTSIDE RECORDS SUMMARY | 2025-07-17 07:00 | XMS_ITS ---
Author Organization [facility] Address [address] [place] [address] Care Team Providers Care Manager Of Pmo Name Role Phone Jessica Martinez Primary Care Provider Tiffanie Castro Unavailable [phone] Allergies Allergen (clinical drug ingredient) Drug/Non Drug [...] Active Encounters Encounter Location Date Provider Diagnosis [facility] [address] [place] [address] 07/17/2025 Tiffanie Hicks Plan Of Treatment Next Appt Details Provider Name:Tiffanie alejandre, 09/24/2025 03:45:00 PM, [address] [place], [address], Progress Notes * Bi STACKOB:[birth year] (85 yo F)Acc No.[id number]:07/17/2025 Progress Note Patient: Hilario KERNMarily ZUÑIGA Provider: Gordo Hicks DPM :1940 A ge:85 Y S ex:Female Date:07/17/2025 Address:[address], [facility] Pcp:Jessica Martinez Subjective: * Chief Complaints: * [...] 07/17/2025 Generated for Liban brock/Juanpablo/Kishore on: 0 08/14/2025 03:02 PM EDT
--- NOTE | 2025-08-14 14:17 | MHC.AU.HA3 ---
Hearing Instrument Follow-Up- Binaural Date of Visit: 08/14/25 Right Ear: Make, Model, Color, Serial Number: Oticon Real 2 miniRITE-R SN: [id number] Color: Chroma Beige Retail Sales Merchandiser Development Repair Warranty: 08/05/2026 Retail Sales Merchandiser Development Loss and Damage Warranty: 08/05/2026 [facility] Service Plan: 08/31/2026 Battery Size: Rechargeable Machine Set Up/Slim Tube: 2/85 Earmold/Dome/CShell/SlimTip:6mm double white dome with retention tail Type of Wax Guard: miniFit Dispensed By: [facility] Date of Fittin08/31/2023 Left Ear: Make, Model, Color, Serial Number: Oticon Real 2 miniRITE-R SN: [id number] Color: Chroma Beige Retail Sales Merchandiser Development Repair Warranty: 08/05/2026 Retail Sales Merchandiser Development Loss and Damage Warranty: USED [facility] Service Plan: 08/31/2026 Battery Size: Rechargeable Machine Set Up/Slim Tube: 2/85 Earmold/Dome/CShell/SlimTip: 6mm double white dome with retention tail Type of Wax Guard: miniFit Dispensed By: [facility] Date of Fittin08/31/2023 Follow-Up Summary: Accompanied by daughter, Iwona. Fit left L&D replacement GEE. Added retention tails to help with security of fit. Had stroke in May. Questions change in hearing since then, not hearing as well even with HAs. Marily will request order from PCP for updated test. Recommendations: Hearing instrument follow-up or maintenance as needed. Please contact our clinic with any questions or concerns. Diagnosis Code(s): Primary Diagnosis: H90.3 Bilateral Sensorineural Hearing Loss Signature: Provider: Paco Tavera, [facility]
--- OUTSIDE RECORDS SUMMARY | 2025-08-14 15:02 | XMS_ITS | Patient Health Record ---
Author Organization [facility] Address [address] [place] [address] Care Team Providers Care Resource Conservation Specialist Name Role Phone Jessica Martinez MD Primary Care Provider Marques Marie Unavailable [phone] Allergies Allergen (clinical drug ingredient) Drug/Non Drug [...] Problem Status W/U Status Risk Notes Problem 561733166 Encounter for screening for malignant neoplasm of colon (Z12.11) Active confirmed Problem 848677456784867 Preprocedural examination (Z01.818) Active confirmed Problem 512380179 Aspirin long-ter m use (Z79.82) Active confirmed Plan Of Treatment Future Test Test Name Order Date COLONOSCOPY 03/30/2018 Insurance Providers Payer Name Payer Address Payer Phone Subscriber Number Group Number Insured Name Patient Relationship to Insured Coverage Start Date Coverage End Date MED[place]ARE [place] [address] [place] [id number] INEZ STACK Self - patient is the insured MEDEX ATTN CLAIMS [address] [place] [address] [id number] INEZ STACK Self - patient is the insured Medical (General) History Medical History History ICD Code Hypertension Hypercholesterolemia Osteoporosis Seasonal allergies Fracture pelvis 2014 Negative colonoscopy in 11/2004--divertic ulosis Denies VA,DM,CVA,Lung disease,renal dise ase Surgical History Surgery Date(Month/Year) Cholecystectomy Appendectomy Laser therapy for a detached retina in t he right eye D&C Right knee replacement 12/31/2014 Left knee replacement 02/2015
--- OUTSIDE RECORDS SUMMARY | 2025-08-14 15:02 | XMS_ITS | Clinical Summary ---
Author Organization [facility] Address [address] [place] [address] Phone Care Team Providers Care Baker Biscuit Name Role Phone Jessica Martinez MD Primary Care Provider [phone] Encounters Date Type Department Care Team Description 05/31/2025 Documentation Only [facility] [place], [address] [place] [address] [place] from Last 3 [...] patient's age to complete this topic Insurance [facility] Medicare Care Teams Baker Biscuit Relationship Specialty Start Date End Date Jessica Martinez MD [facility] [address] [place], [place] PCP - General Internal Medicine 05/31/25
--- OUTSIDE RECORDS SUMMARY | 2025-08-14 15:03 | XMS_ITS | Patient Health Record ---
Author Organization [facility] Address [address] [facility] [place] [address] Care Team Providers Care Loss Prevention Supervisor Name Role Phone Jessica Martinez Primary Care Provider Tiffanie Castro Unavailable [phone] Allergies Allergen (clinical drug ingredient) Drug/Non Drug [...] W/U Status Risk Notes Problem Plantar wart (78157983) Plantar wart (B07.0) Active confirmed Problem Localized, primary osteoarthritis of the ankle and/or foot (791810418) Osteoarthritis of right ankle and foot (M19.071) Active confirmed Problem Localized, primary osteoarthritis of the ankle and/or foot (216654667) Osteoarthritis of left ankle and foot (M19.072) Active confirmed Vital Signs Blood pressure diastolic 68 mm Hg 03/26/2025 Height 5 ft 3 in in 03/26/2025 Blood pressure systolic 130 mm Hg 03/26/2025 Weight 148 lbs 03/26/2025 BMI 26.21 kg/m2 03/26/2025 Encounters Encounter Location Date Provider Diagnosis [address] [address] 09/21/2024 Tiffanie Perica Tinea pedis of both feet B35.3 ; Plantar wart B07.0 ; Tinea unguium B35.1 ; Pain in right toe(s) M79.674 ; Pain in left toe(s) M79.675 and Left foot pain M79.[address] [address] 12/25/2024 Tiffanie Perica Tinea pedis of both feet B35.3 ; Plantar wart B07.0 ; Tinea unguium B35.1 ; Pain in right toe(s) M79.674 ; Pain in left toe(s) M79.675 and Left foot pain M79.[address] [address] 03/26/2025 Tiffanie Perica Plantar wart B07.0 ; Tinea unguium B35.1 ; Pain in right toe(s) M79.674 ; Pain in left toe(s) M79.675 and Left foot pain M79.[address] [address] 03/26/2025 Tiffanie Perica [address] [address] 07/15/2025 Tiffanie Hicks Assessments Encounter Date Diagnosis [...] Provider Name:Tiffanie alejandre, 09/24/2025 03:45:00 PM, [address] [facility], [place], [address], Insurance Providers Payer Name Payer Address Payer Phone Subscriber Number Group Number Insured Name Patient Relationship to Insured Coverage Start Date Coverage End Date Medicare National Govt Svcs Inc [address] [place] [address] [id number] ChrisyumikoMarily egan Self - patient is the insured [employer] [address] [place] [address] [id number] Marily Llanos Self - patient is the insured Medical (General) History Medical History History ICD Code Arthritis CAD (Cholesterol) Measles Mumps Chicken pox Gall bladder problems High blood pressure Osteoporosis Joint implants/screws Surgical History Surgery Date(Month/Year) gall bladder 1970 right knee replacement 12/2014 left knee replacement 02/2016 cataract surgery 2021 Hospitalization History Reason Date(Month/Year) [facility] [place]- [place] - cat scan and x-ray left knee 01/14
--- OUTSIDE RECORDS SUMMARY | 2025-08-14 15:03 | XMS_ITS | Clinical Summary ---
Author Organization [facility] Address [address] [place] [address] Phone Care Team Providers Care Tool Grinding Machine Operator Name Role Phone Kemi Knott MD Primary Care Provider + Encounters Date Type Department Care Team Description 07/09/2025 Transcribe [facility] [address] [facility] 3rd Floor, [address] [place] [address] Manolo Jordan Atrial fibrillation, unspecified type (Primary [...] Upcoming Encounters Date Type Department Care Team (Latest Contact Info) Description 12/18/2025 1:40 PM EST Ancillary Procedure [facility] [address] [facility] 3rd Floor, [address] [place], [place] [id number] Yemi Beckford MD [address] [facility], [address] [place] [address] [email or web address] Health Maintenance Due Date Last Done Comments [...] file Insurance MEDICARE PART A & B [employer] MEDEX SUPPLEMENT MEDICARE PART A & B [employer] MEDEX SUPPLEMENT MEDICARE PART A & B [employer] MEDEX SUPPLEMENT MEDICARE PART A & B [employer] MEDEX SUPPLEMENT MEDICARE PART A & B [employer] SUPPLEMENT MEDICARE PART A & B [employer] SUPPLEMENT Care Teams Tool Grinding Machine Operator Relationship Specialty Start Date End Date Kemi Knott MD [address] [place] [address] [email or web address] PCP - General Family Medicine 07/09/25 Additional Source Comments The information contained in this document represents components of the legal health record. It is not the complete legal health record.[facility]
--- OUTSIDE RECORDS SUMMARY | 2025-08-14 15:03 | XMS_ITS | Encounter Summary ---
Author Organization [facility], Address [address] [place] [address] Phone Care Team Providers Care Front Desk Monitor Name Role Phone Jessica Martinez MD Primary Care Provider [phone] Encounter Details Date Type Department Care Team (Late st Contact Info) Description 05/31/2025 Documentation Only [facility], [address] [place] [address] [place], [place] [address] [place] [address] Social History Tobacco Use Types [...] on filedocumented in this encounter Care Teams Front Desk Monitor Relationship Specialty Start Date End Date Jessica Martinez MD [facility] [address] [place], [place] PCP - General Internal Medicine 05/31/25 documented as of this encounter
== END 2025-08-14 12:32 | disposition home or self-care (01) ==
LOC: HO.HAP 12:31
PROVIDERS: Visit Provider Internal Medicine
DX: Z46.1 Encounter for fitting and adjustment of hearing aid (principal); H90.3 Sensorineural hearing loss, bilateral
CPT/HCPCS: V5299

== ENCOUNTER 2025-08-15 15:37 | Outpatient (REF) | payer MEDICARE, SELFPAY ==
--- OUTSIDE RECORDS SUMMARY | 2025-07-02 07:00 | XMS_ITS ---
Author Organization [facility] Address [address] [place] [address] Care Team Providers Care Stage Hand Name Role Phone Jessica Martinez Primary Care Provider Tiffanie Castro [phone] Menon Encounters Encounter Location Date Provider Diagnosis [address] [address] 07/02/2025 Tiffanie Hicks Plan Of Treatment Next Appt Details Provider Name:Tiffanie alejandre, 09/24/2025 03:45:00 PM, [address] [place], [address], Progress Notes * Bi STACKOB:07/14 (85 yo F)Acc No.[id number]:07/02/2025 Progress Note Patient: Marily PRINCE Provider: Gordo Hicks DPM :1940 A ge:84 Y S ex:Female Date:07/02/2025 Address:[address] [place] [address] [facility] Pcp:Jessica Martinez Subjective: * Chief Complaints: * [...] 07/02/2025 Generated for Liban brock/Juanpablo/Kishore on: 0 08/15/2025 07:44 PM EDT
--- OUTSIDE RECORDS SUMMARY | 2025-07-17 07:00 | XMS_ITS ---
Author Organization [facility] Address [address] [place] [address] Care Team Providers Care Human Service Worker Name Role Phone Jessica Martinez Primary Care Provider Tiffanie Castro Unavailable [phone] Allergies Allergen (clinical drug ingredient) Drug/Non Drug [...] Active Encounters Encounter Location Date Provider Diagnosis [facility] [address] [place] [address] 07/17/2025 Tiffanie Hicks Plan Of Treatment Next Appt Details Provider Name:Tiffanie alejandre, 09/24/2025 03:45:00 PM, [address] [place], [address], Progress Notes * Bi STACKOB:[birth year] (85 yo F)Acc No.[id number]:07/17/2025 Progress Note Patient: Hilario KERNMarily ZUÑIGA Provider: Gordo Hicks DPM :1940 A ge:85 Y S ex:Female Date:07/17/2025 Address:[address], [facility] Pcp:Jessica Martinez Subjective: * Chief Complaints: * [...] 0 07/17/2025 Generated for Liban brock/Juanpablo/Kishore on: 0 08/15/2025 07:43 PM EDT
--- OUTSIDE RECORDS SUMMARY | 2025-08-15 19:42 | XMS_ITS | Encounter Summary ---
Author Organization [facility], Address [address] [place] [address] Phone Care Team Providers Care Anesthesiology Resident Name Role Phone Jessica Martinez MD Primary Care Provider Encounter Details Date Type Department Care Team (Late st Contact Info) Description 05/31/2025 Documentation Only [facility], [address] [place] [address] [place], [place] [address] [place] [address] Social History Tobacco Use Types [...] on filedocumented in this encounter Care Teams Anesthesiology Resident Relationship Specialty Start Date End Date Jessica Martinez MD [facility] [place] [address] [place], [place] PCP - General Internal Medicine 05/31/25 documented as of this encounter
--- OUTSIDE RECORDS SUMMARY | 2025-08-15 19:42 | XMS_ITS | Patient Health Record ---
Author Organization [facility] Address [address] [place] [address] Care Team Providers Care Laser Beam Machine Operator Name Role Phone Jessica Martinez MD Primary Care Provider Marques Marie Unavailable [phone] Allergies Allergen (clinical drug ingredient) Drug/Non Drug [...] Problem Status W/U Status Risk Notes Problem 233490412 Encounter for screening for malignant neoplasm of colon (Z12.11) Active confirmed Problem [id number] Preprocedural examination (Z01.818) Active confirmed Problem 232260143 Aspirin long-ter m use (Z79.82) Active confirmed Plan Of Treatment Future Test Test Name Order Date COLONOSCOPY 03/30/2018 Insurance Providers Payer Name Payer Address Payer Phone Subscriber Number Group Number Insured Name Patient Relationship to Insured Coverage Start Date Coverage End Date MEDICARE OF [place] [address] [place] [id number] IENZ STACK Self - patient is the insured MEDEX ATTN CLAIMS [address] [place] [address] [id number] INEZ STACK Self - patient is the insured Medical (General) History Medical History History ICD Code Hypertension Hypercholesterolemia Osteoporosis Seasonal allergies Fracture pelvis 2014 Negative colonoscopy in 11/2004--divertic ulosis Denies PR,DM,CVA,Lung disease,renal dise ase Surgical History Surgery Date(Month/Year) Cholecystectomy Appendectomy Laser therapy for a detached retina in t he right eye D&C Right knee replacement 12/31/2014 Left knee replacement 02/2015
--- OUTSIDE RECORDS SUMMARY | 2025-08-15 19:42 | XMS_ITS | Clinical Summary ---
Author Organization [facility] Address [address] [place] [address] Phone Care Team Providers Care Field Handyman Name Role Phone Jessica Martinez MD Primary Care Provider Encounters Date Type Department Care Team Description 05/31/2025 Documentation Only [facility], [address] [place] [address] [place] from Last 3 [...] patient's age to complete this topic Insurance [facility] Medicare Care Teams Field Handyman Relationship Specialty Start Date End Date Jessica Martinez MD [facility] INTERNAL [address] [place], [place] PCP - General Internal Medicine 05/31/25
--- OUTSIDE RECORDS SUMMARY | 2025-08-15 19:43 | XMS_ITS | Clinical Summary ---
Author Organization [facility] Address [address] [place] [address] Phone Care Team Providers Care Spin Tank Tender Name Role Phone Kemi Knott MD Primary Care Provider + Encounters Date Type Department Care Team Description 07/09/2025 Transcribe [facility] [address] [facility] 3rd Floor, [address] [place] [address] Manolo Jordan Atrial fibrillation, unspecified type (Primary [...] Description 12/18/2025 1:40 PM EST Office Visit [facility] [address] [place] [address] [address]rd Floor, [address] [place], [place] [phone] Yemi Beckford MD [address] [facility], [address] [place] [address] [email or web address] Health Maintenance Due Date Last Done Comments [...] file Insurance MEDICARE PART A & B [employer] MEDEX SUPPLEMENT MEDICARE PART A & B [employer] MEDEX SUPPLEMENT MEDICARE PART A & B [employer] MEDEX SUPPLEMENT MEDICARE PART A & B [employer] MEDEX SUPPLEMENT MEDICARE PART A & B [employer] SUPPLEMENT MEDICARE PART A & B [employer] SUPPLEMENT Care Teams Spin Tank Tender Relationship Specialty Start Date End Date Kemi Knott MD [address] [place] [phone] [email or web address] PCP - General Family Medicine 07/09/25 Additional Source Comments The information contained in this document represents components of the legal health record. It is not the complete legal health record.[facility]
--- OUTSIDE RECORDS SUMMARY | 2025-08-15 19:44 | XMS_ITS | Patient Health Record ---
Author Organization [facility] Address [address] [facility] [place] [address] Care Team Providers Care Esthetician And Manager Medical Spa Name Role Phone Jessica Martinez Primary Care Provider Tiffanie Castro Unavailable [phone] Allergies Allergen (clinical drug ingredient) Drug/Non Drug [...] W/U Status Risk Notes Problem Plantar wart (85478957) Plantar wart (B07.0) Active confirmed Problem Localized, primary osteoarthritis of the ankle and/or foot (993203736) Osteoarthritis of right ankle and foot (M19.071) Active confirmed Problem Localized, primary osteoarthritis of the ankle and/or foot (405324929) Osteoarthritis of left ankle and foot (M19.072) Active confirmed Vital Signs Blood pressure diastolic 68 mm Hg 03/26/2025 Height 5 ft 3 in in 03/26/2025 Blood pressure systolic 130 mm Hg 03/26/2025 Weight 148 lbs 03/26/2025 BMI 26.21 kg/m2 03/26/2025 Encounters Encounter Location Date Provider Diagnosis [address] [address] 09/21/2024 Tiffanie Perica Tinea pedis of both feet B35.3 ; Plantar wart B07.0 ; Tinea unguium B35.1 ; Pain in right toe(s) M79.674 ; Pain in left toe(s) M79.675 and Left foot pain M79.[address] [address] 12/25/2024 Tiffanie Perica Tinea pedis of both feet B35.3 ; Plantar wart B07.0 ; Tinea unguium B35.1 ; Pain in right toe(s) M79.674 ; Pain in left toe(s) M79.675 and Left foot pain M79.[address] [address] 03/26/2025 Tiffanie Perica Plantar wart B07.0 ; Tinea unguium B35.1 ; Pain in right toe(s) M79.674 ; Pain in left toe(s) M79.675 and Left foot pain M79.[address] [address] 03/26/2025 Tiffanie Perica [address] [address] 07/15/2025 Tiffanie Hicks Assessments Encounter Date Diagnosis [...] Provider Name:Tiffanie alejandre, 09/24/2025 03:45:00 PM, [address] [facility], [place], [address], Insurance Providers Payer Name Payer Address Payer Phone Subscriber Number Group Number Insured Name Patient Relationship to Insured Coverage Start Date Coverage End Date Medicare National Govt Svcs Inc [address] [place] [address] [id number] ChrisyumikoMarily egan Self - patient is the insured [employer] [address] [place] [address] [id number] Marily Llanos Self - patient is the insured Medical (General) History Medical History History ICD Code Arthritis CAD (Cholesterol) Measles Mumps Chicken pox Gall bladder problems High blood pressure Osteoporosis Joint implants/screws Surgical History Surgery Date(Month/Year) gall bladder 1970 right knee replacement 12/2014 left knee replacement 02/2016 cataract surgery 2021 Hospitalization History Reason Date(Month/Year) [facility] [place]- [place] - cat scan and x-ray left knee 01/14
[2025-08-16 08:01] LABS: Appearance Urine Clear; Glucose Urine UA Negative (Negative); PH 6.0 (5.0-9.0); Specific Gravity - Urine 1.015 (1.005-1.025); UMIC TRIGGER UACC YES
== END 2025-08-15 15:38 | disposition home or self-care (01) ==
LOC: HO.LAB 15:37
PROVIDERS: PCP Internal Medicine; Visit Provider Internal Medicine
DX: K21.9 Gastro-esophageal reflux disease without esophagitis (principal); R30.0 Dysuria
CPT/HCPCS: 81001; 81003

== ENCOUNTER 2025-08-17 07:53 | Outpatient (REF) | payer MEDICARE, SELFPAY ==
--- OUTSIDE RECORDS SUMMARY | 2025-07-02 07:00 | XMS_ITS ---
Author Organization [facility] Address [address] [place] [address] Care Team Providers Care Axle And Frame Mechanic Name Role Phone Jessica Martinez Primary Care Provider Tiffanie Castro [phone] Menon Encounters Encounter Location Date Provider Diagnosis [address] [address] 07/02/2025 Tiffanie Hicks Plan Of Treatment Next Appt Details Provider Name:Tiffanie alejandre, 09/24/2025 03:45:00 PM, [address] [place], [address], Progress Notes * Bi STACKOB:07/14 (85 yo F)Acc No.[id number]:07/02/2025 Progress Note Patient: Marily PRINCE Provider: Gordo Hicks DPM :1940 A ge:84 Y S ex:Female Date:07/02/2025 Address:[address] [place] [address] [address] [facility] Pcp:Jessica Martinez Subjective: * Chief Complaints: * [...] DPM Date: 0 07/02/2025 Generated for Liban brock/Juapnablo/Kishore on: 0 08/17/2025 07:56 AM EDT
--- OUTSIDE RECORDS SUMMARY | 2025-07-17 07:00 | XMS_ITS ---
Author Organization [facility] Address [address] [place] [address] Care Team Providers Care Tenter Name Role Phone Jessica Martinez Primary Care Provider Tiffanie Castro Unavailable [phone] Allergies Allergen (clinical drug ingredient) Drug/Non Drug [...] Active Encounters Encounter Location Date Provider Diagnosis [facility] [address] [place] [address] 07/17/2025 Tiffanie Hicks Plan Of Treatment Next Appt Details Provider Name:Tiffanie alejandre, 09/24/2025 03:45:00 PM, [address] [place], [address], Progress Notes * Bi STACKOB:[birth year] (85 yo F)Acc No.[id number]:07/17/2025 Progress Note Patient: Hilario KERNMarily ZUÑIGA Provider: Gordo Hicks DPM :1940 A ge:85 Y S ex:Female Date:07/17/2025 Address:[address], [facility] Pcp:Jessica Martinez Subjective: * Chief Complaints: * [...] 07/17/2025 Generated for Liban brock/Juanpablo/Kishore on: 0 08/17/2025 07:55 AM EDT
--- OUTSIDE RECORDS SUMMARY | 2025-08-17 07:55 | XMS_ITS | Clinical Summary ---
Author Organization [facility] Address [address] [place] [address] Phone Care Team Providers Care Fuel Cell Assembler Name Role Phone Jessica Martinez MD Primary Care Provider [phone] Encounters Date Type Department Care Team Description 05/31/2025 Documentation Only [facility] [place], [address] [place] [address] [place] from Last 3 [...] patient's age to complete this topic Insurance [facility] Medicare Care Teams Fuel Cell Assembler Relationship Specialty Start Date End Date Jessica Martinez MD [facility] INTER[facility] [address] [place], [place] PCP - General Internal Medicine 05/31/25
--- OUTSIDE RECORDS SUMMARY | 2025-08-17 07:55 | XMS_ITS | Patient Health Record ---
Author Organization [facility] Address [address] [place] [address] Care Team Providers Care Helpdesk Administrator Name Role Phone Jessica Martinez MD Primary Care Provider Marques Marie Unavailable [phone] Allergies Allergen (clinical drug ingredient) Drug/Non Drug [...] Problem Status W/U Status Risk Notes Problem 785849173 Encounter for screening for malignant neoplasm of colon (Z12.11) Active confirmed Problem 596826083477003 Preprocedural examination (Z01.818) Active confirmed Problem 354133325 Aspirin long-ter m use (Z79.82) Active confirmed Plan Of Treatment Future Test Test Name Order Date COLONOSCOPY 03/30/2018 Insurance Providers Payer Name Payer Address Payer Phone Subscriber Number Group Number Insured Name Patient Relationship to Insured Coverage Start Date Coverage End Date MEDICARE OF [place] [address] [place] [id number] INEZ STACK Self - patient is the insured MEDEX ATTN CLAIMS [address] [place] [address] [id number] INEZ STACK Self - patient is the insured Medical (General) History Medical History History ICD Code Hypertension Hypercholesterolemia Osteoporosis Seasonal allergies Fracture pelvis 2014 Negative colonoscopy in 11/2004--divertic ulosis Denies SC,DM,CVA,Lung disease,renal dise ase Surgical History Surgery Date(Month/Year) Cholecystectomy Appendectomy Laser therapy for a detached retina in t he right eye D&C Right knee replacement 12/31/2014 Left knee replacement 02/2015
--- OUTSIDE RECORDS SUMMARY | 2025-08-17 07:56 | XMS_ITS | Encounter Summary ---
Author Organization [facility], Address [address] [place] [address] Phone Care Team Providers Care Chimney Builder Name Role Phone Jessica Martinez MD Primary Care Provider [phone] Encounter Details Date Type Department Care Team (Late st Contact Info) Description 05/31/2025 Documentation Only [facility], [address] [place] [address] [place], [place] [address] [place] [address] Social History Tobacco Use Types [...] on filedocumented in this encounter Care Teams Chimney Builder Relationship Specialty Start Date End Date Jessica Martinez MD [facility] [address] [place], [place] PCP - General Internal Medicine 05/31/25 documented as of this encounter
--- OUTSIDE RECORDS SUMMARY | 2025-08-17 07:56 | XMS_ITS | Clinical Summary ---
Author Organization [facility] Address [address] [place] [address] Phone Care Team Providers Care Event Technician Name Role Phone Kemi Knott MD Primary Care Provider + Encounters Date Type Department Care Team Description 07/09/2025 Transcribe [facility] [address] [place] [address] 3rd Floor, [address] [place] [address] Manolo Jordan Atrial fibrillation, unspecified type (Primary [...] Description 12/18/2025 1:40 PM EST Office Visit [facility] [address] [place] [address] 3rd Floor, [address] [place], [place] [address] Yemi Beckford MD [address] [facility], [address] [place] [address] [email or web address] Health Maintenance Due Date Last Done Comments [...] file Insurance MEDICARE PART A & B [employer] MEDEX SUPPLEMENT MEDICARE PART A & B [employer] MEDEX SUPPLEMENT MEDICARE PART A & B [employer] MEDEX SUPPLEMENT MEDICARE PART A & B [employer] MEDEX SUPPLEMENT MEDICARE PART A & B [employer] SUPPLEMENT MEDICARE PART A & B [employer] SUPPLEMENT Care Teams Event Technician Relationship Specialty Start Date End Date Kemi Knott MD [address] [place] [address] [email or web address] PCP - General Family Medicine 07/09/25 Additional Source Comments The information contained in this document represents components of the legal health record. It is not the complete legal health record.[facility]
--- OUTSIDE RECORDS SUMMARY | 2025-08-17 07:56 | XMS_ITS | Patient Health Record ---
Author Organization [facility] Address [address] [facility] [place] [address] Care Team Providers Care Ehs Engineer Name Role Phone Jessica Martinez Primary Care Provider Tiffanie Castro Unavailable [phone] Allergies Allergen (clinical drug ingredient) Drug/Non Drug [...] W/U Status Risk Notes Problem Plantar wart (98770366) Plantar wart (B07.0) Active confirmed Problem Localized, primary osteoarthritis of the ankle and/or foot (518306153) Osteoarthritis of right ankle and foot (M19.071) Active confirmed Problem Localized, primary osteoarthritis of the ankle and/or foot (911836900) Osteoarthritis of left ankle and foot (M19.072) Active confirmed Vital Signs Blood pressure diastolic 68 mm Hg 03/26/2025 Height 5 ft 3 in in 03/26/2025 Blood pressure systolic 130 mm Hg 03/26/2025 Weight 148 lbs 03/26/2025 BMI 26.21 kg/m2 03/26/2025 Encounters Encounter Location Date Provider Diagnosis [address] [address] 09/21/2024 Tiffanie Perica Tinea pedis of both feet B35.3 ; Plantar wart B07.0 ; Tinea unguium B35.1 ; Pain in right toe(s) M79.674 ; Pain in left toe(s) M79.675 and Left foot pain M79.[address] [address] 12/25/2024 Tiffanie Perica Tinea pedis of both feet B35.3 ; Plantar wart B07.0 ; Tinea unguium B35.1 ; Pain in right toe(s) M79.674 ; Pain in left toe(s) M79.675 and Left foot pain M79.[address] [address] 03/26/2025 Tiffanie Perica Plantar wart B07.0 ; Tinea unguium B35.1 ; Pain in right toe(s) M79.674 ; Pain in left toe(s) M79.675 and Left foot pain M79.[address] [address] 03/26/2025 Tiffanie Perica [address] [address] 07/15/2025 Tiffanie Hicks Assessments Encounter Date Diagnosis [...] Provider Name:Tiffanie alejandre, 09/24/2025 03:45:00 PM, [address] [facility], [place], [address], Insurance Providers Payer Name Payer Address Payer Phone Subscriber Number Group Number Insured Name Patient Relationship to Insured Coverage Start Date Coverage End Date Medicare National Govt Svcs Inc [address] [place] [address] [id number] ChrisyumikoMarily egan Self - patient is the insured [email or web address] [address] [place] [address] [id number] Marily Llanos Self - patient is the insured Medical (General) History Medical History History ICD Code Arthritis CAD (Cholesterol) Measles Mumps Chicken pox Gall bladder problems High blood pressure Osteoporosis Joint implants/screws Surgical History Surgery Date(Month/Year) gall bladder 1970 right knee replacement 12/2014 left knee replacement 02/2016 cataract surgery 2021 Hospitalization History Reason Date(Month/Year) [facility] [place] - cat scan and x-ray left knee 01/14
[2025-08-17 08:28] LABS: MANUAL DIFF FLAG NO
[2025-08-17 08:56] LABS: Hematocrit 42.0 % (37.0-47.0); Hemoglobin 14.5 g/dl (12.0-16.0); Imm Gran Abs Auto 0.03 X10*3/uL (0.00-0.03); Imm Gran Pct Auto 0.5 % (0.0-0.4); Lymphocytes Absolute Auto 1.2 X10*3/uL (1.2-4.9); Mean Corpuscular HGB Conc 34.5 g/dl (31.0-35.0); Mean Corpuscular Hemoglobin 29.7 pg (27.0-33.0); Mean Corpuscular Volume 85.9 fL (80.0-98.0); NRBC Abs Auto 0.000 X10*3/uL (0.0-0.012); NRBC Pct Auto 0.0 /100WBC (0.0-0.2); Platelet Count 282 X10*3/uL (160-400); Red Blood Count 4.89 X10*6/uL (4.20-5.50); White Blood Count 6.7 X10*3/uL (4.8-10.8)
[2025-08-17 09:09] LABS: Appearance Urine Clear; Glucose Urine UA Negative (Negative); PH 7.0 (5.0-9.0); Specific Gravity - Urine 1.010 (1.005-1.025); UMIC TRIGGER UACC YES
[2025-08-17 09:37] LABS: Alanine Aminotransferase 33 U/L (0-31); Albumin Level 4.2 g/dL (3.5-5.0); Alkaline Phosphatase 93 U/L (39-117); Anion Gap 12 (12-20); Aspartate Amino Transferase 28 U/L (5-31); Blood Urea Nitrogen 8 mg/dL (9-16); Calcium 9.2 mg/dL (8.4-10.2); Carbon Dioxide 26 mmol/L (22-29); Chloride 98 mmol/L (96-108); Cholesterol 152 mg/dL (<200); Estimated Glomerular Filt Rate > 60; HDL Cholesterol 46 mg/dL (>40); Potassium 4.7 mmol/L (3.3-5.1); Sodium 131 mmol/L (135-145); Total Protein 6.9 g/dL (6.5-8.0); Triglycerides 119 mg/dL (<150)
[2025-08-17 10:02] LABS: Folate 11.1 ng/mL (> or = 4.0); Vitamin B12 434 pg/mL (200-900)
[2025-08-17 10:06] LABS: Free T4 (Free Thyroxine) 1.15 ng/dL (0.71-1.85); Thyroid Stimulating Hormone 1.73 uIU/mL (0.32-4.0)
== END 2025-08-17 07:54 | disposition home or self-care (01) ==
LOC: HO.LAB 07:53
PROVIDERS: PCP Internal Medicine; Visit Provider Internal Medicine
DX: Z13.21 Encounter for screening for nutritional disorder (principal); K21.9 Gastro-esophageal reflux disease without esophagitis; E78.00 Pure hypercholesterolemia, unspecified
CPT/HCPCS: 36415; 80053; 80061; 81001; 81003; 82306; 82607; 82746; 84439; 84443; 85025

== ENCOUNTER 2025-08-23 09:52 | Outpatient (REF) | payer SELFPAY ==
--- OUTSIDE RECORDS SUMMARY | 2025-07-02 07:00 | XMS_ITS ---
Author Organization [facility] Address [address] [place] [address] Care Team Providers Care Fiction And Nonfiction Prose Writer Name Role Phone Jessica Martinez Primary Care Provider Tiffanie Castro [phone] Menon Encounters Encounter Location Date Provider Diagnosis [address] [address] 07/02/2025 Tiffanie Hicks Plan Of Treatment Next Appt Details Provider Name:Tiffanie alejandre, 09/24/2025 03:45:00 PM, [address] [place], [address], Progress Notes * Bi STACKOB:07/14 (85 yo F)Acc No.[id number]:07/02/2025 Progress Note Patient: Marily PRINCE Provider: Gordo Hicks DPM :1940 A ge:84 Y S ex:Female Date:07/02/2025 Address:[address] [place] [address] Yose[address] [facility] Pcp:Jessica Martinez Subjective: * Chief Complaints: * [...] 07/02/2025 Generated for Liban brock/Juanpablo/Kishore on: 1 10:32 AM EDT
--- OUTSIDE RECORDS SUMMARY | 2025-07-17 07:00 | XMS_ITS ---
Author Organization [facility] Address [address] [place] [address] Care Team Providers Care Body Joiner Name Role Phone Jessica Martinez Primary Care Provider Tiffanie Castro Unavailable [phone] Allergies Allergen (clinical drug ingredient) Drug/Non Drug [...] Active Encounters Encounter Location Date Provider Diagnosis [facility] [address] [place] [address] 07/17/2025 Tiffanie Hicks Plan Of Treatment Next Appt Details Provider Name:Tiffanie alejandre, 09/24/2025 03:45:00 PM, [address] [place], [address], Progress Notes * Bi STACKOB:[birth year] (85 yo F)Acc No.[id number]:07/17/2025 Progress Note Patient: Hilario KERNMarily ZUÑIGA Provider: Gordo Hicks DPM :1940 A ge:85 Y S ex:Female Date:07/17/2025 Address:[address], [facility] Pcp:Jessica Martinez Subjective: * Chief Complaints: * [...] 07/17/2025 Generated for Liban brock/Juanpablo/Kishore on: 1 10:32 AM EDT
--- OUTSIDE RECORDS SUMMARY | 2025-08-23 10:32 | XMS_ITS | Clinical Summary ---
Author Organization [facility] Address [address] [place] [address] Phone Care Team Providers Care Garden Consultant Name Role Phone Kemi Knott MD Primary Care Provider + Encounters Date Type Department Care Team Description 07/09/2025 Transcribe [facility] [address] [facility] 3rd Floor, [address] [place] [address] Manolo Jordan Atrial fibrillation, unspecified type (Primary [...] Description 12/18/2025 1:40 PM EST Office Visit [facility] [address] [place] [address] 3rd Floor, [address] [place], [place] [phone] Yemi Beckford MD [address] [facility], [address] [place] [address] [email or web address] Health Maintenance Due Date Last [...] file Insurance MEDICARE PART A & B [email or web address] MEDEX SUPPLEMENT MEDICARE PART A & B [email or web address] MEDEX SUPPLEMENT MEDICARE PART A & B [email or web address] MEDEX SUPPLEMENT MEDICARE PART A & B [email or web address] MEDEX SUPPLEMENT MEDICARE PART A & B [employer] SUPPLEMENT MEDICARE PART A & B [email or web address] SUPPLEMENT Care Teams Garden Consultant Relationship Specialty Start Date End Date Kemi Knott MD [address] [place] [address] [email or web address] PCP - General Family Medicine 07/09/25 Additional Source Comments The information contained in this document represents components of the legal health record. It is not the complete legal health record.[facility]
--- OUTSIDE RECORDS SUMMARY | 2025-08-23 10:32 | XMS_ITS | Patient Health Record ---
Author Organization [facility] [place] Address [address] [facility] [place] [address] Care Team Providers Care Production Coordinator Name Role Phone Jessica Martinez Primary Care Provider Tiffanie Castro Unavailable [phone] Allergies Allergen (clinical drug ingredient) Drug/Non Drug [...] W/U Status Risk Notes Problem Plantar wart (90114637) Plantar wart (B07.0) Active confirmed Problem Localized, primary osteoarthritis of the ankle and/or foot (459170138) Osteoarthritis of right ankle and foot (M19.071) Active confirmed Problem Localized, primary osteoarthritis of the ankle and/or foot (457600380) Osteoarthritis of left ankle and foot (M19.072) Active confirmed Vital Signs Blood pressure diastolic 68 mm Hg 03/26/2025 Height 5 ft 3 in in 03/26/2025 Blood pressure systolic 130 mm Hg 03/26/2025 Weight 148 lbs 03/26/2025 BMI 26.21 kg/m2 03/26/2025 Encounters Encounter Location Date Provider Diagnosis [address] [address] 09/21/2024 Tiffanie Perica Tinea pedis of both feet B35.3 ; Plantar wart B07.0 ; Tinea unguium B35.1 ; Pain in right toe(s) M79.674 ; Pain in left toe(s) M79.675 and Left foot pain M79.[address] [address] 12/25/2024 Tiffanie Perica Tinea pedis of both feet B35.3 ; Plantar wart B07.0 ; Tinea unguium B35.1 ; Pain in right toe(s) M79.674 ; Pain in left toe(s) M79.675 and Left foot pain M79.[address] [address] 03/26/2025 Tiffanie Perica Plantar wart B07.0 ; Tinea unguium B35.1 ; Pain in right toe(s) M79.674 ; Pain in left toe(s) M79.675 and Left foot pain M79.[address] [address] 03/26/2025 Tiffanie Perica [address] [address] 07/15/2025 Tiffanie Hicks Assessments Encounter Date Diagnosis [...] Provider Name:Tiffanie alejandre, 09/24/2025 03:45:00 PM, [address] [facility], [place], [address], Insurance Providers Payer Name Payer Address Payer Phone Subscriber Number Group Number Insured Name Patient Relationship to Insured Coverage Start Date Coverage End Date Medicare National Govt Svcs Inc [address] [place] [address] [id number] ChrisyumikoMarily egan Self - patient is the insured [employer] [address] [place] [address] [phone] [id number] Marily Llanos Self - patient is the insured Medical (General) History Medical History History ICD Code Arthritis CAD (Cholesterol) Measles Mumps Chicken pox Gall bladder problems High blood pressure Osteoporosis Joint implants/screws Surgical History Surgery Date(Month/Year) gall bladder 1970 right knee replacement 12/2014 left knee replacement 02/2016 cataract surgery 2021 Hospitalization History Reason Date(Month/Year) [facility] [place]- Fall - cat scan and x-ray left knee 01/14
--- OUTSIDE RECORDS SUMMARY | 2025-08-23 10:32 | XMS_ITS | Patient Health Record ---
Author Organization [facility] Address [address] [place] [address] Care Team Providers Care Forder Operator Name Role Phone Jessica Martinez MD Primary Care Provider Marques Marie Unavailable [phone] Allergies Allergen (clinical drug ingredient) Drug/Non Drug [...] Problem Status W/U Status Risk Notes Problem [id number] Encounter for screening for malignant neoplasm of colon (Z12.11) Active confirmed Problem [id number] Preprocedural examination (Z01.818) Active confirmed Problem [id number] Aspirin long-ter m use (Z79.82) Active confirmed Plan Of Treatment Future Test Test Name Order Date COLONOSCOPY 03/30/2018 Insurance Providers Payer Name Payer Address Payer Phone Subscriber Number Group Number Insured Name Patient Relationship to Insured Coverage Start Date Coverage End Date MEDICARE OF [place] [address] [place] [id number] INEZ STACK Self - patient is the insured [employer] CLAIMS [address] [place] [address] [phone] [id number] INEZ STACK Self - patient is the insured Medical (General) History Medical History History ICD Code Hypertension Hypercholesterolemia Osteoporosis Seasonal allergies Fracture pelvis 2014 Negative colonoscopy in 11/2004--divertic ulosis Denies MN,DM,CVA,Lung disease,renal dise ase Surgical History Surgery Date(Month/Year) Cholecystectomy Appendectomy Laser therapy for a detached retina in t he right eye D&C Right knee replacement 12/31/2014 Left knee replacement 02/2015
== END 2025-08-23 09:53 | disposition home or self-care (01) ==
LOC: HO.HAP 09:52
PROVIDERS: PCP Internal Medicine; Visit Provider Internal Medicine
DX: Z46.1 Encounter for fitting and adjustment of hearing aid (principal); H90.3 Sensorineural hearing loss, bilateral
CPT/HCPCS: V5267

== ENCOUNTER 2025-08-28 15:09 | Outpatient (AMB) | payer MEDICARE, SELFPAY ==
[2025-08-28 15:18] VITALS: BP 146/86; PULSE 94; TEMP 36.1; O2SAT 99; BMI 24.5
--- NOTE | 2025-08-28 15:23 | AM.OFFVISMDC ---
Intake Vital Signs 08/28/25 15:18 08/28/25 15:28 Height 5 ft 3 in Weight 138 lb 2 oz BMI 24.5 24.5 BP 146/86 H Blood Pressure Location Lt brachial Position Sitting Pulse 94 Pulse Source Pulse Oximeter Temp 97.0 F Temp Source Temporal Artery Scan Pulse Oximetry (%) 99 Oxygen Delivery Method Room Air Intake Visit Reasons: Medicare Annual Wellness Accompanied by: Daughter Allergies Sulfa (Sulfonamide Antibiotics) (SULFA (SULFONAMIDE ANTIBIOTICS)) Allergy (Intermediate, Verified 08/28/25 15:24) RASH Medication List - Last Reconciled 08/28/25 by Jessica Martinez MD acetaminophen 1,000 mg (2 x 500 mg) PO Q6H PRN albuterol sulfate 90 mcg/actuation 2 puffs inhalation Q6H PRN alprazolam 0.25 mg PO DAILY apixaban (Eliquis) 5 mg PO BID atorvastatin 40 mg PO BEDTIME calcium carbonate-vitamin D3 600 mg-12.5 mcg (500 unit) (Calcium with Vit D3) 1 cap PO DAILY loratadine 10 mg PO DAILY losartan 25 mg PO DAILY melatonin 10 mg PO BEDTIME PRN metoprolol tartrate 25 mg PO BID pantoprazole (Protonix) 40 mg PO DAILY PRN HPI Medicare Annual Wellness HPI Details [facility] neurology, Dr. [facility]. fall when cva occured. 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 Stroke Heart murmur Retinal detachment GERD (gastroesophageal reflux disease) Hypertension Diverticulosis Hypercholesterolemia Surgical History H/O colonoscopy History of surgery H/O eye surgery History of dilatation and curettage Hx of appendectomy Hx of cholecystectomy History of bilateral knee replacement Social History Household Members: Children Housing: Apartment Do you presently have visiting nurse or other home services: No Alcohol intake: current Alcohol intake frequency: a few times a week Alcohol type: wine Comment: 3x a weeka glass Patient Tobacco Use Status: Never used Tobacco Tobacco use type: Cigarette e-Cigarette/Vaping Use: Never Used Second Hand Smoke Exposure: No Advance Directives Date on File: 05/25/25 service: No Current occupational status: retired Cognitive needs: No Hearing needs: No Vision needs: Yes Questionnaire Medicare Wellness Checkup What is your age?: 80 or older What gender do you identify with?: female During the past 4 weeks, how much have you been bothered by emotional problems such as feeling anxious, depressed, irritable, sad or downhearted, and blue?: slightly During the past 4 weeks, has your physical & emotional health limited your social activities with family, friends, neighbors, or groups?: slightly During the past 4 weeks, how much bodily pain have you generally had?: no pain During the past 4 weeks, was someone available to help you if you needed & wanted help?: yes, quite a bit During the past 4 weeks, what was the hardest physical activity you could do for at least 2 minutes?: light Can you get to places out of walking distance without help? (For eg., can you travel alone on buses, taxis or drive your car?): No Can you go shopping for groceries or clothes without someone's help?: No Can you prepare your own meals?: No Can you do your housework without help?: No Because of any health problems, do you need the help of another person with your personal care needs such as eating, bathing, dressing or getting around the house?: No Can you handle your own money without help?: Yes During the past 4 weeks, how would you rate your health in general?: good During the past 4 weeks how have things been going for you?: pretty well Are you having difficulties driving your car?: not applicable, I don't use a car Do you always fasten your seat belt when you are in a car?: yes, usually During past 4 weeks, have you been bothered by the following: never: Falling or dizzy when standing up, Sexual problems?, Trouble eating well? and Teeth or denture problems? and sometimes: Problems using the telephone? and Tiredness or fatigue? Have you fallen 2 or more times in the past year?: Yes Are you afraid of falling?: Yes Are you a smoker?: no During the past 4 weeks, how many drinks of wine, beer, or other alcoholic beverages did you have?: no alcohol at all Do you exercise for about 20 minutes 3 or more times a week?: yes, all the time Have you been given information to help with the following?: no: Hazards in your house that might hurt you? and no: Keeping track of your medications? How often do you have trouble taking medicines the way you have been told to take them?: I always take medicine as prescribed How confident are you that you can control & manage most of your health problems?: somewhat confident What is your race?: White PHQ-9 Over the last 2 weeks, how often have you been bothered by any of the following problems? 1. Little interest or pleasure in doing things: not at all 2. Feeling down, depressed, or hopeless: not at all 3. Trouble falling or staying asleep, or sleeping too much: not at all 4. Feeling tired or having little energy: not at all 5. Poor appetite or overeating: not at all 6. Feeling bad about yourself - or that you are a failure or have let yourself or your family down: not at all 7. Trouble concentrating on things, such as reading the newspaper or watching television: not at all 8. Moving or speaking so slowly that other people could have noticed. Or the opposite - being so fidgety or restless that you have been moving around a lot more than usual: not at all 9. Thoughts that you would be better off or of hurting yourself in some way: not at all Total score: 0 Depression Screening Interpretation: Negative Depression Screening Done: Yes 06267 - PHQ-9 Billing: Yes Source: Developed by Drs. Marques Lenz, Stephanie Lynch, Horace Elliott and colleagues, with an educational kiley from [employer]. Review of Systems Const Denies poor appetite and Denies weakness Eyes Denies no additional complaints ENT Reports Normal hearing present, Denies dizziness, Denies nasal congestion, Denies tinnitus and Denies sore throat Card Denies chest pain, Denies syncope, Denies rapid heart rate and Denies dyspnea Resp Denies cough and Denies dyspnea GI Denies change in stool character, Reports constipation, Denies diarrhea, Denies nausea and Denies vomiting Denies urinary frequency, Denies difficulty voiding and Denies dysuria Neuro Reports Normal hearing present, Denies confusion, Denies dizziness, Denies syncope and Denies weakness Psych Denies confusion Physical Exam Vital Signs: Last Vital Signs Temp 97.0 F 08/28/25 15:18 Pulse 94 08/28/25 15:18 BP 146/86 H 08/28/25 15:18 Pulse Ox 99 08/28/25 15:18 Oxygen Delivery Method Room Air 08/28/25 15:18 BMI result Body Mass Index 24.5 Const General: alert; No acute distress or confusion Orientation/consciousness: No confusion HEENT Head: Yes normocephalic Ears: external ears normal and TM's normal bilaterally Face and sinus: Yes normal facial exam Mouth: moist mucous membranes Throat: Yes tonsils normal Eyes Conjunctivae: conjunctivae normal Pupils: Equal, round and reactive pupils present and Pupil accommodation reflex normal Direct Ophthalmoscopy: normal light reflex Neck Neck: No lymphadenopathy Thyroid: Thyroid normal Chest Chest palpation & inspection: normal inspection of the chest Resp Effort & Inspection: normal respiratory effort and no audible wheezes Auscultation: clear to auscultation bilaterally Cardio Rate: regular rate Rhythm: regular rhythm Peripheral pulses: radial pulses present and dorsalis pedis present GI Inspection: Yes normal to inspection Palpation (GI): no masses Auscultation: normal bowel sounds and normoactive bowel sounds Rectal Exam - Female: deferred Skin General skin exam: no rashes or lesions noted Rashes: no rashes Neuro General: No confusion Cranial nerves: Yes Equal, round and reactive pupils present and Yes Normal hearing present Cognition (Neuro): normal cognition Gait exam (Neuro): Normal gait present Motor exam (neuro): 5/5 motor strength present throughout Deep tendon reflexes (DTR's): Right brachioradialis reflex intensity grade: 2+, Left brachioradialis reflex intensity grade: 2+, Right patellar reflex intensity grade: 2+ and Left patellar reflex intensity grade: 2+ Extrem General: Yes normal to inspection and No edema Office Procedures Flu Questionnaire Does the patient have a severe egg allergy?: No Does the patient have severe life threatening allergies?: No Does the patient have a fever or illness today?: No Has the patient ever had Guillain-Malone Syndrome?: No Has the patient ever had any past reaction to a flu shot?: No Immunizations Fluarix [id number] (PF) 45 mcg (15 mcg x 3)/0.5 mL IM syringe Performing Provider: Jessica Martinez MD Performing Location: [facility] Administered by: Charlotte Dolan CMA on 08/28/25 16:31 Dose Route Admin Location Dispensed Lot Number Expiration Date [facility] Gum Sprayer 0.5 mL IM Left Deltoid 0.5 mL [id number] 05/20/26 [id number] [email or web address] VIS Given Date VIS Provided VIS Publication Date 08/28/25 Single Vaccine 24 Eligibility Eligibility Date Funding Source Not [facility] Eligible 08/28/25 Private Assessment & Plan Assessment & Plan (1) Hypertension: Code(s): I10 - Essential (primary) hypertension Qualifiers: Hypertension type: primary hypertension Qualified Code(s): I10 - Essential (primary) hypertension Plan: Continue with blood pressure medication. Decrease salt intake and exercise presently on metoprolol 25 mg twice a day losartan 25 mg once a day (2) Atrial fibrillation: Comment: May 2025 Code(s): I48.91 - Unspecified atrial fibrillation Qualifiers: Atrial fibrillation type: unspecified Qualified Code(s): I48.91 - Unspecified atrial fibrillation Plan: Continue with anticoagulation with Eliquis 5 mg twice a day (3) Hypercholesterolemia: Code(s): E78.00 - Pure hypercholesterolemia, unspecified Plan: Avoid fried foods, chicken skin, eggs, butter margarine, pastries and meat. Be it pork or beef they have a lot of cholesterol LDL goal of less than 70 and triglyceride of less than 150. On atorvastatin 40 mg once a day (4) GERD (gastroesophageal reflux disease): Code(s): K21.9 - Gastro-esophageal reflux disease without esophagitis Qualifiers: Esophagitis presence: without esophagitis Qualified Code(s): K21.9 - Gastro-esophageal reflux disease without esophagitis Plan: Avoid the foods that causes that usually spicy foods, tomato products, juices, coffee, soda and foods that your sensitive to. After eating do not lie down, allow 3-4 hours before in lie down. And keep the head of bed above 30 degrees to avoid the acid from going up. (5) Acute right MCA stroke: Code(s): I63.511 - Cerebral infarction due to unspecified occlusion or stenosis of right middle cerebral artery Plan: Continue with anticoagulation. Control the cholesterol, weight, blood pressure, (6) Obstructive sleep apnea: Code(s): G47.33 - Obstructive sleep apnea (adult) (pediatric) Plan: Received sleep apnea study in home showing AHI of 38. Because of central sleep apnea patient was advised to get an in-lab sleep study. (7) SHELBY (generalized anxiety disorder): Code(s): F41.1 - Generalized anxiety disorder Plan History of Present Illness The patient is an 85-year-old female presenting with the management of multiple chronic conditions including hypertension, hypercholesterolemia, atrial fibrillation, and obstructive sleep apnea. Hypertension has been a long-standing condition managed with metoprolol and losartan. Blood pressure readings at home have been stable, although elevated readings were noted in the clinic setting. Hypercholesterolemia is being managed with atorvastatin, with a current LDL level of 83 mg/dL, slightly above the target of less than 70 mg/dL due to the history of stroke. The total cholesterol is 152 mg/dL, which is within the desired range. The patient has a history of atrial fibrillation, for which she is on anticoagulation therapy with Eliquis. An echocardiogram showed no wall motion abnormalities or valve lesions, and an ultrasound of the carotids showed no stenosis. The patient experienced a cerebrovascular accident with an acute right MCA stroke on May 26. She has left-sided weakness but has been undergoing physical therapy, which has shown improvement. Obstructive sleep apnea was confirmed with a sleep study showing an AHI of 38.3, and central sleep apnea with Haider-Moody respirations was noted. The patient was advised to undergo an attended titration study and to sleep in an anazapine position. The patient reports anxiety, which has been exacerbated by recent family stressors, including the loss of her son. She is considering medication for anxiety management, with a preference for as-needed use. Health Maintenance - Vaccination: Flu shot administered during the visit - Screening: Sleep study recommended for obstructive sleep apnea - Screening: Blood work and urine test scheduled for follow-up Social History - Family Status: Recent loss of son contributing to increased anxiety - Substance Use: Occasional alcohol consumption, advised to limit due to medication interactions Review of Systems - Cardiovascular: Denies chest pain, reports stable blood pressure at home - Respiratory: Denies dyspnea, cough, or wheezing - Neurological: Reports left-sided weakness, denies dizziness or falls - Gastrointestinal: Denies nausea, vomiting, or heartburn - Genitourinary: Reports occasional urinary incontinence, denies hematuria - Musculoskeletal: Denies joint pain or swelling - Psychological: Reports anxiety, exacerbated by recent family stressors Physical Exam - Cardiovascular: Regular rate and rhythm, no murmurs, gallops, or rubs noted - Respiratory: Clear to auscultation bilaterally, no wheezes or crackles - Neurological: Left-sided weakness noted, no acute distress - Musculoskeletal: Full range of motion in all extremities, no joint swelling or tenderness - Ears: Minimal ear wax, no pain on manipulation Results - Labs: Normal blood count, no anemia, sodium slightly low, blood sugar mildly elevated - Imaging: Echocardiogram showed no wall motion abnormality or valve lesions, ultrasound of carotids showed no stenosis - Sleep Study: AHI of 38.3, central sleep apnea with Haider-Moody respirations noted Plan Patient was informed and verbally consented to the use of an ambient scribe for clinic note documentation during this visit. 1. Hypertension The patient is currently on metoprolol 25 mg twice daily and losartan 25 mg once daily for hypertension management. Blood pressure readings at home have been stable, but elevated readings were noted in the clinic. The plan includes continued monitoring of blood pressure at home and ensuring adherence to current medication regimen. 2. Hypercholesterolemia The patient is on atorvastatin 40 mg daily with a goal LDL of less than 70 mg/dL due to her history of stroke. Current LDL is 83 mg/dL, and total cholesterol is 152 mg/dL. The plan is to continue current statin therapy and re-evaluate lipid levels in three months. 3. Atrial Fibrillation The patient is on anticoagulation therapy with Eliquis 5 mg twice daily to prevent thromboembolic events. An echocardiogram showed no structural heart issues, and carotid ultrasound showed no stenosis. The plan includes continued anticoagulation and monitoring for any symptoms of arrhythmia. 4. Obstructive Sleep Apnea The patient was diagnosed with obstructive sleep apnea with an AHI of 38.3 and central sleep apnea with Haider-Moody respirations. She was advised to undergo an attended titration study and to sleep in an anazapine position. The plan includes scheduling the in-lab sleep study and adjusting treatment based on the results. 5. Cerebrovascular Accident (Cva) The patient experienced an acute right MCA stroke on May 26, resulting in left-sided weakness. She has been undergoing physical therapy, which has shown improvement in mobility. The plan includes continued physical therapy and monitoring for any new neurological symptoms. 6. Anxiety The patient reports increased anxiety due to recent family stressors, including the loss of her son. She is considering medication for anxiety management, with a preference for as-needed use of alprazolam. The plan includes prescribing a small amount of alprazolam for as-needed use and monitoring her response. Discussion Notes During the visit, we discussed the management of the patient's chronic conditions, including hypertension, hypercholesterolemia, atrial fibrillation, and obstructive sleep apnea. We reviewed the importance of medication adherence and regular monitoring of blood pressure and lipid levels. The patient was advised to undergo an in-lab sleep study for her obstructive sleep apnea and to continue physical therapy for stroke rehabilitation. We also discussed the potential use of alprazolam for anxiety management, emphasizing its use on an as-needed basis. Patient Instructions - Continue taking all prescribed medications as directed. - Monitor blood pressure at home regularly and record the readings. - Schedule and attend the in-lab sleep study as recommended. - Continue with physical therapy exercises to improve mobility. - Use alprazolam for anxiety only as needed and report any concerns. - Follow up with scheduled blood work and urine tests. Orders: Orders Complete Blood Count Auto Diff 3 Months I10 - Essential (primary) hypertension Free T4 (Free Thyroxine) 3 Months I10 - Essential (primary) hypertension Hemoglobin A1c 3 Months I10 - Essential (primary) hypertension PT Evaluation and Treatment Today I63.511 - Cerebral infarction due to unspecified occlusion or stenosis of right middle cerebral artery Comprehensive Met. Panel 3 Months I10 - Essential (primary) hypertension Thyroid Stimulating Hormone 3 Months I10 - Essential (primary) hypertension Lipid Panel 3 Months E78.00 - Pure hypercholesterolemia, unspecified, I10 - Essential (primary) hypertension Vitamin B12 and Folate 3 Months I10 - Essential (primary) hypertension NT Pro B Type Natriuretic Pept 3 Months I10 - Essential (primary) hypertension Influenza 2115-0024 Immunization Today Z23 - Encounter for immunization Medications: New alprazolam 0.25 mg PO DAILY 10 tabs 0RF F41.1 - Generalized anxiety disorder Changed From pantoprazole (Protonix) 40 mg PO DAILY 90 days 90 tabs 0RF I63.511 - Cerebral infarction due to unspecified occlusion or stenosis of right middle cerebral artery To pantoprazole (Protonix) 40 mg PO DAILY PRN I63.511 - Cerebral infarction due to unspecified occlusion or stenosis of right middle cerebral artery Quality Reporting (2019) Depression/Bipolar (159/160/161/177) PHQ-9: Total score: 0 Coding Level of Care Code Medicare Subsequent (G0439) Diagnoses Primary hypertension I10 Hypertension type: primary hypertension Atrial fibrillation, unspecified type I48.91 Atrial fibrillation type: unspecified Hypercholesterolemia E78.00 Gastroesophageal reflux disease without esophagitis K21.9 Esophagitis presence: without esophagitis Acute right MCA stroke I63.511 Obstructive sleep apnea G47.33 SHELBY (generalized anxiety disorder) F41.1 Additional Codes PHQ-9 - 28679 - PHQ-9 Billing: Yes ([id number])
[2025-08-28 15:28] VITALS: BMI 24.5
== END 2025-08-28 16:37 | disposition home or self-care (01) ==
LOC: HO.HMCH 15:10
PROVIDERS: PCP Internal Medicine; Visit Provider Internal Medicine
DX: Z00.00 Encounter for general adult medical examination without abnormal findings (principal); I10 Essential (primary) hypertension; I48.91 Unspecified atrial fibrillation; I63.511 Cerebral infarction due to unspecified occlusion or stenosis of right middle cerebral artery; E78.00 Pure hypercholesterolemia, unspecified; K21.9 Gastro-esophageal reflux disease without esophagitis; G47.33 Obstructive sleep apnea (adult) (pediatric); F41.1 Generalized anxiety disorder; Z23 Encounter for immunization

== ENCOUNTER → 2025-08-28 15:09 | Outpatient (BNVA) | payer MEDICARE, SELFPAY | PROVIDERS: PCP Internal Medicine; Visit Provider Internal Medicine | DX: Z00.00 Encounter for general adult medical examination without abnormal findings (principal); I10 Essential (primary) hypertension; I48.91 Unspecified atrial fibrillation; E78.00 Pure hypercholesterolemia, unspecified; K21.9 Gastro-esophageal reflux disease without esophagitis; G47.33 Obstructive sleep apnea (adult) (pediatric); F41.1 Generalized anxiety disorder; Z23 Encounter for immunization; Z86.73 Personal history of transient ischemic attack (TIA), and cerebral infarction without residual deficits | CPT/HCPCS: 90471; 90656; 96127 ==

== ENCOUNTER 2025-09-11 14:00 | Outpatient (REF) | payer SELFPAY ==
--- OUTSIDE RECORDS SUMMARY | 2024-07-17 07:15 | XMS_ITS ---
Author Organization [facility] Address [address] [place] [address] Care Team Providers Care Picked Edge Sewing Machine Operator Name Role Phone Jessica Martinez Primary Care Provider Tiffanie Castro [phone] Encounters Encounter Location Date Provider Diagnosis [address] [address] 07/17/2024 Tiffanie Hicks Plan Of Treatment Next Appt Details Provider Name:Tiffanie alejandre, 09/24/2025 03:45:00 PM, [address] [place], [address], Progress Notes * Bi STACKOB:07/14 (85 yo F)Acc No.[id number]:07/17/2024 Progress Note Patient: Marily PRINCE Provider: Gordo Hicks DPM :1940 A ge:84 Y S ex:Female Date:07/17/2024 Address:[address] Pcp:Jessica Martinez Subjective: * Chief Complaints: * [...] 07/17/2024 Generated for Liban brock/Juanpablo/Kishore on: 1 08:05 PM EDT
--- OUTSIDE RECORDS SUMMARY | 2025-07-02 07:00 | XMS_ITS ---
Author Organization [facility] Address [address] [place] [address] Care Team Providers Care Golf Starter And Ranger Name Role Phone Jessica Martinez Primary Care Provider Tiffanie Castro [phone] Menon Encounters Encounter Location Date Provider Diagnosis [address] [address] 07/02/2025 Tiffanie Hicks Plan Of Treatment Next Appt Details Provider Name:Tiffanie alejandre, 09/24/2025 03:45:00 PM, [address] [place], [address], Progress Notes * Bi STACKOB:07/14 (85 yo F)Acc No.[id number]:07/02/2025 Progress Note Patient: Marily PRINCE Provider: Gordo Hicks DPM :1940 A ge:84 Y S ex:Female Date:07/02/2025 Address:[address] [place] [address] Yoseph Phillips [facility] Pcp:Jessica Martinez Subjective: * Chief Complaints: * [...] 07/02/2025 Generated for Liban brock/Juanpablo/Kishore on: 1 08:05 PM EDT
--- OUTSIDE RECORDS SUMMARY | 2025-07-17 07:00 | XMS_ITS ---
Author Organization [facility] Address [address] [place] [address] Care Team Providers Care Gathering Machine Setter Name Role Phone Jessica Martinez Primary Care Provider Tiffanie Castro Unavailable [phone] Allergies Allergen (clinical drug ingredient) Drug/Non Drug [...] Active Encounters Encounter Location Date Provider Diagnosis [facility] [address] [place] [address] 07/17/2025 Tiffanie Hicks Plan Of Treatment Next Appt Details Provider Name:Tiffanie alejandre, 09/24/2025 03:45:00 PM, [address] [place], [address], Progress Notes * Bi STACKOB:[birth year] (85 yo F)Acc No.[id number]:07/17/2025 Progress Note Patient: Hilario KERNMarily ZUÑIGA Provider: Gordo Hicks DPM :1940 A ge:85 Y S ex:Female Date:07/17/2025 Address:[address], [facility] Pcp:Jessica Martinez Subjective: * Chief Complaints: * [...] 0 07/17/2025 Generated for Liban brock/Juanpablo/Kishore on: 08:05 PM EDT
--- OUTSIDE RECORDS SUMMARY | 2025-09-11 20:05 | XMS_ITS | Patient Health Record ---
Author Organization [facility] Address [address] [place] [address] Care Team Providers Care Fire Extinguisher Repairer Name Role Phone Jessica Martinez MD Primary Care Provider Marques Marie Unavailable [phone] Allergies Allergen (clinical drug ingredient) Drug/Non Drug [...] Problem Status W/U Status Risk Notes Problem Screening for malignant neoplasm of colon (059272451) Encounter for screening for malignant neoplasm of colon (Z12.11) Active confirmed Problem Preprocedural examination (683911875739772) Preprocedural examination (Z01.818) Active confirmed Problem Long-term current use of aspirin (354826144592389) Aspirin long-term use (Z79.82) Active confirmed Plan Of Treatment Future Test Test Name Order Date COLONOSCOPY 03/30/2018 Insurance Providers Payer Name Payer Address Payer Phone Subscriber Number Group Number Insured Name Patient Relationship to Insured Coverage Start Date Coverage End Date MEDICARE OF [place] [address] [place] [address] [id number] INEZ STACK Self - patient is the insured MEDEX ATTN CLAIMS [address] [place] [address] [id number] INEZ STACK Self - patient is the insured Medical (General) History Medical History History ICD Code Hypertension Hypercholesterolemia Osteoporosis Seasonal allergies Fracture pelvis 2014 Negative colonoscopy in 11/2004--divertic ulosis Denies [place],DM,CVA,Lung disease,renal dise ase Surgical History Surgery Date(Month/Year) Cholecystectomy Appendectomy Laser therapy for a detached retina in t he right eye D&C Right knee replacement 12/31/2014 Left knee replacement 02/2015
--- OUTSIDE RECORDS SUMMARY | 2025-09-11 20:05 | XMS_ITS | Patient Health Record ---
Author Organization [facility] Address [address] [place] [address] Care Team Providers Care Manager Underwriting Name Role Phone Jessica Martinez Primary Care Provider Tiffanie Castro Unavailable [phone] Allergies Allergen (clinical drug ingredient) Drug/Non Drug [...] W/U Status Risk Notes Problem Plantar wart (31591822) Plantar wart (B07.0) Active confirmed Problem Localized, primary osteoarthritis of the ankle and/or foot (572275681) Osteoarthritis of right ankle and foot (M19.071) Active confirmed Problem Localized, primary osteoarthritis of the ankle and/or foot (438853762) Osteoarthritis of left ankle and foot (M19.072) Active confirmed Vital Signs Blood pressure diastolic 68 mm Hg 03/26/2025 Height 5 ft 3 in in 03/26/2025 Blood pressure systolic 130 mm Hg 03/26/2025 Weight 148 lbs 03/26/2025 BMI 26.21 kg/m2 03/26/2025 Encounters Encounter Location Date Provider Diagnosis [address] [address] 09/21/2024 Tiffanie Perica Tinea pedis of both feet B35.3 ; Plantar wart B07.0 ; Tinea unguium B35.1 ; Pain in right toe(s) M79.674 ; Pain in left toe(s) M79.675 and Left foot pain M79.[address] [address] 12/25/2024 Tiffanie Perica Tinea pedis of both feet B35.3 ; Plantar wart B07.0 ; Tinea unguium B35.1 ; Pain in right toe(s) M79.674 ; Pain in left toe(s) M79.675 and Left foot pain M79.[address] [address] 03/26/2025 Tiffanie Perica Plantar wart B07.0 ; Tinea unguium B35.1 ; Pain in right toe(s) M79.674 ; Pain in left toe(s) M79.675 and Left foot pain M79.[address] [address] 03/26/2025 Tiffanie Perica [address] [address] 07/15/2025 Tiffanie Hicks Assessments Encounter Date Diagnosis [...] Provider Name:Tiffanie alejandre, 09/24/2025 03:45:00 PM, [address] [facility], [place], [address], Insurance Providers Payer Name Payer Address Payer Phone Subscriber Number Group Number Insured Name Patient Relationship to Insured Coverage Start Date Coverage End Date Medicare National Govt Svcs Inc [address] [place] [address] [id number] ChrisyumikoMariyl egan Self - patient is the insured [email or web address] [address] [place] [address] [id number] Marily Llanos Self - patient is the insured Medical (General) History Medical History History ICD Code Arthritis CAD (Cholesterol) Measles Mumps Chicken pox Gall bladder problems High blood pressure Osteoporosis Joint implants/screws Surgical History Surgery Date(Month/Year) gall bladder 1970 right knee replacement 12/2014 left knee replacement 02/2016 cataract surgery 2021 Hospitalization History Reason Date(Month/Year) [facility] [place]- Fall - cat scan and x-ray left knee 01/14
--- OUTSIDE RECORDS SUMMARY | 2025-09-11 20:05 | XMS_ITS | Clinical Summary ---
Author Organization [facility] Address [address] [place] [address] Phone Care Team Providers Care Evaluation Engineer Name Role Phone Kemi Knott MD Primary Care Provider + Encounters Date Type Department Care Team Description 07/09/2025 Transcribe [facility] [address] [place] [address] [address]rd Floor, [address] [place] [address] Manolo Jordan Atrial fibrillation, unspecified type (Primary [...] Description 12/18/2025 1:40 PM EST Office Visit [facility] [address] [place] [address] [address]rd Floor, [address] [place], [place] [id number] Yemi Beckford MD [address] [facility], [address] [place] [address] [email or web address] Health Maintenance Due Date Last Done Comments [...] file Insurance MEDICARE PART A & B [employer] MEDEX SUPPLEMENT MEDICARE PART A & B [employer] MEDEX SUPPLEMENT MEDICARE PART A & B [employer] MEDEX SUPPLEMENT MEDICARE PART A & B [employer] MEDEX SUPPLEMENT MEDICARE PART A & B [employer] SUPPLEMENT MEDICARE PART A & B [employer] SUPPLEMENT Care Teams Evaluation Engineer Relationship Specialty Start Date End Date Kemi Knott MD [address] [place] [id number] [email or web address] PCP - General Family Medicine 07/09/25 Additional Source Comments The information contained in this document represents components of the legal health record. It is not the complete legal health record.[facility]
== END 2025-09-11 14:01 | disposition home or self-care (01) ==
LOC: HO.HAP 14:00
PROVIDERS: Visit Provider Internal Medicine
DX: Z46.1 Encounter for fitting and adjustment of hearing aid (principal); H90.3 Sensorineural hearing loss, bilateral
CPT/HCPCS: V5267

== ENCOUNTER 2025-09-12 08:46 | Outpatient (AMB) | payer MEDICARE, SELFPAY ==
--- OUTSIDE RECORDS SUMMARY | 2024-07-17 07:15 | XMS_ITS ---
Author Organization [facility] Address [address] [place] [address] Care Team Providers Care Vice President Of News Name Role Phone Jessica Martinez Primary Care Provider Tiffanie Castro [phone] Encounters Encounter Location Date Provider Diagnosis [address] [address] 07/17/2024 Tiffanie Hicks Plan Of Treatment Next Appt Details Provider Name:Tiffanie alejandre, 09/24/2025 03:45:00 PM, [address] [place], [address], Progress Notes * Bi STACKOB:07/14 (85 yo F)Acc No.[id number]:07/17/2024 Progress Note Patient: Marily PRINCE Provider: Gordo Hicks DPM :1940 A ge:84 Y S ex:Female Date:07/17/2024 Address:[address] Pcp:Jessica Martinez Subjective: * Chief Complaints: * [...] DPM Date: 0 07/17/2024 Generated for Liban brock/Juanpablo/Faustoitting on: 1 09:31 AM EDT
--- OUTSIDE RECORDS SUMMARY | 2025-07-02 07:00 | XMS_ITS ---
Author Organization [facility] Address [address] [place] [address] Care Team Providers Care Gold And Silver Assayer Name Role Phone Jessica Martinez Primary Care Provider Tiffanie Castro [phone] Menon Encounters Encounter Location Date Provider Diagnosis [address] [address] 07/02/2025 Tiffanie Hicks Plan Of Treatment Next Appt Details Provider Name:Tiffanie alejandre, 09/24/2025 03:45:00 PM, [address] [place], [address], Progress Notes * Bi STACKOB:07/14 (85 yo F)Acc No.[id number]:07/02/2025 Progress Note Patient: Marily PRINCE Provider: Gordo Hicks DPM :1940 A ge:84 Y S ex:Female Date:07/02/2025 Address:[address] [place] [address] Y[facility] Pcp:Jessica Martinez Subjective: * Chief Complaints: * [...] 07/02/2025 Generated for Liban brock/Juanpablo/Kishore on: 1 09:32 AM EDT
--- OUTSIDE RECORDS SUMMARY | 2025-07-17 07:00 | XMS_ITS ---
Author Organization [facility] Address [address] [place] [address] Care Team Providers Care Bid Clerk Name Role Phone Jessica Martinez Primary Care Provider Tiffanie Castro Unavailable [phone] Allergies Allergen (clinical drug ingredient) Drug/Non Drug [...] Active Encounters Encounter Location Date Provider Diagnosis [facility] [address] [place] [address] 07/17/2025 Tiffanie Hicks Plan Of Treatment Next Appt Details Provider Name:Tiffanie alejandre, 09/24/2025 03:45:00 PM, [address] [place], [address], Progress Notes * Bi STACKOB:[birth year] (85 yo F)Acc No.[id number]:07/17/2025 Progress Note Patient: Hilario KERNMarily ZUÑIGA Provider: Gordo Hicks DPM :1940 A ge:85 Y S ex:Female Date:07/17/2025 Address:[address], [facility] Pcp:Jessica Martinez Subjective: * Chief Complaints: * [...] 07/17/2025 Generated for Liban brock/Juanpablo/Kishore on: 1 09:31 AM EDT
[2025-09-12 09:01] VITALS: BP 124/86; PULSE 78; O2SAT 98; BMI 24.4
--- NOTE | 2025-09-12 09:01 | A.OFFVIS_ITS ---
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 Obstructive sleep apnea was confirmed with a sleep study showing an AHI of 38.3, and central sleep apnea with Haider-Moody respirations was noted in May(pos in sleep). The patient was advised to undergo an attended titration study and to sleep in an anazapine position. HST in chart. wakes up 2-3times a night. Melatonin does not help. Accompanied by: Daughter Allergies Sulfa (Sulfonamide Antibiotics) (SULFA (SULFONAMIDE ANTIBIOTICS)) Allergy (Intermediate, Verified 09/12/25 09:05) RASH HPI Comments Details: 85 year old female, with h/o CVA due to a fall is referred to us for an evaluation of sleep difficulties by her PCP. Agustina her daughter helps with history today. PMH May 26, 2025 she had a fall and head strike, was brought to [facility] by ambulance due l. sided facial droop, dysarthria, dysphasia, l. extremity weakness, hemiparesis, gait instability, during the nuclear test she had Afib and was started on aspirin and Eliquis, she was not a good candidate for thrombectomy or TNK due to time well known last, and PMH of CHF. CTscan, showed r. mca territory stroke. She was then sent to [facility] rehab for 14 days of PT/OT/REGISTERED NURSE CARDIOVASCULAR ICU services daily 3+ hours per day and started to improve though still has L. sided weakness and personality changes along with cognitive deficits. She was optimized and sent home as she gained ability to function independently with assistance and supervision of all activities. 07/2025 [facility] HST reviewed with pt she has severe joy obstructive, central and hypopneic events total AHI 38/hr with oxygen desaturation to <88% for 3.8min and CHF. Today she says she sleeps for a few hours and wakes up then takes melatonin and it helps her to fall asleep in about an hour then gets up to go to the bathroom. She has difficulty with falling asleep and staying asleep, she was prescribed anxiolytic though rarely uses it. She gets up 3x a night 1230am, 3:30am and 6:15am. She lives at home with younger son, the older son passed tragically in March 2024, due to cholangiocarcinoma during a surgical procedure of cholecystectomy and this trauma caused her health to decline. Her personality changed and she has been distressed since. She forgets many tasks, is unaware of her glasses slipping off her face, and needs help with all her ADLs. She is independent and able to complete all ADLs with close assistance, she can shower, dress, cook small meals in the microwave. Needs assistance with her medications and finances. She started wearing hearing aids. Fine motor skills are still ch allenging, her hand writing is not legible has difficulty with cutting up foods, she recently cut her finger while trying to open a can of chilli. She is exhausted throughout the day, and will nap for 20min after dinner at 6pm. She has PT coming in 2x a week, [facility] core evaluation -Rehab for stroke with clinical navigator and Inhabit services Jun and partial Aug. Her goal is to return to the [facility] in [place] 2x per week and start chair yoga as she is motivated and can ambulate with her walker. 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 Will monitor for PLMD and RLS as she has cramps though denies neuropathy. She is working with OT / and REGISTERED NURSE CARDIOVASCULAR ICU services, she denies dysphagia, drooling and is eating a normal diet with fruits/ vegetables soups and cereals now, though she has lost 20lbs since May 2025, from 150 to 134lbs now. She likes her sweets. Has normal bowel movements and drinks two cups of decaffeinated coffee daily, has milk, and does not drink enough water. Her motor memory is poor, has trouble with word recall gets confused, personality is off, and some days she is spot on. Although she is at 85% of her baseline, she is chronically fatigued due to lack of sleep. She wears a life alert bracelet and Agustina lives 5 min away from her. 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 Stroke Heart murmur Retinal detachment GERD (gastroesophageal reflux disease) Hypertension Diverticulosis Hypercholesterolemia Surgical History H/O colonoscopy History of surgery H/O eye surgery History of dilatation and curettage Hx of appendectomy Hx of cholecystectomy History of bilateral knee replacement Social History Household Members: Children Housing: Apartment Do you presently have visiting nurse or other home services: No Alcohol intake: current Alcohol intake frequency: a few times a week Alcohol type: wine Comment: 3x a weeka glass Patient Tobacco Use Status: Never used Tobacco Tobacco use type: Cigarette e-Cigarette/Vaping Use: Never Used Second Hand Smoke Exposure: No Advance Directives Date on File: 05/25/25 service: No Current occupational status: retired Cognitive needs: No Hearing needs: No Vision needs: Yes Physical Exam Vital Signs: Last Vital Signs Pulse 78 09/12/25 09:01 BP 124/86 09/12/25 09:01 Pulse Ox 98 09/12/25 09:01 Oxygen Delivery Method Room Air 09/12/25 09:01 BMI result Body Mass Index 24.4 Const General: cooperative, comfortable, no acute distress and tired appearing Nutritional Appearance: average body habitus Orientation/consciousness: oriented to person, oriented to place and oriented to time Limitations: ambulation with walker HEENT Teeth and gingiva: other (M[place]ampti score is 4) Eyes Pupils: Equal, round and reactive pupils present Neck Neck: Yes full ROM Resp Effort & Inspection: normal respiratory effort and able to speak in complete sentences Neuro Other: l. sided facial droop, asymmetric smile l. upper ext motor weakness, with mild tremor l lower ext motor weakness Gait instability ambulates with walker with stooped posture. small narrow steps, sways to the left l. arm does not swing upon ambulation without walker use and has instability. General: oriented to person, oriented to place, oriented to time and moves all extremities ( slow movements) Cranial nerves: Yes Equal, round and reactive pupils present, Yes Normal accommodation reflex present, Yes Normal facial strength present, Yes Midline tongue present, Yes Ability to bilaterally rotate head present and Yes Ability to bilaterally elevate shoulders present Gait exam (Neuro): Staggering gait present and Assisted gait required Motor exam (neuro): Abnormal motor strength present and Abnormal muscle tone present Results Reviewed Results Reviewed: 2024 [facility] Note 07/2025 [facility] Note 07/2025 [facility] HST reviewed with pt she has severe joy obstructive, central and hypopneic events total AHI 38/hr with oxygen desaturation to <88% for 3.8min and CHF. Assessment & Plan Assessment & Plan (1) Obstructive sleep apnea: Comment: PSG in lab titration pending per PCP- obstructive, central and hypopneic events due to CHF/ Afib Code(s): G47.33 - Obstructive sleep apnea (adult) (pediatric) Category: Medical (2) Insomnia: Code(s): G47.00 - Insomnia, unspecified Category: Medical Qualifiers: Insomnia type: due to medical condition Qualified Code(s): G47.01 - Insomnia due to medical condition (3) Central sleep apnea associated with atrial fibrillation: Code(s): I48.91 - Unspecified atrial fibrillation; G47.37 - Central sleep apnea in conditions classified elsewhere Category: Medical Plan JOY PSG with titration is pending to determine ideal pressures for her therapy, as she has severe JOY per HST at [facility] AHI is 38 and oxygen desaturation to <88% for 3.8min. Insomnia may continue 10mg po melatonin as needed. Central sleep apnea with afib, continue eliquis and metoprolol per pcp. Anxiety and depression may use anxiolytic Alprazolam as needed 0.25mg po prn stress Continue with [facility]/ [facility] services as needed per clinical navigator , to optimize best outcomes post cva injury, PT/ OT/ REGISTERED NURSE CARDIOVASCULAR ICU, continue to do puzzles and engage in community/ social activities as tolerable. Labs reviewed with pt. UTI and blood in urine will f/u with pcp. Patient Instructions: Sleep Hygiene provided: set a scheduled bedtime and wake time to help regulate the circadian rhythm and balance the release of pituitary hormones. Sleep in a dark room, temperatures below 68 degrees, and no devices n bed. Limit caffeinated products 6 hours prior to bed, and limit fluids 2-4 hours prior to bed. Gentle night yoga, diffusing essential oils, and playing soft music can be relaxing. I spent over an hour reviewing notes, labs, HST, VNA notes, Rehab facility notes and PCP notes. Optimization of services for best outcomes. Pt Education re: Central vs Obstructive sleep apnea and total hypopneic events. PST Titration study in lab vs HST to determine ideal pressures as pt has CHF with Afib. Safe anxiolytic and sedative use for pt with BEERS critieria in Geriatrics population. Coding Level of Care Code New Pt Level 4 (37155) Complex EM visit Add On G2211 Diagnoses Obstructive sleep apnea G47.33 Insomnia due to medical condition G47.01 Insomnia type: due to medical condition Central sleep apnea associated with atrial fibrillation I48.91; G47.37 Time Spent (min) 75
--- OUTSIDE RECORDS SUMMARY | 2025-09-12 09:31 | XMS_ITS | Patient Health Record ---
Author Organization [facility] Address [address] [place] [address] Care Team Providers Care Food Sampler Name Role Phone Jessica Martinez MD Primary Care Provider Marques Marie Unavailable [phone] Allergies Allergen (clinical drug ingredient) Drug/Non Drug [...] Problem Screening for malignant neoplasm of colon (737066426) Encounter for screening for malignant neoplasm of colon (Z12.11) Active confirmed Problem Preprocedural examination (848207899418653) Preprocedural examination (Z01.818) Active confirmed Problem Long-term current use of aspirin (829492244124589) Aspirin long-term use (Z79.82) Active confirmed Plan Of Treatment Future Test Test Name Order Date COLONOSCOPY 03/30/2018 Insurance Providers Payer Name Payer Address Payer Phone Subscriber Number Group Number Insured Name Patient Relationship to Insured Coverage Start Date Coverage End Date MEDICARE OF [place] [address] [place] [id number] INEZ STACK Self - patient is the insured MEDEX ATTN CLAIMS [address] [place] [address] [id number] INEZ STACK Self - patient is the [...]
--- OUTSIDE RECORDS SUMMARY | 2025-09-12 09:32 | XMS_ITS | Patient Health Record ---
Author Organization [facility] Address [address] [facility] [place] [address] Care Team Providers Care Electrical Systems Engineer Name Role Phone Jessica Martinez Primary Care Provider Tiffanie Castro Unavailable [phone] Allergies Allergen (clinical drug ingredient) Drug/Non Drug [...] W/U Status Risk Notes Problem Plantar wart (54331496) Plantar wart (B07.0) Active confirmed Problem Localized, primary osteoarthritis of the ankle and/or foot (330409222) Osteoarthritis of right ankle and foot (M19.071) Active confirmed Problem Localized, primary osteoarthritis of the ankle and/or foot (567465443) Osteoarthritis of left ankle and foot (M19.072) Active confirmed Vital Signs Blood pressure diastolic 68 mm Hg 03/26/2025 Height 5 ft 3 in in 03/26/2025 Blood pressure systolic 130 mm Hg 03/26/2025 Weight 148 lbs 03/26/2025 BMI 26.21 kg/m2 03/26/2025 Encounters Encounter Location Date Provider Diagnosis [address] [address] 09/21/2024 Tiffanie Perica Tinea pedis of both feet B35.3 ; Plantar wart B07.0 ; Tinea unguium B35.1 ; Pain in right toe(s) M79.674 ; Pain in left toe(s) M79.675 and Left foot pain M79.[address] [address] 12/25/2024 Tiffanie Perica Tinea pedis of both feet B35.3 ; Plantar wart B07.0 ; Tinea unguium B35.1 ; Pain in right toe(s) M79.674 ; Pain in left toe(s) M79.675 and Left foot pain M79.[address] [address] 03/26/2025 Tiffanie Perica Plantar wart B07.0 ; Tinea unguium B35.1 ; Pain in right toe(s) M79.674 ; Pain in left toe(s) M79.675 and Left foot pain M79.[address] [address] 03/26/2025 Tiffanie Perica [address] [address] 07/15/2025 Tiffanie Hicks Assessments Encounter Date Diagnosis [...] Provider Name:Tiffanie alejandre, 09/24/2025 03:45:00 PM, [address] [facility], [place], [address], Insurance Providers Payer Name Payer Address Payer Phone Subscriber Number Group Number Insured Name Patient Relationship to Insured Coverage Start Date Coverage End Date Medicare National Govt Svcs Inc [address] [place] [address] [id number] ChrisyumikoMarily egan Self - patient is the insured [employer] [address] [place] [address] [id number] Marily Llanos Self - patient is the insured Medical (General) History Medical History History ICD Code Arthritis CAD (Cholesterol) Measles Mumps Chicken pox Gall bladder problems High blood pressure Osteoporosis Joint implants/screws Surgical History Surgery Date(Month/Year) gall bladder 1970 right knee replacement 12/2014 left knee replacement 02/2016 cataract surgery 2021 Hospitalization History Reason Date(Month/Year) [facility] [place] - cat scan and x-ray left knee 01/14
== END 2025-09-12 10:10 | disposition home or self-care (01) ==
LOC: HO.HSMS 08:46
PROVIDERS: PCP Internal Medicine; Visit Provider Physician Assistant Medical
DX: G47.33 Obstructive sleep apnea (adult) (pediatric) (principal); G47.01 Insomnia due to medical condition; I48.91 Unspecified atrial fibrillation; G47.37 Central sleep apnea in conditions classified elsewhere
CPT/HCPCS: 99204; G2211

== ENCOUNTER → 2025-09-12 08:46 | Outpatient (BNVA) | payer MEDICARE, SELFPAY | PROVIDERS: PCP Internal Medicine; Visit Provider Physician Assistant Medical | DX: G47.33 Obstructive sleep apnea (adult) (pediatric) (principal); I48.91 Unspecified atrial fibrillation; G47.37 Central sleep apnea in conditions classified elsewhere; G47.01 Insomnia due to medical condition; R53.83 Other fatigue; Z79.01 Long term (current) use of anticoagulants | CPT/HCPCS: 99202 ==

== ENCOUNTER → 2025-10-01 20:30 | Outpatient (REF) | payer MEDICARE, SELFPAY ==
--- OUTSIDE RECORDS SUMMARY | 2024-07-17 06:15 | XMS_ITS ---
Author Organization [facility] Address [address] [place] [address] Care Team Providers Care Equipment Driver Name Role Phone Jessica Martinez Primary Care Provider Tiffanie Castro [phone] Encounters Encounter Location Date Provider Diagnosis [address] [address] 07/17/2024 Tiffanie Hicks Plan Of Treatment Next Appt Details Provider Name:Tiffanie alejandre, 12/24/2025 03:45:00 PM, [address] [place], [address], Progress Notes * Bi STACKOB:07/14 (85 yo F)Acc No.[id number]:07/17/2024 Progress Note Patient: Marily PRINCE Provider: Gordo Hicks DPM :1940 A ge:84 Y S ex:Female Date:07/17/2024 Address:[address] [id number] Pcp:Jessica Martinez Subjective: * Chief Complaints: * [...] 07/17/2024 Generated for Liban brock/Juanpablo/Kishore on: 1 12/01/2024 09:14 PM EST
--- OUTSIDE RECORDS SUMMARY | 2025-07-02 06:00 | XMS_ITS ---
Author Organization [facility] Address [address] [place] [address] Care Team Providers Care Television News Reporter Name Role Phone Jessica Martinez Primary Care Provider Tiffanie Castro [phone] Menon Encounters Encounter Location Date Provider Diagnosis [address] [address] 07/02/2025 Tiffanie Hicks Plan Of Treatment Next Appt Details Provider Name:Tiffanie alejandre, 12/24/2025 03:45:00 PM, [address] [place] [address], [phone], Progress Notes * Bi STACKOB:07/14 (85 yo F)Acc No.[id number]:07/02/2025 Progress Note Patient: Marily PRINCE Provider: Gordo Hicks DPM :1940 A ge:84 Y S ex:Female Date:07/02/2025 Address:[address] [place] [address] Yoseph Phillips [facility] Pcp:Jessica Martinez Subjective: * Chief Complaints: * [address] Menon. * Medical History: Objective: * Vitals: Assessment: Plan: * Treatment: * Images: * The named appointment provid er may or may not be the originator of this progress note, and it is not deemed complete until electronically signed by the appointment provider. Sign off status: Pending * Provider: Gordo Hciks DPM Date: 0 07/02/2025 Generated for Liban brock/Juanpablo/Kishore on: 1 12/01/2024 09:15 PM EST
--- OUTSIDE RECORDS SUMMARY | 2025-07-17 06:00 | XMS_ITS ---
Author Organization [facility] Address [address] [place] [address] Care Team Providers Care Outsole Cementer Name Role Phone Jessica Martinez Primary Care Provider Tiffanie Castro Unavailable [phone] Allergies Allergen (clinical drug ingredient) Drug/Non Drug [...] Active Encounters Encounter Location Date Provider Diagnosis [facility] [address] [place] [address] 07/17/2025 Tiffanie Hicks Plan Of Treatment Next Appt Details Provider Name:Tiffanie alejandre, 12/24/2025 03:45:00 PM, [address] [place], [address], Progress Notes * Kenyatta STACKenceDOB:[birth year] (85 yo F)Acc No.[id number]:07/17/2025 Progress Note Patient: Hilario KERNMarily ZUÑIGA Provider: Gordo Hicks DPM :1940 A ge:85 Y S ex:Female Date:07/17/2025 Address:[address], [facility] Pcp:Jessica Martinez Subjective: * Chief Complaints: * [...] 07/17/2025 Generated for Liban brock/Juanpablo/Kishore on: 1 12/01/2024 09:14 PM EST
--- OUTSIDE RECORDS SUMMARY | 2025-10-01 21:14 | XMS_ITS | Patient Health Record ---
Author Organization [facility] Address [address] [place] [address] Care Team Providers Care Blood Donor Recruiter Supervisor Name Role Phone Jessica Martinez MD Primary Care Provider Marques Marie Unavailable [phone] Allergies Allergen (clinical drug ingredient) Drug/Non Drug [...] Problem Screening for malignant neoplasm of colon (779171539) Encounter for screening for malignant neoplasm of colon (Z12.11) Active confirmed Problem Preprocedural examination (469126410018439) Preprocedural examination (Z01.818) Active confirmed Problem Long-term current use of aspirin (025459960231084) Aspirin long-term use (Z79.82) Active confirmed Plan Of Treatment Future Test Test Name Order Date COLONOSCOPY 03/30/2018 Insurance Providers Payer Name Payer Address Payer Phone Subscriber Number Group Number Insured Name Patient Relationship to Insured Coverage Start Date Coverage End Date MEDICARE OF [place] [address] [place] [id number] INEZ STACK Self - patient is the insured MEDEX ATTN CLAIMS [address] [place] [address] [id number] INEZ STACK Self - patient is the insured Medical (General) History Medical History History ICD Code Hypertension Hypercholesterolemia Osteoporosis Seasonal allergies Fracture pelvis 2014 Negative colonoscopy in 11/2004--divertic ulosis Denies [place],DM,CVA,Lung disease,renal dise ase Surgical History Surgery Date(Month/Year) Cholecystectomy Appendectomy Laser therapy for a detached retina in t he right eye D&C Right knee replacement 12/31/2014 Left knee replacement 02/2015
--- OUTSIDE RECORDS SUMMARY | 2025-10-01 21:15 | XMS_ITS | Clinical Summary ---
Author Organization [facility] Address [address] [place] [address] Phone Care Team Providers Care Forepart Reducer Name Role Phone Kemi Knott MD Primary Care Provider + Encounters Date Type Department Care Team Description 07/09/2025 Transcribe [facility] [address] [place] [address] [address]rd Floor, [address] [place] [address] Manolo Jordan Atrial fibrillation, unspecified type (Primary [...] Description 12/18/2025 1:40 PM EST Office Visit [facility] [address] [place] [address] [address]rd Floor, [address] [place], [place] [id number] Yemi Beckford MD [address] [facility], [address] [place] [address] [email or web address] Health Maintenance Due [...] file Insurance MEDICARE PART A & B [employer] MEDEX SUPPLEMENT MEDICARE PART A & B [employer] SUPPLEMENT MEDICARE PART A & B [employer] SUPPLEMENT MEDICARE PART A & B [employer]EX SUPPLEMENT MEDICARE PART A & B [employer] SUPPLEMENT MEDICARE PART A & B [employer] SUPPLEMENT Care Teams Forepart Reducer Relationship Specialty Start Date End Date Kemi Knott MD [address] [place] [id number] [email or web address] PCP - General Family Medicine 07/09/25 Additional Source Comments The information contained in this document represents components of the legal health record. It is not the complete legal health record.[facility]
--- OUTSIDE RECORDS SUMMARY | 2025-10-01 21:15 | XMS_ITS | Patient Health Record ---
Author Organization [facility] shahid [place] Address [address] [facility] [place] [address] Care Team Providers Care Buyer Agent Name Role Phone Jessica Martinez Primary Care Provider Tiffanie Castro Unavailable [phone] Allergies Allergen (clinical drug ingredient) Drug/Non Drug Allergy documented on EMR Reaction Allergy Type Onset Date Status Substance with sulfonamide structure and antibacterial mechanism of action (substance) Sulfa Antibiotics Unknown Drug Allergy Active Reason For Referral No Information Medications Medication SIG (Take, Route, Frequency, Duration) Notes Start Date End Date Status Losartan Potassium 25 MG 1 tablet Orally Once a day Active Lopressor 50 MG 1 tablet with food Orally Twice a day Active ALPRAZolam Active Melatonin Active Calcium + D Active Ciclopirox Olamine 0.77 % 1 application Externally Twice a day; Duration: 30 days Active Multivitamin Not-Himanshu ing Eliquis 5 MG as directed Orally Active Atenolol 50 MG 1 tablet Orally Once a day; Duration: 30 day(s) Not-Taking Atorvastatin Calcium 40 MG 1 tablet Orally Once a day; Duration: 30 days Active Immunizations Vaccine Route Administration Date Status Comme nts Influenza Unknown 08/21/2025 Administered COVID-19 Moderna Vaccine Unknown 02/07/2021 Administered Second Dose: 02/28/2021 Social History Tobacco Use: Social History Observation Description Date Details (start date - stop date) Never Smoker NA - NA Alcohol Screen Question Answer Notes Did you [...] Are you an other tobacco user? No Tobacco Control (Standard) Question Answer Notes Tobacco use: Nonsmoker AUDIT-C (Standard) Question Answer Notes Did you have a drink containing alcohol in the p ast year? No Points 0 Interpretation Negative Problems Problem Type SNOMED Code ICD Code Onset Dates Problem Status W/U Status Risk Notes Problem Localized, primary osteoarthritis of the ankle and/or foot (079014996) Osteoarthritis of right ankle and foot (M19.071) Active confirmed Problem Localized, primary osteoarthritis of the ankle and/or foot (088377872) Osteoarthritis of left ankle and foot (M19.072) Active confirmed Vital Signs Blood pressure diastolic 68 mm Hg 09/24/2025 Height 5 ft 3 in in 09/24/2025 Blood pressure systolic 129 mm Hg 09/24/2025 Weight 138 lbs 09/24/2025 BMI 24.44 kg/m2 09/24/2025 Encounters Encounter Location Date Provider Diagnosis [address] [address] 12/25/2024 Tiffanie Perica Tinea pedis of both feet B35.3 ; Plantar wart B07.0 ; Tinea unguium B35.1 ; Pain in right toe(s) M79.674 ; Pain in left toe(s) M79.675 and Left foot pain M79.[address] [address] 03/26/2025 Tiffanie Perica Plantar wart B07.0 ; Tinea unguium B35.1 ; Pain in right toe(s) M79.674 ; Pain in left toe(s) M79.675 and Left foot pain M79.[address] [address] 09/24/2025 Tiffanie Perica Tinea unguium B35.1 ; History of stroke Z86.73 ; Pain in right toe(s) M79.674 ; Pain in left toe(s) M79.675 ; Left-sided weakness R53.1 and Gait instability R26.[address] [address] 03/26/2025 Tiffanie Hicks [facility] [address] [place] [address] 07/15/2025 Tiffanie Hicks Assessments Encounter Date Diagnosis (ICD Code) Assessment Notes Treatment Notes Treatment Clinical Notes Section Notes 12/25/2024 Plantar wart (ICD-10 - B07.0) 12/25/2024 Tinea pedis of both feet (ICD-10 - B35.3) 03/26/2025 Plantar wart (ICD-10 - B07.0) 03/26/2025 Tinea unguium (ICD-10 - B35.1) 09/24/2025 Tinea unguium (ICD-10 - B35.1) 09/24/2025 History of stroke (ICD-10 - Z86.73) 09/24/2025 Pain in right toe(s) (ICD-10 - M79.674) 03/26/2025 Pain in right toe(s) (ICD-10 - M79.674) 12/25/2024 Tinea unguium (ICD-10 - B35.1) 12/25/2024 Pain in right toe(s) (ICD-10 - M79.674) 03/26/2025 Pain in left toe(s) (ICD-10 - M79.675) 09/24/2025 Pain in left toe(s) (ICD-10 - M79.675) 09/24/2025 Left-sided weakness (ICD-10 - R53.1) 03/26/2025 Left foot pain (ICD-10 - M79.672) 12/25/2024 Pain in left toe(s) (ICD-10 - M79.675) 12/25/2024 Left foot pain (ICD-10 - M79.672) 09/24/2025 Gait instability (ICD-10 - R26.81) Plan Of Treatment Pending Test Test Name Order Date X ray : Foot, left 3V 09/29/2023 Next Appt Details Provider Name:Tiffanie alejandre, 12/24/2025 03:45:00 PM, [address] [place], [address], Insurance Providers Payer Name Payer Address Payer Phone Subscriber Number Group Number Insured Name Patient Relationship to Insured Coverage Start Date Coverage End Date Medicare National Govt Svcs Inc [address] [place] [address] [id number] ChrisyumikoMarily egan Self - patient is the insured [employer] Blue Shield [address] [place] [address] [phone] [id number] Marily Llanos Self - patient is the insured Medical (General) History Medical History History ICD Code Arthritis CAD (Cholesterol) Measles Mumps Chicken pox Gall bladder problems High blood pressure Osteoporosis Joint implants/screws Surgical History Surgery Date(Month/Year) gall bladder 1970 right knee replacement 12/2014 left knee replacement 02/2016 cataract surgery 2021 Hospitalization History Reason Date(Month/Year) stroke 05/26/25 [facility] [place] - cat scan and x-ray left knee 01/14
== END ==
LOC: HO.SL 20:30
PROVIDERS: PCP Internal Medicine; Visit Provider Internal Medicine
DX: Z13.89 Encounter for screening for other disorder (principal)
CPT/HCPCS: 95810

== ENCOUNTER → 2025-10-01 21:09 | Outpatient (BNV) | payer MEDICARE, SELFPAY | PROVIDERS: PCP Internal Medicine; Visit Provider Internal Medicine | DX: G47.33 Obstructive sleep apnea (adult) (pediatric) (principal) | CPT/HCPCS: 95810 ==

== ENCOUNTER 2025-10-02 18:47 | Inpatient (IN) | payer MEDICARE, SELFPAY ==
--- OUTSIDE RECORDS SUMMARY | 2024-07-17 06:15 | XMS_ITS ---
Author Organization [facility] Address [address] [place] [address] Care Team Providers Care Still Cleaner Name Role Phone Jessica Martinez Primary Care Provider Tiffanie Castro [phone] Encounters Encounter Location Date Provider Diagnosis [address] [address] 07/17/2024 Tiffanie Hicks Plan Of Treatment Next Appt Details Provider Name:Tiffanie alejandre, 12/24/2025 03:45:00 PM, [address] [place], [address], Progress Notes * Bi STACKOB:07/14 (85 yo F)Acc No.[id number]:07/17/2024 Progress Note Patient: Marily PRINCE Provider: Gordo Hicks DPM :1940 A ge:84 Y S ex:Female Date:07/17/2024 Address[address] Pcp:Jessica Martinez Subjective: * Chief Complaints: * [...] 07/17/2024 Generated for Liban brock/Juanpablo/Kishore on: 1 12/02/2024 07:31 PM EST
--- OUTSIDE RECORDS SUMMARY | 2025-07-02 06:00 | XMS_ITS ---
Author Organization [facility] Address [address] [place] [address] Care Team Providers Care Juvenile Counselor Name Role Phone Jessica Martinez Primary Care Provider Tiffanie Castro [phone] Menon Encounters Encounter Location Date Provider Diagnosis [address] [address] 07/02/2025 Tiffanie Hicks Plan Of Treatment Next Appt Details Provider Name:Tiffanie alejandre, 12/24/2025 03:45:00 PM, [address] [place] [address], [phone], Progress Notes * Bi STACKOB:07/14 (85 yo F)Acc No.[id number]:07/02/2025 Progress Note Patient: Marily PRINCE Provider: Gordo Hicks DPM :1940 A ge:84 Y S ex:Female Date:07/02/2025 Address:[address] [place] [address] Yoseph Phillips [facility] Pcp:Jessica Martinez Subjective: * Chief Complaints: * [...] 07/02/2025 Generated for Liban brock/Juanpablo/Kishore on: 1 12/02/2024 07:32 PM EST
--- OUTSIDE RECORDS SUMMARY | 2025-07-17 06:00 | XMS_ITS ---
Author Organization [facility] Address [address] [place] [address] Care Team Providers Care Elastic Cutter Name Role Phone Jessica Martinez Primary Care Provider Tiffanie Castro Unavailable [phone] Allergies Allergen (clinical drug ingredient) Drug/Non Drug [...] Active Encounters Encounter Location Date Provider Diagnosis [facility] [address] [place] [address] 07/17/2025 Tiffanie Hicks Plan Of Treatment Next Appt Details Provider Name:Tiffanie alejandre, 12/24/2025 03:45:00 PM, [address] [place], [address], Progress Notes * Kenyatta STACKenceDOB:[birth year] (85 yo F)Acc No.[id number]:07/17/2025 Progress Note Patient: Hilario KERNMarily ZUÑIGA Provider: Gordo Hicks DPM :1940 A ge:85 Y S ex:Female Date:07/17/2025 Address:[address], [facility] Pcp:Jessica Martinez Subjective: * Chief Complaints: * [...] 07/17/2025 Generated for Liban brock/Juanpablo/Kishore on: 1 12/02/2024 07:32 PM EST
--- NOTE | 2025-10-02 | ECG_ITS ---
Test Reason : TACHYCARDIA Blood Pressure : */* mmHG Vent. Rate : 112 BPM Atrial Rate : * BPM P-R Int : * ms QRS Dur : 72 ms QT Int : 334 ms P-R-T Axes : * -4 94 degrees QTcB Int : 455 ms Atrial fibrillation with rapid ventricular response Anteroseptal infarct (cited on or before 26-May-2025) Abnormal ECG When compared with ECG of 26-May-2025 10:58, Vent. rate has increased by [address] no longer elevated in Anterior leads Referred By: Generic ED Physician Electronically Signed By: BRAXTON ORDAZ MD
--- NOTE | ~2025-10-02 | MR_ITS ---
EXAMINATION: MR BRAIN WITHOUT CONTRAST CLINICAL INFORMATION: Change in mental status. TIA versus stroke. COMPARISON: Correlated to CT dated October 02, 2025. TECHNIQUE: MRI of the brain was obtained using routine sequences without contrast. FINDINGS: No restricted diffusion. No acute intracranial hemorrhage, mass effect, midline shift, hydrocephalus or herniation. Macrocystic encephalomalacia, right frontal temporal parietal with slightly hyperintense T1 cerebral cortex with susceptibility signal secondary to old/prior right MCA territory infarct. There is wallerian degeneration into the right midbrain. Kirby-white matter differentiation is normal. Prominence of the extra-axial CSF spaces cerebral sulci and ventricles. Sellar/suprasellar region demonstrated no gross signal abnormality or masses. Craniocervical junction is intact with normal position of the cerebellar tonsils. MR/MR head/brain wo con IMPRESSION: No acute stroke/nonhemorrhagic ischemia. Prior vascular insult, right MCA territory with old microhemorrhages and likely cortical laminar necrosis. Global cerebral atrophy. Electronically signed by: Krunal Godinez MD 10/03/2025 01:29 PM EST
--- NOTE | ~2025-10-02 | US_ITS ---
CLINICAL HISTORY: ?TIA US Bilateral Carotid Duplex Comparison: CT/SR - CT ANGIO HEAD NECK STROKE - 05/26/25 12:59 EDT Findings: Mild plaque within the common carotid arteries. Moderate plaque within the carotid bulbs. Normal color doppler and waveforms morphology. Peak systolic velocities: Right CCA: 90.7 cm/s. Right ICA: 110 cm/s. ICA/CCA ratio: 0.6. Right ECA: Unremarkable. Right vertebral artery flow antegrade. Left CCA: 77.6 cm/s. Left ICA: 125 cm/s. ICA/CCA ratio: 1.6. Left ECA: Unremarkable. Left vertebral artery flow antegrade. IMPRESSION: Right internal carotid artery with 0-49% stenosis. Left internal carotid artery with 50-79% stenosis. Moderate atherosclerotic plaque at the bilateral carotid bulbs. This document has been electronically signed by: To Mata MD on 10/02/2025 23:48:31
--- NOTE | ~2025-10-02 | CT_ITS ---
CLINICAL HISTORY: nonfocal AMS confusion, resolved aphasiarecent CVA CT head without contrast Comparison: CT/SR - CT ANGIO HEAD NECK STROKE - 05/26/25 12:[address]/SR - CT HEAD/BRAIN WO IV CON - 05/26/25 10:39 EDT Findings: Evolution of prior right MCA territory infarct with developing encephalomalacia. No acute intracranial hemorrhage. No acute large territorial ischemia. Moderate chronic microvascular ischemic change and parenchymal atrophy. ICA calcifications. No mass effect, midline shift, or hydrocephalus. Paranasal sinuses are clear. Mastoid air cells are clear. The orbits are within normal limits. No skull fracture. Rightward nasal septal deviation. IMPRESSION: No acute intracranial abnormality. Expected evolution of prior right MCA territory infarct with encephalomalacia. This document has been electronically signed by: To Mata MD on 10/02/2025 21:22:40
[2025-10-02 18:52] VITALS: BP 123/71; BP 147/71; PULSE 109; PULSE 112; RESP 22; TEMP 36.8; O2SAT 96; BMI 25.3
[2025-10-02 19:15] LABS: MANUAL DIFF FLAG NO
[2025-10-02 19:19] LABS: Hematocrit 39.5 % (37.0-47.0); Hemoglobin 13.8 g/dl (12.0-16.0); Imm Gran Abs Auto 0.04 X10*3/uL (0.00-0.03); Imm Gran Pct Auto 0.6 % (0.0-0.4); Lymphocytes Absolute Auto 1.7 X10*3/uL (1.2-4.9); Mean Corpuscular HGB Conc 34.9 g/dl (31.0-35.0); Mean Corpuscular Hemoglobin 31.1 pg (27.0-33.0); Mean Corpuscular Volume 89.0 fL (80.0-98.0); NRBC Abs Auto 0.000 X10*3/uL (0.0-0.012); NRBC Pct Auto 0.0 /100WBC (0.0-0.2); Platelet Count 225 X10*3/uL (160-400); Red Blood Count 4.44 X10*6/uL (4.20-5.50); White Blood Count 6.9 X10*3/uL (4.8-10.8)
[2025-10-02 19:27] LABS: INTERNATIONAL NORM RATIO 1.2 (0.9-1.1); Prothrombin Time 14.4 SEC (11.2-13.5)
--- OUTSIDE RECORDS SUMMARY | 2025-10-02 19:32 | XMS_ITS | Clinical Summary ---
Author Organization [facility] Address [address] [place] [address] Phone Care Team Providers Care Paper Cone Grader Name Role Phone Kemi Knott MD Primary Care Provider + Encounters Date Type Department Care Team Description 07/09/2025 Transcribe [facility] [address] [place] [address] [address], [address] [place] [address] Manolo Jordan Atrial fibrillation, unspecified type (Primary Dx) from Last 3 Months Social History Tobacco Use Types Packs/Day Years Used Date Smoking Tobacco: Never Assessed Education Answer Date Recorded Are you interested in more education? Not on gerg e 07/09/2025 Are you concerned about learning? [...] Description 12/18/2025 1:40 PM EST Office Visit [facility] [address] [place] [address] [address], [address] [place] [address] Yemi Beckford MD [address] [facility] [address] [facility], [address] [place] [address] [email or web address] Health Maintenance Due Date Last Done Comments [...] on patient's age to complete this topic IPV VACCINES Aged Out No longer eligi ble based on patient's age to complete this topic MENINGOCOCCAL VACCINES (ACWY) Aged Out No longer eligible based on patient's age to complete this topic MENINGOCOCCAL VACCINES (B) Aged Out N o longer eligible based on patient's age to complete this topic Medical Devices Not on file Insurance MEDICARE PART A & B KTM Advance [employer] MEDEX SUPPLEMENT MEDICARE PART A & B [employer] MEDEX SUPPLEMENT MEDICARE PART A & B [employer] MEDEX SUPPLEMENT Member Subscriber Plan / Payer [facility] Name:Marily Llanos Cristal Relation to Subscriber:Self Name:Marily Llanos Payer ID:[id number] (NAIC) Type:Indemnity Address: [facility] [id number] [place] [id number] MEDICARE PART A & B Member Subscriber Plan / Payer ([facility]-) Name:Marily Llanos Cristal Member ID:[id number] Relation to Subscriber:Self Name:Marily Llanos Cristal Subscriber ID:[id number] Payer ID:[id number] Group ID:Not on file Type:Medicare Address: [employer] [address] [place] [address] [employer] MEDEX SUPPLEMENT Member Subscriber Plan / Payer ([facility] Name:BrockMarily arita Relation to Subscriber:Self Name:Brockjuan j Marily Bee Payer ID:[id number] (NAIC) Type:Indemnity Address: [address] [address] MEDICARE PART A & B [employer] SUPPLEMENT MEDICARE PART A & B [employer] MEDEX SUPPLEMENT Care Teams Paper Cone Grader Relationship Specialty Start Date End Date Kemi Knott MD [address] [place] [id number] [email or web address] PCP - General Family Medicine 07/09/25 Additional Source Comments The information contained in this document represents components of the legal health record. It is not the complete legal health record.[facility]
--- OUTSIDE RECORDS SUMMARY | 2025-10-02 19:32 | XMS_ITS | Patient Health Record ---
Author Organization [facility] Address [address] [place] [address] Care Team Providers Care Platform Inspector Name Role Phone Jessica Martinez MD Primary Care Provider Marques Marie Unavailable [phone] Allergies Allergen (clinical drug ingredient) Drug/Non Drug [...] Problem Screening for malignant neoplasm of colon (387888677) Encounter for screening for malignant neoplasm of colon (Z12.11) Active confirmed Problem Preprocedural examination (919397451561129) Preprocedural examination (Z01.818) Active confirmed Problem Long-term current use of aspirin (470157167246472) Aspirin long-term use (Z79.82) Active confirmed Plan Of Treatment Future Test Test Name Order Date COLONOSCOPY 03/30/2018 Insurance Providers Payer Name Payer Address Payer Phone Subscriber Number Group Number Insured Name Patient Relationship to Insured Coverage Start Date Coverage End Date MEDICARE OF [place] [address] [place] [id number] [phone] [id number] INEZ STAKC Self - patient is the insured MEDEX ATT[employer] CLAIMS [address] [place] [address] [id number] INEZ STACK Self - patient is the insured Medical (General) History Medical History History ICD Code Hypertension Hypercholesterolemia Osteoporosis Seasonal allergies Fracture pelvis 2014 Negative colonoscopy in 11/2004--divertic ulosis Denies AR,DM,CVA,Lung disease,renal dise ase Surgical History Surgery Date(Month/Year) Cholecystectomy Appendectomy Laser therapy for a detached retina in t he right eye D&C Right knee replacement 12/31/2014 Left knee replacement 02/2015
--- OUTSIDE RECORDS SUMMARY | 2025-10-02 19:32 | XMS_ITS | Patient Health Record ---
Author Organization [facility] [place] Address [address] [facility] [place] [address] Care Team Providers Care Truck Car And Bus Cleaner Name Role Phone Jessica Martinez Primary Care Provider Tiffanie Castro Unavailable [phone] Allergies Allergen (clinical drug ingredient) Drug/Non Drug [...] primary osteoarthritis of the ankle and/or foot (832975083) Osteoarthritis of right ankle and foot (M19.071) Active confirmed Problem Localized, primary osteoarthritis of the ankle and/or foot (231812878) Osteoarthritis of left ankle and foot (M19.072) Active confirmed Vital Signs Blood pressure diastolic 68 mm Hg 09/24/2025 Height 5 ft 3 in in 09/24/2025 Blood pressure systolic 129 mm Hg 09/24/2025 Weight 138 lbs 09/24/2025 BMI 24.44 kg/m2 09/24/2025 Encounters Encounter Location Date Provider Diagnosis [address] [address] 12/25/2024 Tiffanie Perica Tinea pedis of both feet B35.3 ; Plantar wart B07.0 ; Tinea unguium B35.1 ; Pain in right toe(s) M79.674 ; Pain in left toe(s) M79.675 and Left foot pain M79.[address] [address] 03/26/2025 Tiffanie Perica Plantar wart B07.0 ; Tinea unguium B35.1 ; Pain in right toe(s) M79.674 ; Pain in left toe(s) M79.675 and Left foot pain M79.[address] [address] 09/24/2025 Tiffanie Perica Tinea unguium B35.1 ; History of stroke Z86.73 ; Pain in right toe(s) M79.674 ; Pain in left toe(s) M79.675 ; Left-sided weakness R53.1 and Gait instability R26.[address] [address] 03/26/2025 Tiffanie Hicks [facility] [address] [place] [address] 07/15/2025 Tiffanie Hicks Assessments Encounter Date Diagnosis [...] Provider Name:Tiffanie alejandre, 12/24/2025 03:45:00 PM, [address] [place], [address], Insurance Providers Payer Name Payer Address Payer Phone Subscriber Number Group Number Insured Name Patient Relationship to Insured Coverage Start Date Coverage End Date Medicare National Govt Svcs Inc [address] [place] [address] [id number] ChrisyumikoMarily egan Self - patient is the insured [employer] Blue Shield [address] [place] [address] [id number] Marily Llanos Self - patient is the insured Medical (General) History Medical History History ICD Code Arthritis CAD (Cholesterol) Measles Mumps Chicken pox Gall bladder problems High blood pressure Osteoporosis Joint implants/screws Surgical History Surgery Date(Month/Year) gall bladder 1970 right knee replacement 12/2014 left knee replacement 02/2016 cataract surgery 2021 Hospitalization History Reason Date(Month/Year) stroke 05/26/25 [facility] [place] - cat scan and x-ray left knee 01/14
[2025-10-02 19:37] LABS: Albumin Level 4.0 g/dL (3.5-5.0); Alkaline Phosphatase 110 U/L (39-117); Anion Gap 13 (12-20); Aspartate Amino Transferase 23 U/L (5-31); Blood Urea Nitrogen 16 mg/dL (9-16); Calcium 9.1 mg/dL (8.4-10.2); Carbon Dioxide 23 mmol/L (22-29); Chloride 103 mmol/L (96-108); Creatinine Clr Calc Pharmacy 54.0; Estimated Glomerular Filt Rate > 60; Potassium 4.1 mmol/L (3.3-5.1); Sodium 135 mmol/L (135-145); Total Protein 6.6 g/dL (6.5-8.0)
[2025-10-02 19:39] LABS: Troponin-I High Sensitivity 3.8 ng/L (<3.5-17.0)
--- NOTE | 2025-10-02 19:40 | PC.NURSE ---
pt jose from home family reported increased confusion off baseline w/ LKW of 1700 today. PT is currently AOx3 and seems confused about why she is at the hospital. PMH of CVA 06/14. FASTED 0. VSS A-fib w/RVR on tele at baseline. 20g placed in R AC w/labs obtained.
--- NOTE | 2025-10-02 19:45 | ED_ITS ---
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 She had left-sided weakness at that time History of AFib, stroke, anxiety among other comorbid medical conditions currently on apixaban atorvastatin loratadine Xanax among other medications. Date & Time: 2025-10-02 23:15 Patient Name: Marily ISLAS: MRN: Author / Clinician: Sunny Nicolas MD ? Emergency Medicine Chief Complaint Acute confusion and abnormal speech (?word salad?). 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 - Baseline: Living at home with brother; daughter and son-in-law assist with caregiving. Ambulates independently in the house; continues home exercise program while awaiting outpatient PT evaluation on 10/07. - Events today: - 03:30-16:00 ? Walked neighborhood with daughter; missed her own driveway (atypical for her). - 17:30 ? Ate dinner without issue. Afterward went to bedroom and began pulling bed down instead of sitting in chair (unusual behavior). - ?18:15-18:30 ? Brother phoned daughter reporting patient ?not making sense,? repeating phrases, and speaking in ?word salad.? Speech described as nonslurred but nonsensical. EMS called and transported to ED. - Additional symptoms: Episodes of mild clumsiness earlier today (spilled coffee in car, possibly left-sided). Diarrhea for several days. No fever, no headache reported, no new focal weakness appreciated by family. - Sleep study completed last night at [facility]; patient reports good sleep, woke once to void (usually 2?3?/night). Did not take melatonin. - Medications today: Apixaban (usual), Tylenol, evening metoprolol 25 mg given in ED. - No aspirin or additional antiplatelet agents. Review of Systems Limited to systems discussed during encounter. - Constitutional: Denies fever or chills. - Neurologic: Positive for confusion, abnormal speech. Denies headache. No subjective new unilateral weakness per patient. - GI: Diarrhea for past few days. No nausea or vomiting reported. - : Up 1? to void during sleep study; baseline 2?3?/night. - Cardiovascular: Known AFib; heart rate noted to be ?a little fast.? Physical Examination Vital Signs: Measure Value Heart Rate 105?120 bpm, irregularly irregular Temp Afebrile Resp Rate / SpO? Physical Exam: - General: Alert, conversant, anxious appearing; intermittently tangential speech. - Neurologic: - Orientation: Knows location ([facility] [place] [facility]) and upcoming appointments; states date ? 10/02/25. - Cranial nerves: Slight facial droop noted; family reports droop is slightly increased compared to prior baseline, but not acutely worsened in the past 24 hours. Able to smile and close eyes tightly. - Motor: No pronator drift. Bilateral UE/LE strength 5/5; able to raise both legs straight up. - Speech: Fluent but occasionally nonsensical phrases; no dysarthria. - Cardiovascular: Irregularly irregular rhythm, tachycardic; no murmur noted. Emergency Department Course Discussed case with patient and family. Differential includes recurrent ischemic stroke/TIA, post-stroke seizure activity, infection, metabolic/electrolyte disturbance, or less likely UTI. Ordered non-contrast head CT and urine studies. Administered home metoprolol tartrate 25 mg PO for rate control of AFib. Head CT and labs pending at time of note. Assessment & Plan Diagnosis: Acute altered mental status and abnormal speech in patient with recent large vessel CVA; rule out recurrent stroke/TIA versus encephalopathy. Plan: - Non-contrast head CT tonight ? pending. - Laboratory evaluation: Urine studies. - Rate control: Gave evening metoprolol 25 mg PO. - Continue home apixaban. - If CT negative and labs unremarkable, consider admission/observation for MRI brain in AM to evaluate for new ischemic injury. - Disposition decision after imaging/lab results and shared decision making with patient/family. ED course: She will take her home metoprolol and other medications this evening. CT brain and low-dose IV metoprolol due to AFib with RVR in the rate 105 to 120s. Daughter attributes this to anxiety. UA shows mixed cellular components no nitrites. The patient does not have dysuria and is of sound mind to describe urologic symptoms doubt UTI culture sent. This is unlikely to explain the patients encephalopathic or neurologic symptoms Disposition Patient remains in ED pending head CT and laboratory results; admission vs. discharge to be determined based on findings and discussion with neurology and family. Medications (home & ED) - Apixaban ? continues. - Metoprolol tartrate 25 mg ? evening dose given in ED. - Melatonin (prn, not taken last night). - Acetaminophen (taken earlier today). Related Data Home Medications ?Medication ?Instructions ?Recorded ?Confirmed calcium 600 mg (as 1 cap PO DAILY 01/28/2109/21 carbonate)-vitamin D3 12.5 mcg (500 unit) capsule (Calcium with Vit D3) albuterol sulfate 90 mcg/actuation 2 puff inhalation Q 6H PRN wheezing 05/26/25 10/02/25 aerosol inhaler loratadine 10 mg tablet 10 mg PO DAILY 08/28/2509/21 melatonin 10 mg capsule 10 mg PO BEDTIME PRN Sleep 1 10/02/25 pantoprazole 40 mg tablet,delayed 40 mg PO DAILY@0630 PRN Acid Reflux 08/28/25 10/02/25 release (Protonix) alprazolam 0.25 mg tablet 0.25 mg PO DAILY PRN Anxiety 10/02/25 10/02/25 ciclopirox 0.77 % topical cream 1 appl topical BID PRN Rash 10/02/25 10/02/25 Previous Rx's ?Medication ?Instructions ?Recorded acetaminophen 500 mg capsule 1,000 mg (2 x 500 mg) PO Q6H PRN 07/08/25 pain #30 caps atorvastatin 40 mg tablet 40 mg PO BEDTIME #90 tabs losartan 25 mg tablet 25 mg PO DAILY #90 tabs 07/22 07/15 metoprolol tartrate 25 mg tablet 25 mg PO BID #180 tab s 08/08/25 apixaban 5 mg tablet (Eliquis) 5 mg PO BID #60 tabs Allergies Allergy/AdvReac Type Severity Reaction Status Date / Time Sulfa (Sulfonamide Allergy Intermediate RASH Verified 10/02/25 19:00 Antibiotics) (SULFA (SULFONAMIDE ANTIBIOTICS)) [facility] Past Medical History Medical History 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 Stroke Heart murmur Retinal detachment GERD (gastroesophageal reflux disease) Hypertension Diverticulosis Hypercholesterolemia Surgical History H/O colonoscopy History of surgery H/O eye surgery History of dilatation and curettage Hx of appendectomy Hx of cholecystectomy History of bilateral knee replacement Social History Social History Household Members: Children Housing: Apartment Do you presently have visiting nurse or other home services: No Alcohol intake: current Alcohol intake frequency: a few times a week Alcohol type: wine Comment: 3x a weeka glass Patient Tobacco Use Status: Never used Tobacco Tobacco use type: Cigarette e-Cigarette/Vaping Use: Never Used Second Hand Smoke Exposure: No Advance Directives Date on File: 05/25/25 service: No Current occupational status: retired Cognitive needs: No Hearing needs: No Vision needs: Yes Physical Exam ED Vital Signs: Vital Signs - 24 hr 10/02/25 18:52 10/02/25 20:04 10/02/25 21:00 Temperature 98.3 F 97.9 F Pulse Rate 112 H 111 H 122 H Respiratory Rate 22 H 22 H Blood Pressure 123/71 137/86 124/79 Pulse Oximetry 96 96 Oxygen Delivery Method Room Air Room Air BMI result Body Mass Index 25.3 Medications Administered Generic Name Dose Route Start Last Admin Trade Name Freq PRN Reason Stop Dose Admin Apixaban 5 mg 10/02/25 22:40 10/03/25 09:53 Apixaban 5 Mg Tablet PO 5 mg BID ELISE Administration Atorvastatin Calcium 40 mg 10/02/25 22:40 10/02/25 22:56 Atorvastatin Calcium 40 Mg Tablet PO Not Given BEDTIME ELISE Ceftriaxone Sodium 2 gm/ 50 mls @ 100 mls/hr 10/02/25 22:00 10/02/25 23:24 Sodium Chloride IV Infused Q24H ELISE Infusion Loratadine 10 mg 10/03/25 09:00 10/03/25 09:53 Loratadine 10 Mg Tablet PO Not Given DAILY [facility] Losartan Potassium 25 mg 10/03/25 09:00 10/03/25 09:51 Losartan Potassium 25 Mg Tablet PO 25 mg DAILY [facility] Administration Protocol Metoprolol Tartrate 25 mg 10/03/25 09:00 10/03/25 09:53 Metoprolol Tartrate 25 Mg Tablet PO 25 mg BID ELISE Administration Protocol Sodium Chloride 3 ml 10/03/25 00:00 10/03/25 09:53 0.9 % Sodium Chloride Flush 3 Ml Syringe IVFLUSH 3 ml QSHIFT [facility] Administration Discontinued Medications Generic Name Dose Route Start Last Admin Trade Name Freq PRN Reason Stop Dose Admin Aspirin 325 mg 10/02/25 22:36 10/02/25 22:55 Aspirin 325 Mg Tablet PO 10/02/25 22:37 325 mg ONCE ONE Administration Metoprolol Tartrate 2.5 mg 10/02/25 20:32 10/02/25 21:01 Metoprolol Tartrate 5 Mg/5 Ml Vial IVPUSH 10/02/25 20:33 2.5 mg ONCE ONE Administration Protocol Medical Decision Making Lab Data 10/03/25 04:18 10/03/25 04:18 Labs: Lab Results 10/02/25 10/02/25 Range/Units 19:12 20:13 WBC 6.9 (4.8-10.8) X10*3/uL RBC 4.44 (4.20-5.50) X10*6/uL Hgb 13.8 (12.0-16.0) g/dl Hct 39.5 (37.0-47.0) % MCV 89.0 (80.0-98.0) fL MCH 31.1 (27.0-33.0) pg MCHC 34.9 (31.0-35.0) g/dl RDW 13.7 (11.0-16.0) % Plt Count 225 (160-400) X10*3/uL MPV 8.3 L (9.4-12.3) fL Immature Gran % (Auto) 0.6 H (0.0-0.4) % Neut % (Auto) 60.8 (45-73) % Lymph % (Auto) 24.7 (20-40) % [place] % (Auto) 10.4 (2-11) % Eos % (Auto) 2.5 (0-4) % Baso % (Auto) 1.0 (0-2) % Lymph # (Auto) 1.7 (1.2-4.9) X10*3/uL [place] # (Auto) 0.7 (0.1-1.2) X10*3/uL Eos # (Auto) 0.2 (0.0-0.4) X10*3/uL Baso # (Auto) 0.1 (0.0-0.2) X10*3/uL Abs Immat Gran (auto) 0.04 H (0.00-0.03) X10*3/uL Absolute Neuts (auto) 4.2 (2.0-8.3) x10*3/uL Absolute Nucleated RBC 0.000 (0.0-0.012) X10*3/uL Nucleated RBC % (auto) 0.0 (0.0-0.2) /100WBC PT 14.4 H (11.2-13.5) SEC INR 1.2 H (0.9-1.1) Sodium 135 (135-145) mmol/L Potassium 4.1 (3.3-5.1) mmol/L Chloride 103 (96-108) mmol/L Carbon Dioxide 23 (22-29) mmol/L Anion Gap 13 (12-20) BUN 16 (9-16) mg/dL Creatinine 0.69 (0.5-1.4) mg/dL Estim Creat Clear Calc 54.0 Estimated GFR > 60 Random Glucose 95 (60-115) mg/dL Calcium 9.1 (8.4-10.2) mg/dL Total Bilirubin 0.7 (0.0-1.0) mg/dL AST 23 (5-31) U/L ALT 34 H (0-31) U/L Alkaline Phosphatase 110 (39-117) U/L Troponin I High Sens 3.8 (<3.5-17.0) ng/L Total Protein 6.6 (6.5-8.0) g/dL Albumin 4.0 (3.5-5.0) g/dL Triglycerides 164 H (<150) mg/dL Cholesterol 144 (<200) mg/dL LDL Cholesterol, Calc 68 (<100) mg/dL HDL Cholesterol 44 (>40) mg/dL Urine Color Yellow Urine Appearance Clear Urine pH 6.0 (5.0-9.0) Ur Specific [place] 1.020 (1.005-1.025) Urine Protein 30 (1+) H (Neg-Trace) mg/dL Urine Glucose (UA) Negative (Negative) mg/dL Urine Ketones Negative (Negative) mg/dL Urine Blood Small (1+) H (Negative) Urine Nitrite Negative (Negative) Ur Leukocyte Esterase Small (1+) H (Negative) Urine RBC 6-10 H (0-2) /HPF Urine WBC 21-50 H (0-5) /HPF Ur Squamous Epith Cells 0-2 (0-2) /HPF Urine Bacteria 4+ (None Seen) Hyaline Casts 0-2 (0-2) /LPF Discharge Plan Discharge Clinical Impression: Atrial fibrillation with RVR, Aphasia Patient Disposition: Admitted As Inpatient Interventions: Admission Worksheet (ED) Last Done: 10/03/25 07:53 Discharge Date/Time: 10/03/25 09:05
[2025-10-02 19:53] LABS: Alanine Aminotransferase 34 U/L (0-31)
[2025-10-02 20:04] VITALS: BP 137/86; PULSE 111; RESP 22; TEMP 36.6; O2SAT 96
--- NOTE | 2025-10-02 20:10 | MHC.EDTECH ---
pt ambulated to bathroom with a steady gait and use of walker. Urine sample collected and sent to lab.
[2025-10-02 20:21] LABS: Appearance Urine Clear; Glucose Urine UA Negative (Negative); PH 6.0 (5.0-9.0); Specific Gravity - Urine 1.020 (1.005-1.025); UMIC TRIGGER UACC YES
[2025-10-02 20:27] LABS: UACC Culture Trigger YES
[2025-10-02 21:00] VITALS: BP 124/79; PULSE 122
--- NOTE | 2025-10-02 22:17 | PHA.MEDREC ---
Addendum entered by Erick Honeycutt RPh 10/02/25 22:27: Med rec reviewed Original Note: Pharmacy Consult ? Medication Reconciliation Pharmacy has completed the medication reconciliation. Spoke with pt family at bedside and they confirmed pt medications. Pt takes Eliquis 5mg BID and took her morning dose of that today (10/02).
--- NOTE | 2025-10-02 22:40 | P.HPHOSP_ITS ---
History of Present Illness Date of Service: 10/02/25 Attending physician on admission: Sonia Madison Chief Complaint: AMS Pt is an 85 yo female with a pmhx significant for recent stroke in May with mild left-sided deficits (LUE and LLE weakness with L facial droop), AFib on Eliquis, anxiety, hypertension and GERD, who presented to the ED via EMS due to altered mental status increasing throughout the day. Last known well time unknown, possible confusion started around 15:30 with the patient missed her driveway during a walk around the neighborhood. Patient reports a migraine prior to dinner with ?wavy lines ?in her right eye. She reports that she took Tylenol earlier in the day for muscle aches therefore she did not feel it was appropriate to take it again so she hydrated in the headache went away. She has been having diarrhea recently but feels that this is related to her diet in his manageable. She denies any urinary symptoms including frequency, urgency or dysuria. She denies any chest pain, shortness of breath, nausea or vomiting. Per family's bedside and reports that she is about 90% back to her post-CVA baseline. Review of Systems 2 Constitutional: Constitutional: Denies body ache(s), Denies chills, Denies fatigue, Denies fever(s) and Reports headache(s) Eyes: Eyes: Reports change in vision ENT: Reports headache(s), Denies nasal discharge and Denies sore throat Cardiovascular: Cardiovascular: Denies chest pain, Denies rapid heart rate, Denies leg edema, Denies lightheadedness and Denies dyspnea Respiratory: Respiratory: Denies chest congestion, Denies cough, Denies dyspnea and Denies wheezing Gastrointestinal: Gastrointestinal: Denies abdominal pain, Reports diarrhea, Denies nausea and Denies vomiting Genitourinary: Genitourinary: Denies difficulty voiding, Denies dysuria and Denies urinary urgency Musculoskeletal: Musculoskeletal: Denies back pain Integumentary/Breasts: Skin/Breast: Denies rash Neurologic: Reports confusion and Reports headache(s) Psychiatric: Psychiatric: Reports confusion Endocrine: Endocrine: Denies fatigue Hematologic/Lymphatic: Hematologic/Lymphatic: Denies easy bleeding Allergic/Immunologic: Allergic/Immunologic: Denies wheezing [facility] Medical History 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 Stroke Heart murmur Retinal detachment GERD (gastroesophageal reflux disease) Hypertension Diverticulosis Hypercholesterolemia Functional capacity: uses cane/walker Surgical History H/O colonoscopy History of surgery H/O eye surgery History of dilatation and curettage Hx of appendectomy Hx of cholecystectomy History of bilateral knee replacement Social History Household Members: Children Housing: Apartment Do you presently have visiting nurse or other home services: No Alcohol intake: current Alcohol intake frequency: a few times a week Alcohol type: wine Comment: 3x a weeka glass Patient Tobacco Use Status: Never used Tobacco Tobacco use type: Cigarette Smoked in Last 30 Days: No e-Cigarette/Vaping Use: Never Used Second Hand Smoke Exposure: No Use of substances other than those prescribed or required for medical reasons: No Advance Directives: Yes Advance Directives on File: Yes Advance Directives Date on File: 05/25/25 service: No Current occupational status: retired Cognitive needs: No Hearing needs: No Vision needs: Yes Narrative: No smoking, alcohol or drug use Meds Allergies Allergy/AdvReac Type Severity Reaction Status Date / Time Sulfa (Sulfonamide Allergy Intermediate RASH Verified 10/02/25 19:00 Antibiotics) (SULFA (SULFONAMIDE ANTIBIOTICS)) Active Medications: Current Medications Acetaminophen (Acetaminophen 325 Mg Tablet) 975 mg PO Q6H PRN PRN Reason: Pain, Mild 1-3,fever,headache Calcium Carbonate (Calcium Carbonate 750 Mg Tab.Chew) 750 mg PO Q4H PRN PRN Reason: Heartburn Ceftriaxone Sodium 2 gm/ (Sodium Chloride) 50 mls @ 100 mls/hr IV Q24H ELISE Magnesium Hydroxide (Milk Of Magnesia 30 Ml Oral.Susp) 30 ml PO DAILY PRN PRN Reason: Constipation Melatonin (Melatonin 3 Mg Tablet) 6 mg PO BEDTIME PRN PRN Reason: Insomnia Ondansetron HCl (Ondansetron Hcl 4 Mg/2 Ml Vial) 4 mg IVPUSH Q8H PRN PRN Reason: Nausea and Vomiting Oxycodone HCl (Oxycodone Hcl Immed Release 5 Mg Tablet) 5 mg PO Q6H PRN PRN Reason: Pain, Severe (Pain Scale 7-10) Sodium Chloride (0.9 % Sodium Chloride Flush 3 Ml Syringe) 3 ml IVFLUSH QSHIFT ELISE Tramadol HCl (Tramadol Hcl 50 Mg Tablet) 50 mg PO Q6H PRN PRN Reason: Pain, Moderate(Pain Scale 4-6) Home Medications ?Medication ?Instructions ?Recorded ?Confirmed ?Last Taken ?Type calcium 600 mg (as 1 cap PO DAILY 01/28/2109/2110/02/25 History carbonate)-vitamin D3 12.5 mcg (500 unit) capsule (Calcium with Vit D3) albuterol sulfate 90 mcg/actuation 2 puff inhalation Q 6H PRN wheezing 05/26/25 10/02/25 Unknown History aerosol inhaler loratadine 10 mg tablet 10 mg PO DAILY 08/28/2509/2110/02/25 History melatonin 10 mg capsule 10 mg PO BEDTIME PRN Sleep 1 10/02/25 Unknown History pantoprazole 40 mg tablet,delayed 40 mg PO DAILY@0630 PRN Acid Reflux 08/28/25 10/02/25 Unknown History release (Protonix) alprazolam 0.25 mg tablet 0.25 mg PO DAILY PRN Anxiety 10/02/25 10/02/25 Unknown History ciclopirox 0.77 % topical cream 1 appl topical BID PRN Rash 10/02/25 10/02/25 Unknown History Physical Exam 2 Vital Signs and Narrative: Vital Signs: Last Vital Signs Temp 97.9 F 10/02/25 20:04 Pulse 122 H 10/02/25 21:00 Resp 22 H 10/02/25 20:04 BP 124/79 10/02/25 21:00 Pulse Ox 96 10/02/25 20:04 O2 Del Method Room Air 10/02/25 20:04 BMI result Body Mass Index 25.3 General: AOx3, no acute distress. seen with daughter and Son-in-law bedside Resp: CTA bilaterally CVS: S1, S2, RRR GI: +BS, NT, no distention Skin: Warm, dry Neuro: Cranial nerves II-XII grossly intact bilaterally. Motor grossly intact bilaterally. mild L facial droop, mild weakness in LUE and LLE compared to right. Extremities: No pitting edema Psych: Appropriate affect Const: General: confusion Orientation/consciousness: confusion Neuro: General: confusion Results Labs 10/02/25 19:12 10/02/25 19:12 Labs: Laboratory Results - last 24 hr 10/02/25 10/02/25 19:12 20:13 MCV 89.0 MCH 31.1 MCHC 34.9 RDW 13.7 Plt Count 225 MPV 8.3 L Immature Gran % (Auto) 0.6 H Neut % (Auto) 60.8 Lymph % (Auto) 24.7 [place] % (Auto) 10.4 Eos % (Auto) 2.5 Baso % (Auto) 1.0 Lymph # (Auto) 1.7 [place] # (Auto) 0.7 Eos # (Auto) 0.2 Baso # (Auto) 0.1 Abs Immat Gran (auto) 0.04 H Absolute Neuts (auto) 4.2 Absolute Nucleated RBC 0.000 Nucleated RBC % (auto) 0.0 PT 14.4 H INR 1.2 H Anion Gap 13 Estim Creat Clear Calc 54.0 Estimated GFR > 60 Random Glucose 95 Calcium 9.1 Total Bilirubin 0.7 AST 23 ALT 34 H Alkaline Phosphatase 110 Troponin I High Sens 3.8 Total Protein 6.6 Albumin 4.0 Urine Color Yellow Urine Appearance Clear Urine pH 6.0 Ur Specific [place] 1.020 Urine Protein 30 (1+) H Urine Glucose (UA) Negative Urine Ketones Negative Urine Blood Small (1+) H Urine Nitrite Negative Ur Leukocyte Esterase Small (1+) H Urine RBC 6-10 H Urine WBC 21-50 H Ur Squamous Epith Cells 0-2 Urine Bacteria 4+ Hyaline Casts 0-2 Assessment and Plan (1) AMS (altered mental status): Status: Acute (2) SIRS (systemic inflammatory response syndrome): Status: Acute (3) UTI (urinary tract infection): Status: Acute (4) Atrial fibrillation with RVR: Status: Acute Plan Pt is an 85 yo female with a pmhx significant for recent stroke in May with mild left-sided deficits (LUE and LLE weakness with L facial droop), AFib on Eliquis, anxiety, hypertension and GERD, who presented to the ED via EMS due to altered mental status increasing throughout the day. AMS vs acute metabolic encephalopathy, SIRS+, UTI, ?TIA - progressing back to baseline - ceftriaxone pending culture - lactic acid and blood cultures - MRI brain - echo - neuro consult - ASA and statin - neurochecks Q4H - NPO pending swallow eval - monitor CBC and BMP a fib with RVR, rate currently controlled - pt took home metoprolol 25mg PO in ED, given additional 2.5mg IV - monitor on tele - eliquis and metoprolol anxiety - alprazolam HTN - losartan GERD - PPI full code VTE prophy: eliquis Pt with AMS, SIRS+, UTI, concern for TIA vs CVA, requiring admission for at least 2 midnights stay for IV abx, monitoring and further evaluation. Quality Stroke Does the patient have a stroke diagnosis?: No VTE Prior VTE?: No VTE Risk Level:: Medical - moderate - high VTE Device Contraindication: Treatment Not Indicated VTE Drug Contraindication: N/A - Med Ordered
--- NOTE | 2025-10-02 22:58 | PC.NURSE ---
swallow eval completed at this time pt tolerated well with no difficulty, medicated per mar. stoke education given to pt and pt verbalizes understanding
[2025-10-02 23:28] VITALS: BP 172/104; PULSE 88; RESP 16; TEMP 36.8; O2SAT 96
[2025-10-02 23:45] LABS: Cholesterol 144 mg/dL (<200); HDL Cholesterol 44 mg/dL (>40); Triglycerides 164 mg/dL (<150)
[2025-10-03] VITALS (7 sets, daily range): BP systolic 113–160; BP diastolic 55–90; PULSE 58–107; RESP 16–18; TEMP 36.2–36.6; O2SAT 95–98; BMI 24.6
--- NOTE | 2025-10-03 | EEG_ITS ---
Reason for Exam: Confusion Roomed Performed:?[id number] History: last episode of confusion 10/03/25 with no falls or passing out or shaking. MCA stroke, embolic cerebral infarction, heart murmur, retinal detachment, GERD, hypertension, diverticulosis, hypercholesterolemia Medication:Acetaminophen, Albuterol Sulfate, Alprazolam, Apixaban, Atorvastatin Calcium,Calcium Carbonate Ceftriaxone Sodium, Loratadine, Losartan Potassium,Magnesium Hydroxide, Melatonin,Metoprolol Tartrate Omeprazole, Ondansetron HCl, Oxycodone HCl, Sodium Chloride, Tramadol HCl Technical description:? Photic stimulation: Yes Hyperventilation:?None Behavioral state: anxious State of Consciousness: awake Skull defect: None Sedation: None Handedness: Right Duration of study:? 27min ? ? 34sec Description: This is a 16 channel EEG with an EKG lead. Patient is reported awake during the tracing. Background EEG rhythm is somewhat asymmetrical with slower theta range rhythm noted in right hemispheric leads and somewhat faster lower amplitude in left hemispheric leads. Intermittently right parietal sharp and slow wave complexes were noted. Photic stimulation did not produce any significant driving. Hyperventilation was not performed. Cardiac lead did not reveal any significant abnormality. 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
[2025-10-03 04:22] LABS: MANUAL DIFF FLAG NO
[2025-10-03 04:23] LABS: Hematocrit 37.5 % (37.0-47.0); Hemoglobin 12.9 g/dl (12.0-16.0); Imm Gran Abs Auto 0.03 X10*3/uL (0.00-0.03); Imm Gran Pct Auto 0.5 % (0.0-0.4); Lymphocytes Absolute Auto 1.8 X10*3/uL (1.2-4.9); Mean Corpuscular HGB Conc 34.4 g/dl (31.0-35.0); Mean Corpuscular Hemoglobin 30.4 pg (27.0-33.0); Mean Corpuscular Volume 88.2 fL (80.0-98.0); NRBC Abs Auto 0.000 X10*3/uL (0.0-0.012); NRBC Pct Auto 0.0 /100WBC (0.0-0.2); Platelet Count 210 X10*3/uL (160-400); Red Blood Count 4.25 X10*6/uL (4.20-5.50); White Blood Count 6.6 X10*3/uL (4.8-10.8)
[2025-10-03 04:37] LABS: Anion Gap 12 (12-20); Blood Urea Nitrogen 12 mg/dL (9-16); Calcium 8.6 mg/dL (8.4-10.2); Carbon Dioxide 21 mmol/L (22-29); Chloride 105 mmol/L (96-108); Creatinine Clr Calc Pharmacy 63.1; Estimated Glomerular Filt Rate > 60; Potassium 4.2 mmol/L (3.3-5.1); Sodium 134 mmol/L (135-145)
--- NOTE | 2025-10-03 07:15 | P.PNIM_ITS ---
Subjective Subjective Date of Service: 10/03/25 Interval History: f/u on confusion, encephalopathy resolved Physical Exam 2 Vital Signs: Vital Signs: Last Vital Signs Temp 97.8 F 10/03/25 05:27 Pulse 97 10/03/25 05:27 Resp 18 10/03/25 05:27 BP 154/85 H 10/03/25 05:27 Pulse Ox 97 10/03/25 05:27 O2 Del Method Room Air 10/03/25 05:27 BMI result Body Mass Index 25.3 Const: Other: General: AO X 3, no acute distress Resp: CTA bilateral CVS: S1,S2,RRR GI: +BS, NT, no distention Skin: No rash Neuro: motor grossly intact Psych: appropriate affect Objective Data Active Medications Acetaminophen (Acetaminophen 325 Mg Tablet) 975 mg PO Q6H PRN PRN Reason: Pain, Mild 1-3,fever,headache Albuterol Sulfate (Albuterol Sulfate 90 Mcg 8 Gm Inhaler) 2 puff INHALE Q6H PRN PRN Reason: Wheezing Alprazolam (Alprazolam 0.25 Mg Tablet) 0.25 mg PO DAILY PRN PRN Reason: Anxiety Apixaban (Apixaban 5 Mg Tablet) 5 mg PO BID [facility] Last Admin: 10/02/25 22:56 Dose: Not Given Documented By: ANA Non-Admin Reason: taken by family Atorvastatin Calcium (Atorvastatin Calcium 40 Mg Tablet) 40 mg PO BEDTIME [facility] Last Admin: 10/02/25 22:56 Dose: Not Given Documented By: ANA Non-Admin Reason: given by family Calcium Carbonate (Calcium Carbonate 750 Mg Tab.Chew) 750 mg PO Q4H PRN PRN Reason: Heartburn Ceftriaxone Sodium 2 gm/ (Sodium Chloride) 50 mls @ 100 mls/hr IV Q24H [facility] Last Infusion: 10/02/25 23:24 Dose: Infused Documented By: ANA Loratadine (Loratadine 10 Mg Tablet) 10 mg PO DAILY [facility] Losartan Potassium (Losartan Potassium 25 Mg Tablet) 25 mg PO DAILY [facility]; Protocol Magnesium Hydroxide (Milk Of Magnesia 30 Ml Oral.Susp) 30 ml PO DAILY PRN PRN Reason: Constipation Melatonin (Melatonin 3 Mg Tablet) 6 mg PO BEDTIME PRN PRN Reason: Insomnia Metoprolol Tartrate (Metoprolol Tartrate 25 Mg Tablet) 25 mg PO BID [facility]; Protocol Omeprazole (Omeprazole 20 Mg Capsule.Dr) 20 mg PO DAILY@0630 PRN PRN Reason: Heartburn Ondansetron HCl (Ondansetron Hcl 4 Mg/2 Ml Vial) 4 mg IVPUSH Q8H PRN PRN Reason: Nausea and Vomiting Oxycodone HCl (Oxycodone Hcl Immed Release 5 Mg Tablet) 5 mg PO Q6H PRN PRN Reason: Pain, Severe (Pain Scale 7-10) Sodium Chloride (0.9 % Sodium Chloride Flush 3 Ml Syringe) 3 ml IVFLUSH QSHIFT [facility] Last Admin: 10/03/25 01:09 Dose: Not Given Documented By: ANA Non-Admin Reason: Patient Asleep Tramadol HCl (Tramadol Hcl 50 Mg Tablet) 50 mg PO Q6H PRN PRN Reason: Pain, Moderate(Pain Scale 4-6) Labs 10/04/25 06:39 10/04/25 06:39 Labs: Laboratory Results - last 24 hr 10/02/25 10/02/25 10/02/25 19:12 20:13 23:34 MCV 89.0 MCH 31.1 MCHC 34.9 RDW 13.7 Plt Count 225 MPV 8.3 L Immature Gran % (Auto) 0.6 H Neut % (Auto) 60.8 Lymph % (Auto) 24.7 [place] % (Auto) 10.4 Eos % (Auto) 2.5 Baso % (Auto) 1.0 Lymph # (Auto) 1.7 [place] # (Auto) 0.7 Eos # (Auto) 0.2 Baso # (Auto) 0.1 Abs Immat Gran (auto) 0.04 H Absolute Neuts (auto) 4.2 Absolute Nucleated RBC 0.000 Nucleated RBC % (auto) 0.0 PT 14.4 H INR 1.2 H Anion Gap 13 Estim Creat Clear Calc 54.0 Estimated GFR > 60 Random Glucose 95 Lactic Acid 1.3 Calcium 9.1 Total Bilirubin 0.7 AST 23 ALT 34 H Alkaline Phosphatase 110 Troponin I High Sens 3.8 Total Protein 6.6 Albumin 4.0 Triglycerides 164 H Cholesterol 144 LDL Cholesterol, Calc 68 HDL Cholesterol 44 Urine Color Yellow Urine Appearance Clear Urine pH 6.0 Ur Specific [place] 1.020 Urine Protein 30 (1+) H Urine Glucose (UA) Negative Urine Ketones Negative Urine Blood Small (1+) H Urine Nitrite Negative Ur Leukocyte Esterase Small (1+) H Urine RBC 6-10 H Urine WBC 21-50 H Ur Squamous Epith Cells 0-2 Urine Bacteria 4+ Hyaline Casts 0-2 10/03/25 04:18 MCV 88.2 MCH 30.4 MCHC 34.4 RDW 13.8 Plt Count 210 MPV 8.5 L Immature Gran % (Auto) 0.5 H Neut % (Auto) 57.1 Lymph % (Auto) 26.7 [place] % (Auto) 11.4 H Eos % (Auto) 3.4 Baso % (Auto) 0.9 Lymph # (Auto) 1.8 [place] # (Auto) 0.8 Eos # (Auto) 0.2 Baso # (Auto) 0.1 Abs Immat Gran (auto) 0.03 Absolute Neuts (auto) 3.8 Absolute Nucleated RBC 0.000 Nucleated RBC % (auto) 0.0 PT INR Anion Gap 12 Estim Creat Clear Calc 63.1 Estimated GFR > 60 Random Glucose 88 Lactic Acid Calcium 8.6 Total Bilirubin AST ALT Alkaline Phosphatase Troponin I High Sens Total Protein Albumin Triglycerides Cholesterol LDL Cholesterol, Calc HDL Cholesterol Urine Color Urine Appearance Urine pH Ur Specific [place] Urine Protein Urine Glucose (UA) Urine Ketones Urine Blood Urine Nitrite Ur Leukocyte Esterase Urine RBC Urine WBC Ur Squamous Epith Cells Urine Bacteria Hyaline Casts Assessment and Plan (1) Encephalopathy: Status: Acute Plan 85 yo female with a pmhx significant for recent stroke in May with mild left- sided deficits (LUE and LLE weakness with L facial droop), AFib on Eliquis, anxiety, hypertension and GERD, who presented to the ED via EMS due to altered mental status increasing throughout the day. Acute toxic encephalopathy, possibly d/t uti treat underlying uti further eval with mri, neuo eval Afib with RVR, rate controlled continue eliquis and metoprolo anxiety alprazolam HTN losartan GERD PPI full code VTE prophy: eliquis Quality Stroke Does the patient have a stroke diagnosis?: No VTE Prior VTE?: No VTE Risk Level:: Medical - moderate - high VTE Device Contraindication: Treatment Not Indicated VTE Drug Contraindication: N/A - Med Ordered
[2025-10-03] MEDS: 0.9 % Sodium Chloride Flush 3 ML SYRINGE IVFLUSH ×3 (09:53→19:45)
--- NOTE | 2025-10-03 10:24 | PM.NEUROCN ---
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 She came to hospital stating that she was getting confused. There was no documentation of falling down or passing out or shaking all over. She was unable to delineate her history further. She said that she recently had a stroke but could not tell me what symptoms she had of that stroke. She did not remember though symptoms and stated that she was probably out of it. Review of Systems Review of Systems: No recent cold or flu-like illness No recent head trauma or falling or convulsion No chest pain shortness of breath or palpitation No exposure to new medicine or alcohol PMFSH Past Medical History Medical History 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 Stroke Heart murmur Retinal detachment GERD (gastroesophageal reflux disease) Hypertension Diverticulosis Hypercholesterolemia Surgical History Surgical History H/O colonoscopy History of surgery H/O eye surgery History of dilatation and curettage Hx of appendectomy Hx of cholecystectomy History of bilateral knee replacement Social History Social History Household Members: Children Housing: Apartment Do you presently have visiting nurse or other home services: No Alcohol intake: current Alcohol intake frequency: a few times a week Alcohol type: wine Comment: 3x a weeka glass Patient Tobacco Use Status: Never used Tobacco Tobacco use type: Cigarette e-Cigarette/Vaping Use: Never Used Second Hand Smoke Exposure: No Advance Directives Date on File: 05/25/25 service: No Current occupational status: retired Cognitive needs: No Hearing needs: No Vision needs: Yes Meds Allergies Allergy/AdvReac Type Severity Reaction Status Date / Time Sulfa (Sulfonamide Allergy Intermediate RASH Verified 10/02/25 19:00 Antibiotics) (SULFA (SULFONAMIDE ANTIBIOTICS)) Active Medications: Current Medications Acetaminophen (Acetaminophen 325 Mg Tablet) 975 mg PO Q6H PRN PRN Reason: Pain, Mild 1-3,fever,headache Albuterol Sulfate (Albuterol Sulfate 90 Mcg 8 Gm Inhaler) 2 puff INHALE Q6H PRN PRN Reason: Wheezing Alprazolam (Alprazolam 0.25 Mg Tablet) 0.25 mg PO DAILY PRN PRN Reason: Anxiety Apixaban (Apixaban 5 Mg Tablet) 5 mg PO BID [facility] Last Admin: 10/03/25 09:53 Dose: 5 mg Atorvastatin Calcium (Atorvastatin Calcium 40 Mg Tablet) 40 mg PO BEDTIME [facility]CLUD[facility] Last Admin: 10/02/25 22:56 Dose: Not Given Calcium Carbonate (Calcium Carbonate 750 Mg Tab.Chew) 750 mg PO Q4H PRN PRN Reason: Heartburn Ceftriaxone Sodium 2 gm/ (Sodium Chloride) 50 mls @ 100 mls/hr IV Q24H [facility]CLUD[facility] Last Infusion: 10/02/25 23:24 Dose: Infused Loratadine (Loratadine 10 Mg Tablet) 10 mg PO DAILY [facility]CLUD[facility] Last Admin: 10/03/25 09:53 Dose: Not Given Losartan Potassium (Losartan Potassium 25 Mg Tablet) 25 mg PO DAILY [facility]CLUD[facility]; Protocol Last Admin: 10/03/25 09:51 Dose: 25 mg Magnesium Hydroxide (Milk Of Magnesia 30 Ml Oral.Susp) 30 ml PO DAILY PRN PRN Reason: Constipation Melatonin (Melatonin 3 Mg Tablet) 6 mg PO BEDTIME PRN PRN Reason: Insomnia Metoprolol Tartrate (Metoprolol Tartrate 25 Mg Tablet) 25 mg PO BID [facility]CLUD[facility]; Protocol Last Admin: 10/03/25 09:53 Dose: 25 mg Omeprazole (Omeprazole 20 Mg Capsule.Dr) 20 mg PO DAILY@0630 PRN PRN Reason: Heartburn Ondansetron HCl (Ondansetron Hcl 4 Mg/2 Ml Vial) 4 mg IVPUSH Q8H PRN PRN Reason: Nausea and Vomiting Oxycodone HCl (Oxycodone Hcl Immed Release 5 Mg Tablet) 5 mg PO Q6H PRN PRN Reason: Pain, Severe (Pain Scale 7-10) Sodium Chloride (0.9 % Sodium Chloride Flush 3 Ml Syringe) 3 ml IVFLUSH QSHIFT COUNT [facility]CLUDES [facility] Last Admin: 10/03/25 09:53 Dose: 3 ml Tramadol HCl (Tramadol Hcl 50 Mg Tablet) 50 mg PO Q6H PRN PRN Reason: Pain, Moderate(Pain Scale 4-6) Home Medications ?Medication ?Instructions ?Recorded ?Confirmed ?Last Taken ?Type calcium 600 mg (as 1 cap PO DAILY 01/28/21 10/02/25 10/02/25 History carbonate)-vitamin D3 12.5 mcg (500 unit) capsule (Calcium with Vit D3) albuterol sulfate 90 mcg/actuation 2 puff inhalation Q6H PRN wheezing 05/26/25 10/02/25 Unknown History aerosol inhaler loratadine 10 mg tablet 10 mg PO DAILY 08/28/25 10/02/25 10/02/25 History melatonin 10 mg capsule 10 mg PO BEDTIME PRN Sleep 08/28/25 10/02/25 Unknown History pantoprazole 40 mg tablet,delayed 40 mg PO DAILY@0630 PRN Acid Reflux 08/28/25 10/02/25 Unknown History release (Protonix) alprazolam 0.25 mg tablet 0.25 mg PO DAILY PRN Anxiety 10/02/25 10/02/25 Unknown History ciclopirox 0.77 % topical cream 1 appl topical BID PRN Rash 10/02/25 10/02/25 Unknown History Physical Exam Vital Signs: Vital Signs: Last Vital Signs Temp 97.8 F 10/03/25 05:27 Pulse 107 H 10/03/25 09:53 Resp 18 10/03/25 05:27 BP 141/88 H 10/03/25 09:53 Pulse Ox 97 10/03/25 05:27 O2 Del Method Room Air 10/03/25 05:27 BMI result Body Mass Index 24.6 Neuro: Other: Mental Status: she is alert and awake with normal spontaneity and fluency of speech. She is confused about overall situation but knew that she was in [facility]. Cranial Nerves: CN II: Visual jones full to confrontation, visual acuity intact. CN III, IV, : Pupils equal, round, reactive to light and accommodation. Extraocular movements are normal. CN V: Facial sensation is normal. CN VII: Facial movements symmetrical. CN VIII: Hearing intact to bedside conversation is normal. CN IX, X: Palate elevates symmetrically. CN XI: Shoulder shrug and head turn symmetrical. CN XII: Tongue midline without atrophy or fasciculations. She was able to move all 4 extremities and plantars were withdrawing. Extrapyramidal: Full facial expressions and blinking. No rigidity. Movements are appropriate with no tremor or abnormality. Speech: Normal; no dysarthria or tremor. Results Labs 10/03/25 04:18 10/03/25 04:18 Labs: Short CBC 10/02/25 10/03/25 Range/Units 19:12 04:18 WBC 6.9 6.6 (4.8-10.8) X10*3/uL Hgb 13.8 12.9 (12.0-16.0) g/dl Hct 39.5 37.5 (37.0-47.0) % Plt Count 225 210 (160-400) X10*3/uL BMP 10/02/25 10/03/25 19:12 04:18 Sodium 135 134 L Potassium 4.1 4.2 Chloride 103 105 Carbon Dioxide 23 21 L BUN 16 12 Creatinine 0.69 0.59 Calcium 9.1 8.6 Liver Function 10/02/25 Range/Units 19:12 Total Bilirubin 0.7 (0.0-1.0) mg/dL AST 23 (5-31) U/L ALT 34 H (0-31) U/L Alkaline Phosphatase 110 (39-117) U/L Albumin 4.0 (3.5-5.0) g/dL Urine 10/02/25 Range/Units 20:13 Urine Color Yellow Urine Appearance Clear Urine pH 6.0 (5.0-9.0) Ur Specific [place] 1.020 (1.005-1.025) Urine Protein 30 (1+) H (Neg-Trace) mg/dL Urine Glucose (UA) Negative (Negative) mg/dL CT head without contrast Comparison: CT/SR - CT ANGIO HEAD NECK STROKE - 05/26/25 12:[address]/SR - CT HEAD/BRAIN WO IV CON - 05/26/25 10:39 EDT Findings: Evolution of prior right MCA territory infarct with developing encephalomalacia. No acute intracranial hemorrhage. No acute large territorial ischemia. Moderate chronic microvascular ischemic change and parenchymal atrophy. ICA calcifications. No mass effect, midline shift, or hydrocephalus. Paranasal sinuses are clear. Mastoid air cells are clear. The orbits are within normal limits. No skull fracture. Rightward nasal septal deviation. IMPRESSION: No acute intracranial abnormality. Expected evolution of prior right MCA territory infarct with encephalomalacia. 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 Seizure disorder is more likely. I recommend an EEG. Procedures Date of Service Date of Service: 10/03/25
--- NOTE | 2025-10-03 10:44 | MHC.CM.PN ---
CM met with Patient, her Daughter/HCP/Agustina, and her Granddaughter at bedside and addressed IMM with her, providing Patient with the original and a copy has been placed on the chart. Patient lives in a house with her Son, used a walker [employer], and was recently dc'd from [facility]'s care. PT is recommending Acute Rehab and Patient's first choice is [facility]; CM has initiated and will follow for dc planning. PCP is Dr. Jessica Martinez and Patient will require BLS transport at dc.
[2025-10-04 03:17] VITALS: BP 132/71; PULSE 64; RESP 16; TEMP 36.6; O2SAT 97
--- NOTE | 2025-10-04 07:00 | CA_ITS ---
Transthoracic Echocardiogram Patient (Last, First, Middle): Marily Llanos, Gender: F Date of : 1940 Age: 85 Procedure Date: 10/04/2025 Procedure Type: Transthoracic Echocardiogram Location: [facility] [place] Height: 160.02 cm Weight: 64.41 kg BSA: 1.67 m2 Heart Rate: bpm BP: 154 / 85 mmHg Gullet Slitter: YUN Trevino MD: Ary Asif PA-C Product Safety Technician: Nam Pennington MD Symptoms: ?TIA vs CVA Study Quality: Fair ECG Rhythm: Atrial Fibrillation Conclusions: - 1. Hyperdynamic LV ejection fraction of greater than 70% with at least moderate concentric left ventricular hypertrophy with severe asymmetric basal septal hypertrophy 2. Severely dilated left atrium 3. Early mild aortic stenosis 4. Normal LV systolic pressure 5. No gross pericardial effusion Findings Left Ventricle Normal left ventricular cavity size. There is moderately increased left ventricular wall thickness. The left ventricular systolic function is hyperdynamic. The visually estimated ejection fraction is >70%. Diastolic function is indeterminate on the basis of available data. There is severe septal asymmetric hypertrophy. Right Ventricle Normal right ventricular cavity size and systolic function. Atria The left atrium is severely dilated. There is no evidence of interatrial shunt. The right atrium is mildly dilated. Aortic Valve There is mild calcification of the aortic valve. There is mild aortic valve stenosis. The mean gradient is 4 mmHg. The aortic valve area is 1.91 cm2. There is no aortic valve regurgitation. Mitral Valve There is moderate anterior and posterior mitral leaflet thickening. There is mild mitral annular calcification. There is trace mitral valve regurgitation. There is no mitral valve stenosis. Pulmonic Valve The pulmonic valve is likely normal. There is trace pulmonic valve regurgitation. Tricuspid Valve Normal tricuspid valve structure. There is mild tricuspid valve regurgitation. The right ventricular systolic pressure is normal. The right ventricular systolic pressure is 33 mmHg. Normal right atrial pressure. There is no evidence of pulmonary hypertension. Great Vessels All visible segments of the aorta are normal in size. The pulmonary artery was not well visualized. There is no dilatation of the ascending aorta measuring 2.80 cm. Venous The inferior vena cava is normal in size and collapses greater than 50% with inspiration. Pericardium/Pleural There is no evidence of pericardial effusion. Prior Study Comparison No prior study available for comparison. Measurements 2D Linear Measurements IVSd: 1.57 0.6-0.9/0.6-1.0 cm LVIDd: 2.31 3.9-5.3/4.2-5.9 cm LVIDd Index: 1.38 2.4-3.2/2.2-3.1 cm/m2 LVIDs: 1.16 2.0-3.6 cm LVPWd: 1.80 0.7-1.1 cm Ao Root: 2.80 2.1-3.5 cm LA Diam: 4.20 2.7-3.8/3.0-4.0 cm LAIDs Index: 2.51 1.5-2.3 cm/m2 LV Mass: 177.76 67-162/88-224 g LV Mass Index: 106.44 43-95/49-115 g/m2 LVOT Diam: 1.90 3.0+(-)1.3 cm 2D Systolic Function EF 4C: 71.80 >55% EF 2C: 85.30 >55% EF BiP: 80.80 >55% Mitral Valve MV Pk E: 1.32 MV Decel Time: 167.00 E'Lateral: 5.66 E'Medial: 5.00 E/E' Med: 26.40 E/E' Lat: 23.30 PHT: 49.00 MVA PHT: 4.49 Decel [place]: 7.90 Aortic Valve AoV Pk Luis Alberto: 1.28 AoV Mn Luis Alberto: 0.92 AoV VTI: 0.23 AoV Pk Grad: 7.00 Aov Mn Grad: 4.00 NIALL Cont.VTI: 1.91 LVOT LVOT Pk Luis Alberto: 1.00 LVOT Mn Luis Alberto: 0.64 LVOT VTI: 0.16 LVOT Pk Grad: 4.00 LVOT Mn Grad: 2.00 LVOT Diam: 1.90 LVOT Area: 2.84 Diastolic Function MV Pk E: 1.32 E'Medial: 5.00 E/E' Med: 26.40 E' Laterial: 5.66 E/E' Lat: 23.30 Right Ventricle TAPSE (mm): 16.00 Tricuspid Valve TR Pk Luis Alberto: 2.76 TR Pk Grad: 30.00 RA Press: 3.00 RVSP: 33.00 Great Vessels Aorta Ao Root-2D: 2.80 2.0-3.7 cm Ao Asc: 2.80 2.1-3.4 cm Ao Arch: 2.50 Pulmonary Valve PV Pk Luis Alberto: 0.82 Peak PV Grad: 3.00 Updated in Other Vendor System with Status of Final Nam Pennington MD electronically signed on 10/04/2025 3:57:56 PM with status of Final
[2025-10-04 07:12] VITALS: BP 149/78; PULSE 88; RESP 18; TEMP 36.5; O2SAT 94
[2025-10-04 07:16] LABS: MANUAL DIFF FLAG NO
[2025-10-04 07:31] LABS: Hematocrit 38.9 % (37.0-47.0); Hemoglobin 13.3 g/dl (12.0-16.0); Imm Gran Abs Auto 0.04 X10*3/uL (0.00-0.03); Imm Gran Pct Auto 0.6 % (0.0-0.4); Lymphocytes Absolute Auto 1.6 X10*3/uL (1.2-4.9); Mean Corpuscular HGB Conc 34.2 g/dl (31.0-35.0); Mean Corpuscular Hemoglobin 30.9 pg (27.0-33.0); Mean Corpuscular Volume 90.3 fL (80.0-98.0); NRBC Abs Auto 0.000 X10*3/uL (0.0-0.012); NRBC Pct Auto 0.0 /100WBC (0.0-0.2); Platelet Count 195 X10*3/uL (160-400); Red Blood Count 4.31 X10*6/uL (4.20-5.50); White Blood Count 6.6 X10*3/uL (4.8-10.8)
[2025-10-04 07:44] LABS: Anion Gap 11 (12-20); Blood Urea Nitrogen 9 mg/dL (9-16); Calcium 8.6 mg/dL (8.4-10.2); Carbon Dioxide 23 mmol/L (22-29); Chloride 105 mmol/L (96-108); Creatinine Clr Calc Pharmacy 61.2; Estimated Glomerular Filt Rate > 60; Potassium 4.2 mmol/L (3.3-5.1); Sodium 135 mmol/L (135-145)
[2025-10-04] MEDS: 0.9 % Sodium Chloride Flush 3 ML SYRINGE IVFLUSH (09:40)
--- NOTE | 2025-10-04 10:48 | PM.DS ---
DS: Providers Provider Date of Service: 10/04/25 Date of admission: 10/02/25 21:35 Date of discharge: 10/04/25 Primary care physician: Jessica Martinez MD Consults: 10/02/25 22:33 Consult to Neurology Routine Consulting Provider: [facility] Reason for consultation: AMS, hx CVA DS: Diagnosis Discharge Diagnosis (1) Encephalopathy: Status: Acute DS: Summary Hospital Course Hospital Course: Admission hpi Chief Complaint: AMS Pt is an 85 yo female with a pmhx significant for recent stroke in May with mild left-sided deficits (LUE and LLE weakness with L facial droop), AFib on Eliquis, anxiety, hypertension and GERD, who presented to the ED via EMS due to altered mental status increasing throughout the day. Last known well time unknown, possible confusion started around 15:30 with the patient missed her driveway during a walk around the neighborhood. Patient reports a migraine prior to dinner with ?wavy lines ?in her right eye. She reports that she took Tylenol earlier in the day for muscle aches therefore she did not feel it was appropriate to take it again so she hydrated in the headache went away. She has been having diarrhea recently but feels that this is related to her diet in his manageable. She denies any urinary symptoms including frequency, urgency or dysuria. She denies any chest pain, shortness of breath, nausea or vomiting. Per family's bedside and reports that she is about 90% back to her post-CVA baseline. Hospital course: Patient presented with transient confusion as above work was negative for stroke, including CT and MRI of brain. 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.-?Current guidelines recommend?medical management alone, as patient is assymptomatic Time Attestation Discharge Coordination Time (in mins): 45 Quality: Safe Use of Opioids Does Pt have an Active Cancer Diagnosis on the Problem List?: No Quality: Stroke Does the patient have a stroke diagnosis?: No Physical Exam Vital Signs: Vital Signs: Last Vital Signs Temp 97.7 F 10/04/25 07:12 Pulse 88 10/04/25 07:12 Resp 18 10/04/25 07:12 BP 149/78 H 10/04/25 07:12 Pulse Ox 94 10/04/25 07:12 O2 Del Method Room Air 10/04/25 07:12 BMI result Body Mass Index 24.6 DS: Data Data Completed and Pending Labs on day of discharge: Laboratory Results - last 24 hr 10/04/25 06:39 WBC 6.6 RBC 4.31 Hgb 13.3 Hct 38.9 MCV 90.3 MCH 30.9 MCHC 34.2 RDW 13.9 Plt Count 195 MPV 9.5 Immature Gran % (Auto) 0.6 H Neut % (Auto) 61.8 Lymph % (Auto) 23.6 [place] % (Auto) 9.8 Eos % (Auto) 3.0 Baso % (Auto) 1.2 Lymph # (Auto) 1.6 [place] # (Auto) 0.7 Eos # (Auto) 0.2 Baso # (Auto) 0.1 Abs Immat Gran (auto) 0.04 H Absolute Neuts (auto) 4.1 Absolute Nucleated RBC 0.000 Nucleated RBC % (auto) 0.0 Sodium 135 Potassium 4.2 Chloride 105 Carbon Dioxide 23 Anion Gap 11 L BUN 9 Creatinine 0.60 Estim Creat Clear Calc 61.2 Estimated GFR > 60 Random Glucose 83 Calcium 8.6 Preliminary micro results at discharge 10/02/25 22:24 Blood Culture - Preliminary Blood - Venous No growth after 24 hours. 10/02/25 22:24 Blood Culture - Preliminary Blood - Venous No growth after 24 hours. Discharge Plan Discharge Patient Disposition: Home, Self-Care Discharge Diagnosis: Seizure, UTI, AMS Referrals: Jessica Martinez MD [Primary Care Provider, Internal Medicine] - 1 Week Joana Orozco MD [Physician, Neurology] - 2 Weeks Referral Note: new seizure, started on Keppr Discharge Medications: New cefuroxime axetil 250 mg Tablet 250 mg PO Q12H Qty: 8 0RF Continued acetaminophen 500 mg capsule 1,000 mg PO Q6H PRN (Reason: pain) Qty: 30 0RF atorvastatin 40 mg tablet 40 mg PO BEDTIME Qty: 90 0RF losartan 25 mg tablet 25 mg PO DAILY Qty: 90 0RF metoprolol tartrate 25 mg tablet 25 mg PO BID Qty: 180 0RF Eliquis 5 mg tablet 5 mg PO BID Qty: 60 0RF albuterol sulfate 90 mcg/actuation HFA aerosol inhaler 2 puff INHALATION Q6H PRN (Reason: wheezing) ciclopirox 0.77 % cream 1 appl topical BID PRN (Reason: Rash) alprazolam 0.25 mg tablet 0.25 mg PO DAILY PRN (Reason: Anxiety) calcium carbonate-vitamin D3 [Calcium 600 with Vitamin D3] 600 mg(1,500mg) -500 unit capsule 1 cap PO DAILY loratadine 10 mg tablet 10 mg PO DAILY melatonin 10 mg capsule 10 mg PO BEDTIME PRN (Reason: Sleep) pantoprazole [Protonix] 40 mg tablet,delayed release (DR/EC) 40 mg PO DAILY@0630 PRN (Reason: Acid Reflux) Diet: Advance to usual diet Activity on Discharge: As tolerated Stand Alone Forms: Patient Portal Discharge page Print Language: German Care Plan Goals: recovert from transient confusion which returned case inspector to be seizure Health Concerns: seizure uit Plan of Treatment: take keppra for seizure and follow up with Dr. Orozco take cefuroxime for uti follow up with your primary care doctor within a week Assessment: see above Patient Instructions: A-fib (Atrial Fibrillation) (ED), Blood Thinners (ED)
--- NOTE | 2025-10-04 11:20 | P.CDIM_ITS ---
PROVIDER RESPONSE TEXT: To clarify, the appropriate diagnosis supported by the clinical indicators: Permanent atrial fibrillation QUERY TEXT: PHYSICIAN'S DOCUMENTATION REQUEST Date of Query: 10/04/2025 08:07 AM EST Patient Name: Marily Llanos Admit Date: 10/03/2025 Dear Zain Hackett MD, A review of the medical record indicates additional documentation may be needed. Please review below and update the documentation accordingly. Clinical Indicators: Progress note 10/03/25 - Afib with RVR, rate controlled, on Eliquis. Continue Eliquis and Metoprolol. If possible, please provide further specificity regarding atrial fibrillation, such as: Paroxysmal atrial fibrillation Persistent atrial fibrillation Long lasting persistent atrial fibrillation Permanent atrial fibrillation Other (explain) Clinically unable to determine (explain) Thank you, Elva Miramontes, CCS, CDIS Use of terms such as suspected, likely, concern for, or probable (associated with a specific diagnosis that is being evaluated, monitored, or treated as if it exists) are acceptable and can be coded in the inpatient setting, when documented at the time of discharge. Please use your independent medical judgment in providing your response. THIS QUERY IS PART OF THE PERMANENT MEDICAL RECORD
[2025-10-04 11:26] VITALS: BP 168/94; PULSE 100; RESP 18; TEMP 36.1; O2SAT 93
--- NOTE | 2025-10-04 13:24 | MHC.CM.PN ---
Patient has been medically cleared for dc to home today, self care (PT is now recommending Outpatient PT, which Patient had arranged for [facility]/starting on 10/07/2025 at [facility] [place].
== END 2025-10-04 15:32 | disposition home or self-care (01) | DRG 689 ==
LOC: HO.ED 19:45 → HO.EDOVER 21:40 → HO.IMC 10-03 07:35
PROVIDERS: Physician Assistant; Admitting Provider Internal Medicine; Emergency Provider Emergency Medicine; PCP Internal Medicine; Visit Provider Internal Medicine
DX: N39.0 Urinary tract infection, site not specified (principal); G92.8 Other toxic encephalopathy; I48.21 Permanent atrial fibrillation; F41.9 Anxiety disorder, unspecified; I10 Essential (primary) hypertension; K21.9 Gastro-esophageal reflux disease without esophagitis; I65.22 Occlusion and stenosis of left carotid artery; R56.9 Unspecified convulsions; Z79.01 Long term (current) use of anticoagulants; Z79.899 Other long term (current) drug therapy
CPT/HCPCS: 36415; 70450; 70551; 71045; 76775; 80048; 80053; 80061; 81001; 82533; 83605; 83735; 83930; 83935; 84295; 84300; 84443; 84484; 85025; 85027; 85610; 87040; 87086; 87633; 87637; 93005; 93306; 93880; 95810; 95816; 97110; 97116; 97161; 97162; 97165; 97530; 99285; J0456; J0616; J0696; J7120; Q9957

== ENCOUNTER → 2025-10-02 19:16 | Outpatient (BNV) | payer MEDICARE, SELFPAY | PROVIDERS: Admitting Provider Internal Medicine; Emergency Provider Emergency Medicine; PCP Internal Medicine; Visit Provider Internal Medicine Cardiovascular Disease | DX: I48.91 Unspecified atrial fibrillation (principal); I25.2 Old myocardial infarction | CPT/HCPCS: 93010 ==

== ENCOUNTER → 2025-10-02 20:32 | Outpatient (BNV) | payer MEDICARE, SELFPAY | PROVIDERS: Admitting Provider Internal Medicine; Emergency Provider Emergency Medicine; PCP Internal Medicine; Visit Provider Student in an Organized Health Care Education/Training Program | DX: R41.82 Altered mental status, unspecified (principal) | CPT/HCPCS: 70450; 93880 ==

== ENCOUNTER 2025-10-02 21:35 | Outpatient (BNV) | payer MEDICARE, SELFPAY | END 2025-10-04 07:00 | PROVIDERS: Admitting Provider Internal Medicine; Emergency Provider Emergency Medicine; PCP Internal Medicine; Visit Provider Internal Medicine Cardiovascular Disease | DX: I42.2 Other hypertrophic cardiomyopathy (principal); I35.0 Nonrheumatic aortic (valve) stenosis; I51.7 Cardiomegaly | CPT/HCPCS: 93306 ==

== ENCOUNTER 2025-10-02 21:35 | Outpatient (BNV) | payer MEDICARE, SELFPAY | END 2025-10-03 12:39 | PROVIDERS: Admitting Provider Internal Medicine; Emergency Provider Emergency Medicine; PCP Internal Medicine; Visit Provider Radiology Diagnostic Radiology | DX: R41.82 Altered mental status, unspecified (principal) | CPT/HCPCS: 70551 ==

== ENCOUNTER 2025-10-02 21:35 | Outpatient (BNV) | payer MEDICARE, SELFPAY | END 2025-10-03 14:00 | PROVIDERS: Admitting Provider Internal Medicine; Emergency Provider Emergency Medicine; PCP Internal Medicine; Visit Provider Psychiatry & Neurology Neurology | DX: R94.01 Abnormal electroencephalogram [EEG] (principal); R41.0 Disorientation, unspecified | CPT/HCPCS: 95816 ==

== ENCOUNTER → 2025-10-02 21:35 | Outpatient (BNV) | payer MEDICARE, SELFPAY | PROVIDERS: Admitting Provider Internal Medicine; Emergency Provider Emergency Medicine; PCP Internal Medicine; Visit Provider Physician Assistant | DX: R41.82 Altered mental status, unspecified (principal); R65.10 Systemic inflammatory response syndrome (SIRS) of non-infectious origin without acute organ dysfunction; N39.0 Urinary tract infection, site not specified; I48.91 Unspecified atrial fibrillation | CPT/HCPCS: 99223 ==

== ENCOUNTER → 2025-10-02 21:35 | Outpatient (BNV) | payer MEDICARE, SELFPAY | PROVIDERS: Admitting Provider Internal Medicine; Emergency Provider Emergency Medicine; PCP Internal Medicine; Visit Provider Psychiatry & Neurology Neurology | DX: G93.40 Encephalopathy, unspecified (principal) | CPT/HCPCS: 99222 ==

== ENCOUNTER 2025-10-06 22:56 | Inpatient (IN) | payer MEDICARE, SELFPAY ==
--- OUTSIDE RECORDS SUMMARY | 2024-07-17 06:15 | XMS_ITS ---
Author Organization [facility] Address [address] [place] [address] Care Team Providers Care Acidizer Water Well Name Role Phone Jessica Martinez Primary Care Provider Tiffanie Castro [phone] Encounters Encounter Location Date Provider Diagnosis [address] [address] 07/17/2024 Tiffanie Hicks Plan Of Treatment Next Appt Details Provider Name:Tiffanie alejandre, 12/24/2025 03:45:00 PM, [address] [place], [address], Progress Notes * Bi STACKOB:07/14 (85 yo F)Acc No.[id number]:07/17/2024 Progress Note Patient: Marily PRINCE Provider: Gordo Hicks DPM :1940 A ge:84 Y S ex:Female Date:07/17/2024 Address:[address] [place] Pcp:Jessica Martinez Subjective: * Chief Complaints: * [...] 07/17/2024 Generated for Liban brock/Juanpablo/Kishore on: 1 12/07/2024 12:37 AM EST
--- OUTSIDE RECORDS SUMMARY | 2025-07-02 06:00 | XMS_ITS ---
Author Organization [facility] Address [address] [place] [address] Care Team Providers Care Data Warehousing Manager Name Role Phone Jessica Martinez Primary Care Provider Tiffanie Castro [phone] Menon Encounters Encounter Location Date Provider Diagnosis [address] [address] 07/02/2025 Tiffanie Hicks Plan Of Treatment Next Appt Details Provider Name:Tiffanie alejandre, 12/24/2025 03:45:00 PM, [address] [place] [address], [phone], Progress Notes * Bi STACKOB:07/14 (85 yo F)Acc No.[id number]:07/02/2025 Progress Note Patient: Marily PRINCE Provider: Gordo Hicks DPM :1940 A ge:84 Y S ex:Female Date:07/02/2025 Address:[address] [place] [address] Yoseph Phillips [facility] Pcp:Jessica Martinez Subjective: * Chief Complaints: * [address] Menon. * Medical History: Objective: * Vitals: Assessment: Plan: * Treatment: * Images: * The named appointment provid er may or may not be the originator of this progress note, and it is not deemed complete until electronically signed by the appointment provider. Sign off status: Pending * Provider: Gordo Hicks DPM Date: 0 07/02/2025 Generated for Liban brock/Juanpablo/Kishore on: 1 12/07/2024 12:38 AM EST
--- OUTSIDE RECORDS SUMMARY | 2025-07-17 06:00 | XMS_ITS ---
Author Organization [facility] Address [address] [place] [address] Care Team Providers Care Field Supervisor Name Role Phone Jessica Martinez Primary Care Provider Tiffanie Castro Unavailable [phone] Allergies Allergen (clinical drug ingredient) Drug/Non Drug [...] Active Encounters Encounter Location Date Provider Diagnosis [facility] [address] [place] [address] 07/17/2025 Tiffanie Hicks Plan Of Treatment Next Appt Details Provider Name:Tiffanie alejandre, 12/24/2025 03:45:00 PM, [address] [place], [address], Progress Notes * Bi STACKOB:[birth year] (85 yo F)Acc No.[id number]:07/17/2025 Progress Note Patient: Hilario KERNMarily ZUÑIGA Provider: Gordo Hicks DPM :1940 A ge:85 Y S ex:Female Date:07/17/2025 Address:[address], [facility] Pcp:Jessica Martinez Subjective: * Chief Complaints: * [...] 07/17/2025 Generated for Liban brock/Juanpablo/Kishore on: 1 12/07/2024 12:38 AM EST
--- NOTE | ~2025-10-06 | US_ITS ---
EXAMINATION: US RETROPERITONEAL LIMITED (RENAL ONLY) CLINICAL INFORMATION: Macroscopic hematuria.. COMPARISON: None available. TECHNIQUE: Real-time ultrasound kidneys using grayscale technique. FINDINGS: RIGHT KIDNEY: 10 x 5 x 4 cm (SAG x AP x TRV). Volume: 105 cc. Normal echotexture. Renal cortical thickness is normal. No hydronephrosis. No solid or cystic lesion. LEFT KIDNEY: 10 x 6 x 5 cm (SAG x AP x TRV). Volume: 142 cc. Normal echotexture. Renal cortical thickness is normal. No hydronephrosis. No solid or cystic lesion. US/US renal BI IMPRESSION: No hydronephrosis or gross nephrolithiasis. Normal exam.. Electronically signed by: Krunal Godinez MD 10/07/2025 12:46 PM EST
--- NOTE | ~2025-10-06 | XR_ITS ---
CLINICAL HISTORY: fever, cough 1 view chest Comparison: CR - XR CHEST 1V - 05/26/25 13:43 EDT Findings: Cardiac and mediastinal contours are stable. Mild interstitial prominence with scattered peribronchial thickening. No focal consolidation. No effusion. No pneumothorax. No acute osseous finding. Impression: Mild interstitial prominence with scattered peribronchial thickening, increased from prior. No focal consolidation. This document has been electronically signed by: José Miguel Roman MD on 10/07/2025 04:53:51
[2025-10-06 23:01] VITALS: BP 116/50; PULSE 84; RESP 14; TEMP 36.8; O2SAT 97; BMI 25.4
--- NOTE | 2025-10-06 23:12 | ECG_ITS ---
Test Reason : WEAKNESS Blood Pressure : */* mmHG Vent. Rate : 76 BPM Atrial Rate : * BPM P-R Int : * ms QRS Dur : 82 ms QT Int : 380 ms P-R-T Axes : * -3 72 degrees QTcB Int : 427 ms Atrial fibrillation Cannot rule out Anterior infarct (cited on or before 26-May-2025) Abnormal ECG When compared with ECG of 02-Oct-2025 19:16, No significant change was found Referred By: Generic ED Physician Electronically Signed By: STACY PERSAUD
[2025-10-06 23:23] VITALS: PULSE 88
--- NOTE | 2025-10-06 23:33 | ED_ITS ---
HPI - Weakness General Chief complaint: Weakness Stated complaint: weakness UTI Time Seen by Provider: 10/06/25 23:00 Source: patient and EMS Mode of arrival: EMS Limitations: no limitations History of Present Illness ED Provider: Clarence FALCON HPI Narrative: The patient is an 85-year-old female with a history of atrial fibrillation, anxiety, migraines, depression, hypertension, hyperlipidemia, GERD, and a CVA with residual left-sided weakness which occurred in June of this year, patient has been undergoing extensive physical therapy with an approximately 90% return to baseline per chart review. The patient continues to have residual left-sided deficit. The patient was seen here on 10/02 for evaluation of word salad speech pattern, confusion, and abnormal behavior, patient was admitted after unremarkable CT. Patient's inpatient MRI showed no recurrent stroke, patient was placed on EEG which showed question of focal seizures, patient was started on Keppra. Additionally patient was started on cefuroxime for a suspected UTI. The patient was discharged Tuesday afternoon (10/04). Tonight the patient returns to the ED via ambulance after family noted patient was experiencing increasing weakness with impaired ambulation compared to most recent post CVA baseline. The patient in the ED states she has no acute somatic complaint, denies any headache, chest pain, shortness of breath, abdominal pain, urinary symptoms or other focal complaint. Related Data Home Medications ?Medication ?Instructions ?Recorded ?Confirmed calcium 600 mg (as 1 cap PO DAILY 01/28/2109/21 carbonate)-vitamin D3 12.5 mcg (500 unit) capsule (Calcium with Vit D3) loratadine 10 mg tablet 10 mg PO DAILY 08/28/2509/21 alprazolam 0.25 mg tablet 0.25 mg PO DAILY PRN Anxiety 10/02/25 10/07/25 ciclopirox 0.77 % topical cream 1 appl topical BID PRN Rash 10/02/25 10/07/25 Previous Rx's ?Medication ?Instructions ?Recorded acetaminophen 500 mg capsule 1,000 mg (2 x 500 mg) PO Q6H PRN 07/08/25 pain #30 caps atorvastatin 40 mg tablet 40 mg PO BEDTIME #90 tabs apixaban 5 mg tablet (Eliquis) 5 mg PO BID #60 tabs levetiracetam 500 mg tablet 500 mg PO BID #120 tabs losartan 25 mg tablet 25 mg PO DAILY #90 tabs 09/21 04/14 metoprolol tartrate 25 mg tablet 25 mg PO BID #180 tab s 10/05/25 pantoprazole 40 mg tablet,delayed 40 mg PO DAILY@0630 PRN Acid 10/05/25 release (Protonix) Reflux #90 tabs Auto PAP mode 6-20 cm water #1 ea 10/07/25 humidified air Allergies Allergy/AdvReac Type Severity Reaction Status Date / Time Sulfa (Sulfonamide Allergy Intermediate RASH Verified 10/06/25 23:04 Antibiotics) (SULFA (SULFONAMIDE ANTIBIOTICS)) Review of Systems 2 Review of Systems: Yes all other systems are reviewed and are negative [facility] Past Medical History Medical History 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 Stroke Heart murmur Retinal detachment GERD (gastroesophageal reflux disease) Hypertension Diverticulosis Hypercholesterolemia Surgical History H/O colonoscopy History of surgery H/O eye surgery History of dilatation and curettage Hx of appendectomy Hx of cholecystectomy History of bilateral knee replacement Social History Social History Household Members: Children Housing: Apartment Do you presently have visiting nurse or other home services: No Alcohol intake: current Alcohol intake frequency: a few times a week Alcohol type: wine Comment: 3x a weeka glass Patient Tobacco Use Status: Never used Tobacco Tobacco use type: Cigarette e-Cigarette/Vaping Use: Never Used Second Hand Smoke Exposure: No Advance Directives Date on File: 05/25/25 service: No Current occupational status: retired Cognitive needs: No Hearing needs: No Vision needs: Yes Physical Exam 2 Vital Signs: Vital Signs: Last Vital Signs Temp 97.2 F 10/08/25 03:04 Pulse 89 10/08/25 03:04 Resp 17 10/08/25 03:04 BP 103/63 10/08/25 03:04 Pulse Ox 93 10/08/25 03:04 O2 Del Method Room Air 10/08/25 03:04 BMI result Body Mass Index 25.4 CONSTITUTIONAL: The patient appears non-toxic, well nourished and in no acute distress. Vital signs as documented. HEAD: Atraumatic, normocephalic. EYES: EOMs grossly intact, pupils equal, conjunctiva clear, no exudate. ENT: Nares patent, no discharge. Airway patent, no audible stridor, visible mucosa is pink and moist without noted lesions. NECK: Trachea is midline, no obvious masses or gross abnormalities. CHEST: Symmetric movement, normal appearance. LUNGS: LS present and CTAB, no w/r/r. Non-labored work of breathing. CARDIAC: Regular Rhythm, S1/S2 appreciated, no murmurs, rubs or gallops. ABDOMEN: Abdomen soft and non-tender x4 quadrants, no palpable masses or organomegaly. : Deferred. EXTREMITIES: Normal tone, moves all extremities spontaneously without reported pain. There is a non engorged tick noted in the patient's left forearm, No other obvious acute injury or deformity noted. NEURO: Alert and oriented x3, CN II-XII appear grossly intact. Cerebellar Functioning grossly intact. 4/5 strength in the left upper and lower extremities, patient reports as baseline since CVA. No other obvious sensory or motor deficits. Speech clear and appropriate. PSYCH: normal affect, appropriate eye contact, fluid speech, with appropriate response to questioning. No reported suicidality or homicidality. SKIN: Warm, dry, color appropriate, normal turgor. No rashes noted. Medications Administered Generic Name Dose Route Start Last Admin Trade Name Freq PRN Reason Stop Dose Admin Acetaminophen 975 mg 10/07/25 09:00 10/07/25 21:39 Acetaminophen 325 Mg Tablet PO 975 mg Q6H PRN Administration Pain, Mild 1-3,fever,headache Apixaban 5 mg 10/07/25 10:45 10/07/25 21:39 Apixaban 5 Mg Tablet PO 5 mg BID ELISE Administration Atorvastatin Calcium 40 mg 10/07/25 21:00 10/07/25 21:39 Atorvastatin Calcium 40 Mg Tablet PO 40 mg BEDTIME ELISE Administration Ceftriaxone Sodium 1 gm/ 50 mls @ 100 mls/hr 10/07/25 03:00 10/08/25 03:38 Sodium Chloride IV Infused Q24H ELISE Infusion Azithromycin 500 mg/ Sodium 250 mls @ 125 mls/hr 10/07/25 03:00 10/08/25 05:12 Chloride IV Infused Q24H ELISE Infusion Levetiracetam 500 mg 10/07/25 10:45 10/07/25 21:39 Levetiracetam 500 Mg Tablet PO 500 mg BID ELISE Administration Loratadine 10 mg 10/07/25 10:45 10/07/25 11:15 Loratadine 10 Mg Tablet PO 10 mg DAILY ELISE Administration Losartan Potassium 25 mg 10/07/25 10:45 10/07/25 11:14 Losartan Potassium 25 Mg Tablet PO 25 mg DAILY ELISE Administration Protocol Metoprolol Tartrate 25 mg 10/07/25 10:45 10/07/25 21:39 Metoprolol Tartrate 25 Mg Tablet PO 25 mg BID ELISE Administration Protocol Oseltamivir Phosphate 30 mg 10/07/25 18:00 10/08/25 05:43 Oseltamivir Phosphate 30 Mg Capsule PO 10/11/25 18:01 30 mg Q12H ELISE Administration Sodium Chloride 3 ml 10/07/25 08:00 10/07/25 21:40 0.9 % Sodium Chloride Flush 3 Ml Syringe IVFLUSH 3 ml QSHIFT ELISE Administration Sodium Chloride 1 gm 10/07/25 15:00 10/07/25 21:39 Sodium Chloride Tab 1 Gm Tablet PO 10/09/25 09:01 1 gm TID ELISE Administration Discontinued Medications Generic Name Dose Route Start Last Admin Trade Name Freq PRN Reason Stop Dose Admin Acetaminophen 975 mg 10/07/25 03:00 10/07/25 03:11 Acetaminophen 325 Mg Tablet PO 10/07/25 03:01 975 mg ONCE STA Administration Sodium Chloride 1,000 mls @ 999 mls/hr 10/07/25 01:30 10/07/25 03:45 Ns IV 10/07/25 02:30 Infused .Q1H1M ELISE Infusion Lactated Ringer's 1,000 mls @ 75 mls/hr 10/07/25 03:15 10/07/25 18:08 Lr IVCONT 10/07/25 16:34 Infused .[id number] ELISE Infusion Oseltamivir Phosphate 75 mg 10/07/25 05:41 10/07/25 06:12 Oseltamivir Phosphate 75 Mg Capsule PO 10/07/25 05:42 75 mg ONCE STA Administration Medical Decision Making Medical Decision Making MDM Narrative: 11:37 PM 10/06/2025 (Fabian FALCON): The patient is an 85-year-old female with a history of atrial fibrillation, anxiety, migraines, depression, hypertension, hyperlipidemia, GERD, and a CVA with residual left-sided weakness which occurred in June of this year, patient has been undergoing extensive physical therapy with an approximately 90% return to baseline per chart review. The patient continues to have residual left-sided deficit. The patient was seen here on 10/02 for evaluation of word salad speech pattern, confusion, and abnormal behavior, patient was admitted after unremarkable CT. Patient's inpatient MRI showed no recurrent stroke, patient was placed on EEG which showed question of focal seizures, patient was started on Keppra. Additionally patient was started on cefuroxime for a suspected UTI. The patient was discharged Tuesday afternoon (10/04). Tonight the patient returns to the ED via ambulance after family noted patient was experiencing increasing weakness with impaired ambulation compared to most recent post CVA baseline. The patient in the ED states she has no acute somatic complaint, denies any headache, chest pain, shortness of breath, abdominal pain, urinary symptoms or other focal complaint. On exam patient has mild left-sided weakness, additionally there is a non engorged deer tick noted in the left forearm. Tick was removed with mouth parts intact during exam. Remainder of exam is benign, no other acute findings. The patient will be re- evaluated with laboratory workup, EKG, and urinalysis. Pending unremarkable repeat workup in the ED patient will likely require case management/PT consultation. 1:18 AM 10/07/2025 (Fabian FALCON): Patient's laboratory evaluation is beginning to return, the patient has no leukocytosis or anemia, however there was a significant neutrophilia. Additionally the patient's chemistry demonstrates new onset hyponatremia with sodium of 128. Patient's T bili is also mildly elevated at 1.2. Patient's urinalysis is pending. We will initiate IV fluid hydration, pending no other significant abnormalities patient will likely require admission for correction of hyponatremia with weakness and difficulty walking. 1:59 AM 10/07/2025 (Fabian FALCON): The patient's urinalysis appears improved compared to previous. At this time patient will be admitted for hyponatremia and weakness. 3:16 AM 10/07/2025 (Fabian FALCON): Of note, shortly after patient was admitted, the patient spiked a fever of 101.9, Dr. Li from the hospitalist service reported patient was coughing during her exam, Dr. Li added blood cultures, lactic acid, azithromycin, and chest x-ray. Admission/Observation Consideration of admission/observation: Escalation of care including admission/observation considered Lab Data MDM Lab Attestation statement: I reviewed the patient's lab results. 10/07/25 03:22 10/08/25 04:50 Labs: Lab Results 10/07/25 10/07/25 Range/Units 00:13 00:47 WBC 6.0 (4.8-10.8) X10*3/uL RBC 4.50 (4.20-5.50) X10*6/uL Hgb 13.7 (12.0-16.0) g/dl Hct 39.8 (37.0-47.0) % MCV 88.4 (80.0-98.0) fL MCH 30.4 (27.0-33.0) pg MCHC 34.4 (31.0-35.0) g/dl RDW 13.4 (11.0-16.0) % Plt Count 210 (160-400) X10*3/uL MPV 8.6 L (9.4-12.3) fL Immature Gran % (Auto) 0.5 H (0.0-0.4) % Neut % (Auto) 73.6 H (45-73) % Lymph % (Auto) 11.9 L (20-40) % [place] % (Auto) 12.2 H (2-11) % Eos % (Auto) 1.0 (0-4) % Baso % (Auto) 0.8 (0-2) % Lymph # (Auto) 0.7 L (1.2-4.9) X10*3/uL [place] # (Auto) 0.7 (0.1-1.2) X10*3/uL Eos # (Auto) 0.1 (0.0-0.4) X10*3/uL Baso # (Auto) 0.1 (0.0-0.2) X10*3/uL Abs Immat Gran (auto) 0.03 (0.00-0.03) X10*3/uL Absolute Neuts (auto) 4.4 (2.0-8.3) x10*3/uL Absolute Nucleated RBC 0.000 (0.0-0.012) X10*3/uL Nucleated RBC % (auto) 0.0 (0.0-0.2) /100WBC Sodium 128 L (135-145) mmol/L Potassium 4.1 (3.3-5.1) mmol/L Chloride 97 (96-108) mmol/L Carbon Dioxide 21 L (22-29) mmol/L Anion Gap 14 (12-20) BUN 10 (9-16) mg/dL Creatinine 0.67 (0.5-1.4) mg/dL Estim Creat Clear Calc 55.7 Estimated GFR > 60 Random Glucose 96 (60-115) mg/dL Calcium 9.0 (8.4-10.2) mg/dL Magnesium 1.7 (1.6-2.6) mg/dL Total Bilirubin 1.2 H (0.0-1.0) mg/dL AST 30 (5-31) U/L ALT 38 H (0-31) U/L Alkaline Phosphatase 95 (39-117) U/L Total Protein 6.9 (6.5-8.0) g/dL Albumin 4.0 (3.5-5.0) g/dL Urine Color Yellow Urine Appearance Clear Urine pH 6.0 (5.0-9.0) Ur Specific [place] 1.015 (1.005-1.025) Urine Protein Trace (Neg-Trace) mg/dL Urine Glucose (UA) Negative (Negative) mg/dL Urine Ketones Negative (Negative) mg/dL Urine Blood Moderate (2+) H (Negative) Urine Nitrite Negative (Negative) Ur Leukocyte Esterase Negative (Negative) Urine RBC 11-20 H (0-2) /HPF Urine WBC 0-5 (0-5) /HPF Ur Squamous Epith Cells 0-2 (0-2) /HPF Urine Bacteria None Seen (None Seen) Hyaline Casts 0-2 (0-2) /LPF Urine Osmolality 524 (373-1093) mosm/kg Ur Random Sodium 126.0 mmol/L Independent Interpretation I performed an independent interpretation of an: EKG (EKG shows rate controlled atrial flutter with rate of 76, no evidence of acute ischemia, no ST elevation, no ectopy. QTC 427. ) Discharge Plan Discharge Clinical Impression: Hyponatremia Patient Disposition: Admitted As Inpatient Interventions: Admission Worksheet (ED) Last Done: 10/07/25 16:37 Discharge Date/Time: 10/07/25 18:22
[2025-10-07] VITALS (12 sets, daily range): BP systolic 91–129; BP diastolic 46–83; PULSE 77–100; RESP 16–21; TEMP 36.7–39; O2SAT 92–98
[2025-10-07 00:18] LABS: MANUAL DIFF FLAG NO
[2025-10-07 00:19] LABS: Hematocrit 39.8 % (37.0-47.0); Hemoglobin 13.7 g/dl (12.0-16.0); Imm Gran Abs Auto 0.03 X10*3/uL (0.00-0.03); Imm Gran Pct Auto 0.5 % (0.0-0.4); Lymphocytes Absolute Auto 0.7 X10*3/uL (1.2-4.9); Mean Corpuscular HGB Conc 34.4 g/dl (31.0-35.0); Mean Corpuscular Hemoglobin 30.4 pg (27.0-33.0); Mean Corpuscular Volume 88.4 fL (80.0-98.0); NRBC Abs Auto 0.000 X10*3/uL (0.0-0.012); NRBC Pct Auto 0.0 /100WBC (0.0-0.2); Platelet Count 210 X10*3/uL (160-400); Red Blood Count 4.50 X10*6/uL (4.20-5.50); White Blood Count 6.0 X10*3/uL (4.8-10.8)
[2025-10-07 00:35] LABS: Alanine Aminotransferase 38 U/L (0-31); Albumin Level 4.0 g/dL (3.5-5.0); Alkaline Phosphatase 95 U/L (39-117); Anion Gap 14 (12-20); Aspartate Amino Transferase 30 U/L (5-31); Blood Urea Nitrogen 10 mg/dL (9-16); Calcium 9.0 mg/dL (8.4-10.2); Carbon Dioxide 21 mmol/L (22-29); Chloride 97 mmol/L (96-108); Creatinine Clr Calc Pharmacy 55.7; Estimated Glomerular Filt Rate > 60; Magnesium 1.7 mg/dL (1.6-2.6); Potassium 4.1 mmol/L (3.3-5.1); Sodium 128 mmol/L (135-145); Total Protein 6.9 g/dL (6.5-8.0)
--- OUTSIDE RECORDS SUMMARY | 2025-10-07 00:38 | XMS_ITS | Encounter Summary ---
Author Organization [facility], Address [address] [place] [address] Phone Care Team Providers Care Movie Shot Camera Operator Name Role Phone Jessica Martinez MD Primary Care Provider [phone] Encounter Details Date Type Department Care Team (Late st Contact Info) Description 05/31/2025 Documentation Only [facility], [address] [place] [address] [place] [address] [place] [address] Social History Tobacco Use Types [...] on filedocumented in this encounter Care Teams Movie Shot Camera Operator Relationship Specialty Start Date End Date Jessica Martinez MD [facility] [address] [place], [place] PCP - General Internal Medicine 05/31/25 documented as of this encounter
--- OUTSIDE RECORDS SUMMARY | 2025-10-07 00:38 | XMS_ITS | Clinical Summary ---
Author Organization [facility], Address [address] [place] [address] [place] [address] Phone Care Team Providers Care Warp Hauler Name Role Phone Jessica Martinez MD Primary Care Provider [phone] Social History Tobacco Use Types Packs/Day Years [...] patient's age to complete this topic Insurance [facility] Medicare Care Teams Warp Hauler Relationship Specialty Start Date End Date Jessica Martinez MD [facility] [address] [place] PCP - General Internal Medicine 05/31/25
--- OUTSIDE RECORDS SUMMARY | 2025-10-07 00:38 | XMS_ITS | Clinical Summary ---
Author Organization [facility] Address [address] [place] [address] Phone Care Team Providers Care Vinyl Dipper Name Role Phone Kemi Knott MD Primary Care Provider + Encounters Date Type Department Care Team Description 07/09/2025 Transcribe [facility] [address] [place] [address] [address]rd Floor, [address] [place] [address] Manolo Jordan Atrial fibrillation, unspecified type (Primary [...] Description 12/18/2025 1:40 PM EST Office Visit [facility] [address] [place] [address] [address] Floor, [address] [place] [address] Yemi Beckford MD [address], [address] [place] [address] [email or web address] Health Maintenance Due Date Last Done Comments [...] file Insurance MEDICARE PART A & B [employer] [facility] [employer] [employer] SUPPLEMENT MEDICARE PART A & B [employer] MED[employer] SUPPLEMENT MEDICARE PART A & B [employer] SUPPLEMENT MEDICARE PART A & B [employer] MED[employer] SUPPLEMENT MEDICARE PART A & B [employer] SUPPLEMENT MEDICARE PART A & B [employer] MEDEX SUPPLEMENT Care Teams Vinyl Dipper Relationship Specialty Start Date End Date Kemi Knott MD [address] [place] [id number] [email or web address] PCP - General Family Medicine 07/09/25 Additional Source Comments The information contained in this document represents components of the legal health record. It is not the complete legal health record.[facility]
--- OUTSIDE RECORDS SUMMARY | 2025-10-07 00:38 | XMS_ITS | Patient Health Record ---
Author Organization [facility] Address [address] [place] [address] Care Team Providers Care Frame Assembler Name Role Phone Jessica Martinez MD Primary Care Provider Marques Marie Unavailable [phone] Allergies Allergen (clinical drug ingredient) Drug/Non Drug Allergy documented on EMR Reaction Allergy Type Onset Date Status Sulfa Unknown Drug Allergy Active Reason For Referral No Information Medications Medication SIG (Take, Route, Frequency, Duration) Notes Start Date End Date Status Womens One Daily - Tablet Orally Active Atorvastatin Calcium 10 MG Tablet 1 tablet Orally Once a day Active Atenolol 50 MG Tablet 1 tablet Orally On ce a day Active Calcium 600 + D 600-200 MG-UNIT Tablet 1 tablet with a meal Orally Once a day Active Aspir-81 81 MG Tablet Delayed Release 1 tablet Orally Once a day Active Social History Tobacco Use: Social History Observation Description Date Details (start date - stop date) Never Smoker NA - NA Social History Drugs/Alcohol: Social Info Question Answer Notes Alcohol Screen Did you have a drink containing alcohol in the past year? Yes How often did you have a drink containing alcohol in the past year? 2 to 3 times a week (3 points) How many drinks did you have on a typical day when you were drinking in the past year? 1 or 2 drinks (0 point) Points 3 Interpretation Positive Tobacco Use: Social Info Question Answer Notes Tobacco Use/Smoking Patient is a nonsmoker Additional Details Category Social Info Options Details Miscellaneous: Marital status: Occupation: Retired Section Notes: Nonsmoker; 1 glass of wine o r mixed drink several tines a week Problems Problem Type SNOMED Code ICD Code Onset Dates Problem Status W/U Status Risk Notes Problem Screening for malignant neoplasm of colon (099881008) Encounter for screening for malignant neoplasm of colon (Z12.11) Active confirmed Problem Preprocedural examination (876300199828641) Preprocedural examination (Z01.818) Active confirmed Problem Long-term current use of aspirin (842338442944670) Aspirin long-term use (Z79.82) Active confirmed Plan Of Treatment Future Test Test Name Order Date COLONOSCOPY 03/30/2018 Insurance Providers Payer Name Payer Address Payer Phone Subscriber Number Group Number Insured Name Patient Relationship to Insured Coverage Start Date Coverage End Date MEDICARE OF [place] [address] [place] [address] [id number] INEZ STACK Self - patient is the insured MED[employer] ATTN CLAIMS [address] [place] [address] [id number] INEZ STACK Self - patient is the [...]
--- OUTSIDE RECORDS SUMMARY | 2025-10-07 00:39 | XMS_ITS | Patient Health Record ---
Author Organization [facility] [facility] Address [address] [place] [address] Care Team Providers Care Box Sealing Machine Operator Name Role Phone Jessica Martinez Primary Care Provider Tiffanie Castro Unavailable [phone] Allergies Allergen (clinical drug ingredient) Drug/Non Drug [...] primary osteoarthritis of the ankle and/or foot (771542967) Osteoarthritis of right ankle and foot (M19.071) Active confirmed Problem Localized, primary osteoarthritis of the ankle and/or foot (328791523) Osteoarthritis of left ankle and foot (M19.072) Active confirmed Vital Signs Blood pressure diastolic 68 mm Hg 09/24/2025 Height 5 ft 3 in in 09/24/2025 Blood pressure systolic 129 mm Hg 09/24/2025 Weight 138 lbs 09/24/2025 BMI 24.44 kg/m2 09/24/2025 Encounters Encounter Location Date Provider Diagnosis [address] [address] 12/25/2024 Tiffanie Perica Tinea pedis of both feet B35.3 ; Plantar wart B07.0 ; Tinea unguium B35.1 ; Pain in right toe(s) M79.674 ; Pain in left toe(s) M79.675 and Left foot pain M79.[address] [address] 03/26/2025 Tiffanie Perica Plantar wart B07.0 ; Tinea unguium B35.1 ; Pain in right toe(s) M79.674 ; Pain in left toe(s) M79.675 and Left foot pain M79.[address] [address] 09/24/2025 Tiffanie Perica Tinea unguium B35.1 ; History of stroke Z86.73 ; Pain in right toe(s) M79.674 ; Pain in left toe(s) M79.675 ; Left-sided weakness R53.1 and Gait instability R26.[address] [address] 03/26/2025 Tiffanie Hicks [facility] [address] [place] [address] 07/15/2025 Tiffanie Hicks Assessments Encounter Date Diagnosis [...] Name:Tiffanie alejandre, 12/24/2025 03:45:00 PM, [address] [place], [address], Insurance Providers Payer Name Payer Address Payer Phone Subscriber Number Group Number Insured Name Patient Relationship to Insured Coverage Start Date Coverage End Date Medicare National [employer]t [employer] [address] [place] [address] [id number] ChrisyumikoMarily egan Self - patient is the insured [employer] [address] [place] [address] [id number] Marily Llanos Self - patient is the insured Medical (General) History Medical History History ICD Code Arthritis CAD (Cholesterol) Measles Mumps Chicken pox Gall bladder problems High blood pressure Osteoporosis Joint implants/screws Surgical History Surgery Date(Month/Year) gall bladder 1970 right knee replacement 12/2014 left knee replacement 02/2016 cataract surgery 2021 Hospitalization History Reason Date(Month/Year) stroke 05/26/25 [facility] [place] - cat scan and x-ray left knee 01/14
--- NOTE | 2025-10-07 00:47 | PC.NURSE ---
Patient awake and alert. skin pwd, resp even and non labored, speaking in full, clear sentences. afib via tele. patient requesting to use the bathroom. patient aware of need for urine sample, patient cleansed, assisted on/off bedpan, urine sample obtained and sent to lab. family remains at bedside.
[2025-10-07 01:14] LABS: Appearance Urine Clear; Glucose Urine UA Negative (Negative); PH 6.0 (5.0-9.0); Specific Gravity - Urine 1.015 (1.005-1.025); UMIC TRIGGER UACC YES
--- NOTE | 2025-10-07 03:00 | PC.NURSE ---
patient awake and alert. skin flush, hot, dry. patient c/o chills, asking for multiple hot blankets. rectal temp assessed, patient noted to be febrile at 101.9. hospitalist made aware and new orders obtained.
--- NOTE | 2025-10-07 03:09 | PM.IMHP ---
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 She mentioned that she has been sneezing and coughing. She denied any chest pain or shortness on breath. She also denied any acute gastrointestinal or genitourinary symptoms. She was recently hospitalized after presenting with transient confusion. 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 b.i.d. She was discharged with a course of Keppra for presumed UTI but final urinary culture no consistent with this. 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 Stroke Heart murmur Retinal detachment GERD (gastroesophageal reflux disease) Hypertension Diverticulosis Hypercholesterolemia Surgical History H/O colonoscopy History of surgery H/O eye surgery History of dilatation and curettage Hx of appendectomy Hx of cholecystectomy History of bilateral knee replacement Social History Household Members: Children Housing: Apartment Do you presently have visiting nurse or other home services: No Alcohol intake: current Alcohol intake frequency: a few times a week Alcohol type: wine Comment: 3x a weeka glass Patient Tobacco Use Status: Never used Tobacco Tobacco use type: Cigarette Smoked in Last 30 Days: No e-Cigarette/Vaping Use: Never Used Second Hand Smoke Exposure: No Use of substances other than those prescribed or required for medical reasons: No Advance Directives: Yes Advance Directives on File: Yes Advance Directives Date on File: 05/25/25 service: No Current occupational status: retired Cognitive needs: No Hearing needs: No Vision needs: Yes Meds Allergies Allergy/AdvReac Type Severity Reaction Status Date / Time Sulfa (Sulfonamide Allergy Intermediate RASH Verified 10/06/25 23:04 Antibiotics) (SULFA (SULFONAMIDE ANTIBIOTICS)) Active Medications: Current Medications Acetaminophen (Acetaminophen 325 Mg Tablet) 975 mg PO Q6H PRN PRN Reason: Pain, Mild 1-3,fever,headache Calcium Carbonate (Calcium Carbonate 750 Mg Tab.Chew) 750 mg PO Q4H PRN PRN Reason: Heartburn Ceftriaxone Sodium 1 gm/ (Sodium Chloride) 50 mls @ 100 mls/hr IV Q24H ELISE Azithromycin 500 mg/ Sodium (Chloride) 250 mls @ 125 mls/hr IV Q24H ELISE Lactated Ringer's (Lr) 1,000 mls @ 75 mls/hr IVCONT .[id number] [facility] Stop: 10/07/25 16:34 Magnesium Hydroxide (Milk Of Magnesia 30 Ml Oral.Susp) 30 ml PO DAILY PRN PRN Reason: Constipation Melatonin (Melatonin 3 Mg Tablet) 6 mg PO BEDTIME PRN PRN Reason: Insomnia Sodium Chloride (0.9 % Sodium Chloride Flush 3 Ml Syringe) 3 ml IVFLUSH QSHIFT [facility] Home Medications ?Medication ?Instructions ?Recorded ?Confirmed ?Last Taken ?Type calcium 600 mg (as 1 cap PO DAILY 01/28/21 10/02/25 10/02/25 History carbonate)-vitamin D3 12.5 mcg (500 unit) capsule (Calcium with Vit D3) albuterol sulfate 90 mcg/actuation 2 puff inhalation Q6H PRN wheezing 05/26/25 10/02/25 Unknown History aerosol inhaler loratadine 10 mg tablet 10 mg PO DAILY 08/28/25 10/02/25 10/02/25 History melatonin 10 mg capsule 10 mg PO BEDTIME PRN Sleep 08/28/25 10/02/25 Unknown History alprazolam 0.25 mg tablet 0.25 mg PO DAILY PRN Anxiety 10/02/25 10/02/25 Unknown History ciclopirox 0.77 % topical cream 1 appl topical BID PRN Rash 10/02/25 10/02/25 Unknown History Physical Exam Vital Signs and Narrative: Vital Signs: Last Vital Signs Temp 101.9 F H 10/07/25 02:57 Pulse 95 10/07/25 02:16 Resp 18 10/07/25 02:16 BP 117/51 L 10/07/25 02:16 Pulse Ox 93 10/07/25 02:16 O2 Del Method Room Air 10/07/25 02:16 BMI result Body Mass Index 25.4 General: Alert, oriented, in no acute distress. Cooperative. Febrile. Constantly complaining of feeling cold. Intermittent coughing. HEENT: Head normocephalic, atraumatic. PER, EOMI. Sclerae anicteric, conjunctiva clear. Oropharynx without erythema or exudate. Mucous membranes moist. Neck: Supple. Heart: RRR, no murmurs, rubs or gallops. Lungs: Clear to auscultation bilaterally. No wheezes, rales, or rhonchi. Normal respiratory effort. Abdomen: Soft, non tenderness, nondistended, normoactive bowel sounds. No hepatosplenomegaly, masses or masses. Extremities: No calf tenderness bilaterally, no swelling Musculoskeletal: Full range of motion. No joint swelling, deformity, or tenderness. Normal muscle tone and strength. Skin: Warm/Dry. No pallor. No jaundice. Neurologic: Alert & oriented x4. Moving all extremities spontaneously (chronic left hemiparesis and facial droop). Normal speech. Psychological: Normal mood and affect. Thought process coherent. Results Labs 10/07/25 00:13 10/07/25 00:13 Labs: Laboratory Results - last 24 hr 10/07/25 10/07/25 00:13 00:47 MCV 88.4 MCH 30.4 MCHC 34.4 RDW 13.4 Plt Count 210 MPV 8.6 L Immature Gran % (Auto) 0.5 H Neut % (Auto) 73.6 H Lymph % (Auto) 11.9 L [place] % (Auto) 12.2 H Eos % (Auto) 1.0 Baso % (Auto) 0.8 Lymph # (Auto) 0.7 L [place] # (Auto) 0.7 Eos # (Auto) 0.1 Baso # (Auto) 0.1 Abs Immat Gran (auto) 0.03 Absolute Neuts (auto) 4.4 Absolute Nucleated RBC 0.000 Nucleated RBC % (auto) 0.0 Anion Gap 14 Estim Creat Clear Calc 55.7 Estimated GFR > 60 Random Glucose 96 Calcium 9.0 Magnesium 1.7 Total Bilirubin 1.2 H AST 30 ALT 38 H Alkaline Phosphatase 95 Total Protein 6.9 Albumin 4.0 Urine Color Yellow Urine Appearance Clear Urine pH 6.0 Ur Specific [place] 1.015 Urine Protein Trace Urine Glucose (UA) Negative Urine Ketones Negative Urine Blood Moderate (2+) H Urine Nitrite Negative Ur Leukocyte Esterase Negative Urine RBC 11-20 H Urine WBC 0-5 Ur Squamous Epith Cells 0-2 Urine Bacteria None Seen Hyaline Casts 0-2 Assessment and Plan (1) Fever: Qualifiers: Fever type: unspecified Qualified Code(s): R50.9 - Fever, unspecified Status: Acute (2) Hyponatremia: Status: Acute Plan Marily Llanos is 85 y/o woman who presents to the ED with: Hyponatremia, likely SIADH due to acute infection/resp. Fall precautions. Check urine and serum osmolality, urine sodium and TSH. Continue IV fluids. Continue to monitor sodium closely. Fever, cough and sneezing. Check respiratory panel/COVID/influenza/RSV. Supportive therapy. Check CXR, lactic acid and BCs x2. Start empiric IV antibiotic therapy with azithromycin and ceftriaxone. Bronchodilator therapy as needed. Presumed UTI. Urine culture 10/02/2025 - mixed bacteria likely contaminant. Stop keflex. Microscopic hematuria. Renal ultrasound. Urology eval as an outpatient. Chronic AFib. Telemetry. Continue Eliquis and metoprolol. 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 Continue Eliquis and statin. Essential hypertension. Continue metoprolol and losartan. Hyperlipidemia. Continue statin. Anxiety. Continue Xanax. Seizures. Continue levothyroxine. Left ICA stenosis 50-79%. GERD. Continue PPI. Code status: Full DVT prophylaxis: On Eliquis Patient will need hospitalization for at least 2 midnights for hyponatremia and acute respiratory symptoms management and treatment with IV fluids, empiric IV antibiotic therapy and close monitoring of sodium level. This documentation was generated using dictation software; minor spreading or affiliate manager errors may be present. Quality Stroke Does the patient have a stroke diagnosis?: No VTE Prior VTE?: No VTE Risk Level:: Medical - moderate - high VTE Device Contraindication: Treatment Not Indicated VTE Drug Contraindication: N/A - Med Ordered
--- NOTE | 2025-10-07 03:10 | PC.NURSE ---
Assumed care of patient, blood cultures and lactic obtained. additional IV access 22 L hand placed at this time. Medicated according to MAR. Patient stated no complaints at this time
[2025-10-07] MEDS: Lactated Ringers 1,000 ML 75 ML IVCONT (03:22)
[2025-10-07 03:29] LABS: Hematocrit 36.4 % (37.0-47.0); Hemoglobin 12.7 g/dl (12.0-16.0); Imm Gran Abs Auto 0.03 X10*3/uL (0.00-0.03); Imm Gran Pct Auto 0.5 % (0.0-0.4); Lymphocytes Absolute Auto 1.0 X10*3/uL (1.2-4.9); MANUAL DIFF FLAG NO; Mean Corpuscular HGB Conc 34.9 g/dl (31.0-35.0); Mean Corpuscular Hemoglobin 31.1 pg (27.0-33.0); Mean Corpuscular Volume 89.0 fL (80.0-98.0); NRBC Abs Auto 0.000 X10*3/uL (0.0-0.012); NRBC Pct Auto 0.0 /100WBC (0.0-0.2); Platelet Count 195 X10*3/uL (160-400); Red Blood Count 4.09 X10*6/uL (4.20-5.50); White Blood Count 6.1 X10*3/uL (4.8-10.8)
[2025-10-07 03:37] LABS: Anion Gap 14 (12-20); Blood Urea Nitrogen 10 mg/dL (9-16); Calcium 8.8 mg/dL (8.4-10.2); Carbon Dioxide 22 mmol/L (22-29); Chloride 96 mmol/L (96-108); Creatinine Clr Calc Pharmacy 59.2; Estimated Glomerular Filt Rate > 60; Magnesium 1.9 mg/dL (1.6-2.6); Potassium 4.1 mmol/L (3.3-5.1); Sodium 128 mmol/L (135-145)
[2025-10-07 03:59] LABS: Thyroid Stimulating Hormone 2.68 uIU/mL (0.32-4.0)
[2025-10-07 04:15] LABS: Osmolality, Serum 262 mosm/kg (281-305)
[2025-10-07 04:42] LABS: Resp Syncy Virus RNA Qual PCR NEGATIVE (Negative); SARS COV2 PCR INHOUSE NEGATIVE (Negative)
--- NOTE | 2025-10-07 06:22 | HO.NURTONUR ---
85 female biba from home with family, reporting increased weakness. Just discharged from [facility] [place] tuesday. Labs remarkable for NA128 Flu A positive. Patient is able to swallow pills whole. used bedpan last night but purewick in place at this time. 20g RAC 22L FR. 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
[2025-10-07 08:58] LABS: Sodium 127 mmol/L (135-145)
--- NOTE | 2025-10-07 09:24 | PHA.MEDREC ---
Pharmacy Consult ? Medication Reconciliation Pharmacy has completed the medication reconciliation. Patient knew medications. Asked about recent antibiotic cefuroxime 250mg bid but patient knew about it so removed from list
[2025-10-07] MEDS: 0.9 % Sodium Chloride Flush 3 ML SYRINGE IVFLUSH ×3 (09:34→21:40)
[2025-10-07 12:35] LABS: Chlamydia pneumoniae PCR Not Detected (Not Detect.); Coronavirus 229E PCR Not Detected (Not Detect.); Coronavirus HKU1 PCR Not Detected (Not Detect.); Coronavirus NL63 PCR Not Detected (Not Detect.); Coronavirus OC43 PCR Not Detected (Not Detect.); Influenza A H1-2009 PCR Detected (Not Detect.); RSV PCR Not Detected (Not Detect.); Rhino/Enterovirus PCR Not Detected (Not Detect.)
[2025-10-07 13:00] LABS: Influenza A H1 PCR Not Detected (Not Detect.); Influenza A H3 PCR Not Detected (Not Detect.); SARS-CoV-2 PCR Not Detected (Not Detect.)
[2025-10-07 13:05] LABS: Sodium 126 mmol/L (135-145)
--- NOTE | 2025-10-07 13:11 | P.CONNP_ITS ---
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 She mentioned that she has been sneezing and coughing. She denied any chest pain or shortness on breath. She also denied any acute gastrointestinal or genitourinary symptoms. She was recently hospitalized after presenting with transient confusion. 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 b.i.d. She has a history of chronic hyponatremia. Serum sodium has been in the high 120s and low 130s few years ago. Recently serum sodium has dropped to 127 Daughter was at the bedside. No history of excessive amount of water intake or beer intake. 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 Stroke Heart murmur Retinal detachment GERD (gastroesophageal reflux disease) Hypertension Diverticulosis Hypercholesterolemia Surgical History Surgical History H/O colonoscopy History of surgery H/O eye surgery History of dilatation and curettage Hx of appendectomy Hx of cholecystectomy History of bilateral knee replacement Social History Social History Household Members: Children Housing: Apartment Do you presently have visiting nurse or other home services: No Alcohol intake: current Alcohol intake frequency: a few times a week Alcohol type: wine Comment: 3x a weeka glass Patient Tobacco Use Status: Never used Tobacco Tobacco use type: Cigarette e-Cigarette/Vaping Use: Never Used Second Hand Smoke Exposure: No Advance Directives Date on File: 05/25/25 service: No Current occupational status: retired Cognitive needs: No Hearing needs: No Vision needs: Yes Meds Allergies Allergy/AdvReac Type Severity Reaction Status Date / Time Sulfa (Sulfonamide Allergy Intermediate RASH Verified 10/06/25 23:04 Antibiotics) (SULFA (SULFONAMIDE ANTIBIOTICS)) Active Medications: Current Medications Acetaminophen (Acetaminophen 325 Mg Tablet) 975 mg PO Q6H PRN PRN Reason: Pain, Mild 1-3,fever,headache Last Admin: 10/07/25 09:32 Dose: 975 mg Albuterol Sulfate (Albuterol Sulfate (0.083%) 2.5 Mg/3 Ml Vial.Neb) 2.5 mg INHALE Q4H PRN PRN Reason: Wheezing Alprazolam (Alprazolam 0.25 Mg Tablet) 0.25 mg PO DAILY PRN PRN Reason: Anxiety Apixaban (Apixaban 5 Mg Tablet) 5 mg PO BID [facility] Last Admin: 10/07/25 11:15 Dose: 5 mg Atorvastatin Calcium (Atorvastatin Calcium 40 Mg Tablet) 40 mg PO BEDTIME [facility] Calcium Carbonate (Calcium Carbonate 750 Mg Tab.Chew) 750 mg PO Q4H PRN PRN Reason: Heartburn Clotrimazole (Clotrimazole 1 % Cream 15 Gm Tube) 1 appl TOPICAL BID PRN PRN Reason: Rash Guaifenesin/Dextromethorphan (Guaifenesin Dm 200/20/10 Ml 10 Ml Syrup) 10 ml PO Q6H PRN PRN Reason: Cough Ceftriaxone Sodium 1 gm/ (Sodium Chloride) 50 mls @ 100 mls/hr IV Q24H [facility] Last Infusion: 10/07/25 03:45 Dose: Infused Azithromycin 500 mg/ Sodium (Chloride) 250 mls @ 125 mls/hr IV Q24H [facility] Last Infusion: 10/07/25 05:51 Dose: Infused Lactated Ringer's (Lr) 1,000 mls @ 75 mls/hr IVCONT .[id number] [facility] Stop: 10/07/25 16:34 Last Admin: 10/07/25 03:22 Dose: 75 mls/hr Levetiracetam (Levetiracetam 500 Mg Tablet) 500 mg PO BID [facility] Last Admin: 10/07/25 11:14 Dose: 500 mg Loratadine (Loratadine 10 Mg Tablet) 10 mg PO DAILY [facility] Last Admin: 10/07/25 11:15 Dose: 10 mg Losartan Potassium (Losartan Potassium 25 Mg Tablet) 25 mg PO DAILY [facility]; Protocol Last Admin: 10/07/25 11:14 Dose: 25 mg Magnesium Hydroxide (Milk Of Magnesia 30 Ml Oral.Susp) 30 ml PO DAILY PRN PRN Reason: Constipation Melatonin (Melatonin 3 Mg Tablet) 6 mg PO BEDTIME PRN PRN Reason: Insomnia Metoprolol Tartrate (Metoprolol Tartrate 25 Mg Tablet) 25 mg PO BID [facility]; Protocol Last Admin: 10/07/25 11:15 Dose: 25 mg Omeprazole (Omeprazole 20 Mg Capsule.Dr) 20 mg PO DAILY@0630 PRN PRN Reason: Acid Reflux Oseltamivir Phosphate (Oseltamivir Phosphate 30 Mg Capsule) 30 mg PO Q12H [facility] Stop: 10/11/25 18:01 Sodium Chloride (0.9 % Sodium Chloride Flush 3 Ml Syringe) 3 ml IVFLUSH QSHIFT [facility] Last Admin: 10/07/25 09:34 Dose: 3 ml Home Medications ?Medication ?Instructions ?Recorded ?Confirmed ?Last Taken ?Type calcium 600 mg (as 1 cap PO DAILY 01/28/2109/2110/02/25 History carbonate)-vitamin D3 12.5 mcg (500 unit) capsule (Calcium with Vit D3) loratadine 10 mg tablet 10 mg PO DAILY 08/28/2509/2110/02/25 History alprazolam 0.25 mg tablet 0.25 mg PO DAILY PRN Anxiety 10/02/25 10/07/25 Unknown History ciclopirox 0.77 % topical cream 1 appl topical BID PRN Rash 10/02/25 10/07/25 Unknown History Physical Exam Vital Signs: Last Vital Signs Temp 98.2 F 10/07/25 11:13 Pulse 90 10/07/25 11:15 Resp 18 10/07/25 11:13 BP 126/83 10/07/25 11:15 Pulse Ox 98 10/07/25 11:13 O2 Del Method Room Air 10/07/25 11:13 BMI result Body Mass Index 25.4 Const General: ill appearing Neck Neck: Yes supple Resp Auscultation: clear to auscultation bilaterally Cardio Palpation: no palpable S3 Heart sounds: no rubs GI Palpation (GI): Soft to palpation Auscultation: normal bowel sounds Neuro Motor exam (neuro): no asterixis Results Lab Results 10/07/25 03:22 10/08/25 08:14 Lab results: Chemistry 10/07/25 10/07/25 10/07/25 00:13 03:08 08:44 Sodium 128 L 128 L 127 L Potassium 4.1 4.1 Carbon Dioxide 21 L 22 BUN 10 10 Creatinine 0.67 0.63 Calcium 9.0 8.8 10/07/25 12:48 Sodium 126 L Potassium Carbon Dioxide BUN Creatinine Calcium Hematology 10/07/25 10/07/25 00:13 03:22 WBC 6.0 6.1 Hgb 13.7 12.7 Plt Count 210 195 Urinalysis 10/07/25 00:47 Urine Color Yellow Urine Appearance Clear Urine pH 6.0 Ur Specific [place] 1.015 Urine Protein Trace Urine Glucose (UA) Negative Urine Ketones Negative Urine Blood Moderate (2+) H Urine Nitrite Negative Ur Leukocyte Esterase Negative Urine RBC 11-20 H Urine WBC 0-5 Ur Squamous Epith Cells 0-2 Hyaline Casts 0-2 Urine Studies 10/07/25 00:47 Urine Osmolality 524 Assessment and Plan (1) Hyponatremia: Status: Acute Plan Marily has chronic hyponatremia. There has been a recent drop in serum sodium. Based on the urine studies it appears that she has non osmotic ADH release leading to decreased free water clearance. TSH is normal. Medication could be contributing as well. Recommendation would be to check serum cortisol. Add sodium chloride tablets 1 g PO TID x6 doses. Restrict oral free water intake to 1 point 2 L per 24 hours. Goal is to maintain serum sodium more than 130 millimoles. No absolute indication for hypertonic saline. Goal is to correct serum sodium rate of 0.5-1 millimole per L per day and not more than 10 millimoles in a 24 hour. Procedures Date of Service Date of Service: 10/08/25
[2025-10-07] MEDS: Sodium Chloride Tab 1 GM TABLET PO ×2 (14:57→21:39)
--- NOTE | 2025-10-07 15:24 | PM.EVENT ---
Event Note Date of Service: 10/07/25 Event Note: Patient seen and examined by hospitalist this morning Seen and examined again Feeling somewhat better than before Physical exam and assessment and plan-per H&P Hyponatremia:? Euvolemic, serum osmolality is lower than the urine. DC IV fluid Fluid restriction, monitor sodium closely TSH normal Nephrology consulted and aware by [facility]. Influenza a: Started on Tamiflu Generalized weak: Added PT evaluation Time Spent With Patient Time: Total time managing care of this patient today ____ minutes.
[2025-10-07 17:14] LABS: Sodium 127 mmol/L (135-145)
[2025-10-07 20:23] LABS: Sodium 127 mmol/L (135-145)
[2025-10-08] VITALS (7 sets, daily range): BP systolic 103–139; BP diastolic 54–76; PULSE 80–94; RESP 17–20; TEMP 36.2–37.2; O2SAT 93–96
[2025-10-08 05:11] LABS: Anion Gap 11 (12-20); Blood Urea Nitrogen 9 mg/dL (9-16); Calcium 7.9 mg/dL (8.4-10.2); Carbon Dioxide 19 mmol/L (22-29); Chloride 102 mmol/L (96-108); Creatinine Clr Calc Pharmacy 63.9; Estimated Glomerular Filt Rate > 60; Potassium 3.8 mmol/L (3.3-5.1); Sodium 128 mmol/L (135-145)
[2025-10-08 08:46] LABS: Anion Gap 11 (12-20); Blood Urea Nitrogen 7 mg/dL (9-16); Calcium 8.2 mg/dL (8.4-10.2); Carbon Dioxide 17 mmol/L (22-29); Chloride 104 mmol/L (96-108); Creatinine Clr Calc Pharmacy 62.6; Estimated Glomerular Filt Rate > 60; Potassium 4.2 mmol/L (3.3-5.1); Sodium 128 mmol/L (135-145)
[2025-10-08] MEDS: Sodium Chloride Tab 1 GM TABLET PO ×3 (10:00→20:47)
[2025-10-08] MEDS: 0.9 % Sodium Chloride Flush 3 ML SYRINGE IVFLUSH ×3 (10:03→20:47)
--- NOTE | 2025-10-08 12:16 | MHC.CM.PN ---
IMM 10/08/25 DELIVERED TO BEDSIDE, WMR REVIEWED, PT W/READMIT W/HYPONATREMIA AND FLU, PT REPORTS SHE WAS NOT FEELING WELL AND CAME BACK TO THE HOSPITAL, PTWAS SUPPOSED TO START OUPT PT AT [facility] YESTERDAY 10/07 HOWEVER ENDED UP COMING BACK TO [facility] [place] PT REPORTS HER GOAL FOR DC IS HOME HOWEVER SHE WOULD LIKE [facility] FOR SERVICES, REF PLACED. PT USES A FWW AT HOME, HAS GRAB BARS IN [place]. PCP VERIFIED DR. LAMBERT, PT REPORTS DR. LAMBERT MAY HAVE A COPY OF PT'S HCP SHE COMPLETED W/AN ATTY, PT REPORTS HER HCA IS DTR/PRIMARY CONTACT [facility] SP[facility]GLER AND ALTERNATE IS HER SON FRANCIS, COPY REQUESTED. DP: HOME W/ENHABIT [facility] AND FAMILY FOR TRANSPORT
--- NOTE | 2025-10-08 13:14 | P.PNNP_ITS ---
Subjective Subjective Date of Service: 10/08/25 Interval history: Events noted Physical Exam 2 Vital Signs: Vital Signs: Last Vital Signs Temp 98.4 F 10/08/25 12:00 Pulse 82 10/08/25 12:00 Resp 18 10/08/25 12:00 BP 118/58 L 10/08/25 12:00 Pulse Ox 95 10/08/25 12:00 O2 Del Method Room Air 10/08/25 12:00 BMI result Body Mass Index 20.0 Const: General: ill appearing Neck: Neck: Yes supple Resp: Auscultation: clear to auscultation bilaterally Cardio: Palpation: no palpable S3 Heart sounds: no rubs GI: Palpation (GI): Soft to palpation Auscultation: normal bowel sounds Neuro: Motor exam (neuro): no asterixis Objective Data Labs 10/07/25 03:22 10/08/25 08:14 Labs: Laboratory Results - last 24 hr 10/07/25 10/07/25 10/08/25 16:59 19:58 04:50 Sodium 127 L 127 L 128 L Potassium 3.8 Chloride 102 Carbon Dioxide 19 L Anion Gap 11 L BUN 9 Creatinine 0.52 Estim Creat Clear Calc 63.9 Estimated GFR > 60 Random Glucose 85 Calcium 7.9 L D 10/08/25 08:14 Sodium 128 L Potassium 4.2 Chloride 104 Carbon Dioxide 17 L Anion Gap 11 L BUN 7 L Creatinine 0.53 Estim Creat Clear Calc 62.6 Estimated GFR > 60 Random Glucose 81 Calcium 8.2 L Microbiology Microbiology Results: Microbiology 10/07/25 03:08 Blood - Venous Blood Culture - Preliminary No growth after 24 hours. 10/07/25 03:08 Blood - Venous Blood Culture - Preliminary No growth after 24 hours. Procedures Date of Service Date of Service: 10/08/25 Assessment & Plan Assessment and plan (1) Hyponatremia: Status: Acute Plan Marily has chronic hyponatremia. There has been a recent drop in serum sodium. Based on the urine studies it appears that she has non osmotic ADH release leading to decreased free water clearance. TSH is normal. Medication could be contributing as well. Recommendation check serum cortisol. sodium chloride tablets 1 g PO TID x6 doses. Restrict oral free water intake to 1 point 2 L per 24 hours. Goal is to maintain serum sodium more than 130 millimoles. No absolute indication for hypertonic saline. Goal is to correct serum sodium rate of 0.5-1 millimole per L per day and not more than 10 millimoles in a 24 hour. Time Spent With Patient Time: Total time managing care of this patient today ____ minutes. Progress Note: Quality Stroke Does the patient have a stroke diagnosis?: No
--- NOTE | 2025-10-08 17:33 | P.PNIM_ITS ---
Subjective Subjective Date of Service: 10/08/25 Interval History: Hyponatremia Review of Systems Seem generalized weak, no new fever or chills. Review of Systems: Yes all other systems are reviewed and are negative Physical Exam 2 Exam: Exam: Appearance: Alert.? Oriented X3.? cvs: [id number], [id number] . res: air entry fair , no rales. abd: no rebound or guarding ,nt, bs present. ext pulses present , no cyanosis . neuro: axo3 , nonfocal. Vital Signs: Vital Signs: Last Vital Signs Temp 98.1 F 10/08/25 16:00 Pulse 80 10/08/25 16:00 Resp 18 10/08/25 16:00 BP 108/71 10/08/25 16:00 Pulse Ox 96 10/08/25 16:00 O2 Del Method Room Air 10/08/25 16:00 BMI result Body Mass Index 20.0 Objective Data Active Medications Acetaminophen (Acetaminophen 325 Mg Tablet) 975 mg PO Q6H PRN PRN Reason: Pain, Mild 1-3,fever,headache Last Admin: 10/07/25 21:39 Dose: 975 mg Documented By: DUSTIN Albuterol Sulfate (Albuterol Sulfate (0.083%) 2.5 Mg/3 Ml Vial.Neb) 2.5 mg INHALE Q4H PRN PRN Reason: Wheezing Alprazolam (Alprazolam 0.25 Mg Tablet) 0.25 mg PO DAILY PRN PRN Reason: Anxiety Apixaban (Apixaban 5 Mg Tablet) 5 mg PO BID [facility] Last Admin: 10/08/25 10:01 Dose: 5 mg Documented By: SIOBHAN Atorvastatin Calcium (Atorvastatin Calcium 40 Mg Tablet) 40 mg PO BEDTIME [facility] Last Admin: 10/07/25 21:39 Dose: 40 mg Documented By: DUSTIN Calcium Carbonate (Calcium Carbonate 750 Mg Tab.Chew) 750 mg PO Q4H PRN PRN Reason: Heartburn Clotrimazole (Clotrimazole 1 % Cream 15 Gm Tube) 1 appl TOPICAL BID PRN PRN Reason: Rash Guaifenesin/Dextromethorphan (Guaifenesin Dm 200/20/10 Ml 10 Ml Syrup) 10 ml PO Q6H PRN PRN Reason: Cough Ceftriaxone Sodium 1 gm/ (Sodium Chloride) 50 mls @ 100 mls/hr IV Q24H [facility] Last Infusion: 10/08/25 03:38 Dose: Infused Documented By: DUSTIN Azithromycin 500 mg/ Sodium (Chloride) 250 mls @ 125 mls/hr IV Q24H [facility] Last Infusion: 10/08/25 05:12 Dose: Infused Documented By: DUSTIN Levetiracetam (Levetiracetam 500 Mg Tablet) 500 mg PO BID [facility] Last Admin: 10/08/25 10:02 Dose: 500 mg Documented By: SIOBHAN Loratadine (Loratadine 10 Mg Tablet) 10 mg PO DAILY [facility] Last Admin: 10/08/25 10:01 Dose: 10 mg Documented By: SIOBHAN Losartan Potassium (Losartan Potassium 25 Mg Tablet) 25 mg PO DAILY [facility]; Protocol Last Admin: 10/08/25 10:02 Dose: 25 mg Documented By: SIOBHAN Magnesium Hydroxide (Milk Of Magnesia 30 Ml Oral.Susp) 30 ml PO DAILY PRN PRN Reason: Constipation Melatonin (Melatonin 3 Mg Tablet) 6 mg PO BEDTIME PRN PRN Reason: Insomnia Metoprolol Tartrate (Metoprolol Tartrate 25 Mg Tablet) 25 mg PO BID [facility]; Protocol Last Admin: 10/08/25 10:02 Dose: 25 mg Documented By: SIOBHAN Omeprazole (Omeprazole 20 Mg Capsule.Dr) 20 mg PO DAILY@0630 PRN PRN Reason: Acid Reflux Oseltamivir Phosphate (Oseltamivir Phosphate 30 Mg Capsule) 30 mg PO Q12H [facility] Stop: 10/11/25 18:01 Last Admin: 10/08/25 17:05 Dose: 30 mg Documented By: SIOBHAN Sodium Chloride (0.9 % Sodium Chloride Flush 3 Ml Syringe) 3 ml IVFLUSH QSHIFT [facility] Last Admin: 10/08/25 17:06 Dose: 3 ml Documented By: SIOBHAN Sodium Chloride (Sodium Chloride Tab 1 Gm Tablet) 1 gm PO TID [facility] Stop: 10/09/25 09:01 Last Admin: 10/08/25 17:05 Dose: 1 gm Documented By: SIOBHAN Labs 10/07/25 03:22 10/08/25 08:14 Labs: Laboratory Results - last 24 hr 10/08/25 10/08/25 04:50 08:14 Anion Gap 11 L 11 L Estim Creat Clear Calc 63.9 62.6 Estimated GFR > 60 > 60 Random Glucose 85 81 Calcium 7.9 L D 8.2 L Microbiology Microbiology Results: Microbiology 10/07/25 03:08 Blood Culture - Preliminary Blood - Venous No growth after 24 hours. 10/07/25 03:08 Blood Culture - Preliminary Blood - Venous No growth after 24 hours. 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 Fall precautions. Urine osmolality and serum osmolality noted Seen by Nephro:non osmotic ADH release leading to decreased free water clearance. Nephro recommended to to check cortisol levels, fluid restriction, sodium tabs Monitor BMP . Influenza a: Check CXR-Mild interstitial prominence with scattered peribronchial thickening, increased from prior. No focal consolidation. Blood culture negative at 24 hours continue tamiflu. consider continue azithromycin consider cxr findings -possible superimposed bronchitis Bronchodilator therapy as needed. Presumed UTI. Urine culture 10/02/2025 - mixed bacteria likely contaminant. Stop keflex. Microscopic hematuria. Renal ultrasound:No hydronephrosis or gross nephrolithiasis. Normal exam.. Repeat urinalysis outpatient,Urology eval as an outpatient. Chronic AFib. Telemetry. Continue Eliquis and metoprolol. 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 Continue Eliquis and statin. Essential hypertension. Continue metoprolol and losartan. Hyperlipidemia. Continue statin. Anxiety. Continue Xanax. Seizures. Continue levothyroxine. Left ICA stenosis 50-79%. GERD. Continue PPI. Generalized weak: PT evaluation Code status: Full DVT prophylaxis: On Eliquis Ongoing need of stay: Hyponatremia-need renal function electrolyte monitoring closely, nephrology following. Quality Stroke Does the patient have a stroke diagnosis?: No VTE Prior VTE?: No VTE Risk Level:: Medical - moderate - high VTE Device Contraindication: Treatment Not Indicated VTE Drug Contraindication: N/A - Med Ordered
[2025-10-08 19:15] LABS: Anion Gap 12 (12-20); Blood Urea Nitrogen 8 mg/dL (9-16); Calcium 8.2 mg/dL (8.4-10.2); Carbon Dioxide 21 mmol/L (22-29); Chloride 102 mmol/L (96-108); Creatinine Clr Calc Pharmacy 60.4; Estimated Glomerular Filt Rate > 60; Potassium 3.9 mmol/L (3.3-5.1); Sodium 131 mmol/L (135-145)
[2025-10-09 03:38] VITALS: BP 132/65; PULSE 85; RESP 18; TEMP 36.4; O2SAT 94
[2025-10-09 07:46] LABS: Anion Gap 9 (12-20); Blood Urea Nitrogen 7 mg/dL (9-16); Calcium 8.2 mg/dL (8.4-10.2); Carbon Dioxide 21 mmol/L (22-29); Chloride 105 mmol/L (96-108); Creatinine Clr Calc Pharmacy 60.4; Estimated Glomerular Filt Rate > 60; Potassium 3.8 mmol/L (3.3-5.1); Sodium 131 mmol/L (135-145)
[2025-10-09 08:00] VITALS: BP 131/86; PULSE 103; RESP 20; TEMP 36.4; O2SAT 96
[2025-10-09] MEDS: Sodium Chloride Tab 1 GM TABLET PO (09:02)
[2025-10-09] MEDS: 0.9 % Sodium Chloride Flush 3 ML SYRINGE IVFLUSH (09:06)
--- NOTE | 2025-10-09 11:10 | P.PNNP_ITS ---
Subjective Subjective Date of Service: 10/09/25 Interval history: Seen for hyponatremia, sodium 131 this morning Physical Exam 2 Vital Signs: Vital Signs: Last Vital Signs Temp 97.6 F 10/09/25 08:00 Pulse 103 H 10/09/25 08:00 Resp 20 10/09/25 08:00 BP 131/86 10/09/25 08:00 Pulse Ox 96 10/09/25 08:00 O2 Del Method Room Air 10/09/25 08:00 BMI result Body Mass Index 20.0 General: not in any acute distress, ill appearing Nutritional Appearance: well nourished and overweight Eyes: appearance normal, both eyes and all related structures; Alignment and Position: alignment normal and position normal Neck: No lymphadenopathy, no thyromegaly Resp: bilateral air entry equal, no added sounds present Cardio: Regular rate, regular rhythm; Heart sounds: S1 normal heart sound present and S2 normal heart sound present GI: soft, nontender, no guarding, no hepatosplenomegaly : bladder normal to inspection, bladder normal to palpation, no renal angle tenderness Skin: no rashes or lesions noted and elasticity normal Neuro: alert, oriented x 3, moves all extremities Objective Data Labs 10/07/25 03:22 10/09/25 07:02 Labs: Laboratory Results - last 24 hr 10/08/25 10/09/25 18:26 07:02 Sodium 131 L 131 L Potassium 3.9 3.8 Chloride 102 105 Carbon Dioxide 21 L 21 L Anion Gap 12 9 L BUN 8 L 7 L Creatinine 0.55 0.55 Estim Creat Clear Calc 60.4 60.4 Estimated GFR > 60 > 60 Random Glucose 95 88 Calcium 8.2 L 8.2 L Random Cortisol 11.1 Microbiology Microbiology Results: Microbiology 10/07/25 03:08 Blood - Venous Blood Culture - Preliminary No growth after 48 hours. 10/07/25 03:08 Blood - Venous Blood Culture - Preliminary No growth after 48 hours. Procedures Date of Service Date of Service: 10/09/25 Assessment & Plan Assessment and plan (1) Hypertension: Status: Acute (2) Hyponatremia: Status: Acute Plan Hyponatremia: Patient has chronic hyponatremia, sodium improved and stayed at 131 this morning Urinalysis showing concentrated urine with osmol about 500 and urine sodium above 100 possibly suggestive of excessive ADH secretion leading to reduced free water clearance. Keep fluid restriction about 1.5 L per day If the sodium drops below 130 add salt tablets 1 g TID Serum cortisol levels normal Can switch azithromycin to oral as she is getting about 250 mL of normal saline with IV azithromycin which would further drop her sodium given a urine osmolality. Hypertension: Blood pressure is well controlled Continue losartan and metoprolol Nephrology we will sign off please reconsult if and when needed. Time Spent With Patient Time: Total time managing care of this patient today ____ minutes. Progress Note: Quality Stroke Does the patient have a stroke diagnosis?: No
[2025-10-09 12:00] VITALS: BP 138/75; PULSE 90; RESP 20; O2SAT 96
--- NOTE | 2025-10-09 12:01 | P.PNIM_ITS ---
Subjective Subjective Date of Service: 10/09/25 Interval History: weakness Physical Exam 2 Vital Signs: Vital Signs: Last Vital Signs Temp 97.6 F 10/09/25 08:00 Pulse 103 H 10/09/25 08:00 Resp 20 10/09/25 08:00 BP 131/86 10/09/25 08:00 Pulse Ox 96 10/09/25 08:00 O2 Del Method Room Air 10/09/25 08:00 BMI result Body Mass Index 20.0 General: not in any acute distress, ill appearing Nutritional Appearance: well nourished and overweight Eyes: appearance normal, both eyes and all related structures; Alignment and Position: alignment normal and position normal Neck: No lymphadenopathy, no thyromegaly Resp: bilateral air entry equal, no added sounds present Cardio: Regular rate, regular rhythm; Heart sounds: S1 normal heart sound present and S2 normal heart sound present GI: soft, nontender, no guarding, no hepatosplenomegaly : bladder normal to inspection, bladder normal to palpation, no renal angle tenderness Skin: no rashes or lesions noted and elasticity normal Neuro: alert, oriented x 3, moves all extremities Objective Data Active Medications Acetaminophen (Acetaminophen 325 Mg Tablet) 975 mg PO Q6H PRN PRN Reason: Pain, Mild 1-3,fever,headache Last Admin: 10/07/25 21:39 Dose: 975 mg Documented By: DUSTIN Albuterol Sulfate (Albuterol Sulfate (0.083%) 2.5 Mg/3 Ml Vial.Neb) 2.5 mg INHALE Q4H PRN PRN Reason: Wheezing Alprazolam (Alprazolam 0.25 Mg Tablet) 0.25 mg PO DAILY PRN PRN Reason: Anxiety Apixaban (Apixaban 5 Mg Tablet) 5 mg PO BID [facility] Last Admin: 10/09/25 09:02 Dose: 5 mg Documented By: URVASHI Atorvastatin Calcium (Atorvastatin Calcium 40 Mg Tablet) 40 mg PO BEDTIME [facility] Last Admin: 10/08/25 20:47 Dose: 40 mg Documented By: DUSTIN Calcium Carbonate (Calcium Carbonate 750 Mg Tab.Chew) 750 mg PO Q4H PRN PRN Reason: Heartburn Clotrimazole (Clotrimazole 1 % Cream 15 Gm Tube) 1 appl TOPICAL BID PRN PRN Reason: Rash Guaifenesin/Dextromethorphan (Guaifenesin Dm 200/20/10 Ml 10 Ml Syrup) 10 ml PO Q6H PRN PRN Reason: Cough Azithromycin 500 mg/ Sodium (Chloride) 250 mls @ 125 mls/hr IV Q24H [facility] Last Infusion: 10/09/25 04:21 Dose: Infused Documented By: DUSTIN Levetiracetam (Levetiracetam 500 Mg Tablet) 500 mg PO BID [facility] Last Admin: 10/09/25 09:02 Dose: 500 mg Documented By: URVASHI Loratadine (Loratadine 10 Mg Tablet) 10 mg PO DAILY [facility] Last Admin: 10/09/25 09:02 Dose: 10 mg Documented By: URVASHI Losartan Potassium (Losartan Potassium 25 Mg Tablet) 25 mg PO DAILY [facility]; Protocol Last Admin: 10/09/25 09:02 Dose: 25 mg Documented By: URVASHI Magnesium Hydroxide (Milk Of Magnesia 30 Ml Oral.Susp) 30 ml PO DAILY PRN PRN Reason: Constipation Melatonin (Melatonin 3 Mg Tablet) 6 mg PO BEDTIME PRN PRN Reason: Insomnia Metoprolol Tartrate (Metoprolol Tartrate 25 Mg Tablet) 25 mg PO BID [facility]; Protocol Last Admin: 10/09/25 09:02 Dose: 25 mg Documented By: URVASHI Omeprazole (Omeprazole 20 Mg Capsule.Dr) 20 mg PO DAILY@0630 PRN PRN Reason: Acid Reflux Oseltamivir Phosphate (Oseltamivir Phosphate 30 Mg Capsule) 30 mg PO Q12H [facility] Stop: 10/11/25 18:01 Last Admin: 10/09/25 04:45 Dose: 30 mg Documented By: DUSTIN Sodium Chloride (0.9 % Sodium Chloride Flush 3 Ml Syringe) 3 ml IVFLUSH QSHIFT [facility] Last Admin: 10/09/25 09:06 Dose: 3 ml Documented By: URVASHI Labs 10/07/25 03:22 10/09/25 07:02 Labs: Laboratory Results - last 24 hr 10/08/25 10/09/25 18:26 07:02 Anion Gap 12 9 L Estim Creat Clear Calc 60.4 60.4 Estimated GFR > 60 > 60 Random Glucose 95 88 Calcium 8.2 L 8.2 L Random Cortisol 11.1 Microbiology Microbiology Results: Microbiology 10/07/25 03:08 Blood Culture - Preliminary Blood - Venous No growth after 48 hours. 10/07/25 03:08 Blood Culture - Preliminary Blood - Venous No growth after 48 hours. Assessment and Plan (1) Atrial fibrillation: Status: Acute Plan 85F PMH CVA May 2025 with mild left hemiparesis, anxiety, hypertension, left internal carotid stenosis with 50-79%, GERD, chronic AFib, epilepsy, presented with weakness found to have fluA and hyponatremia acute hyponatremia urine labs consistent with SIADH, given sodium tablets and fluid restriction, sodium now 131 influenza a continue Tamiflu, to be completed 10/11/2025 chronic AFib metoprolol, apixaban history of CVA with left hemiparesis apixaban and statin hypertension losartan, metoprolol epilepsy Keppra DVT prophylaxis with apixaban full code reason for continued hospitalization: dispo planning Quality Stroke Does the patient have a stroke diagnosis?: No VTE Prior VTE?: No VTE Risk Level:: Medical - moderate - high VTE Device Contraindication: Treatment Not Indicated VTE Drug Contraindication: N/A - Med Ordered
--- NOTE | 2025-10-09 12:10 | PM.DS ---
DS: Providers Provider Date of Service: 10/10/25 Date of admission: 10/07/25 02:27 Date of discharge: 10/10/25 Primary care physician: Jessica Martinez MD Consults: 10/07/25 10:36 Consult to Nephrology Routine Consulting Provider: [facility] Reason for consultation: Hyponatremia DS: Diagnosis Discharge Diagnosis (1) Atrial fibrillation: Status: Acute DS: Summary Hospital Course Hospital Course: from initial hpi: 85 years old woman with past medical history significant for AFib on Eliquis, recent stroke (May 2025) with mild left-sided deficits anxiety, hypertension, left internal carotid artery stenosis 50-79% and GERD who presents to the emergency department complaining of feeling disoriented and not sleeping well. She mentioned that she has been sneezing and coughing. She denied any chest pain or shortness on breath. She also denied any acute gastrointestinal or genitourinary symptoms. She was recently hospitalized after presenting with transient confusion. 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 b.i.d. She was discharged with a course of Keppra for presumed UTI but final urinary culture no consistent with this. ED Tx: NS 1 L bolus hospital course: patient was admitted for weakness due to acute hyponatremia and influenza a infection. For hyponatremia was seen by Nephrology recommended to sodium tablets and fluid restriction. Sodium improved and is 131 at time of discharge. Urine labs were consistent with SIADH. She should continue 1.5 L per day fluid restriction and sodium should be monitored outpatient. For influenza a infection was treated with Tamiflu and treatment to be completed 10/11/2025. For chronic atrial fibrillation was continued on metoprolol and apixaban. For history of CVA with left hemiparesis was continued on apixaban statin. For hypertension continued on losartan and metoprolol. For epilepsy continued on Keppra. Patient was seen by physical therapy recommended home with services to which patient will be discharged. Time Attestation Discharge Coordination Time (in mins): 34 Quality: Safe Use of Opioids Does Pt have an Active Cancer Diagnosis on the Problem List?: No Quality: Stroke Does the patient have a stroke diagnosis?: No Physical Exam Exam: Exam: General: AO X 3, frail appearing Resp: CTA bilateral, no accessory muscles used CVS: S1,S2,RRR GI: soft, non tender, non distended Neuro: motor grossly intact, alert Psych: appropriate affect, appropriate insight Vital Signs: Vital Signs: Last Vital Signs Temp 97.6 F 10/09/25 08:00 Pulse 103 H 10/09/25 08:00 Resp 20 10/09/25 08:00 BP 131/86 10/09/25 08:00 Pulse Ox 96 10/09/25 08:00 O2 Del Method Room Air 10/09/25 08:00 BMI result Body Mass Index 20.0 DS: Data Data Completed and Pending Labs on day of discharge: Laboratory Results - last 24 hr 10/08/25 10/09/25 18:26 07:02 Sodium 131 L 131 L Potassium 3.9 3.8 Chloride 102 105 Carbon Dioxide 21 L 21 L Anion Gap 12 9 L BUN 8 L 7 L Creatinine 0.55 0.55 Estim Creat Clear Calc 60.4 60.4 Estimated GFR > 60 > 60 Random Glucose 95 88 Calcium 8.2 L 8.2 L Random Cortisol 11.1 Preliminary micro results at discharge 10/07/25 03:08 Blood Culture - Preliminary Blood - Venous No growth after 48 hours. 10/07/25 03:08 Blood Culture - Preliminary Blood - Venous No growth after 48 hours. Discharge Plan Discharge Anticipated Discharge Date/Time: 10/09/25 12:07 Patient Disposition: Home Health Service Discharge Diagnosis: flu, hyponatremia Referrals: [facility] [Outside] Po,Jessica Disla MD [Primary Care Provider, Internal Medicine] - 1 Week Discharge Medications: New oseltamivir [Tamiflu] 30 mg capsule 30 mg PO DAILY Qty: 3 0RF Continued acetaminophen 500 mg capsule 1,000 mg PO Q6H PRN (Reason: pain) Qty: 30 0RF atorvastatin 40 mg tablet 40 mg PO BEDTIME Qty: 90 0RF Eliquis 5 mg tablet 5 mg PO BID Qty: 60 0RF pantoprazole [Protonix] 40 mg tablet,delayed release (DR/EC) 40 mg PO DAILY@0630 PRN (Reason: Acid Reflux) Qty: 90 0RF metoprolol tartrate 25 mg tablet 25 mg PO BID Qty: 180 0RF losartan 25 mg tablet 25 mg PO DAILY Qty: 90 0RF (DME) Auto PAP mode 6-20 cm water humidified air See Rx Instructions .Route .MEDSUPPLY Qty: 1 0RF Rx Instructions: Sleep study in October 01/2025 showing obstructive sleep apnea mild AHI 10.6 nocturnal hypoxemia lowest 84% auto PAP mode 6-20 cm ciclopirox 0.77 % cream 1 appl topical BID PRN (Reason: Rash) alprazolam 0.25 mg tablet 0.25 mg PO DAILY PRN (Reason: Anxiety) levetiracetam 500 mg Tablet 500 mg PO BID Qty: 120 0RF calcium carbonate-vitamin D3 [Calcium 600 with Vitamin D3] 600 mg(1,500mg) -500 unit capsule 1 cap PO DAILY loratadine 10 mg tablet 10 mg PO DAILY Discharge Orders: Discharge Order (Routine); Ordered 10/10/25 Ordered By: Jason Brambila Diet: fluid restrict Activity on Discharge: As tolerated Stand Alone Forms: Patient Portal Discharge page Print Language: [place] Care Plan Goals: recovery Health Concerns: flu, low sodium Plan of Treatment: tamiflu until 10/11/25, fluid restrict 1.5L per day, monitor sodium outpatient Assessment: see above
--- NOTE | 2025-10-09 12:22 | MHC.CM.PN ---
Addendum entered by Lyubov Rosas RN 10/09/25 14:44: CM MET W/PT AND DTR [facility] [phone] AT BEDSIDE, BOTH [facility] AND PT ARE DECLINING DC TODAY HOWEVER ARE AGREEABLE TO DC TOMORROW W/[facility] FOR SN[facility]PT, CM [facility] AND HAS CONTACTED THEM HOWEVER [employer] WILL HAVE SOMEONE GET BACK TO THIS CM. Original Note: PT MEDICALLY CLEARED FOR DC HOME W/[facility] PENDING ACCEPTANCE THEY ARE PREFERRED, FAMILY WILL TRANSPORT.
--- NOTE | 2025-10-09 12:27 | P.F2F_ITS ---
Service Date Service Date: 10/10/25 Encounter Date of encounter: 10/10/25 Reasons for Services Signs and symptoms assessed: Weakness unsteady Reason for physical therapy: home safety and mobility and therapeutic exercises Homebound: Leaving the home is medically contraindicated at this time without the asist of a device and/or another person due th the listed conditions above and below. Reason homebound: unsteady gait / fall risk Certification: Based on the above findings, I certify that this patient is confined to the home and needs intermittent senior living care, physical therapy and/or speech therapy, or continues to need occupational therapy. The patient is under my care, and I have initiated the establishment of the plan of care. The patient will be followed by a physician who will periodically review the plan of care. Time Spent With Patient Time: Total time managing care of this patient today ____ minutes.
[2025-10-09 16:00] VITALS: BP 156/77; PULSE 86; RESP 18; TEMP 36.3; O2SAT 96
[2025-10-09 19:21] VITALS: BP 132/81; PULSE 88; RESP 18; TEMP 36.4; O2SAT 96
[2025-10-09 21:21] VITALS: BP 133/81; PULSE 81
[2025-10-10] VITALS: BP 132/72; PULSE 82; RESP 19; TEMP 36.6; O2SAT 95
[2025-10-10 04:04] VITALS: BP 135/72; PULSE 68; RESP 17; TEMP 36.7; O2SAT 94
[2025-10-10] MEDS: 0.9 % Sodium Chloride Flush 3 ML SYRINGE IVFLUSH ×2 (04:37→08:51)
[2025-10-10 06:26] LABS: Hematocrit 37.0 % (37.0-47.0); Hemoglobin 12.9 g/dl (12.0-16.0); Mean Corpuscular HGB Conc 34.9 g/dl (31.0-35.0); Mean Corpuscular Hemoglobin 30.9 pg (27.0-33.0); Mean Corpuscular Volume 88.5 fL (80.0-98.0); NRBC Abs Auto 0.000 X10*3/uL (0.0-0.012); NRBC Pct Auto 0.0 /100WBC (0.0-0.2); Platelet Count 205 X10*3/uL (160-400); Red Blood Count 4.18 X10*6/uL (4.20-5.50); White Blood Count 4.0 X10*3/uL (4.8-10.8)
[2025-10-10 06:43] LABS: Anion Gap 10 (12-20); Blood Urea Nitrogen 7 mg/dL (9-16); Calcium 8.4 mg/dL (8.4-10.2); Carbon Dioxide 24 mmol/L (22-29); Chloride 104 mmol/L (96-108); Creatinine Clr Calc Pharmacy 62.6; Estimated Glomerular Filt Rate > 60; Potassium 3.9 mmol/L (3.3-5.1); Sodium 134 mmol/L (135-145)
[2025-10-10 07:41] VITALS: BP 135/97; PULSE 99; RESP 20; TEMP 36.6; O2SAT 95
--- NOTE | 2025-10-10 10:59 | MHC.CM.PN ---
PT WILL BE DISCHARGED HOME TODAY WITH [facility] PTS DAUGHTER WILL PICK PT UP AFTER WORK, AROUND 1500 HOURS
[2025-10-10 12:00] VITALS: BP 141/81; PULSE 85; RESP 18; TEMP 36.3; O2SAT 96
== END 2025-10-10 14:23 | disposition home health service (06) | DRG 194 ==
LOC: HO.ED 10-07 00:35 → HO.EDOVER 10-07 02:30 → HO.IMC 10-07 16:30
PROVIDERS: Hospitalist; Internal Medicine; Physician Assistant; Admitting Provider Internal Medicine; Emergency Provider Emergency Medicine; PCP Internal Medicine; Visit Provider Internal Medicine
DX: J10.1 Influenza due to other identified influenza virus with other respiratory manifestations (principal); E22.2 Syndrome of inappropriate secretion of antidiuretic hormone; I48.20 Chronic atrial fibrillation, unspecified; I69.354 Hemiplegia and hemiparesis following cerebral infarction affecting left non-dominant side; I69.392 Facial weakness following cerebral infarction; G40.909 Epilepsy, unspecified, not intractable, without status epilepticus; K21.9 Gastro-esophageal reflux disease without esophagitis; I65.22 Occlusion and stenosis of left carotid artery; E78.5 Hyperlipidemia, unspecified; F41.9 Anxiety disorder, unspecified; I10 Essential (primary) hypertension; Z20.822 Contact with and (suspected) exposure to COVID-19; Z79.899 Other long term (current) drug therapy
CPT/HCPCS: 36415; 71045; 76775; 80048; 80053; 81001; 82533; 83605; 83735; 83930; 83935; 84295; 84300; 84443; 85025; 85027; 87040; 87633; 87637; 93005; 97161; 97530; 99285; J0456; J0696; J7120

== ENCOUNTER → 2025-10-06 23:12 | Outpatient (BNV) | payer MEDICARE, SELFPAY | PROVIDERS: Admitting Provider Internal Medicine; Emergency Provider Emergency Medicine; PCP Internal Medicine; Visit Provider Internal Medicine | DX: I48.91 Unspecified atrial fibrillation (principal) | CPT/HCPCS: 93010 ==

== ENCOUNTER 2025-10-07 02:27 | Outpatient (BNV) | payer MEDICARE, SELFPAY | END 2025-10-07 02:56 | PROVIDERS: Admitting Provider Internal Medicine; Emergency Provider Emergency Medicine; PCP Internal Medicine; Visit Provider Radiology Vascular & Interventional Radiology | DX: R50.9 Fever, unspecified (principal); R05.9 Cough, unspecified | CPT/HCPCS: 71045; 76775 ==

== ENCOUNTER → 2025-10-07 02:27 | Outpatient (BNV) | payer MEDICARE, SELFPAY | PROVIDERS: Admitting Provider Internal Medicine; Emergency Provider Emergency Medicine; PCP Internal Medicine; Visit Provider Internal Medicine Hypertension Specialist | DX: E87.1 Hypo-osmolality and hyponatremia (principal) | CPT/HCPCS: 99232 ==

== ENCOUNTER → 2025-10-07 02:27 | Outpatient (BNV) | payer MEDICARE, SELFPAY | PROVIDERS: Admitting Provider Internal Medicine; Emergency Provider Emergency Medicine; PCP Internal Medicine; Visit Provider Internal Medicine | DX: I48.91 Unspecified atrial fibrillation (principal) | CPT/HCPCS: 99223; 99232; 99239; 99499; G0180 ==

== ENCOUNTER → 2025-10-07 02:27 | Outpatient (BNV) | payer MEDICARE, SELFPAY | PROVIDERS: Admitting Provider Internal Medicine; Emergency Provider Emergency Medicine; PCP Internal Medicine; Visit Provider Internal Medicine Critical Care Medicine | DX: I10 Essential (primary) hypertension (principal); E87.1 Hypo-osmolality and hyponatremia | CPT/HCPCS: 99233 ==

== ENCOUNTER 2025-10-18 09:47 | Outpatient (REF) | payer MEDICARE, SELFPAY ==
--- OUTSIDE RECORDS SUMMARY | 2024-07-17 06:15 | XMS_ITS ---
Author Organization [facility] Address [address] [place] [address] Care Team Providers Care Tight Barrel Inspector Name Role Phone Jessica Martinez Primary Care Provider Tiffanie Castro [phone] Encounters Encounter Location Date Provider Diagnosis [address] [address] 07/17/2024 Tiffanie Hicks Plan Of Treatment Next Appt Details Provider Name:Tiffanie alejandre, 12/24/2025 03:45:00 PM, [address] [place], [address], Progress Notes * Bi STACKOB:07/14 (85 yo F)Acc No.[id number]:07/17/2024 Progress Note Patient: Marily PRINCE Provider: Gordo Hicks DPM :1940 A ge:84 Y S ex:Female Date:07/17/2024 Address:[address] Pcp:Jessica Martinez Subjective: * Chief Complaints: * [...] 07/17/2024 Generated for Liban brock/Juanpablo/Kishore on: 1 12/18/2024 09:50 AM EST
--- OUTSIDE RECORDS SUMMARY | 2025-07-02 06:00 | XMS_ITS ---
Author Organization [facility] Address [address] [place] [address] Care Team Providers Care Still Operator Helper Name Role Phone Jessica Martinez Primary Care Provider Tiffanie Castro [phone] Menon Encounters Encounter Location Date Provider Diagnosis [address] [address] 07/02/2025 Tiffanie Hicks Plan Of Treatment Next Appt Details Provider Name:Tiffanie alejandre, 12/24/2025 03:45:00 PM, [address] [place] [address], [phone], Progress Notes * Bi STACKOB:07/14 (85 yo F)Acc No.[id number]:07/02/2025 Progress Note Patient: Marily PRINCE Provider: Gordo Hicks DPM :1940 A ge:84 Y S ex:Female Date:07/02/2025 Address:[address] [place] [address] Yoseph Phillips [facility] Pcp:Jessica Martinez Subjective: * Chief Complaints: * [...] 07/02/2025 Generated for Liban brock/Juanpablo/Kishore on: 1 12/18/2024 09:51 AM EST
--- OUTSIDE RECORDS SUMMARY | 2025-07-17 06:00 | XMS_ITS ---
Author Organization [facility] Address [address] [place] [address] Care Team Providers Care Career Development Counselor Name Role Phone Jessica Martinez Primary Care Provider Tiffanie Castro Unavailable [phone] Allergies Allergen (clinical drug ingredient) Drug/Non Drug [...] Active Encounters Encounter Location Date Provider Diagnosis [facility] [address] [place] [address] 07/17/2025 Tiffanie Hicks Plan Of Treatment Next Appt Details Provider Name:Tiffanie alejandre, 12/24/2025 03:45:00 PM, [address] [place], [address], Progress Notes * Kenyatta STACKenceDOB:[birth year] (85 yo F)Acc No.[id number]:07/17/2025 Progress Note Patient: Hilario KERNMarily ZUÑIGA Provider: Gordo Hicks DPM :1940 A ge:85 Y S ex:Female Date:07/17/2025 Address:[address], [facility] Pcp:Jessica Martinez Subjective: * Chief Complaints: * [...] 0 07/17/2025 Generated for Liban brock/Juanpablo/Kishore on: 12/18/2024 09:50 AM EST
--- OUTSIDE RECORDS SUMMARY | 2025-10-18 09:50 | XMS_ITS | Clinical Summary ---
Author Organization [facility], Address [address] [place] [address] [place] [address] Phone Care Team Providers Care Nurse Liaison Name Role Phone Jessica Martinez MD Primary Care Provider [phone] Social History Tobacco Use Types Packs/Day Years [...] patient's age to complete this topic Insurance [facility] Medicare Care Teams Nurse Liaison Relationship Specialty Start Date End Date Jessica Martinez MD [facility] [address] [place] PCP - General Internal Medicine 05/31/25
--- OUTSIDE RECORDS SUMMARY | 2025-10-18 09:50 | XMS_ITS | Clinical Summary ---
Author Organization [facility] Address [address] [place] [address] Phone Care Team Providers Care Technical Specialist Cytogenetics Name Role Phone Kemi Knott MD Primary Care Provider + Social History Tobacco Use Types Packs/Day Years [...] Description 12/18/2025 1:40 PM EST Office Visit [facility] [address] [place] [address] [address] Floor, [address] [place], [place] [id number] Yemi Beckford MD [address], [address] [place] [address] [email or web address] Health Maintenance Due Date Last Done Comments Adult Td,Tdap Booster 1940 DEPRESSION SCREENING 1952 OSTEOPOROSIS SCREENING INITIAL (ONE-TIME) 2005 ZOSTER VACCINES (2 of 3) 12/17/2014 10/22/2014 RSV VACCINE (1 - 1-dose 75+ series) 2015 INFLUENZA VACCINE (#1) 2025 0, 09/20/2018, 08/24/2017, Additional history exists COVID-19 VACCINE (2024- season) 2025 PNEUMOCOCCAL VACCINES (50+ years) Completed [...] file Insurance MEDICARE PART A & B [facility] MEDEX SUPPLEMENT MEDICARE PART A & B [facility] MEDEX SUPPLEMENT MEDICARE PART A & B [facility] MEDEX SUPPLEMENT MEDICARE PART A & B [facility] MEDEX SUPPLEMENT MEDICARE PART A & B [facility] MEDEX SUPPLEMENT MEDICARE PART A & B [facility] MEDEX SUPPLEMENT Care Teams Technical Specialist Cytogenetics Relationship Specialty Start Date End Date Kemi Knott MD [address] [place] [id number] [email or web address] PCP - General Family Medicine 07/09/25 Additional Source Comments The information contained in this document represents components of the legal health record. It is not the complete legal health record.[facility]
--- OUTSIDE RECORDS SUMMARY | 2025-10-18 09:50 | XMS_ITS | Patient Health Record ---
Author Organization [facility] Address [address] [place] [address] Care Team Providers Care Health Commissioner Name Role Phone Jessica Martinez MD Primary Care Provider Marques Marie Unavailable [phone] Allergies Allergen (clinical drug ingredient) Drug/Non Drug [...] Problem Screening for malignant neoplasm of colon (938804681) Encounter for screening for malignant neoplasm of colon (Z12.11) Active confirmed Problem Preprocedural examination (065255567130287) Preprocedural examination (Z01.818) Active confirmed Problem Long-term current use of aspirin (895249322909794) Aspirin long-term use (Z79.82) Active confirmed Plan Of Treatment Future Test Test Name Order Date COLONOSCOPY 03/30/2018 Insurance Providers Payer Name Payer Address Payer Phone Subscriber Number Group Number Insured Name Patient Relationship to Insured Coverage Start Date Coverage End Date MEDICARE OF [place] [address] [place] [address] [id number] INEZ STACK Self - patient is the insured MEDEX ATTN CLAIMS [address] [place] [address] [phone] [id number] INEZ STACK Self - patient is the [...]
--- OUTSIDE RECORDS SUMMARY | 2025-10-18 09:50 | XMS_ITS | Encounter Summary ---
Author Organization [facility], Address [address] [place] [address] Phone Care Team Providers Care Phd Intern Name Role Phone Jessica Martinez MD Primary Care Provider [phone] Encounter Details Date Type Department Care Team (Late st Contact Info) Description 05/31/2025 Documentation Only [facility], [address] [place] [address] [place] [address] [place] [address] Social History Tobacco Use Types [...] on filedocumented in this encounter Care Teams Phd Intern Relationship Specialty Start Date End Date Jessica Martinez MD [facility] INTER[facility] MD [address] [place], [place] PCP - General Internal Medicine 05/31/25 documented as of this encounter
--- OUTSIDE RECORDS SUMMARY | 2025-10-18 09:51 | XMS_ITS | Patient Health Record ---
Author Organization [facility] Address [address] [place] [address] Care Team Providers Care Terminal Supervisor Name Role Phone Jessica Martinez Primary Care Provider Tiffanie Castro Unavailable [phone] Allergies Allergen (clinical drug ingredient) Drug/Non Drug [...] primary osteoarthritis of the ankle and/or foot (950843284) Osteoarthritis of right ankle and foot (M19.071) Active confirmed Problem Localized, primary osteoarthritis of the ankle and/or foot (870939050) Osteoarthritis of left ankle and foot (M19.072) Active confirmed Vital Signs Blood pressure diastolic 68 mm Hg 09/24/2025 Height 5 ft 3 in in 09/24/2025 Blood pressure systolic 129 mm Hg 09/24/2025 Weight 138 lbs 09/24/2025 BMI 24.44 kg/m2 09/24/2025 Encounters Encounter Location Date Provider Diagnosis [address] [address] 12/25/2024 Tiffanie Perica Tinea pedis of both feet B35.3 ; Plantar wart B07.0 ; Tinea unguium B35.1 ; Pain in right toe(s) M79.674 ; Pain in left toe(s) M79.675 and Left foot pain M79.[address] [address] 03/26/2025 Tiffanie Perica Plantar wart B07.0 ; Tinea unguium B35.1 ; Pain in right toe(s) M79.674 ; Pain in left toe(s) M79.675 and Left foot pain M79.[address] [address] 09/24/2025 Tiffanie Perica Tinea unguium B35.1 ; History of stroke Z86.73 ; Pain in right toe(s) M79.674 ; Pain in left toe(s) M79.675 ; Left-sided weakness R53.1 and Gait instability R26.[address] [address] 03/26/2025 Tiffanie Hicks [facility] [address] [place] [address] 07/15/2025 Tiffanie Hicks Assessments Encounter Date Diagnosis [...] Provider Name:Tiffanie alejandre, 12/24/2025 03:45:00 PM, [address] [place], [address], Insurance Providers Payer Name Payer Address Payer Phone Subscriber Number Group Number Insured Name Patient Relationship to Insured Coverage Start Date Coverage End Date Medicare National Govt Sv[employer] [address] [place] [address] [id number] ChrisyumikoMarily egan Self - patient is the insured [employer] Blue Shield [address] [place] [address] [id number] Marily Llanos Self - patient is the insured Medical (General) History Medical History History ICD Code Arthritis CAD (Cholesterol) Measles Mumps Chicken pox Gall bladder problems High blood pressure Osteoporosis Joint implants/screws Surgical History Surgery Date(Month/Year) gall bladder 1970 right knee replacement 12/2014 left knee replacement 02/2016 cataract surgery 2021 Hospitalization History Reason Date(Month/Year) [place] [facility] [place] cat scan and x-ray left knee 01/14
[2025-10-18 10:57] LABS: Anion Gap 13 (12-20); Blood Urea Nitrogen 12 mg/dL (9-16); Calcium 9.2 mg/dL (8.4-10.2); Carbon Dioxide 25 mmol/L (22-29); Chloride 103 mmol/L (96-108); Estimated Glomerular Filt Rate > 60; Potassium 4.6 mmol/L (3.3-5.1); Sodium 136 mmol/L (135-145)
== END 2025-10-18 09:48 | disposition home or self-care (01) ==
LOC: HO.LAB 09:47
PROVIDERS: Student in an Organized Health Care Education/Training Program; PCP Internal Medicine; Visit Provider Internal Medicine
DX: E87.1 Hypo-osmolality and hyponatremia (principal)
CPT/HCPCS: 36415; 80048

== ENCOUNTER 2025-10-29 14:49 | Outpatient (AMB) | payer MEDICARE, SELFPAY ==
--- OUTSIDE RECORDS SUMMARY | 2024-07-17 06:15 | XMS_ITS ---
Author Organization [facility] Address [address] [place] [address] Care Team Providers Care Underwear Hemmer Name Role Phone Jessica Martinez Primary Care Provider Tiffanie Castro [phone] Encounters Encounter Location Date Provider Diagnosis [address] [address] 07/17/2024 Tiffanie Hicks Plan Of Treatment Next Appt Details Provider Name:Tiffanie alejandre, 12/24/2025 03:45:00 PM, [address] [place], [address], Progress Notes * Bi STACKOB:07/14 (85 yo F)Acc No.[id number]:07/17/2024 Progress Note Patient: Marily PRINCE Provider: Gordo Hicks DPM :1940 A ge:84 Y S ex:Female Date:07/17/2024 Address[address] [place] Pcp:Jessica Martinez Subjective: * Chief Complaints: * * Medical History: Objective: * Vitals: Assessment: Plan: * Treatment: * Images: * The named appointment provid er may or may not be the originator of this progress note, and it is not deemed complete until electronically signed by the appointment provider. Sign off status: Pending * Provider: Gordo Hicks DPM Date: 0 07/17/2024 Generated for Liban brock/Juanpablo/Kishore on: 1 12/30/2024 08:58 PM EST
--- OUTSIDE RECORDS SUMMARY | 2025-07-02 06:00 | XMS_ITS ---
Author Organization [facility] Address [address] [place] [address] Care Team Providers Care Bulldozer Mechanic Name Role Phone Jessica Martinez Primary Care Provider Tiffanie Castro [phone] Menon Encounters Encounter Location Date Provider Diagnosis [address] [address] 07/02/2025 Tiffanie Hicks Plan Of Treatment Next Appt Details Provider Name:Tiffanie alejandre, 12/24/2025 03:45:00 PM, [address] [place] [address], [phone], Progress Notes * Bi STACKOB:07/14 (85 yo F)Acc No.[id number]:07/02/2025 Progress Note Patient: Marily PRINCE Provider: Gordo Hicks DPM :1940 A ge:84 Y S ex:Female Date:07/02/2025 Address:[address] [place] [address] [facility] Pcp:Jessica Martinez Subjective: * Chief Complaints: * [...] 07/02/2025 Generated for Liban brock/Juanpablo/Kishore on: 1 12/30/2024 08:58 PM EST
--- OUTSIDE RECORDS SUMMARY | 2025-07-17 06:00 | XMS_ITS ---
Author Organization [facility] Address [address] [place] [address] Care Team Providers Care Director Of Community Life Name Role Phone Jessica Martinez Primary Care Provider Tiffanie Castro Unavailable [phone] Allergies Allergen (clinical drug ingredient) Drug/Non Drug Allergy documented on EMR Reaction Allergy Type Onset Date Status Substance with sulfonamide structure and antibacterial mechanism of action (substance) Sulfa Antibiotics Unknown Drug Allergy Active Medications Medication SIG (Take, Route, Frequency, Duration) Notes Start Date End Date Status Calcium + D Active Atorvastatin Calcium 10 MG 1 tablet Oral ly Once a day; Duration: 30 day(s) Active Atenolol 50 MG 1 tablet Orally Once a day; Duration: 30 day(s) Active Ciclopirox Olamine 0.77 % 1 application Externally Twice a day; Duration: 30 days Active Multivitamin Active Encounters Encounter Location Date Provider Diagnosis [facility] [address] [place] [address] 07/17/2025 Tiffanie Hicks Plan Of Treatment Next Appt Details Provider Name:Tiffanie alejandre, 12/24/2025 03:45:00 PM, [address] [place], [address], Progress Notes * Kenyatta STACKenceDOB:[birth year] (85 yo F)Acc No.[id number]:07/17/2025 Progress Note Patient: Hilario KERNMarily ZUÑIGA Provider: Gordo Hicks DPM :1940 A ge:85 Y S ex:Female Date:07/17/2025 Address:[address], [facility] Pcp:Jessica Martinez Subjective: * Chief Complaints: * * Medical History: A rthritis, CAD (Cholesterol), Measles, Mumps, Chicken pox, Gall bladder problems, High blood pressure, Osteoporosis, Joint implants/screws. * Medications: T aking Ciclopirox Olamine 0.77 % Cream 1 application Externally Twice a day , Taking Multivitamin , Taking Calcium + D , Taking Atorvastatin Calcium 10 MG Tablet 1 tablet Orally Once a day , Taking Atenolol 50 MG Tablet 1 tablet Orally Once a day * Allergies: S ulfa Antibiotics. Objective: * Vitals: Assessment: Plan: * Treatment: * Images: * The named appointment provid er may or may not be the originator of this progress note, and it is not deemed complete until electronically signed by the appointment provider. Sign off status: Pending * Provider: Gordo Hicks DPM Date: 0 07/17/2025 Generated for Liban brock/Juanpablo/Kishore on: 1 12/30/2024 08:58 PM EST
[2025-10-29 15:03] VITALS: BP 110/70; PULSE 52; RESP 18; O2SAT 99; BMI 24.1
--- NOTE | 2025-10-29 15:03 | MHC.PC.OV ---
Vital Signs 10/29/25 15:03 Height 5 ft 3 in Weight 136 lb BMI 24.1 BP 110/70 Blood Pressure Location Lt brachial Position Sitting Respiration 18 Pulse 52 Pulse Source Pulse Oximeter Temp Source Temporal Artery Scan Pulse Oximetry (%) 99 Oxygen Delivery Method Room Air Intake Visit Reasons: ear flush both ears Traveling Secretary Required: No Accompanied by: Self / Same As Patient Allergies Sulfa (Sulfonamide Antibiotics) (SULFA (SULFONAMIDE ANTIBIOTICS)) Allergy (Intermediate, Verified 10/29/25 15:20) RASH Medication List - Last Reconciled 10/29/25 by KRIS Sanchez acetaminophen 1,000 mg (2 x 500 mg) PO Q6H PRN alprazolam 0.25 mg PO DAILY PRN apixaban (Eliquis) 5 mg PO BID atorvastatin 40 mg PO BEDTIME [Auto PAP mode 6-20 cm water humidified air Sleep study in October 01/2025 showing obstructive sleep apnea mild AHI 10.6 nocturnal hypoxemia lowest 84% auto PAP mode 6-20 cm] calcium carbonate-vitamin D3 600 mg-12.5 mcg (500 unit) (Calcium with Vit D3) 1 cap PO DAILY ciclopirox 0.77% 1 appl topical BID PRN levetiracetam 500 mg PO BID loratadine 10 mg PO DAILY losartan 25 mg PO DAILY metoprolol tartrate 25 mg PO BID pantoprazole (Protonix) 40 mg PO DAILY@0630 PRN Tobacco use date assessed: 10/29/25 Fall risk assessment: 2 + Falls in past year Last assessed Fall Risk: 10/29/25 Dental Screening Dental Screen Date: 10/29/25 Did you have a dental visit in the last 12 months?: No Did you have a dental problem in the last 6 months where you did not have access to dental care?: No Was dental information given to patient?: Patient has dentist HPI ear flush both ears HPI Details Patient is a 85-year-old female presenting for ear cleaning. Accompanied by her daughter. Patient reports her ears feels completely blocked and she usually has a get her ears cleaned if his often. Reports that she has been noticing some blood in on the tissue after urinating. Adding, that the other night she also had an incontinent episode and she has been getting up to urinate more often than before. She will also like her alprazolam to be refilled On exam left ear with excessive amount of cerumen almost blocking TM. Right ear is completely normal. 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 Stroke Heart murmur Retinal detachment GERD (gastroesophageal reflux disease) Hypertension Diverticulosis Hypercholesterolemia Surgical History H/O colonoscopy History of surgery H/O eye surgery History of dilatation and curettage Hx of appendectomy Hx of cholecystectomy History of bilateral knee replacement Social History Household Members: Children Housing: Apartment Do you presently have visiting nurse or other home services: No Alcohol intake: current Alcohol intake frequency: a few times a week Alcohol type: wine Comment: 3x a weeka glass Patient Tobacco Use Status: Never used Tobacco Tobacco use type: Cigarette e-Cigarette/Vaping Use: Never Used Second Hand Smoke Exposure: No Advance Directives Date on File: 05/25/25 service: No Current occupational status: retired Cognitive needs: No Hearing needs: No Vision needs: Yes Questionnaire Thrive Questionnaire Date Thrive assessed: 10/29/25 I am a: Patient What is your living situation today?: I have a steady place to live Within the past 12 months, did the food you bought not last and you didn't have the money to get more?: Never true Within the past 12 months, did you worry whether your food would run out before you got money to buy more?: Never true Do you have trouble paying for medicines?: No Do you have trouble getting transportation to medical appointments?: No Do you have trouble paying your heating and electricity bill?: No Do you have trouble taking care of your child, family member or friend?: No Do you have trouble with day-to-day activities such as bathing, preparing meals, shopping, managing finances, etc.?: Yes Are you currently unemployed and looking for a job?: No Are you interested in more education?: No Please select the resources that you would like help with: None Currently or been in a relationship where the following occur: No concerns reported THRIVE Score: 0 SHELBY-7 AMB Questionnaire SHELBY-7 Date SHELBY - 7 assessed: 10/14/25 Source: Developed by Drs. Marques Lenz, Stephanie Lynch, Horace Elliott and colleagues, with an educational kiley from [employer]. Review of Systems Const Denies body aches, Denies chills, Denies fever(s), Denies headache(s) and Denies poor appetite Eyes Reports no additional complaints ENT Denies dysphagia, Denies dizziness, Denies headache(s), Denies odynophagia and Reports other (feels like her ears are blocked) Card Denies chest pain, Denies syncope, Denies edema, Denies irregular heart rhythm, Denies lightheadedness and Denies dyspnea Resp Denies cough and Denies dyspnea GI Denies abdominal pain, Denies constipation, Denies dysphagia, Denies diarrhea, Denies nausea, Denies odynophagia and Denies vomiting Reports no additional complaints Musc Reports no additional complaints and Denies abnormal gait Skin/Breast Reports system reviewed and no additional complaints, except as documented Neuro Denies abnormal gait, Denies dizziness, Denies syncope and Denies headache(s) Psych Reports no additional complaints Physical exam (Primary Care) Vital Signs: Last Vital Signs Pulse 52 10/29/25 15:03 Resp 18 10/29/25 15:03 BP 110/70 10/29/25 15:03 Pulse Ox 99 10/29/25 15:03 Oxygen Delivery Method Room Air 10/29/25 15:03 BMI result Body Mass Index 24.1 Tobacco/Smoking Status: Tobacco use Status Tobacco use date assessed 10/29/25 10/29/25 15:11 Patient Tobacco Use Status Never used Tobacco 10/29/25 15:11 Tobacco use type Cigarette 10/29/25 15:11 e-Cigarette/Vaping Use Never Used 10/29/25 15:11 Thrive Assessment: Date of Thrive Assessment Date Thrive assessed 10/29/25 10/29/25 15:11 Currently or been in a relationship where the following occur: No concerns reported Const General: cooperative, healthy appearing, comfortable and no acute distress Orientation/consciousness: patient oriented x3 HENMT Head: Yes normocephalic Ears: Abnormal EAC present excessive cerumen on the left General nose exam: Normal external nose present Eyes General: appearance normal, both eyes and all related structures Conjunctivae: conjunctivae normal Neck Neck: Yes full ROM and Yes no lymphadenopathy Resp Effort & Inspection: normal respiratory effort Auscultation: clear to auscultation bilaterally, no crackles, no rales, no rhonchi and no wheezes Cardio Rate: regular rate Rhythm: regular rhythm Skin General skin exam: no rashes or lesions noted Neuro General: patient oriented x3 Gait exam (Neuro): Normal gait present Extrem General: Yes normal to inspection, Yes full ROM and No edema Psych Affect: normal affect Attitude: cooperative Insight: Good insight present (Psych) Judgement: Good judgement present (Psych) Coding Level of Care Code Est Pt Level 3 (59308) Diagnoses Excessive cerumen in left ear canal H61.22 Anxiety F41.9 Time Spent (min) 26 Assessment & Plan Assessment & Plan (1) Excessive cerumen in left ear canal: Code(s): H61.22 - Impacted cerumen, left ear Category: Medical Plan: Reports feeling liker her ears are blocked. Right ear was completely normal, left ear with excessive amount of cerumen almost blocking the TM. The ear was flushed with positive effect, and the residual of cerumen was removed with lighted curette. (2) Anxiety: Code(s): F41.9 - Anxiety disorder, unspecified Category: Medical Plan: The patient is requesting an refill and her Xanax 0.25 mg prn. Reports that she is doing ok and only need this once in awhile. Orders: Orders UA CC w/rflx Micro + Cult 10/30/25 R31.9 - Hematuria, unspecified Urine Cytology 10/30/25 R31.9 - Hematuria, unspecified Medications: New alprazolam 0.25 mg PO DAILY PRN 10 tabs 0RF Anxiety
--- OUTSIDE RECORDS SUMMARY | 2025-10-29 20:58 | XMS_ITS | Clinical Summary ---
Author Organization [facility] Address [address] [address] [facility] [address] [place] [address] Phone Care Team Providers Care Pattern Scratcher Name Role Phone Kemi Knott MD Primary [...] Description 12/18/2025 1:40 PM EST Office Visit [facility] [address] [place] [address] [address]rd Floor, [address] [place], [place] [id number] Yemi Beckford MD [address], [address] [place] [address] [email or web address] [...] MEDICARE PART A & B [facility] MEDEX SUPPLEMENT MEDICARE PART A & B [facility] MEDEX SUPPLEMENT MEDICARE PART A & B [employer] MED[employer] SUPPLEMENT MEDICARE PART A & B [employer] SUPPLEMENT MEDICARE PART A & B [employer] MED[employer] SUPPLEMENT MEDICARE PART A & B [employer] MEDEX SUPPLEMENT Care Teams Pattern Scratcher Relationship Specialty Start Date End Date Kemi Knott MD [address] [place] [phone] [email or web address] PCP - General Family Medicine 07/09/25 Additional Source Comments The information contained in this document represents components of the legal health record. It is not the complete legal health record.[facility]
--- OUTSIDE RECORDS SUMMARY | 2025-10-29 20:58 | XMS_ITS | Patient Health Record ---
Author Organization [facility] Address [address] [place] [address] Care Team Providers Care Machine Molder Squeeze Name Role Phone Jessica Martinez MD Primary Care Provider Marques Marie Unavailable [phone] Allergies Allergen (clinical drug ingredient) Drug/Non Drug [...] Problem Screening for malignant neoplasm of colon (001385295) Encounter for screening for malignant neoplasm of colon (Z12.11) Active confirmed Problem Preprocedural examination (581986054064727) Preprocedural examination (Z01.818) Active confirmed Problem Long-term current use of aspirin (291435693886496) Aspirin long-term use (Z79.82) Active confirmed Plan Of Treatment Future Test Test Name Order Date COLONOSCOPY 03/30/2018 Insurance Providers Payer Name Payer Address Payer Phone Subscriber Number Group Number Insured Name Patient Relationship to Insured Coverage Start Date Coverage End Date MEDICARE OF [place] [address] [place] [address] [id number] INEZ STACK Self - patient is the insured MEDEX ATTN CLAIMS [address] [place] [address] [id number] INEZ STACK Self - patient is the [...]
--- OUTSIDE RECORDS SUMMARY | 2025-10-29 20:59 | XMS_ITS | Patient Health Record ---
Author Organization [facility] [place] Address [address] [facility] [place] [address] Care Team Providers Care Methods Time Analyst Name Role Phone Jessica Martinez Primary Care Provider Tiffanie Castro Unavailable [phone] Allergies Allergen (clinical drug ingredient) Drug/Non Drug [...] primary osteoarthritis of the ankle and/or foot (871442816) Osteoarthritis of right ankle and foot (M19.071) Active confirmed Problem Localized, primary osteoarthritis of the ankle and/or foot (546190760) Osteoarthritis of left ankle and foot (M19.072) Active confirmed Vital Signs Blood pressure diastolic 68 mm Hg 09/24/2025 Height 5 ft 3 in in 09/24/2025 Blood pressure systolic 129 mm Hg 09/24/2025 Weight 138 lbs 09/24/2025 BMI 24.44 kg/m2 09/24/2025 Encounters Encounter Location Date Provider Diagnosis [address] [address] 12/25/2024 Tiffanie Perica Tinea pedis of both feet B35.3 ; Plantar wart B07.0 ; Tinea unguium B35.1 ; Pain in right toe(s) M79.674 ; Pain in left toe(s) M79.675 and Left foot pain M79.[address] [address] 03/26/2025 Tiffanie Perica Plantar wart B07.0 ; Tinea unguium B35.1 ; Pain in right toe(s) M79.674 ; Pain in left toe(s) M79.675 and Left foot pain M79.[address] [address] 09/24/2025 Tiffanie Perica Tinea unguium B35.1 ; History of stroke Z86.73 ; Pain in right toe(s) M79.674 ; Pain in left toe(s) M79.675 ; Left-sided weakness R53.1 and Gait instability R26.[address] [address] 03/26/2025 Tiffanie Hicks [facility] [place] [address] [place] [address] 07/15/2025 Tiffanie Hicks Assessments Encounter Date Diagnosis [...] Provider Name:Tiffanie alejandre, 12/24/2025 03:45:00 PM, [address] [place], [address], Insurance Providers Payer Name Payer Address Payer Phone Subscriber Number Group Number Insured Name Patient Relationship to Insured Coverage Start Date Coverage End Date Medicare National Govt Svcs [employer] [address] [place] [address] [id number] ChrisyumikoMarily egan Self - patient is the insured [employer] Blue Shield [address] [place] [address] [id number] Marily Llanos Self - patient is the insured Medical (General) History Medical History History ICD Code Arthritis CAD (Cholesterol) Measles Mumps Chicken pox Gall bladder problems High blood pressure Osteoporosis Joint implants/screws Surgical History Surgery Date(Month/Year) gall bladder 1970 right knee replacement 12/2014 left knee replacement 02/2016 cataract surgery 2021 Hospitalization History Reason Date(Month/Year) [place] [facility] [place] cat [place] and x-ray left knee 01/14
== END 2025-10-29 16:10 | disposition home or self-care (01) ==
LOC: HO.HMCH 14:50
PROVIDERS: PCP Internal Medicine
DX: H61.22 Impacted cerumen, left ear (principal); F41.9 Anxiety disorder, unspecified

== ENCOUNTER → 2025-10-29 14:49 | Outpatient (BNVA) | payer MEDICARE, SELFPAY | PROVIDERS: PCP Internal Medicine | DX: H61.22 Impacted cerumen, left ear (principal); F41.9 Anxiety disorder, unspecified | CPT/HCPCS: 99212 ==

== ENCOUNTER 2025-10-30 12:58 | Outpatient (REF) | payer MEDICARE, SELFPAY ==
[2025-10-30 13:39] LABS: Appearance Urine Cloudy; Glucose Urine UA Negative (Negative); PH 6.0 (5.0-9.0); Specific Gravity - Urine 1.020 (1.005-1.025); UMIC TRIGGER UACC YES
[2025-10-30 13:42] LABS: UACC Culture Trigger YES
== END 2025-10-30 12:59 ==
LOC: HO.LAB 12:58
PROVIDERS: PCP Internal Medicine
DX: R31.9 Hematuria, unspecified (principal)
CPT/HCPCS: 81001; 87086; 88112

== ENCOUNTER 2025-11-15 15:17 | Outpatient (REF) | payer SELFPAY ==
--- OUTSIDE RECORDS SUMMARY | 2024-07-17 06:15 | XMS_ITS ---
Author Organization [facility] Address [address] [place] [address] Care Team Providers Care Pediatric Clinical Nurse Specialist Name Role Phone Jessica Martinez Primary Care Provider Tiffanie Castro [phone] Encounters Encounter Location Date Provider Diagnosis [address] [address] 07/17/2024 Tiffanie Hicks Plan Of Treatment Next Appt Details Provider Name:Tiffanie alejandre, 12/24/2025 03:45:00 PM, [address] [place], [address], Progress Notes * Bi STACKOB:07/14 (85 yo F)Acc No.[id number]:07/17/2024 Progress Note Patient: Marily PRINCE Provider: Gordo Hicks DPM :1940 A ge:84 Y S ex:Female Date:07/17/2024 Address:[address] [place] Pcp:Jessica Martinez Subjective: * Chief Complaints: * [...] 07/17/2024 Generated for Liban brock/Juanpablo/Kishore on: 1 01/16/2025 03:19 PM EST
--- OUTSIDE RECORDS SUMMARY | 2025-07-02 06:00 | XMS_ITS ---
Author Organization [facility] Address [address] [place] [address] Care Team Providers Care Plaster Model And Mold Maker Name Role Phone Jessica Martinez Primary Care Provider Tiffanie Castro [phone] Menon Encounters Encounter Location Date Provider Diagnosis [address] [address] 07/02/2025 Tiffanie Hicks Plan Of Treatment Next Appt Details Provider Name:Tiffanie alejandre, 12/24/2025 03:45:00 PM, [address] [place] [address], [phone], Progress Notes * Bi STACKOB:07/14 (85 yo F)Acc No.[id number]:07/02/2025 Progress Note Patient: Marily PRINCE Provider: Gordo Hicks DPM :1940 A ge:84 Y S ex:Female Date:07/02/2025 Address:[address] [place] [address] Yoseph Phillips [facility] Pcp:Jessica Martinez Subjective: * Chief Complaints: * [...] 07/02/2025 Generated for Liban brock/Juanpablo/Kishore on: 1 01/16/2025 03:19 PM EST
--- OUTSIDE RECORDS SUMMARY | 2025-07-17 06:00 | XMS_ITS ---
Author Organization [facility] Address [address] [place] [address] Care Team Providers Care Welder Boilermaker Name Role Phone Jessica Martinez Primary Care Provider Tiffanie Castro Unavailable [phone] Allergies Allergen (clinical drug ingredient) Drug/Non Drug [...] Active Encounters Encounter Location Date Provider Diagnosis [facility] [address] [place] [address] 07/17/2025 Tiffanie Hicks Plan Of Treatment Next Appt Details Provider Name:Tiffanie alejandre, 12/24/2025 03:45:00 PM, [address] [place], [address], Progress Notes * Kenyatta STACKenceDOB:[birth year] (85 yo F)Acc No.[id number]:07/17/2025 Progress Note Patient: Hilario EKRNMarily ZUÑIGA Provider: Gordo Hicks DPM :1940 A ge:85 Y S ex:Female Date:07/17/2025 Address:[address], [facility] Pcp:Jessica Martinez Subjective: * Chief Complaints: * [...] 07/17/2025 Generated for Liban brock/Juanpablo/Kishore on: 1 01/16/2025 03:19 PM EST
--- OUTSIDE RECORDS SUMMARY | 2025-11-15 15:19 | XMS_ITS | Patient Health Record ---
Author Organization [facility] Address [address] [place] [address] Care Team Providers Care Cloth Shearer Name Role Phone Jessica Martinez MD Primary Care Provider Marques Marie Unavailable [phone] Allergies Allergen (clinical drug ingredient) Drug/Non Drug [...] Problem Screening for malignant neoplasm of colon (249657279) Encounter for screening for malignant neoplasm of colon (Z12.11) Active confirmed Problem Preprocedural examination (531781654350944) Preprocedural examination (Z01.818) Active confirmed Problem Long-term current use of aspirin (067907306108751) Aspirin long-term use (Z79.82) Active confirmed Plan Of Treatment Future Test Test Name Order Date COLONOSCOPY 03/30/2018 Insurance Providers Payer Name Payer Address Payer Phone Subscriber Number Group Number Insured Name Patient Relationship to Insured Coverage Start Date Coverage End Date MED[place]ARE OF [place] [address] [place] [address] [id number] INEZ STACK Self - patient is the insured MEDEX ATTN CLAIMS [address] [place] [address] [phone] [id number] INEZ STACK Self - patient is the [...]
--- OUTSIDE RECORDS SUMMARY | 2025-11-15 15:19 | XMS_ITS | Clinical Summary ---
Author Organization [facility], Address [address] [place] [address] [place] [address] Phone Care Team Providers Care Drill Press Operator Numerical Control Name Role Phone Jessica Martinez MD Primary Care Provider Social History Tobacco Use Types Packs/Day Years [...] topic Insurance [facility] Medicare Care Teams Drill Press Operator Numerical Control Relationship Specialty Start Date End Date Jessica Martinez MD [facility] [address] [place] PCP - General Internal Medicine 05/31/25
--- OUTSIDE RECORDS SUMMARY | 2025-11-15 15:19 | XMS_ITS | Clinical Summary ---
Author Organization [facility] Address [address] [facility] [address] [place] [address] Phone Care Team Providers Care Noodle Catalyst Maker Name Role Phone Kemi Knott MD Primary [...] Description 12/18/2025 1:40 PM EST Office Visit [facility] [address] [place] [address] [address] Floor, [address] [place] [address] Yemi Beckford MD [address], [address] [place] [address] [email or web address] Health Maintenance Due Date Last Done Comments [...] file Insurance MEDICARE PART A & B [facility] MEDEX SUPPLEMENT MEDICARE PART A & B [facility] MEDEX SUPPLEMENT MEDICARE PART A & B [id number] MEDEX SUPPLEMENT MEDICARE PART A & B [employer] MEDEX SUPPLEMENT MEDICARE PART A & B [employer] MEDEX SUPPLEMENT MEDICARE PART A & B [employer] MEDEX SUPPLEMENT Care Teams Noodle Catalyst Maker Relationship Specialty Start Date End Date Kemi Knott MD [address] [place] [address] [phone] [email or web address] PCP - General Family Medicine 07/09/25 Additional Source Comments The information contained in this document represents components of the legal health record. It is not the complete legal health record.[facility]
--- OUTSIDE RECORDS SUMMARY | 2025-11-15 15:19 | XMS_ITS | Encounter Summary ---
Author Organization [facility], Address [address] [place] [address] Phone Care Team Providers Care Pier Hand Helper Name Role Phone Jessica Martinez MD Primary Care Provider [phone] Encounter Details Date Type Department Care Team (Late st Contact Info) Description 05/31/2025 Documentation Only [facility], [address] [place] [address] [place], [place] [address] [place] [address] Social History Tobacco Use Types [...] on filedocumented in this encounter Care Teams Pier Hand Helper Relationship Specialty Start Date End Date Jessica Martinez MD [facility] [address] [place], [place] PCP - General Internal Medicine 05/31/25 documented as of this encounter
--- OUTSIDE RECORDS SUMMARY | 2025-11-15 15:19 | XMS_ITS | Patient Health Record ---
Author Organization [facility] [place] Address [address] [facility] [place] [address] Care Team Providers Care Hair Cutter Name Role Phone Jessica Martinez Primary Care Provider Tiffanie Castro Unavailable [phone] Allergies Allergen (clinical drug ingredient) Drug/Non Drug [...] primary osteoarthritis of the ankle and/or foot (200188035) Osteoarthritis of right ankle and foot (M19.071) Active confirmed Problem Localized, primary osteoarthritis of the ankle and/or foot (647407675) Osteoarthritis of left ankle and foot (M19.072) Active confirmed Vital Signs Blood pressure diastolic 68 mm Hg 09/24/2025 Height 5 ft 3 in in 09/24/2025 Blood pressure systolic 129 mm Hg 09/24/2025 Weight 138 lbs 09/24/2025 BMI 24.44 kg/m2 09/24/2025 Encounters Encounter Location Date Provider Diagnosis [address] [address] 12/25/2024 Tiffanie Perica Tinea pedis of both feet B35.3 ; Plantar wart B07.0 ; Tinea unguium B35.1 ; Pain in right toe(s) M79.674 ; Pain in left toe(s) M79.675 and Left foot pain M79.[address] [address] 03/26/2025 Tiffanie Perica Plantar wart B07.0 ; Tinea unguium B35.1 ; Pain in right toe(s) M79.674 ; Pain in left toe(s) M79.675 and Left foot pain M79.[address] [address] 09/24/2025 Tiffanie Perica Tinea unguium B35.1 ; History of stroke Z86.73 ; Pain in right toe(s) M79.674 ; Pain in left toe(s) M79.675 ; Left-sided weakness R53.1 and Gait instability R26.[address] [address] 03/26/2025 Tiffanie Hicks [facility] [address] [place] [address] 07/15/2025 Tiffanie Hicks Assessments Encounter Date Diagnosis [...] Provider Name:Tiffanie alejandre, 12/24/2025 03:45:00 PM, [address] [place], [address], Insurance Providers Payer Name Payer Address Payer Phone Subscriber Number Group Number Insured Name Patient Relationship to Insured Coverage Start Date Coverage End Date Medicare National Govt Svcs Inc [address] [place] [address] [id number] ChrisyumikoMarily egan Self - patient is the insured [employer] Blue Shield [address] [place] [address] [id number] Marily Llanos Self - patient is the insured Medical (General) History Medical History History ICD Code Arthritis CAD (Cholesterol) Measles Mumps Chicken pox Gall bladder problems High blood pressure Osteoporosis Joint implants/screws Surgical History Surgery Date(Month/Year) gall bladder 1970 right knee replacement 12/2014 left knee replacement 02/2016 cataract surgery 2021 Hospitalization History Reason Date(Month/Year) stroke 05/26/25 [facility] [place] - cat scan and x-ray left knee 01/14
== END 2025-11-15 15:18 | disposition home or self-care (01) ==
LOC: HO.HAP 15:17
PROVIDERS: PCP Internal Medicine; Visit Provider Internal Medicine
DX: Z46.1 Encounter for fitting and adjustment of hearing aid (principal)
CPT/HCPCS: V5267